=== PATIENT | male | born 1960 | race Caucasian/White ===

== ENCOUNTER 2016-10-30 18:51 | Emergency (ER) | payer OTHER ==
[~2016-10-30] VITALS: Ht 175.3 cm; Wt 99.8 kg
[~2016-10-30 18:51] MED LIST: ACHD5005 PO; AMLO10TA2 PO; AMLO2.5T PO; AMLO5TAB4 PO; ASP81TEC PO; ATR20T PO; ATRV10T PO; CEFU250T11 PO; CPR500T PO; DLT240CCR PO; HCT25T PO; HYDR-1231 PO; HYDR-3816 PO; HYDR118S10 PO; HYDR1TAB66 PO; HYDR1TAB8 OP; HYDR25CA92 PO; HYDR25TA4 PO; LEVO500T69 PO; LEVO750T6 PO; LOVA40TA2 PO; METF-478 PO; METF500T4 PO; METH4TAB PO; METO-274 PO; METO100T5 PO; MULT1CAP27 PO; NAPR-243 PO; OMG1KC PO; OXYC-12 PO; VITA200C18 PO
--- OUTSIDE RECORDS SUMMARY | 2016-10-30 18:57 | XMS REPORT | Continuity of Care Document ---
Author Author [facility] Organization [facility] Address Unknown Phone Unavailable Care Team Providers Care Service Director Name Role Phone TASNEEM TILLMAN MD PCP Insurance Providers Payer Name Policy Number Subscriber Name Relationship UMR [id number] Jael Magaña 18 Self / Same As Patient Advance Directives Directive Response Recorded Date/Time Advance Directives No 06/05/16 3:17pm Health Care Power of Cake Mixer No 06/05/16 3:17pm Organ Donor No 06/05/16 3:17pm Resuscitation Status Full Code 06/05/16 3:17pm Problems Active Problems Medical Problem Onset Date Status Fall on same level from slipping Unknown Acute Sprain and strain of foot Unknown Acute contusion of rib Unknown Acute Medications Current Home Medications Medication Dose Units Route Directions Days/Qty Instructions Start Date Aspirin 81 Mg 81 Mg Oral Daily 08/06/11 Hydrochlorothiazide 25 Mg 12.5 Mg Oral Daily 04/11/12 Naproxen 500 Mg 1 Each Oral Twice A Day as needed 06/20/12 Atorvastatin Calcium 20 Mg 1 Each Oral Daily 08/21/13 Amlodipine Besylate 5 Mg Unknown Dose Oral Daily 04/19/15 Metformin Hcl 500 Mg Unknown Dose Oral As Directed 04/19/15 Hydrocodone/Acetaminophen 1 Each 1 Each Oral Every 6 Hours for Pain 04/19/15 Past Home Medications Medication Directions Ordered Status Ciprofloxacin 500 Mg Tablet, 1 Tab Oral Twice A Day 04/29/10 Discontinued Hydrocodone Bitartrate/Ibuprofen 1 Each Tablet, 1 - 2 Each Ophthalmic Q 4 - 6 Hrs Prn 04/29/10 Discontinued Lovastatin (Mevacor) 40 Mg Tablet, 1 Each Oral Daily With Supper 08/06/11 Discontinued Metoprolol Succinate 100 Mg Tab.sr.24h, 100 Mg Oral Twice A Day 08/06/11 Discontinued Vitamin E 200 Unit Capsule, 200 Unit Oral Daily 08/06/11 Discontinued Fish Oil 1,000 Mg Cap, 1000 Mg Oral Daily 08/06/11 Discontinued Multivitamins 1 Each Capsule, 1 Tab Oral Daily 08/06/11 Discontinued Atorvastatin Calcium 10 Mg Tablet, 1 Each Oral Daily 08/06/11 Discontinued Hydrocodone Bit/Acetaminophen 1 Each Tablet, 5 - 500 Mg Oral As Needed Discontinued Atorvastatin Calcium 20 Mg Tablet, 20 Mg Oral Daily 04/12/12 Discontinued Acetaminophen/Hydrocodone Bitart 1 Each Tablet, 1 - 2 Tab Oral Every 4HRS as needed 04/12/12 Discontinued Levofloxacin 500 Mg Tab, 1 Each Oral Daily 04/14/12 Discontinued Cefuroxime Axetil (Ceftin) 250 Mg Tablet, 1 Each Oral Twice A Day 04/14/12 Discontinued Oxycodone Hcl/Acetaminophen 1 Each Tablet, 1 - 2 Each Oral Every 4HRS Discontinued Methylprednisolone 4 Mg/Dose-Pack Tab.ds.pk, 0 Oral As Directed 04/21/12 Discontinued Hydroxyzine Pamoate 25 Mg Capsule, 25 Mg Oral Every 4HRS as needed 04/21/12 Discontinued Diltiazem Hcl 240 Mg Cap.sr.24h, 1 Each Oral Daily 04/21/12 Discontinued Levofloxacin 750 Mg Tablet, 750 Mg Oral 04/21/12 Discontinued Ciprofloxacin 500 Mg Tablet, 1 Tab Oral Twice A Day 06/20/12 Discontinued Acetaminophen/Hydrocodone Bitart 1 Each Tablet, 1 - 2 Each Oral Every 6 Hours as needed 06/20/12 Discontinued Amlodipine Besylate (Norvasc 2.5 Mg) 2.5 Mg Tablet, 1 Each Oral Daily Discontinued Hydrocodone Bit/Acetaminophen 1 Tab Tablet, 1 Tab Oral Every 4HRS as needed for Pain 08/21/13 Discontinued Social History Social History Problem Response Recorded Date/Time Alcohol Use Denies Use 04/19/2015 1:11am Recreational Drug Use No 04/19/2015 1:11am Recent Foreign Travel No 06/05/2016 3:17pm Recent Infectious Disease Exposure No 06/05/2016 3:17pm Smoking Status Never a Smoker 06/05/2016 3:17pm Do you dip or chew tobacco? No 04/19/2015 1:11am Recent Hopitalizations No 06/05/2016 3:17pm Query Response Start Date Stop Date Smoking Status Never a Smoker Hospital Discharge Instructions No hospital discharge instructions. Plan of Care Discharge Date 06/05/16 4:04pm Prescriptions See Medication Section Functional Status No functional status results. Allergies, Adverse Reactions, Alerts No known allergies. Immunizations No immunization records. Vital Signs Acute Vital Signs Vital Response Date/Time Height (Feet) 5 feet 06/05/2016 3:17pm Height (Inches) 9.00 inches 06/05/2016 3:17pm Height (Calculated Centimeters) 175.383944 cm 06/05/2016 3:17pm Weight (Pounds) 215 pounds 06/05/2016 3:17pm Weight (Ounces) 0.0 oz 06/05/2016 3:17pm Weight (Calculated Grams) 56228.36 gm 06/05/2016 3:17pm Weight (Calculated Kilograms) 97.151399 kilograms 06/05/2016 3:17pm Calculated BMI 31.8 06/05/2016 3:17pm Results No known relevant diagnostic tests, laboratory data and/or discharge summary. Procedures No known history of procedures. Encounters Encounter Location Arrival/Admit Date Discharge/Depart Date Attending Provider Departed Clinic [facility] 06/05/16 5:59am 06/05/16 4: 04pm BEBA SEGURA MD
[2016-10-30] MEDS ORDERED: AMLO5TAB4 PO (19:58)
[2016-10-30] MEDS ORDERED: ATOR10TA PO (19:58)
[2016-10-30 20:24] LABS: BILIRUBIN,URINE NEGATIVE (NEGATIVE); KETONES,URINE NEGATIVE (NEGATIVE); LEUKOCYTE ESTERASE ,URINE NEGATIVE (NEGATIVE); NITRITE,URINE NEGATIVE (NEGATIVE); PH,URINE 6 (5-9); PROTEIN,URINE NEGATIVE (NEGATIVE); UROBILINOGEN,URINE NORMAL (NORMAL)
[2016-10-30 21:15] LABS: BASOPHILS % (AUTO) 0 % (0-10); EOSINOPHILS # (AUTO) 0.1 10^3/uL (0.0-0.3); EOSINOPHILS % (AUTO) 1 % (0-10); LYMPHOCYTES # (AUTO) 2.2 X 10^3 (1.0-4.0); LYMPHOCYTES % (AUTO) 31 % (12-44); MEAN CORPUSCULAR HEMOGLOBIN 31 PG (25-34); MEAN CORPUSCULAR HGB CONC 35 G/DL (32-36); MEAN CORPUSCULAR VOLUME 88 FL (80-99); MEAN PLATELET VOLUME 10.7 FL (7.4-10.4); MONOCYTES # (AUTO) 0.8 X 10^3 (0.0-1.0); MONOCYTES % (AUTO) 11 % (0-12); NEUTROPHILS % (AUTO) 57 % (42-75); PLATELET COUNT 205 10^3/uL (130-400); RED BLOOD COUNT 4.91 10^6/uL (4.35-5.85); RED CELL DISTRIBUTION WIDTH 14.4 % (10.0-14.5); WHITE BLOOD COUNT 7.1 10^3/uL (4.3-11.0)
[2016-10-30 21:24] LABS: PROTHROMBIN TIME PATIENT 12.9 SEC (12.2-14.7)
--- NOTE | 2016-10-30 21:25 | Diagnostic Imaging Report ---
INDICATION: Arrhythmia COMPARISONS: 08/21/2013 FINDINGS: Single view of the chest shows the cardiac contour to be normal. No consolidations are seen. There is no effusion or pneumothorax. Soft tissues and bony thorax are normal. IMPRESSION: No acute cardiopulmonary changes. Dictated by: Dictated on workstation # [id number]
[2016-10-30 21:33] LABS: ALANINE AMINOTRANSFERASE 36 U/L (0-55); ALBUMIN 4.1 G/DL (3.2-4.5); ANION GAP 14 MMOL/L (5-14); ASPARTATE AMINO TRANSFERASE 20 U/L (5-34); BILIRUBIN,TOTAL 0.5 MG/DL (0.1-1.0); BLOOD UREA NITROGEN 26 MG/DL (7-18); BUN/CREATININE RATIO 28; CALCIUM 9.3 MG/DL (8.5-10.1); CARBON DIOXIDE 20 MMOL/L (21-32); CHLORIDE 107 MMOL/L (98-107); CREATININE SERUM 0.94 MG/DL (0.60-1.30); GFR ESTIMATED > 60; GLUCOSE 100 MG/DL (70-105); MAGNESIUM 2.5 MG/DL (1.8-2.4); POTASSIUM 3.7 MMOL/L (3.6-5.0); SODIUM 141 MMOL/L (135-145); TOTAL PROTEIN 6.7 G/DL (6.4-8.2)
[2016-10-30 21:42] LABS: MYOGLOBIN SERUM 34.7 NG/ML (10.0-92.0)
--- NOTE | 2016-10-30 22:28 | ED General ---
General Chief Complaint: Back Problems Stated Complaint: BACK PAIN Nursing Triage Note: PT C/O LOW BACK PAIN WITH FREQUENT URINATION TODAY. Nursing Sepsis Screen: No Definite Risk Source of Information: Patient Exam Limitations: No Limitations History of Present Illness Time Seen by Provider: 20:00 Initial Comments This patient presents to emergency room with lower back pain primarily on the left above the SI joint rated as 5/10. He denies any injury or strenuous activity. He also reports urinary frequency and has hesitance. He denies any prior prostate problems. He has to wake 1-2 times in the night to urinate. He has a prior history of renal stones but this does not feel similar. He took ibuprofen 400 mg at home which did not help much. Irregular heart rhythm was noted incidentally on exam. Allergies and Home Medications Allergies Coded Allergies: No Known Drug Allergies (Unverified , 08/06/11) Home Medications Amlodipine Besylate 5 Mg Tablet 5 MG PO DAILY (Reported) Apixaban 5 Mg Tablet #30 5 MG PO BID Prescribed by: TITUS VILLAFANA on 10/30/162237 Aspirin 81 Mg Tabec 81 MG PO DAILY (Reported) Atorvastatin Calcium 10 Mg Tablet 10 MG PO DAILY (Reported) Cyclobenzaprine HCl 10 Mg Tablet #10 10 MG PO HS PRN PRN SPASMS Prescribed by: TITUS VILLAFANA on 10/30/162237 Hydrochlorothiazide 25 Mg Tablet 25 MG PO DAILY (Reported) Metformin HCl 500 Mg Tab.er.24 500 MG PO DAILY (Reported) Metoprolol Succinate 100 Mg Tab.er.24h 100 MG PO DAILY (Reported) Tramadol HCl 50 Mg Tablet #10 50 MG PO Q6H PRN PRN PAIN Prescribed by: TITUS VILLAFANA on 10/30/162237 Constitutional: no symptoms reported EENTM: no symptoms reported Respiratory: no symptoms reported Cardiovascular: see HPI Gastrointestinal: no symptoms reported Genitourinary: see HPI Musculoskeletal: see HPI Skin: no symptoms reported Psychiatric/Neurological: No Symptoms Reported Hematologic/Lymphatic: No Symptoms Reported Past Sqiisms-Uxhonf-Xnqety Hx Patient Social History Alcohol Use: Denies Use Recreational Drug Use: No Smoking Status: Never a Smoker Recent Foreign Travel: No Contact w/Someone Who Travel: No Recent Infectious Disease Expo: No Recent Hopitalizations: No Immunizations Up To Date Tetanus Booster (TDap): More than 5yrs Date of Pneumonia Vaccine: May 31, 2012 Date of Influenza Vaccine: Jun 03, 2016 Seasonal Allergies Seasonal Allergies: Yes Surgeries HX Surgeries: Yes Surgeries: Appendectomy Respiratory Hx Respiratory Disorders: No Respiratory Disorders: Sleep Apnea Cardiovascular Hx Cardiac Disorders: Yes Cardiac Disorders: High Cholesterol, Hypertension Neurological Hx Neurological Disorders: No Reproductive System Hx Reproductive Disorders: No Sexually Transmitted Disease: No HIV/AIDS: No Genitourinary Hx Genitourinary Disorders: Yes Genitourinary Disorders: Renal Failure Gastrointestinal Hx Gastrointestinal Disorders: Yes (hx of polyps) Gastrointestinal Disorders: Polyps Musculoskeletal Hx Musculoskeletal Disorders: No Endocrine Hx Endocrine Disorders: Yes ("PREDIABETIC") Endocrine Disorders: Diabetes, Non-Insulin dep HEENT HX ENT Disorders: No Hearing Impairment: Denies Cancer Hx Cancer: No Psychosocial Hx Psychiatric Problems: No Integumentary HX Skin/Integumentary Disorder: No Blood Transfusions Hx Blood Disorders: No Adverse Reaction to a Blood Tr: No Family Medical History Significant Family History: No Pertinent Family Hx, Heart Disease Physical Exam Vital Signs Vital Sign - Last 12Hours 10/30/16 10/30/16 19:54 22:54 Temp 97.0 Pulse 79 Resp 16 B/P 123/89 Pulse Ox 94 Capillary Refill : Less Than 3 Seconds General Appearance: No Apparent Distress WD/WN HEENT: PERRL/EOMI Normal ENT Inspection Pharynx Normal Neck: Normal Inspection Respiratory: Lungs Clear Normal Breath Sounds No Accessory Muscle Use No Respiratory Distress Cardiovascular: No Edema Irregularly Irregular Gastrointestinal: Normal Bowel Sounds Non Tender Soft Back: Normal Inspection Other (Tenderness over the left SI joint area) Extremity: Normal Inspection No Pedal Edema Neurologic/Psychiatric: Alert Oriented x3 No Motor/Sensory Deficits Normal 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 Norm as Tested Skin: Normal Color Warm/Dry Progress/Results/Core Measures Results/Orders Lab Results Laboratory Tests Test 10/30/16 19:50 10/30/16 21:00 Range/Units Urine Bacteria NONE /HPF Urine Bilirubin NEGATIVE NEGATIVE Urine Casts NONE /LPF Urine Clarity CLEAR Urine Color YELLOW Urine Crystals NONE /LPF Urine Culture Indicated NO Urine Glucose (UA) NEGATIVE NEGATIVE Urine Ketones NEGATIVE NEGATIVE Urine Leukocyte Esterase NEGATIVE NEGATIVE Urine Mucus NEGATIVE /LPF Urine Nitrite NEGATIVE NEGATIVE Urine Protein NEGATIVE NEGATIVE Urine RBC RARE /HPF Urine RBC (Auto) NEGATIVE NEGATIVE Urine Specific [place] 1.015 L 1.016-1.022 Urine Urobilinogen NORMAL NORMAL MG/DL Urine WBC NONE /HPF Urine pH 6 5-9 Activated Partial Thromboplast Time 28 24-35 SEC Alanine Aminotransferase (ALT/SGPT) 36 0-55 U/L Albumin 4.1 3.2-4.5 G/DL Alkaline Phosphatase 85 40-136 U/L Anion Gap 14 5-14 MMOL/L Aspartate Amino Transf (AST/SGOT) 20 5-34 U/L BUN/Creatinine Ratio 28 Basophils # (Auto) 0.0 0.0-0.1 10^3/uL Basophils (%) (Auto) 0 0-10 % Blood Urea Nitrogen 26 H 7-18 MG/DL Calcium Level 9.3 8.5-10.1 MG/DL Carbon Dioxide Level 20 L 21-32 MMOL/L Chloride Level 107 98-107 MMOL/L Creatinine 0.94 0.60-1.30 MG/DL Eosinophils # (Auto) 0.1 0.0-0.3 10^3/uL Eosinophils (%) (Auto) 1 0-10 % Estimat Glomerular Filtration Rate > 60 Glucose Level 100 70-105 MG/DL Hematocrit 43 40-54 % Hemoglobin 15.0 13.3-17.7 G/DL INR Comment 1.0 0.8-1.4 Lymphocytes # (Auto) 2.2 1.0-4.0 X 10^3 Lymphocytes (%) (Auto) 31 12-44 % Magnesium Level 2.5 H 1.8-2.4 MG/DL Mean Corpuscular Hemoglobin 31 25-34 PG Mean Corpuscular Hemoglobin Concent 35 32-36 G/DL Mean Corpuscular Volume 88 80-99 FL Mean Platelet Volume 10.7 H 7.4-10.4 FL Monocytes # (Auto) 0.8 0.0-1.0 X 10^3 Monocytes (%) (Auto) 11 0-12 % Myoglobin 34.7 10.0-92.0 NG/ML Neutrophils # (Auto) 4.0 1.8-7.8 X 10^3 Neutrophils (%) (Auto) 57 42-75 % Platelet Count 205 130-400 10^3/uL Potassium Level 3.7 3.6-5.0 MMOL/L Prothrombin Time 12.9 12.2-14.7 SEC Red Blood Count 4.91 4.35-5.85 10^6/uL Red Cell Distribution Width 14.4 10.0-14.5 % Sodium Level 141 135-145 MMOL/L TSH [place] Testing 2.09 0.35-4.94 UIU/ML Total Bilirubin 0.5 0.1-1.0 MG/DL Total Protein 6.7 6.4-8.2 G/DL Troponin I < 0.30 <0.30 NG/ML White Blood Count 7.1 4.3-11.0 10^3/uL My Orders Orders-TITUS BECKMAN MD Ua Culture If Indicated (10/30/16 20:06) Bladder Scan (10/30/16 20:18) Monitor-Rhythm Ecg Trace Only (10/30/16 20:50) Cbc With Automated Diff (10/30/16 20:53) Magnesium (10/30/16 20:53) Chest 1 View, Ap/Pa Only (10/30/16 20:53) Ekg Tracing (10/30/16 20:53) Cardiac Profile 1 (10/30/16 20:53) Comprehensive Metabolic Panel (10/30/16 20:53) Myoglobin Serum (10/30/16 20:53) Protime With Inr (10/30/16 20:53) Partial Thromboplastin Time (10/30/16 20:53) Saline Lock/Iv-Start (10/30/16 20:53) Thyroid Analyzer (10/30/16 20:53) Apixaban Tablet (Eliquis Tablet) (10/30/16 22:30) Cyclobenzaprine Tablet (Flexeril Tablet) (10/30/16 22:30) Medications Given in ED Current Medications Medications Dose Ordered Sig/Hussain Route Start Time Stop Time Status Last Admin Dose Admin Apixaban 5 mg ONCE ONCE PO 10/30/16 22:30 10/30/16 22:31 DC 10/30/16 22:47 5 MG Cyclobenzaprine HCl 10 mg ONCE ONCE PO 10/30/16 22:30 10/30/16 22:31 DC 10/30/16 22:47 10 MG Vital Signs/I&O Vital Sign - Last 12Hours 10/30/16 22:54 Pulse 75 Resp 16 Pulse Ox 94 Blood Pressure Mean: 100 Progress Note : Progress Note UA and bladder scan were normal. Patient incidentally was diagnosed with new onset atrial fibrillation. Case was reviewed with Dr. Gomez requested that he be started on Eliquis milligrams twice daily. The first dose was administered in the ER. See discharge instructions. ECG Initial ECG Impression Date: Oct 30, 2016 Initial ECG Impression Time: 21:05 Initial ECG Rate: 77 Initial ECG Rhythm: A Fib/Flutter Comment Atrial fibrillation with a rate of 77. No ST elevation or depression. Diagnostic Imaging Diagonstic Imaging: Xray Plain Films/CT/US/NM/MRI: chest Comments Chest x-ray viewed by me and report reviewed. See report below: NAME: JAEL GROSS [facility] REC#: [id number] PT STATUS: REG ER : 1960 PHYSICIAN: TITUS BECKMAN MD ADMIT DATE: 10/30/16/ER Signed Date of Exam: 10/30/16 CHEST 1 VIEW, AP/PA ONLY INDICATION: Arrhythmia COMPARISONS: 08/21/2013 FINDINGS: Single view of the chest shows the cardiac contour to be normal. No consolidations are seen. There is no effusion or pneumothorax. Soft tissues and bony thorax are normal. IMPRESSION: No acute cardiopulmonary changes. Dictated by: Dictated on workstation # [id number] Dict: 10/30/162119 Trans: 10/30/162133 [facility] [id number] Interpreted by: TESFAYE GASCA MD Electronically signed by:TESFAYE GASCA MD 10/30/162135 Departure Impression Impression: Primary Impression: New onset atrial fibrillation Additional Impression: Lower back pain Qualified Code: M54.5 - Low back pain Disposition: 01 HOME, SELF-CARE Condition: Stable Departure-Patient Inst. Decision time for Depature: 22:40 Referrals: ZENAIDA MELENDEZ DO (PCP/Family) Primary Care Physician Patient Instructions: Atrial Fibrillation, Low Back Pain (DC) Add. Discharge Instructions: Take your Eliquis twice daily as prescribed. Call Dr. Gomez's office tomorrow to schedule an appointment. He would like to see you in the office on Thursday. If you have trouble obtaining your medication, you may stop by his office tomorrow for samples. Return to the emergency room if you have any worsening symptoms, symptoms of stroke such as numbness, weakness, or difficulty with speech, or any unusual bleeding. For your lower back pain you may take Tylenol (acetaminophen) up to 1000 mg every 6 hours as needed. Add Ultram as prescribed for pain not controlled by Tylenol. Avoid NSAIDs such as ibuprofen or Aleve while taking Eliquis. Flexeril (cyclobenzaprine) can be used at nighttime to relax her muscles. All discharge instructions reviewed with patient and/or family. Voiced understanding. Scripts Tramadol HCl (Ultram)50 Mg [id number] Mg PO Q6H PRN PAIN #10 TAB Prov:TITUS BECKMAN MD 10/30/16 Cyclobenzaprine HCl 10 Mg [id number] Mg PO HS PRN SPASMS #10 TAB Prov:TITUS BECKMAN MD 10/30/16 Apixaban (Eliquis)5 Mg Tablet5 Mg PO BID #30 TAB Prov:TITUS BECKMAN MD 10/30/16 TITUS BECKMAN MD Oct 30, 2016 22:28
[2016-10-30] MEDS ORDERED: APIXABAN 5 MG (ELIQUIS) TABLET PO ONE (22:30)
[2016-10-30] MEDS ORDERED: CYCLOBENZAPRINE 10 MG (FLEXERIL) TAB PO ONE (22:30)
[2016-10-30] MEDS ORDERED: TRAM-42 PO (22:38)
[2016-10-30] MEDS ORDERED: CYCL10TA9 PO (22:38)
[2016-10-30] MEDS ORDERED: APIX5TAB PO (22:38)
[2016-10-30 22:54] VITALS: BP 135/100
== END 2016-10-30 22:54 | disposition home or self-care (01) ==
LOC: EDUNIT# 18:51 → ER 18:52
DX: M54.5 Low back pain (principal); I48.2 Chronic atrial fibrillation; I10 Essential (primary) hypertension; E11.9 Type 2 diabetes mellitus without complications; Z79.01 Long term (current) use of anticoagulants; Z79.899 Other long term (current) drug therapy; Z79.84 Long term (current) use of oral hypoglycemic drugs
CPT/HCPCS: 36415; 71010; 80053; 81000; 83735; 83874; 84443; 84484; 85025; 85610; 85730; 93005; 93041

== ENCOUNTER 2016-11-02 20:45 | Emergency (ER) | payer OTHER ==
[~2016-11-02] VITALS: Ht 175.3 cm; Wt 99.8 kg
[~2016-11-02 20:45] MED LIST changes: +APIX5TAB PO; +ATOR10TA PO; +CYCL10TA9 PO; +TRAM-42 PO
--- OUTSIDE RECORDS SUMMARY | 2016-11-02 20:52 | XMS REPORT | Continuity of Care Document ---
Author Author [facility] Organization [facility] Address Unknown Phone Unavailable Care Team Providers Care Tester Regulator Name Role Phone ZENAIDA MELENDEZ DO PCP Insurance Providers Payer Name Policy Number Subscriber Name Relationship [employer]MR [id number] Jael Magaña 18 Self / Same As Patient Advance Directives Directive Response Recorded Date/Time Advance Directives No 10/30/16 7:59pm Health Care Power of Leg Man No 10/30/16 7:59pm Organ Donor No 10/30/16 7:59pm Resuscitation Status Full Code 10/30/16 7:59pm Chief Complaint and Reason for Visit Chief Complaint Back Problems Reason for Visit Lower back pain New onset atrial fibrillation Problems Active Problems Medical Problem Onset Date Status Fall on same level from slipping Unknown Acute Lower back pain Unknown Acute New onset atrial fibrillation Unknown Acute Sprain and strain of foot Unknown Acute contusion of rib Unknown Acute Medications Current Home Medications Medication Dose Units Route Directions Days/Qty Instructions Start Date Aspirin 81 Mg 81 Mg Oral Daily 08/06/11 Hydrochlorothiazide 25 Mg 25 Mg Oral Daily 06/09/16 Metformin Hcl 500 Mg 500 Mg Oral Daily 06/09/16 Metoprolol Succinate 100 Mg 100 Mg Oral Daily 06/09/16 Amlodipine Besylate 5 Mg 5 Mg Oral Daily 10/30/16 Atorvastatin Calcium 10 Mg 10 Mg Oral Daily 10/30/16 Apixaban 5 Mg 5 Mg Oral Twice A Day 30 10/30/16 Cyclobenzaprine Hcl 10 Mg 10 Mg Oral Bedtime as needed for Spasms 10/30/16 Tramadol Hcl 50 Mg 50 Mg Oral Every 6 Hours as needed for Pain 10 10/17 Past Home Medications Medication Directions Ordered Status [...] - 500 Mg Oral As Needed Discontinued Hydrochlorothiazide 25 Mg Tab, 12.5 Mg Oral Daily 04/11/12 Discontinued Atorvastatin Calcium 20 Mg Tablet, 20 [...] Every 6 Hours as needed 06/20/12 Discontinued Naproxen 500 Mg Tablet, 1 Each Oral Twice A Day as needed 06/20/12 Discontinued Atorvastatin Calcium 20 Mg Tablet, 1 Each Oral Daily 08/21/13 Discontinued Amlodipine Besylate (Norvasc 2.5 Mg) 2.5 Mg Tablet, 1 Each Oral Daily Discontinued Hydrocodone Bit/Acetaminophen 1 Tab Tablet, 1 Tab Oral Every 4HRS as needed for Pain 08/21/13 Discontinued Amlodipine Besylate 5 Mg Tablet, Unknown Dose Oral Daily 04/19/15 Discontinued Metformin Hcl 500 Mg Tablet, Unknown Dose Oral As Directed 04/19/15 Discontinued Hydrocodone/Acetaminophen 1 Each Tablet, 1 Each Oral Every 6 Hours for Pain 04/19/15 Discontinued Amlodipine Besylate 10 Mg Tablet, 10 Mg Oral Daily 06/09/16 Discontinued Social History Social History Problem Response Recorded Date/Time Alcohol Use Denies Use 04/19/2015 1:11am Recreational Drug Use No 04/19/2015 1:11am Recent Foreign Travel No 10/30/2016 7:54pm Recent Infectious Disease Exposure No 10/30/2016 7:54pm Sexually Transmitted Disease No 10/30/2016 7:59pm HIV/AIDS No 10/30/2016 7:59pm Smoking Status Never a Smoker 10/30/2016 7:59pm Do you dip or chew tobacco? No 04/19/2015 1:11am Recent Hopitalizations No 10/30/2016 7:59pm Sexually Transmitted Disease No 10/30/2016 7:59pm Query Response Start Date Stop Date Smoking Status Never a Smoker Hospital Discharge Instructions No hospital discharge instructions. Plan of Care Discharge Date 10/30/16 10:54pm Disposition 01 HOME, SELF-CARE Condition at Discharge Stable Instructions/Education Provided Atrial Fibrillation Low Back Pain (DC) Prescriptions See Medication Section Referrals ZENAIDA MELENDEZ DO - Primary Care Physician Additional Instructions/Education Take your Eliquis twice daily as prescribed. Call Dr. Gomez's office tomorrow to schedule an appointment. He would like to see you in the office on Thursday. If you have trouble obtaining your medication, you may stop by his office tomorrow for samples. Return to the emergency room if you have any worsening symptoms, symptoms of stroke such as numbness, weakness, or difficulty with speech, or any unusual bleeding. For your lower back pain you may take Tylenol (acetaminophen) up to 1000 mg every 6 hours as needed. Add Ultram as prescribed for pain not controlled by Tylenol. Avoid NSAIDs such as ibuprofen or Aleve while taking Eliquis. Flexeril (cyclobenzaprine) can be used at nighttime to relax her muscles. All discharge instructions reviewed with patient and/or family. Voiced understanding. Functional Status No functional status results. Allergies, Adverse Reactions, Alerts No known allergies. Immunizations No immunization records. Vital Signs Acute Vital Signs Vital Response Date/Time Temperature (Fahrenheit) 97.0 degrees F (97.6 - 99.5) 10/30/2016 7:54pm Temperature (Calculated Celsius) 36.75311 degrees C (36.4 - 37.5) 10/30/2016 7:54pm Pulse Rate (adult) 75 bpm (60 - 90) 10/30/2016 10:54pm Respiratory Rate 16 bpm (12 - 24) 10/30/2016 10:54pm O2 Sat by Pulse Oximetry 94 % (88 - 100) 10/30/2016 10:54pm Blood Pressure 135/100 mm Hg 10/30/2016 10:54pm Blood Pressure Mean 100 mm Hg 10/30/2016 7:54pm Pain Numeric Pain Scale 4 10/30/2016 10:54pm Height (Feet) 5 feet 10/30/2016 7:54pm Height (Inches) 9 inches 10/30/2016 7:54pm Height (Calculated Centimeters) 175.310477 cm 10/30/2016 7:54pm Weight (Pounds) 220 pounds 10/30/2016 7:54pm Weight (Calculated Kilograms) 99.292515 kilograms 10/30/2016 7:54pm Capillary Refill Capillary Refill Less Than 3 Seconds 10/30/2016 7:54pm Height 5 ft 9 in Weight 220 lb Body Mass Index 32.5 kg/m^2 Results Laboratory Results Test Name Result Units Flags Reference Collection Date/Time Result Date/ Time Comments White Blood Count 7.1 10^3/uL 4.3-11.0 10/30/2016 9:00pm 10/30/2016 9: 16pm Red Blood Count 4.91 10^6/uL 4.35-5.85 10/30/2016 9:00pm 10/30/2016 9: 16pm Hemoglobin 15.0 G/DL 13.3-17.7 10/30/2016 9:00pm 10/30/2016 9:16pm Hematocrit 43 % 40-54 10/30/2016 9:00pm 10/30/2016 9:16pm Mean Corpuscular Volume 88 FL 80-99 10/30/2016 9:00pm 10/30/2016 9: 16pm Mean Corpuscular Hemoglobin 31 PG 25-34 10/30/2016 9:00pm 10/30/2016 9: 16pm Mean Corpuscular Hemoglobin Concent 35 G/DL 32-36 10/30/2016 9:00pm 10/2016 9:16pm Red Cell Distribution Width 14.4 % 10.0-14.5 10/30/2016 9:00pm 2016 9:16pm Platelet Count 205 10^3/uL 130-400 10/30/2016 9:00pm 10/30/2016 9:16pm Mean Platelet Volume 10.7 FL H 7.4-10.4 10/30/2016 9:00pm 10/30/2016 9: 16pm Neutrophils (%) (Auto) 57 % 42-75 10/30/2016 9:00pm 10/30/2016 9:16pm Lymphocytes (%) (Auto) 31 % 12-44 10/30/2016 9:00pm 10/30/2016 9:16pm Monocytes (%) (Auto) 11 % 0-12 10/30/2016 9:00pm 10/30/2016 9:16pm Eosinophils (%) (Auto) 1 % 0-10 10/30/2016 9:00pm 10/30/2016 9:16pm Basophils (%) (Auto) 0 % 0-10 10/30/2016 9:00pm 10/30/2016 9:16pm Neutrophils # (Auto) 4.0 X 10^3 1.8-7.8 10/30/2016 9:00pm 10/30/2016 9: 16pm Lymphocytes # (Auto) 2.2 X 10^3 1.0-4.0 10/30/2016 9:00pm 10/30/2016 9: 16pm Monocytes # (Auto) 0.8 X 10^3 0.0-1.0 10/30/2016 9:00pm 10/30/2016 9: 16pm Eosinophils # (Auto) 0.1 10^3/uL 0.0-0.3 10/30/2016 9:00pm 10/30/2016 9 :16pm Basophils # (Auto) 0.0 10^3/uL 0.0-0.1 10/30/2016 9:00pm 10/30/2016 9: 16pm Prothrombin Time 12.9 SEC 12.2-14.7 10/30/2016 9:00pm 10/30/2016 9: 25pm INR Comment 1.0 0.8-1.4 10/30/2016 9:00pm 10/30/2016 9:25pm INTERPRETIVE DATA SUGGESTED THERAPEUTIC RANGE FOR INR'S: VENOUS THROMBOSIS, PULMONARY EMBOLISM, OR PREVENTION OF SYSTEMIC EMBOLISM (EG. IN ATRIAL FIBRILLATION): 2.0 - 3.0 MECHANICAL PROSTHETIC HEART VALVES: 2.5 - 3.5* *NOTE: INR'S UP TO 4.5 MAY BE NECESSARY IN SELECTED GROUPS OF HIGH RISK PATIENTS. [employer] CONSENSUS CONFERENCE ON ANTITHROMBOTIC THERAPY (2000). Activated Partial Thromboplast Time 28 SEC 24-35 10/30/2016 9:00pm 10/2016 9:43pm Urine Color YELLOW 10/30/2016 7:50pm 10/30/2016 8:31pm Urine Clarity CLEAR 10/30/2016 7:50pm 10/30/2016 8:31pm Urine pH 6 5-9 10/30/2016 7:50pm 10/30/2016 8:31pm Urine Specific [place] 1.015 * 1.016-1.022 10/30/2016 7:50pm 2016 8:31pm Urine Protein NEGATIVE NEGATIVE 10/30/2016 7:50pm 10/30/2016 8:31pm Urine Glucose (UA) NEGATIVE NEGATIVE 10/30/2016 7:50pm 10/30/2016 8: 31pm Urine RBC (Auto) NEGATIVE NEGATIVE 10/30/2016 7:50pm 10/30/2016 8: 31pm Urine Ketones NEGATIVE NEGATIVE 10/30/2016 7:50pm 10/30/2016 8:31pm Urine Nitrite NEGATIVE NEGATIVE 10/30/2016 7:50pm 10/30/2016 8:31pm Urine Bilirubin NEGATIVE NEGATIVE 10/30/2016 7:50pm 10/30/2016 8: 31pm Urine Urobilinogen NORMAL MG/DL NORMAL 10/30/2016 7:50pm 10/30/2016 8: 31pm Urine Leukocyte Esterase NEGATIVE NEGATIVE 10/30/2016 7:50pm 2016 8:31pm Urine RBC RARE /HPF 10/30/2016 7:50pm 10/30/2016 8:31pm Urine WBC NONE /HPF 10/30/2016 7:50pm 10/30/2016 8:31pm Urine Bacteria NONE /HPF 10/30/2016 7:50pm 10/30/2016 8:31pm Urine Crystals NONE /LPF 10/30/2016 7:50pm 10/30/2016 8:31pm Urine Casts NONE /LPF 10/30/2016 7:50pm 10/30/2016 8:31pm Urine Mucus NEGATIVE /LPF 10/30/2016 7:50pm 10/30/2016 8:31pm Urine Culture Indicated NO 10/30/2016 7:50pm 10/30/2016 8:31pm Sodium Level 141 MMOL/L 135-145 10/30/2016 9:00pm 10/30/2016 9:38pm Potassium Level 3.7 MMOL/L 3.6-5.0 10/30/2016 9:00pm 10/30/2016 9:38pm Chloride Level 107 MMOL/L 98-107 10/30/2016 9:00pm 10/30/2016 9:38pm Carbon Dioxide Level 20 MMOL/L L 21-32 10/30/2016 9:00pm 10/30/2016 9: 38pm Anion Gap 14 MMOL/L 5-14 10/30/2016 9:00pm 10/30/2016 9:38pm Blood Urea Nitrogen 26 MG/DL H 7-18 10/30/2016 9:00pm 10/30/2016 9:38pm Creatinine 0.94 MG/DL 0.60-1.30 10/30/2016 9:00pm 10/30/2016 9:38pm BUN/Creatinine Ratio 28 10/30/2016 9:00pm 10/30/2016 9:38pm Estimat Glomerular Filtration Rate > 60 10/30/2016 9:00pm 2016 9:38pm GFR INTERPRETIVE DATA UNITS FOR ESTIMATED GFR (eGFR): mL/min/1.73 M2 REFERENCE RANGE FOR ESTIMATED GFR (eGFR) eGFR NORMAL eGFR >60 MODERATELY DECREASED eGFR 30-59 SEVERLY DECREASED eGFR 15-29 KIDNEY FAILURE <15 (OR DIALYSIS) Glucose Level 100 MG/DL 70-105 10/30/2016 9:00pm 10/30/2016 9:38pm Calcium Level 9.3 MG/DL 8.5-10.1 10/30/2016 9:00pm 10/30/2016 9:38pm Magnesium Level 2.5 MG/DL H 1.8-2.4 10/30/2016 9:00pm 10/30/2016 9:38pm Total Bilirubin 0.5 MG/DL 0.1-1.0 10/30/2016 9:00pm 10/30/2016 9:38pm Alkaline Phosphatase 85 U/L 40-136 10/30/2016 9:00pm 10/30/2016 9:38pm Aspartate Amino Transf (AST/SGOT) 20 U/L 5-34 10/30/2016 9:00pm 2016 9:38pm Alanine Aminotransferase (ALT/SGPT) 36 U/L 0-55 10/30/2016 9:00pm 10/30 9:38pm Troponin I < 0.30 NG/ML <0.30 10/30/2016 9:00pm 10/30/2016 9:42pm Myoglobin 34.7 NG/ML 10.0-92.0 10/30/2016 9:00pm 10/30/2016 9:42pm Total Protein 6.7 G/DL 6.4-8.2 10/30/2016 9:00pm 10/30/2016 9:38pm Albumin 4.1 G/DL 3.2-4.5 10/30/2016 9:00pm 10/30/2016 9:38pm TSH [place] Testing 2.09 UIU/ML 0.35-4.94 10/30/2016 9:00pm 10/30/2016 9:54pm Procedures Procedure Status Date Provider(s) Tracing only of electrocardiogram Active 10/30/16 TITUS BECKMAN MD Encounters Encounter Location Arrival/Admit Date Discharge/Depart Date Attending Provider Departed Emergency Room [facility] 10/30/16 6:52pm 10/30 10:54pm TITUS BECKMAN MD Recent Diagnosis
--- NOTE | 2016-11-02 22:08 | ED Back Pain ---
General Chief Complaint: Back Problems Stated Complaint: LOW BACK PAIN Nursing Triage Note: pt seen in ED on for same complaint, reports no relief of lower back pain even with use of Tramadol and Flexeril. Nursing Sepsis Screen: No Definite Risk Source of Information: Patient Exam Limitations: No Limitations History of Present Illness Time Seen by Provider: 22:17 Initial Comments 56-year-old male patient presents to the emergency department complaints of low back pain. Patient was seen in the emergency department on for similar complaints and was incidentally found to have atrial fibrillation. Patient states he is scheduled tomorrow with Dr. Gomez. Patient reports no improvement in low back pain with tramadol and Flexeril. Denies radiation down the legs. Does have pain into the SI region. Patient reports a history of back injury, but denies recent back injury. Patient reports he woke up with the back pain morning. Denies frequency, dysuria, hematuria, abdominal pain, shortness of air, chest pain, numbness, weakness, bowel incontinence, or bladder incontinence. Location: Lumbar Spine, Paraspinous Muscles Timing/Duration: 3-4 Days, Getting Worse Pain/Injury Location: Back Radiation: Other (SI joint bilaterally) Method of Injury: Unknown Modifying Factors: Improves With Immobilization, Worse With Movement, Worse With Pain Medication (no improvement with tramadol and Flexeril), Improves With Other (improved with standing) Associated Symptoms: muscle spasmsNo fever, No weakness, No numbness in legs/ feet, No tingling in legs/feet, No sensory/motor loss, lower back painNo loss of bladder control, No loss of bowel control Allergies and Home Medications Allergies Coded Allergies: No Known Drug Allergies (Unverified , 08/06/11) Home Medications Amlodipine Besylate 5 Mg Tablet 5 MG PO DAILY (Reported) Apixaban 5 Mg Tablet #30 5 MG PO BID Prescribed by: TITUS VILLAFANA on 10/30/162237 Aspirin 81 Mg Tabec 81 MG PO DAILY (Reported) Atorvastatin Calcium 10 Mg Tablet 10 MG PO DAILY (Reported) Cyclobenzaprine HCl 10 Mg Tablet #10 10 MG PO HS PRN PRN SPASMS Prescribed by: TITUS VILLAFANA on 10/30/162237 Hydrochlorothiazide 25 Mg Tablet 25 MG PO DAILY (Reported) Hydrocodone/Acetaminophen 1 Each Tablet #30 1 EACH PO Q4H PRN PRN PAIN Prescribed by: RAHUL SIEGEL on 11/02/162356 Metformin HCl 500 Mg Tab.er.24 500 MG PO DAILY (Reported) Metoprolol Succinate 100 Mg Tab.er.24h 100 MG PO DAILY (Reported) Orphenadrine Citrate 100 Mg Tablet.er #10 100 MG PO BID PRN PRN SPASMS Prescribed by: RAHUL SIEGEL on 11/02/162356 Prednisone 20 Mg Tab #8 40 MG PO DAILY Prescribed by: RAHUL SIEGEL on 11/02/162356 Tramadol HCl 50 Mg Tablet #10 50 MG PO Q6H PRN PRN PAIN Prescribed by: TITUS VILLAFANA on 10/30/162237 Constitutional: No chills, No dizziness, No fever, No malaise EENTM: no symptoms reported Respiratory: No cough, No short of breath Cardiovascular: No chest pain, No syncope Gastrointestinal: No abdominal pain, No constipation, No diarrhea, No hematemesis, No melena, No nausea, No vomiting Genitourinary: No decreased output, No dysuria, No frequency, No hematuria, No pain Musculoskeletal: see HPI back pain joint pain (SI joint bilaterally) muscle pain muscle stiffnessNo neck pain Skin: no symptoms reported Psychiatric/Neurological: Denies Numbness, Denies Paresthesia, Denies Tingling , Denies Weakness All Other Systems Reviewed Negative Unless Noted: Yes (Negative excepted noted.) Past Xalxgtp-Pyopwb-Lsksvn Hx Patient Social History Alcohol Use: Denies Use Recreational Drug Use: No Smoking Status: Never a Smoker 2nd Hand Smoke Exposure: No Recent Foreign Travel: No Contact w/Someone Who Travel: No Recent Infectious Disease Expo: No Recent Hopitalizations: No Immunizations Up To Date Tetanus Booster (TDap): More than 5yrs Date of Pneumonia Vaccine: May 31, 2012 Date of Influenza Vaccine: Jun 03, 2016 Seasonal Allergies Seasonal Allergies: Yes Surgeries HX Surgeries: Yes Surgeries: Appendectomy Respiratory Hx Respiratory Disorders: No Respiratory Disorders: Sleep Apnea Cardiovascular Hx Cardiac Disorders: Yes Cardiac Disorders: High Cholesterol, Hypertension Neurological Hx Neurological Disorders: No Reproductive System Hx Reproductive Disorders: No Sexually Transmitted Disease: No HIV/AIDS: No Genitourinary Hx Genitourinary Disorders: Yes Genitourinary Disorders: Renal Failure Gastrointestinal Hx Gastrointestinal Disorders: Yes (hx of polyps) Gastrointestinal Disorders: Polyps Musculoskeletal Hx Musculoskeletal Disorders: No Endocrine Hx Endocrine Disorders: Yes ("PREDIABETIC") Endocrine Disorders: Diabetes, Non-Insulin dep HEENT HX ENT Disorders: No Hearing Impairment: Denies Cancer Hx Cancer: No Psychosocial Hx Psychiatric Problems: No Integumentary HX Skin/Integumentary Disorder: No Blood Transfusions Hx Blood Disorders: No Adverse Reaction to a Blood Tr: No Reviewed Nursing Assessment Reviewed/Agree w Nursing PMH: Yes Family Medical History Significant Family History: No Pertinent Family Hx, Heart Disease Physical Exam Vital Signs Vital Sign - Last 12Hours 11/02/16 21:20 Temp 98.1 Pulse 81 Resp 18 B/P 138/96 Pulse Ox 96 O2 Delivery Room Air Capillary Refill : Less Than 3 Seconds General Appearance: No Apparent Distress WD/WN Cardiovascular: No Murmur Irregularly Irregular Respiratory: Lungs Clear Normal Breath Sounds No Respiratory Distress Gastrointestinal: Normal Bowel Sounds No Organomegaly No Pulsatile Mass Non Tender SoftNo Distended Back: Decreased Range of Motion Muscle Spasm (low back) Vertebral Tenderness ( lower lumbar spine and bilateral SI joints.) Extremity: Normal Capillary Refill Normal Inspection Normal Range of Motion Non Tender Neurologic/Psychiatric: Alert Oriented x3 No Motor/Sensory Deficits Normal Mood/Affect Skin: Normal Color Warm/Dry Progress/Results/Core Measures Results/Orders My Orders Orders-RAHUL SIEGEL Ct Lumbar Spine Wo (11/02/16 22:25) Morphine Injection (Morphine Injection (11/02/16 22:25) Orphenadrine Injection (Norflex Injectio (11/02/16 22:25) Prednisone Tablet (Deltasone Tablet) (11/02/16 22:30) Oxycodone/Apap 5/325mg Tablet (Percocet (11/02/16 23:30) Rx-Acetaminophen/Codeine (Rx-Tylenol #3) (11/03/16 00:15) Rx-Acetaminophen/Codeine (Rx-Tylenol #3) (11/03/16 00:00) Medications Given in ED Current Medications Medications Dose Ordered Sig/Hussain Route Start Time Stop Time Status Last Admin Dose Admin Prednisone 40 mg ONCE ONCE PO 11/02/16 22:30 11/02/16 22:31 DC 11/02/16 22:38 40 MG Vital Signs/I&O Vital Sign - Last 12Hours 11/02/16 11/03/16 21:20 00:12 Temp 98.1 Pulse 81 81 Resp 18 20 B/P 138/96 Pulse Ox 96 97 O2 Delivery Room Air Blood Pressure Mean: 110 Diagnostic Imaging Diagonstic Imaging: CT Plain Films/CT/US/NM/MRI: other (lumbar spine) Comments Multilevel degenerative changes of the lumbar spine. L2-L3 shows minimal retrolisthesis of L2 on L3 and posterior disc bulge causes mild canal narrowing. L3-L4 shows small posterior disc bulging and facet arthropathy that causes mild canal and foraminal narrowing. L4-L5 shows posterior disc bulge and facet arthropathy/ligament is hypertrophied causing moderate right foraminal narrowing, mild left foraminal narrowing, and mild canal narrowing. L5-S1 show severe disc space narrowing with vacuum disc phenomenon and mild endplate sclerosis. Posterior disc/osteophyte complex and facet arthropathy causing mild to moderate bilateral foraminal narrowing. Incidental mild atherosclerotic calcifications of the aorta noted. Reviewed: Other (statrad report reviewed by me. ) Departure Communication Progress Notes Diagnostic findings discussed with the patient. Patient did require Norflex, morphine, and Percocet in the emergency department with improvement in symptoms. Patient was given a take-home pack of Tylenol 3 to use until he could fill his prescriptions tomorrow morning at the pharmacy. Patient given prescriptions for Norflex, prednisone, and hydrocodone. Patient instructed to follow-up with the sports specialist of his choice for recheck, finalize radiology report, and possible need of MRI of the lumbar spine. Patient states he would like to follow-up with Dr. Trejo for further evaluation and management. Patient also instructed to follow-up with Dr. Gomez as previously scheduled tomorrow for recheck and discussion of the mild atherosclerotic calcifications of the aorta. All return precautions were discussed with the patient as described in the discharge instructions of this report. Patient voices understanding and agrees with the treatment plan. Patient case discussed with attending MD Seda; he agrees with the plan of care. Impression Impression: Primary Impression: Degenerative disc disease, lumbar Additional Impressions: Bulging lumbar disc Spinal stenosis, lumbar region Disposition: 01 HOME, SELF-CARE Condition: Improved Departure-Patient Inst. Decision time for Depature: 23:55 Referrals: ELVIRA SARMIENTO BRIAN J MD SULLIVAN, WILLIAM J DO (PCP/Family) Primary Care Physician Patient Instructions: Degenerative Disc Disease (DC), Low Back Pain (DC), Spinal Stenosis (DC) Add. Discharge Instructions: All discharge instructions reviewed with patient and/or family. Voiced understanding. Medications as instructed. Do not use tramadol with hydrocodone. Do not use Flexeril/cyclobenzaprine with Norflex. Heating pad or pack as needed for pain. No lifting, pushing, pulling, twisting, bending, or climbing 7-10 days. Follow-up with Dr. Melendez or Dr. Trejo for recheck, finalized lumbar spine CT report, and possible need for outpatient MRI of the back. Call for appointment time tomorrow morning. Return to the emergency department for worsened pain, numbness, weakness, bowel incontinence, bladder incontinence, erectile dysfunction, or any other concerns. 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 Copy Copies To 1: QUINTEN TREJO MD; MARIO GOMEZ MD; ZENAIDA MELENDEZ DO RAHUL SIEGEL Nov 02, 2016 22:08
[2016-11-02] MEDS ORDERED: morphine INJ 10 MG/ML 1ML (SYR OR VIAL) IM STA (22:25)
[2016-11-02] MEDS ORDERED: ORPHENADRINE 60 MG/2 ML (NORFLEX) AMP IM STA (22:25)
[2016-11-02] MEDS ORDERED: predniSONE 20 MG TAB PO ONE (22:30)
[2016-11-02] MEDS ORDERED: oxyCODONE/APAP 5/325MG (PERCOCET 5) TABLET PO STA (23:30)
[2016-11-02] MEDS ORDERED: ORPH100T PO (23:57)
[2016-11-02] MEDS ORDERED: HYDR-3820 PO (23:57)
[2016-11-02] MEDS ORDERED: PRD20T PO (23:57)
[2016-11-03] MEDS ORDERED: RX-ACETAMINOPHEN/CODEINE TAB PPK #4 ONE
[2016-11-03 00:12] VITALS: BP 130/70
[2016-11-03] MEDS ORDERED: RX-ACETAMINOPHEN/CODEINE TAB PPK #4 PO SCH (00:15)
--- NOTE | 2016-11-03 07:05 | Diagnostic Imaging Report ---
PROCEDURE: CT lumbar spine without contrast. TECHNIQUE: Multiple contiguous axial images were obtained through the lumbar spine without the use of intravenous contrast. Sagittal and coronal reformations were then performed. INDICATION: Back pain with no known discrete injury. FINDINGS: No endplate destruction or fracture deformity. There is minute retrolisthesis L1 on L2 and L2 on L3 grade 1 of 1 to 2 mm. No defect in the pedicle or pars. There is degenerative disc space narrowing, endplate sclerosis, osteophytes and facet arthrosis throughout the lumbar spine findings most advanced at the L5-S1 level. No paravertebral mass, hemorrhage, or fluid collection. Probable stone within the left renal lower pole calyx partly included in the [id number]-ty-smua with no visualized hydronephrosis. Mild canal and [id number] bi-foraminal stenosis at L4-L5 present. At L5-S1, there is mild canal and at least moderate severities of right greater than left foraminal stenoses. IMPRESSION: No fracture, bony destruction or acute spinal pathology. Spondylosis and facet arthrosis with chronic lower lumbar stenoses. Probable left renal calculus partly included [id number]. Slight grade 1 degenerative listhesis. Dictated by: Dictated on workstation # [id number]
== END 2016-11-03 00:10 | disposition home or self-care (01) ==
LOC: EDUNIT# 20:45 → ER 20:48
DX: M51.26 Other intervertebral disc displacement, lumbar region (principal); M47.816 Spondylosis without myelopathy or radiculopathy, lumbar region; M48.06 Spinal stenosis, lumbar region; I10 Essential (primary) hypertension; E11.9 Type 2 diabetes mellitus without complications; Z79.84 Long term (current) use of oral hypoglycemic drugs; Z79.899 Other long term (current) drug therapy; Z79.82 Long term (current) use of aspirin
CPT/HCPCS: 72131; 96372; 99283

== ENCOUNTER → 2016-11-04 | Outpatient (CLI) | payer OTHER ==
[~2016-11-04] VITALS: Ht 175.3 cm; Wt 103.4 kg
[~2016-11-04] MED LIST changes: +AMIO200T2 PO; +ATOR20TA66 PO; +CATHETER FLUSH 10 ML SYR IV PRN; +HYDR-3820 PO; +KRIL1CAP15 PO; +L.AC1CAP6 PO; +METO100T2 PO; +MULT1TAB69 PO; +OMEG-160 PO; +ORPH100T PO; +POTA99TA7 PO; +PRD20T PO; +REGADENOSON 0.4 MG/5 ML SYR (LEXISCAN) IV ONE; +TRAM50TA2 PO; +UBID200C16 PO
--- OUTSIDE RECORDS SUMMARY | 2016-11-04 06:46 | XMS REPORT | Continuity of Care Document ---
Author Author [facility] Organization [facility] Address Unknown Phone Unavailable Care Team Providers Care Admitting Representative Name Role Phone ZENAIDA MELENDEZ DO PCP Insurance Providers Payer Name Policy Number Subscriber Name Relationship UMR [id number] Jael Magaña 18 Self / Same As Patient Advance Directives Directive Response Recorded Date/Time Advance Directives No 10/30/16 7:59pm Health Care Power of Manager Retail Sales No 10/30/16 7:59pm Organ Donor No 10/30/16 [...] - 99.5) 10/30/2016 7:54pm Temperature (Calculated Celsius) 36.38168 degrees C (36.4 - 37.5) 10/30/2016 7:54pm [...] 9 inches 10/30/2016 7:54pm Height (Calculated Centimeters) 175.784681 cm 10/30/2016 7:54pm Weight (Pounds) 220 pounds 10/30/2016 7:54pm Weight (Calculated Kilograms) 99.688715 kilograms 10/30/2016 7:54pm Capillary Refill Capillary Refill [...] SELECTED GROUPS OF HIGH RISK PATIENTS. SIX[employer] [place] [employer] OF CHEST PH[employer]IANS CONSENSUS CONFERENCE ON ANTITHROMBOTIC THERAPY (2000). Activated Partial Thromboplast Time 28 SEC 24-35 10/30/2016 9:00pm 10/2016 9:43pm Urine Color YELLOW 10/30/2016 7:50pm 10/30/2016 8:31pm Urine Clarity CLEAR 10/30/2016 7:50pm 10/30/2016 8:31pm Urine pH 6 5-9 10/30/2016 7:50pm 10/30/2016 8:31pm Urine Specific [place] 1.015 * 1.016-1.022 10/30/2016 7:50pm 2016 8:31pm [...] G/DL 3.2-4.5 10/30/2016 9:00pm 10/30/2016 9:38pm TSH [place] Testing 2.09 UIU/ML 0.35-4.94 10/30/2016 9:00pm 10/30/2016 9:54pm Procedures Procedure Status Date Provider(s) Tracing only of electrocardiogram Active 10/30/16 TITUS BECKMAN MD Encounters Encounter Location Arrival/Admit Date Discharge/Depart Date Attending Provider Departed Emergency Room [facility] 10/30/16 6:52pm 10/30 10:54pm TITUS BECKMAN MD Recent Diagnosis
[2016-11-04 07:54] VITALS: BP 124/94
--- NOTE | 2016-11-05 07:55 | STRESS TEST ---
PROCEDURE PHYSICIAN: MARIO GOODE DATE OF PROCEDURE: 11/04/2016 LEXISCAN MYOVIEW STRESS TEST REPORT: REFERRING PHYSICIAN: Dr. Hughes BASELINE HEART RATE: 93 BASELINE BLOOD PRESSURE: 125/94 BASELINE EKG: Atrial fibrillation with controlled rate. IN SUMMARY: The patient was injected with 10.4 mCi of technetium 99 Myoview and the resting images were obtained. Then he received 0.4 mg of Lexiscan followed by 33 mCi of technetium 99 Myoview. Throughout the test, there were no EKG changes. The patient had mild shortness of breath. The resting and stress images were reviewed and compared in the short axis, horizontal long axis, and vertical long axis views. Review of the images showed reversible ischemia involving the whole anterior wall, anterolateral segment. SSS is 11, SDS 2, TID value 1.06. On the gated images, the left ventricle appeared to be normal size with normal contractility. Calculated ejection fraction 74%. Gated images are unreliable due to underlying atrial fibrillation. IN CONCLUSION: 1. The patient tolerated Lexiscan well. 2. Baseline atrial fibrillation persisted throughout test. 3. Mild ischemia involving the whole anterior wall and anterolateral wall. 4. Normal left ventricular size with normal contractility. Calculated ejection fraction 74%. Gated images are unreliable due to underlying atrial fibrillation. Job ID: [id number] Dictated Date: 11/04/2016 15:57:44 Dental Practice Manager Date: 11/05/2016 07:53:30 / marquise
== END ==
LOC: CARD 06:42
PROVIDERS: ATTEND Internal Medicine Cardiovascular Disease
DX: E78.5 Hyperlipidemia, unspecified (principal); I10 Essential (primary) hypertension; G47.33 Obstructive sleep apnea (adult) (pediatric); I48.0 Paroxysmal atrial fibrillation
CPT/HCPCS: 78452; 93017

== ENCOUNTER 2016-11-05 08:54 | Inpatient (IN) | payer OTHER ==
[~2016-11-05] VITALS: Ht 175.3 cm; Wt 101.7 kg
[2016-11-05] VITALS (7 sets, daily range): BP systolic 117–139; BP diastolic 91–102
[~2016-11-05 08:54] MED LIST changes: -AMIO200T2 PO; -ATOR20TA66 PO; -CATHETER FLUSH 10 ML SYR IV PRN; -KRIL1CAP15 PO; -L.AC1CAP6 PO; -METO100T2 PO; -MULT1TAB69 PO; -OMEG-160 PO; -POTA99TA7 PO; -REGADENOSON 0.4 MG/5 ML SYR (LEXISCAN) IV ONE; -TRAM50TA2 PO; -UBID200C16 PO
--- OUTSIDE RECORDS SUMMARY | 2016-11-05 08:57 | XMS REPORT | Continuity of Care Document ---
Author Author [facility] Organization [facility] Address Unknown Phone Unavailable Care Team Providers Care Senior Android Developer Name Role Phone ZENAIDA MELENDEZ DO PCP Insurance Providers Payer Name Policy Number Subscriber Name Relationship UMR [id number] Jael Magaña 18 Self / Same As Patient Advance Directives Directive Response Recorded Date/Time Advance Directives No 10/30/16 7:59pm Health Care Power of Microsoft Solutions Architect No 10/30/16 7:59pm Organ Donor No 10/30/16 [...] - 99.5) 10/30/2016 7:54pm Temperature (Calculated Celsius) 36.29334 degrees C (36.4 - 37.5) 10/30/2016 7:54pm [...] 9 inches 10/30/2016 7:54pm Height (Calculated Centimeters) 175.299054 cm 10/30/2016 7:54pm Weight (Pounds) 220 pounds 10/30/2016 7:54pm Weight (Calculated Kilograms) 99.788933 kilograms 10/30/2016 7:54pm Capillary Refill Capillary Refill [...] SELECTED GROUPS OF HIGH RISK PATIENTS. SIXTH [place] [employer] CHEST PH[employer]ICIANS CONSENSUS CONFERENCE ON ANTITHROMBOTIC THERAPY (2000). Activated Partial Thromboplast Time 28 SEC 24-35 10/30/2016 9:00pm 10/2016 9:43pm Urine Color YELLOW 10/30/2016 7:50pm 10/30/2016 8:31pm Urine Clarity CLEAR 10/30/2016 7:50pm 10/30/2016 8:31pm Urine pH 6 5-9 10/30/2016 7:50pm 10/30/2016 8:31pm Urine Specific [place] 1.015 * 1.016-1.022 10/30/2016 7:50pm 2016 8:31pm [...] G/DL 3.2-4.5 10/30/2016 9:00pm 10/30/2016 9:38pm TSH [place] Testing 2.09 UIU/ML 0.35-4.94 10/30/2016 9:00pm 10/30/2016 9:54pm Procedures Procedure Status Date Provider(s) Tracing only of electrocardiogram Active 10/30/16 TITUS BECKMAN MD Encounters Encounter Location Arrival/Admit Date Discharge/Depart Date Attending Provider Departed Emergency Room [facility] 10/30/16 6:52pm 10/30 10:54pm TITUS BECKMAN MD Recent Diagnosis
--- OUTSIDE RECORDS SUMMARY | 2016-11-05 08:58 | XMS REPORT | Continuity of Care Document ---
Author Author [facility] Organization [facility] Address Unknown Phone Unavailable Care Team Providers Care Banking And Finance Instructor Name Role Phone ZENAIDA MELENDEZ DO PCP Insurance Providers Payer Name Policy Number Subscriber Name Relationship UMR [id number] Jael Magaña 18 Self / Same As Patient Advance Directives Directive Response Recorded Date/Time Advance Directives No 10/30/16 7:59pm Health Care Power of Sausage Inspector No 10/30/16 7:59pm Organ Donor No 10/30/16 [...] - 99.5) 10/30/2016 7:54pm Temperature (Calculated Celsius) 36.35080 degrees C (36.4 - 37.5) 10/30/2016 7:54pm [...] 9 inches 10/30/2016 7:54pm Height (Calculated Centimeters) 175.721848 cm 10/30/2016 7:54pm Weight (Pounds) 220 pounds 10/30/2016 7:54pm Weight (Calculated Kilograms) 99.427696 kilograms 10/30/2016 7:54pm Capillary Refill Capillary Refill [...] SELECTED GROUPS OF HIGH RISK PATIENTS. SIXTH [place] [employer] CHEST PH[employer]ICIANS CONSENSUS CONFERENCE ON ANTITHROMBOTIC THERAPY (2000). Activated Partial Thromboplast Time 28 SEC 24-35 10/30/2016 9:00pm 10/2016 9:43pm Urine Color YELLOW 10/30/2016 7:50pm 10/30/2016 8:31pm Urine Clarity CLEAR 10/30/2016 7:50pm 10/30/2016 8:31pm Urine pH 6 5-9 10/30/2016 7:50pm 10/30/2016 8:31pm Urine Specific [place] 1.015 * 1.016-1.022 10/30/2016 7:50pm 2016 8:31pm [...] G/DL 3.2-4.5 10/30/2016 9:00pm 10/30/2016 9:38pm TSH [place] Testing 2.09 UIU/ML 0.35-4.94 10/30/2016 9:00pm 10/30/2016 9:54pm Procedures Procedure Status Date Provider(s) Tracing only of electrocardiogram Active 10/30/16 TITUS BECKMAN MD Encounters Encounter Location Arrival/Admit Date Discharge/Depart Date Attending Provider Departed Emergency Room [facility] 10/30/16 6:52pm 10/30 10:54pm TITUS BECKMAN MD Recent Diagnosis
[2016-11-05] MEDS ORDERED: NS IV 1000 ML 1,000 ML ONE (10:04)
[2016-11-05] MEDS ORDERED: LIDOCAINE 2% VISCOUS 15 ML UDC ONE (10:04)
[2016-11-05] MEDS ORDERED: LIDOCAINE 1% INJ 20 ML (XYLOCAINE) VIAL ONE ×2 (10:04→15:08)
[2016-11-05] MEDS ORDERED: HEParin (CATH LAB) 2,000 ML IV ONE (10:04)
[2016-11-05] MEDS ORDERED: NS IV 1000 ML 1,000 ML IV SCH (10:09)
[2016-11-05 10:28] LABS: MEAN PLATELET VOLUME 10.6 FL (7.4-10.4); RED BLOOD COUNT 5.21 10^6/uL (4.35-5.85); WHITE BLOOD COUNT 8.6 10^3/uL (4.3-11.0)
[2016-11-05 10:38] LABS: INR 1.1 (0.8-1.4); PROTHROMBIN TIME PATIENT 13.7 SEC (12.2-14.7)
--- NOTE | 2016-11-05 10:44 | Diagnostic Imaging Report ---
INDICATION: Coronary artery disease COMPARISON: 10/30/2016 FINDINGS: Heart size and configuration normal. There is no vascular congestion, edema, pneumonia, effusion or pneumothorax. IMPRESSION: No acute appearing abnormality. Dictated by: Dictated on workstation # [id number]
[2016-11-05 10:46] LABS: ALANINE AMINOTRANSFERASE 41 U/L (0-55); ALBUMIN 4.4 G/DL (3.2-4.5); ANION GAP 12 MMOL/L (5-14); ASPARTATE AMINO TRANSFERASE 21 U/L (5-34); BLOOD UREA NITROGEN 16 MG/DL (7-18); BUN/CREATININE RATIO 16; CALCIUM 9.2 MG/DL (8.5-10.1); CARBON DIOXIDE 24 MMOL/L (21-32); CHLORIDE 105 MMOL/L (98-107); CHOLESTEROL 163 MG/DL (< 200); CREATININE SERUM 1.03 MG/DL (0.60-1.30); DIRECT LDL 93 MG/DL (1-129); GFR ESTIMATED > 60; GLUCOSE 96 MG/DL (70-105); POTASSIUM 3.5 MMOL/L (3.6-5.0); SODIUM 141 MMOL/L (135-145); TOTAL PROTEIN 7.2 G/DL (6.4-8.2); TRIGLYCERIDES 200 MG/DL (<150); VLDL CHOLESTEROL 40 MG/DL (5-40)
[2016-11-05] MEDS ORDERED: OMEG-160 PO (11:02)
[2016-11-05] MEDS ORDERED: ATOR20TA66 PO (11:02)
[2016-11-05] MEDS ORDERED: L.AC1CAP6 PO (11:02)
[2016-11-05] MEDS ORDERED: POTA99TA7 PO (11:02)
[2016-11-05] MEDS ORDERED: METO100T2 PO (11:02)
[2016-11-05] MEDS ORDERED: HYDR-3820 PO (11:02)
[2016-11-05] MEDS ORDERED: MULT1TAB69 PO (11:02)
[2016-11-05] MEDS ORDERED: AMLO10TA2 PO (11:02)
[2016-11-05] MEDS ORDERED: APIX5TAB PO (11:02)
[2016-11-05] MEDS ORDERED: ORPH100T PO (11:02)
[2016-11-05] MEDS ORDERED: TRAM50TA2 PO (11:02)
[2016-11-05] MEDS ORDERED: KRIL1CAP15 PO (11:02)
[2016-11-05] MEDS ORDERED: CYCL10TA9 PO (11:02)
[2016-11-05] MEDS ORDERED: UBID200C16 PO (11:11)
--- NOTE | 2016-11-05 12:30 | Cardiac Procedure Note-CS/ASA ---
Pre-Procedure Note Pre-Op Procedure Note H&P Reviewed The H&P was reviewed, patient examined and no changes noted. Date H&P Reviewed: Nov 05, 2016 Time H&P Reviewed: 12:30 Conscious Sedation Pre-Proced Time Reviewed: 12:30 ASA Class: 3 Airway Mallampati Classification: ([place] appropriate class) I. II. III, IV Lungs Heart ASA score ASA 1: a normal healthy patient ASA 2: a patient with a mild systemic disease (mid diabetes, controlled hypertension, obesity x ASA 3: a patient with a severe systemic disease that limits activity (angina , COPD, prior Myocardial infarction) ASA 4: a patient with an incapacitating disease that is a constant threat to life (CHF, renal failure) ASA 5: a moribund patient not expected to survive 24 hrs. (ruptured aneurysm) ASA 6: a declared brain patient whose organs are being harvested. For emergent operations, add the letter E after the classification Grade 3 Sedation Plan: Analgesia, Amnesia, Plan communicated to team members, Discussed options with patient/fam, Discussed risks with patient/fam Note The patient is an appropriate candidate to undergo the planned procedure, sedation, and anesthesia. The patient immediately re-assessed prior to indication. MARIO GOODE MD Nov 05, 2016 12:30
[2016-11-05] MEDS ORDERED: fentaNYL INJECTION 100 MCG/2 ML AMP ONE (13:49)
[2016-11-05] MEDS ORDERED: MIDAZOLAM 5 MG/5 ML (VERSED) VIAL ONE (13:49)
[2016-11-05] MEDS ORDERED: HEParin 1000 UNIT/ML (10ML VIAL) FOR BOLUS ONE (13:49)
[2016-11-05] MEDS ORDERED: proPOfol 200 MG/20 ML (DIPRIVAN) VIAL IV ONE ×2 (13:49→14:43)
[2016-11-05] MEDS ORDERED: NITROGLYCERIN DRIP 25 MG/D5W 0 ML IV ONE (13:50)
[2016-11-05] MEDS ORDERED: VERAPAMIL 5 MG/2 ML (CALAN) VIAL IV ONE (13:50)
--- NOTE | 2016-11-05 14:53 | Progress Note-Standard ---
Standard Progress Note Progress Notes/Assess & Plan Progress/Assessment & Plan Anesthesia Note ([id number]) Called to cathode builder for MAC for JANEE/Cardioversion. Versed 2 mg IV and Propofol 120 mg IV in divided doses given for sedation for procedure. SpO2 remained 100% throughout procedure and +EtCO2 throughout. O2 via NC. VSS throughout. Pt tolerated the procedure well. Attempted cardioversion x 2 without return to sinus rhythm. Will attempt cardioversion again tomorrow per Dr Gomez. Will be available tomorrow and as needed. COMFORT CORDERO DO Nov 05, 2016 14:52
[2016-11-05] MEDS: NS IV 1000 ML 1,000 ML IV SCH ×2 (15:34→19:50)
[2016-11-05] MEDS ORDERED: AMIODARONE FOR BOLUS 300 MG in D5W 100 ML IVPB 100 ML IV ONE (15:45)
[2016-11-05] MEDS ORDERED: HYDROcodone/APAP 10 MG/325 MG (LORTAB) TAB PO PRN (15:45)
[2016-11-05] MEDS ORDERED: PATIENT MAY USE OWN MEDS, ALL PO SCH (15:45)
[2016-11-05] MEDS ORDERED: NON-FORMULARY MEDICATION 1 EA EA (Orphenadrine Citrate 100 MG) PO PRN (15:45)
[2016-11-05] MEDS ORDERED: CYCLOBENZAPRINE 10 MG (FLEXERIL) TAB PO PRN (15:45)
[2016-11-05] MEDS ORDERED: AMIODARONE 150 MG/3 ML (CORDARONE) AMP IV ONE (16:07)
[2016-11-05] MEDS ORDERED: D5W 100 ML IVPB 100 ML IV ONE (16:10)
[2016-11-05] MEDS ORDERED: NON-FORMULARY MEDICATION 1 EA EA (Potassium 99 MG) PO SCH (16:30)
[2016-11-05] MEDS: AMIODARONE IV SOLUTION 200 ML IV SCH ×2 (16:36→22:31)
[2016-11-05] MEDS: MULTIVIT W/MINERALS TAB (THERAGRAN M) PO SCH (18:10)
[2016-11-05] MEDS: LACTOBACILLUS Acidoph/Bulgar (LACTINEX/FLORANEX) TAB PO SCH (18:15)
[2016-11-05] MEDS: OMEGA 3 (FISH OIL) 1000 MG CAP PO SCH (18:15)
[2016-11-05] MEDS ORDERED: amLODIPine 10 MG (NORVASC) TAB PO SCH (21:00)
[2016-11-05] MEDS ORDERED: ATORVASTATIN 10 MG (LIPITOR) TABLET PO SCH (21:00)
[2016-11-05] MEDS: APIXABAN 5 MG (ELIQUIS) TABLET PO SCH (21:30)
[2016-11-06] VITALS (15 sets, daily range): BP systolic 108–143; BP diastolic 75–109
[2016-11-06 04:27] LABS: RED BLOOD COUNT 4.77 10^6/uL (4.35-5.85); RED CELL DISTRIBUTION WIDTH 13.8 % (10.0-14.5); WHITE BLOOD COUNT 7.1 10^3/uL (4.3-11.0)
[2016-11-06 04:48] LABS: ALANINE AMINOTRANSFERASE 30 U/L (0-55); ALBUMIN 3.7 G/DL (3.2-4.5); ANION GAP 11 MMOL/L (5-14); ASPARTATE AMINO TRANSFERASE 16 U/L (5-34); BILIRUBIN,TOTAL 0.7 MG/DL (0.1-1.0); BLOOD UREA NITROGEN 12 MG/DL (7-18); BUN/CREATININE RATIO 15; CALCIUM 8.3 MG/DL (8.5-10.1); CARBON DIOXIDE 20 MMOL/L (21-32); CHLORIDE 107 MMOL/L (98-107); CREATININE SERUM 0.81 MG/DL (0.60-1.30); GFR ESTIMATED > 60; GLUCOSE 98 MG/DL (70-105); POTASSIUM 3.3 MMOL/L (3.6-5.0); SODIUM 138 MMOL/L (135-145)
[2016-11-06 05:11] LABS: THYROID STIMULATING HORMONE 1.89 UIU/ML (0.35-4.94)
[2016-11-06] MEDS: POTASSIUM CL 10MEQ/50ML IVPB 50 ML IV SCH ×4 (05:23→08:24)
[2016-11-06] MEDS: NS IV 1000 ML 1,000 ML IV SCH (05:59)
[2016-11-06] MEDS ORDERED: MAGNESIUM 1 GM/100 ML IVPB 100 ML IV SCH (06:00)
[2016-11-06] MEDS ORDERED: KCL 20 MEQ TAB (K-DUR) PO SCH (06:00)
[2016-11-06] MEDS ORDERED: POTASSIUM CL 10MEQ/50ML IVPB 50 ML IV SCH (06:00)
--- NOTE | 2016-11-06 07:49 | TEE REPORT ---
DATE OF PROCEDURE: 11/05/2016 JANEE WITH ELECTRICAL CARDIOVERSION REPORT: REFERRING PHYSICIAN: Dr. Joe Hughes BRIEF HISTORY: Mr. Magaña is a 56-year-old gentleman diagnosed with atrial fibrillation. He had an abnormal stress test. He was scheduled for JANEE and electrical cardioversion. PROCEDURE NOTE: After explaining the procedure to the patient, all pros and cons were explained. All questions were answered. The patient signed a consent, then he was placed in the left lateral decubitus position. Oropharynx was anesthetized using Cetacaine spray. Conscious sedation achieved with the assistance of anesthesia. Omniplane probe was through the mouth to the esophagus then to the stomach, multiple views were obtained. At the end of the procedure, Omniplane probe was removed. No complication noted. FINDINGS: 1. The left ventricle is normal in size with normal contractility. Estimated ejection fraction 60%. 2. Left atrium is dilated. Left atrial appendage is prominent. No clot or thrombus were seen. Doppler across left atrial appendage showed acceptable velocity. 3. Right atrium and right ventricle are normal in size. 4. Intra-atrial septum was evaluated using both color Doppler flow and agitated saline as a contrast media. There was no shunt noted. 5. Mitral valve is normal in morphology with mild mitral regurgitation. No mitral valve prolapse or stenosis. 6. Aortic valve is trileaflet with normal opening and closing pattern. No significant aortic stenosis or regurgitation was seen. 7. Tricuspid valve is normal in morphology. 8. Pulmonic valve is normal in morphology. 9. A portion of the aortic root, ascending aorta, aortic arch and descending aorta were evaluated and appeared normal. IN CONCLUSION: 1. Dilated left atrium left atrial appendage with no clot or thrombus. 2. Normal left ventricular size and systolic function. Estimated ejection fraction 60%. 3. Mild mitral regurgitation. ELECTRICAL CARDIOVERSION: The patient was sedated with assistance of anesthesia, received 2 synchronized DC cardioversion biphasic 120 joules and 150 joules and it was unsuccessful. At that point I decided to load the patient with amiodarone and then consider another electrical cardioversion in the morning. IN CONCLUSION: Failed attempt with electrical cardioversion done twice to convert the patient to sinus rhythm. Job ID: [id number] Dictated Date: 11/05/2016 15:40:00 Retail Sales Merchandiser Development Date: 11/06/2016 07:42:27/marquise CAMERON
--- NOTE | 2016-11-06 07:52 | Cardiology Progress Note ---
Subjective Subjective/Events-last exam patient is laying down in bed, feeling well, still in atrial fibrillation, having some pain in his groin. Review of Systems General: No Chills, No Night Sweats, No Fatigue, No Malaise, No Appetite, No Other HEENT: No Head Aches, No Visual Changes, No Eye Pain, No Ear Pain, No Dysphasia , No Sinus Congestion, No Post Nasal Drip, No Sore Throat, No Other Pulmonary: No Dyspnea, No Cough, No Pleuritic Chest Pain, No Other Cardiovascular: No: Chest Pain, Edema, Lt Headedness, Orthopnea, Other, Palpitations, Paroxysmal Noc. Dyspnea Objective-Cardiology Exam Last Set of Vital Signs Vital Signs 11/06/16 06:00 Pulse 87 Resp 20 B/P 128/90 O2 Delivery Nasal Cannula O2 Flow Rate 2.00 Capillary Refill : Less Than 3 Seconds I&O Intake and Output 11/06/16 00:00 Intake Total 1270 ml Output Total 500 ml Balance 770 ml Intake Oral 320 ml IV Total 950 ml Output Urine Total 500 ml General: Alert, Oriented X3, Cooperative HEENT: Atraumatic, PERRLA Neck: Supple, No JVD, No Thyromegaly Lungs: Clear to Auscultation, Normal Air Movement Heart: Regular Rate, Normal S1, Normal S2, No Murmurs Abdomen: Normal Bowel Sounds, Soft, No Tenderness, No Hepatosplenomegaly, No Masses Extremities: No Clubbing, No Cyanosis, No Edema, Normal Pulses, No Tenderness/ Swelling Skin: No Rashes, No Breakdown, No Significant Lesion Neuro: Normal Gait, Normal Speech, Strength at 5/5 X4 Ext, Normal Tone, Sensation Intact Psych/Mental Status: Mental Status NL, Mood NL Results Lab Laboratory Tests 11/05/16 10:21 11/06/16 03:50 A/P-Cardiology Admission Diagnosis atrial fibrillation Coronary artery disease Hypertension Obesity Assessment/Plan atrial fibrillation, persistent, failed to cardioversion attempt last night, started him on amiodarone drip, planning to attempt cardioversion today. Coronary artery disease mild per cardiac catheterization nonobstructive disease Hypertension, controlled. BMI 33 MARIO GOODE MD Nov 06, 2016 07:52
--- NOTE | 2016-11-06 07:53 | Cardiac Procedure Note-CS/ASA ---
Pre-Procedure Note Pre-Op Procedure Note H&P Reviewed The H&P was reviewed, patient examined and no changes noted. Date H&P Reviewed: Nov 06, 2016 Time H&P Reviewed: 07:52 Conscious Sedation Pre-Proced Time Reviewed: 07:52 ASA Class: 3 Airway Mallampati Classification: ([place] appropriate class) I. II. III, IV Lungs Heart ASA score ASA 1: a normal healthy patient ASA 2: a patient with a mild systemic disease (mid diabetes, controlled hypertension, obesity x ASA 3: a patient with a severe systemic disease that limits activity (angina , COPD, prior Myocardial infarction) ASA 4: a patient with an incapacitating disease that is a constant threat to life (CHF, renal failure) ASA 5: a moribund patient not expected to survive 24 hrs. (ruptured aneurysm) ASA 6: a declared brain patient whose organs are being harvested. For emergent operations, add the letter E after the classification Grade 3 Sedation Plan: Analgesia, Amnesia, Plan communicated to team members, Discussed options with patient/fam, Discussed risks with patient/fam Note The patient is an appropriate candidate to undergo the planned procedure, sedation, and anesthesia. The patient immediately re-assessed prior to indication. MARIO GOODE MD Nov 06, 2016 07:53
[2016-11-06] MEDS ORDERED: ENOXAPARIN 100 MG/1 ML (LOVENOX) SYR SC NR (08:00)
[2016-11-06] MEDS: APIXABAN 5 MG (ELIQUIS) TABLET PO SCH (08:01)
[2016-11-06] MEDS: HYDROCHLOROTHIAZIDE 25 MG (HCTZ) TAB PO SCH ×2 (08:02→13:40)
[2016-11-06] MEDS: AMIODARONE IV SOLUTION 200 ML IV SCH (10:51)
[2016-11-06] MEDS ORDERED: MIDAZOLAM 2 MG/2 ML (VERSED) VIAL ONE (12:53)
--- NOTE | 2016-11-06 13:14 | Progress Note-Standard ---
Standard Progress Note Progress Notes/Assess & Plan Progress/Assessment & Plan Anesthesia Note ([id number]) Called to lab support technician for MAC for JANEE/Cardioversion. Versed 2 mg IV and Propofol 120 mg IV in divided doses given for sedation for procedure. SpO2 remained 100% throughout procedure and +EtCO2 throughout. O2 via NC. VSS throughout. Pt tolerated the procedure well. Attempted cardioversion x 2 without return to sinus rhythm. Will attempt cardioversion again tomorrow per Dr Gomez. Will be available tomorrow and as needed. Final Diagnosis Anesthesia Note ([id number]) Called to ICU for cardioversion in ICU 1. I assisted with sedation yesterday so patient is familiar to me. Versed 2 mg IV and Propofol 50 mg IV given. Pt unable to open eyes to commands, but remained spontaneously ventilating, with + EtCO2. VSS throughout. Return to SR on 2nd cardioversion attempt. Pt tolerated procedure well. COMFORT CORDERO DO Nov 06, 2016 13:14
[2016-11-06] MEDS ORDERED: AMIODARONE 200 MG (CORDARONE) TAB PO SCH (13:15)
[2016-11-06] MEDS ORDERED: AMIO200T2 PO ×2 (13:21→18:05)
--- NOTE | 2016-11-06 13:22 | Discharge Inst-Post CATH ---
Discharge Inst-CATH Post Cardiac Cath D/C Inst Follow Up/Plan Hold Metformin for [address] Gomez's office next weeks CARDIAC CATH DISCHARGE INSTRUCTIONS *Hold Metformin for 48 hours post heart cath. ACTIVITY * Go Home directly and rest. * Limit activity of the leg (or wrist if it was used) for 7 days including aerobics, swimming, jogging, bicycling, etc. * Restrict stair-climbing for 7 days if possible, if not, climb up with your non -cath leg, then bring together on the same step. * Avoid lifting, pushing, pulling or excessive movement of the affected extremity for 7 days. * Customary sexual activity may be resumed after 2 days-use caution not to use a position that strains or causes pain to the affected extremity. * No driving for 24 hours. * NO SMOKING. * Avoid straining for bowel movements for 7 days. * Gentle walking on level ground is allowed. * Returning to work will depend on the type of procedure and the results. Your doctor will discuss this with you. CALL YOUR DOCTOR FOR ANY OF THE FOLLOWING: *If bleeding from the puncture site occurs- Apply gentle pressure to site with clean cloth and call your doctor or EMS. * If a knot or lump forms under the skin, increases in size, or causes pain. * If bruising appears to be worsening or moving further down your leg instead of disappearing. * Temperature above 101 F. CARE OF YOUR GROIN INCISION; * Bruising or purple discoloration of the skin near the puncture site is common. * You may shower only, no bathtub bathing for 5 days. Be careful to avoid slipping as your leg may feel stiff. * If a closure device was used on your femoral artery, please see the attached guide regarding care of the device and your leg. * REMOVE the dressing from your groin the next day after your procedure in the shower. CARE OF YOUR WRIST INCISION; * Bruising or purple discoloration of the skin near the puncture site is common. * You may shower. * DO NOT submerge wrist. * Remove dressing in 24 hours. MARIO GOMEZ MD Nov 06, 2016 13:22
[2016-11-06] MEDS: MULTIVIT W/MINERALS TAB (THERAGRAN M) PO SCH (15:44)
[2016-11-06] MEDS: LACTOBACILLUS Acidoph/Bulgar (LACTINEX/FLORANEX) TAB PO SCH (15:44)
[2016-11-06] MEDS: OMEGA 3 (FISH OIL) 1000 MG CAP PO SCH (15:44)
--- NOTE | 2016-11-06 16:30 | Pulmonary Consultation ---
History of Present Illness History of Present Illness Date of Consultation 11/06/16 16:26 Date of Admission History of Present Illness [facility] consulted me secondary to suspect VELIA. PT just had cath and has hx of Afib. Allergies and Home Medications Allergies Coded Allergies: No Known Drug Allergies (Unverified , 08/06/11) Home Medications Amiodarone HCl 200 Mg Tablet, 200 MG PO BID, #60 Ref 2 Prescribed by: BETO WALKER on 11/06/16 1805 Amlodipine Besylate 10 Mg Tablet, 5 MG PO HS, (Reported) TAKES 1/2 OF A (10 MG) TABLET Apixaban 5 Mg Tablet, 5 MG PO BID, (Reported) Atorvastatin Calcium 20 Mg Tablet, 10 MG PO HS, (Reported) TAKES 1/2 OF A (20 MG) TABLET Cyclobenzaprine HCl 10 Mg Tablet, 10 MG PO HS PRN for MUSCLE SPASMS, (Reported) Hydrochlorothiazide 25 Mg Tablet, 25 MG PO DAILY, (Reported) Hydrocodone/Acetaminophen 1 Each Tablet, 1 TAB PO Q4H PRN for MODERATE PAIN, ( Reported) Krill/Bowlus-3/Dha/Epa/Lipids 1 Each Capsule, 300 MG PO DAILY@1630, (Reported) L.acidoph & Paracasei,B.lactis 1 Each Capsule, 1 CAP PO DAILY@1630, (Reported) Metoprolol Tartrate 100 Mg Tablet, 100 MG PO DAILY, (Reported) Multivitamin 1 Each Tablet, 1 TAB PO DAILY@1630, (Reported) Bowlus-3/Dha/Epa/Fish Oil 1 Each Capsule, 1,000 MG PO DAILY@1630, (Reported) Orphenadrine Citrate 100 Mg Tablet.er, 100 MG PO BID PRN for MUSCLE SPASMS, ( Reported) Potassium 99 Mg Tablet, 99 MG PO DAILY@1630, (Reported) Tramadol HCl 50 Mg Tablet, 50 MG PO Q6H PRN for MILD PAIN, (Reported) Ubidecarenone 200 Mg Capsule, 200 MG PO HS, (Reported) Past Bmjsyln-Ejdwtu-Aprvht Hx Patient Social History Smoking Status: Never a Smoker 2nd Hand Smoke Exposure: No Recent Foreign Travel: No Contact w/Someone Who Travel: No Recent Hopitalizations: No Immunizations Up To Date Tetanus Booster (TDap): More than 5yrs Date of Pneumonia Vaccine: May 31, 2012 Date of Influenza Vaccine: Jun 03, 2016 Seasonal Allergies Seasonal Allergies: Yes Surgeries HX Surgeries: Yes Surgeries: Appendectomy Respiratory Hx Respiratory Disorders: No Respiratory Disorders: Sleep Apnea Cardiovascular Hx Cardiac Disorders: Yes Cardiac Disorders: High Cholesterol, Hypertension Neurological Hx Neurological Disorders: No Reproductive System Hx Reproductive Disorders: No Sexually Transmitted Disease: No HIV/AIDS: No Genitourinary Hx Genitourinary Disorders: Yes Genitourinary Disorders: Renal Failure Gastrointestinal Hx Gastrointestinal Disorders: Yes (hx of polyps) Gastrointestinal Disorders: Polyps Musculoskeletal Hx Musculoskeletal Disorders: No Endocrine Hx Endocrine Disorders: Yes ("PREDIABETIC") Endocrine Disorders: Diabetes, Non-Insulin dep HEENT HX ENT Disorders: No Hearing Impairment: Denies Cancer Hx Cancer: No Psychosocial Hx Psychiatric Problems: No Integumentary HX Skin/Integumentary Disorder: No Blood Transfusions Hx Blood Disorders: No Adverse Reaction to a Blood Tr: No Family Medical History Significant Family History: No Pertinent Family Hx, Heart Disease Exam Exam Vital Signs Date Time Temp Pulse Resp B/P Pulse Ox O2 Delivery O2 Flow Rate FiO2 11/06/16 13:23 96 Nasal Cannula 2.00 11/06/16 13:03 96 11/06/16 12:44 96 11/06/16 09:00 80 14 133/75 Nasal Cannula 2.00 11/06/16 08:15 Room Air 11/06/16 08:00 98 17 118/98 Nasal Cannula 2.00 11/06/16 07:00 101 21 121/104 Nasal Cannula 2.00 11/06/16 07:00 100 11/06/16 06:00 87 20 128/90 Nasal Cannula 2.00 11/06/16 05:00 87 13 108/94 Nasal Cannula 2.00 11/06/16 04:00 97.2 Nasal Cannula 2.00 11/06/16 04:00 94 14 130/86 Nasal Cannula 2.00 11/06/16 04:00 Nasal Cannula 2.00 11/06/16 03:00 87 13 124/88 Nasal Cannula 2.00 11/06/16 02:00 87 21 126/94 Nasal Cannula 2.00 11/06/16 01:00 96 23 128/94 Nasal Cannula 2.00 11/06/16 01:00 90 11/06/16 00:00 90 19 124/97 Nasal Cannula 2.00 11/06/16 00:00 97.5 Nasal Cannula 2.00 11/06/16 00:00 Nasal Cannula 2.00 11/05/16 23:16 Room Air 11/05/16 23:00 89 21 123/95 Room Air 11/05/16 22:00 83 14 132/95 Room Air 11/05/16 21:00 139/93 Room Air 11/05/16 20:05 97.4 Room Air 11/05/16 20:00 86 117/102 94 Room Air 11/05/16 20:00 Room Air 11/05/16 19:00 87 11/05/16 19:00 88 14 118/91 95 Room Air 11/05/16 16:30 Room Air I & O 11/06/16 07:00 Intake Total 2480 ml Output Total 1400 ml Balance 1080 ml General Appearance: No Apparent Distress, WD/WN HEENT: PERRL/EOMI, TMs Normal Respiratory: Chest Non Tender, No Accessory Muscle Use, No Respiratory Distress Cardiovascular: Regular Rate, Rhythm Capillary Refill: Less Than 3 Seconds Gastrointestinal: normal bowel sounds, non tender Extremity: Normal Capillary Refill, Normal Inspection Neurologic/Psychiatric: Alert, Oriented x3 Skin: Normal Color, Warm/Dry Lymphatic: No Adenopathy Results Lab Laboratory Tests 11/05/16 10:21 11/06/16 03:50 Assessment/Plan Assessment/Plan atrial fibrillation, Coronary artery disease, Hypertension, Obesity, hx of VELIA CPAP is 10yrs old Will see pt tomorrow in office and schedule for out patient PSG in lab BMI 33 BERNA LYNNE DO Nov 06, 2016 16:30
--- NOTE | 2016-11-07 08:53 | PROCEDURE REPORT ---
PROCEDURE PHYSICIAN: MARIO GOODE ELECTRICAL CARDIOVERSION REPORT DATE OF PROCEDURE: 11/06/2016 BRIEF HISTORY: Mr. Magaña failed two attempts for cardioversion yesterday. He was started on amiodarone drip, kept n.p.o. and we decided to proceed with another attempt for cardioversion. PROCEDURE NOTE: After explaining the procedure to the patient and his , all pros and cons were explained. The patient was sedated with assistance of anesthesia. DC cardioversion was attempted with 150 joules synchronized which failed. I attempted with 200 joules and it was successful. The patient converted to sinus rhythm and maintained sinus rhythm. No complication noted. CONCLUSION: Successful electrical cardioversion with no complications. Job ID: [id number] Dictated Date: 11/06/2016 13:15:50 Moisture Conditioner Operator Date: 11/07/2016 08:49:26 / yared
--- NOTE | 2016-11-10 11:57 | CARDIAC CATHETERIZATION ---
PROCEDURE PHYSICIAN: MARIO GOODE DATE OF PROCEDURE: 11/05/2016 BRIEF HISTORY: Mr. Magaña is a 55-year-old gentleman with atrial fibrillation. He was scheduled for JANEE cardioversion. He had an abnormal stress test. Scheduled for left heart catheterization. PROCEDURE NOTE: After explaining the procedure to the patient, all pros and cons were explained. All questions were answered. The patient signed a consent, then he was placed on the cardiac catheterization laboratory. The right groin was prepped in a sterile fashion. Local anesthesia applied to right groin. 6-Yi sheath was placed in the right femoral artery. Combination of right and left Demi catheter were used to access the right and left coronary system. Multiple views were obtained. Pigtail catheter was advanced to the left ventricular cavity, pressure was measured. No left ventriculogram was done. At the end of the procedure, sheath was removed. No complication noted. FINDINGS: HEMODYNAMICS: LV pressure 120/9, end-diastolic pressure of 9, aortic pressure 121/89, mean of 102. No significant gradient across the aortic valve. ANATOMY: 1. LEFT MAIN CORONARY ARTERY: The left main coronary artery is bifurcating to left anterior descending artery and left circumflex artery with no obstructive disease. 2. LEFT ANTERIOR DESCENDING ARTERY: The left anterior descending artery has mild disease. Nonobstructive disease. 3. LEFT CIRCUMFLEX ARTERY: The left circumflex artery has mild disease. Nonobstructive disease. 4. RIGHT CORONARY ARTERY: The right coronary artery has mild disease. Nonobstructive disease. 5. LEFT VENTRICULAR: Normal left ventricular end-diastolic pressure. CONCLUSION: 1. Mild coronary artery disease. Nonobstructive disease. 2. Normal left ventricular end-diastolic pressure. DISCUSSION AND RECOMMENDATION: There is no contraindication for aggressive medical therapy or even ablation if needed for the atrial fibrillation. Job ID: [id number] Dictated Date: 11/10/2016 10:45:22 Doll Wig Maker Date: 11/10/2016 11:52:12 / esperanza CAMERON
--- NOTE | 2016-11-11 10:00 | Physician Query-Final Dx ---
TOMEKA MCGEE 11/11/16 1000: Final Diagnosis Give Final Diagnosis Please give Final Diagnosis MARIO GOODE MD 11/11/16 1557: Final Diagnosis Give Final Diagnosis paroxysmal atrial fibrillation Coronary artery disease Hypertension Hyperlipidemia TOMEKA MCGEE Nov 11, 2016 10:00 MARIO GOODE MD Nov 11, 2016 15:57
== END 2016-11-06 08:15 | disposition home or self-care (01) | DRG 287 ==
LOC: CATH 08:54 → ICU 15:50
PROVIDERS: ADMIT Internal Medicine Cardiovascular Disease; ATTEND Internal Medicine Cardiovascular Disease
PROC: 4A023N7 Measurement of Cardiac Sampling and Pressure, Left Heart, Percutaneous Approach (ICD-10-PCS; 2016-11-05)
PROC: B2111ZZ Fluoroscopy of Multiple Coronary Arteries using Low Osmolar Contrast (ICD-10-PCS; 2016-11-05)
PROC: 5A2204Z Restoration of Cardiac Rhythm, Single (ICD-10-PCS; principal; 2016-11-06)
DX: I48.0 Paroxysmal atrial fibrillation (principal); I48.1 Persistent atrial fibrillation; E78.5 Hyperlipidemia, unspecified; I10 Essential (primary) hypertension; G47.33 Obstructive sleep apnea (adult) (pediatric); E11.9 Type 2 diabetes mellitus without complications; Z79.84 Long term (current) use of oral hypoglycemic drugs; I25.10 Atherosclerotic heart disease of native coronary artery without angina pectoris; E66.9 Obesity, unspecified; Z68.33 Body mass index [BMI] 33.0-33.9, adult
CPT/HCPCS: 36415; 71010; 80053; 80061; 83735; 84443; 85027; 85610; 85730; 87081; 92960; 93005; 93458

== ENCOUNTER 2016-11-29 19:38 | Outpatient (CLI) | payer OTHER ==
[~2016-11-29 19:38] MED LIST changes: +AMIO200T2 PO; +ATOR20TA66 PO; +KRIL1CAP15 PO; +L.AC1CAP6 PO; +METO100T2 PO; +MULT1TAB69 PO; +OMEG-160 PO; +POTA99TA7 PO; +TRAM50TA2 PO; +UBID200C16 PO
== END 2016-11-30 05:25 | disposition home or self-care (01) ==
LOC: SLEEP 19:38
PROVIDERS: ATTEND Nurse Practitioner Family
DX: G47.50 Parasomnia, unspecified (principal); I48.0 Paroxysmal atrial fibrillation; G47.33 Obstructive sleep apnea (adult) (pediatric)
CPT/HCPCS: 95810

== ENCOUNTER → 2017-01-19 | Outpatient (CLI) | payer OTHER ==
[2017-01-19 09:50] LABS: MEAN PLATELET VOLUME 10.4 FL (7.4-10.4); RED BLOOD COUNT 4.99 10^6/uL (4.35-5.85); RED CELL DISTRIBUTION WIDTH 13.6 % (10.0-14.5); WHITE BLOOD COUNT 6.2 10^3/uL (4.3-11.0)
[2017-01-19 10:13] LABS: ANION GAP 10 MMOL/L (5-14); BLOOD UREA NITROGEN 16 MG/DL (7-18); BUN/CREATININE RATIO 17; CALCIUM 9.1 MG/DL (8.5-10.1); CARBON DIOXIDE 22 MMOL/L (21-32); CHLORIDE 107 MMOL/L (98-107); CREATININE SERUM 0.95 MG/DL (0.60-1.30); GFR ESTIMATED > 60; GLUCOSE 107 MG/DL (70-105); MAGNESIUM 2.2 MG/DL (1.8-2.4); POTASSIUM 3.7 MMOL/L (3.6-5.0); SODIUM 139 MMOL/L (135-145)
== END ==
LOC: LAB 09:18
PROVIDERS: ATTEND Internal Medicine Cardiovascular Disease
DX: I48.3 Typical atrial flutter (principal); I48.0 Paroxysmal atrial fibrillation
CPT/HCPCS: 36415; 80048; 83735; 85027

== ENCOUNTER → 2017-01-27 | Outpatient (CLI) | payer OTHER ==
--- NOTE | 2017-01-27 15:08 | Diagnostic Imaging Report ---
EXAMINATION: Left lower extremity duplex venous ultrasound. TECHNIQUE: DVT protocol. Multiple sonographic images with color Doppler and waveform interrogation were performed of the left lower extremity veins with compression and augmentation maneuvers. INDICATION: Left leg pain. FINDINGS: The left lower extremity veins from the groin to below the knee veins were examined with normal color-flow, compressibility and waveform demonstrated. The great saphenous vein is patent. IMPRESSION: No evidence of DVT in the left lower extremity. Dictated by: Dictated on workstation # [id number]
== END ==
LOC: RAD 14:13
PROVIDERS: ATTEND Physician Assistant
DX: M79.662 Pain in left lower leg (principal)

== ENCOUNTER → 2017-01-27 | Outpatient (CLI) | payer OTHER ==
[2017-01-27 11:25] LABS: ALANINE AMINOTRANSFERASE 44 U/L (0-55); ALBUMIN 4.4 G/DL (3.2-4.5); ANION GAP 12 MMOL/L (5-14); ASPARTATE AMINO TRANSFERASE 25 U/L (5-34); BILIRUBIN,TOTAL 0.5 MG/DL (0.1-1.0); BLOOD UREA NITROGEN 20 MG/DL (7-18); BUN/CREATININE RATIO 21; CALCIUM 9.7 MG/DL (8.5-10.1); CARBON DIOXIDE 22 MMOL/L (21-32); CHLORIDE 105 MMOL/L (98-107); CREATININE SERUM 0.96 MG/DL (0.60-1.30); GFR ESTIMATED > 60; GLUCOSE 116 MG/DL (70-105); MAGNESIUM 2.2 MG/DL (1.8-2.4); POTASSIUM 4.1 MMOL/L (3.6-5.0); SODIUM 139 MMOL/L (135-145); TOTAL PROTEIN 7.5 G/DL (6.4-8.2)
== END ==
LOC: LAB 10:48
PROVIDERS: ATTEND Physician Assistant
DX: I10 Essential (primary) hypertension (principal); R25.2 Cramp and spasm
CPT/HCPCS: 36415; 80053; 83735

== ENCOUNTER → 2017-01-30 | Outpatient (CLI) | payer OTHER ==
[2017-01-30 10:00] LABS: ANION GAP 10 MMOL/L (5-14); BLOOD UREA NITROGEN 18 MG/DL (7-18); BUN/CREATININE RATIO 19; CALCIUM 9.5 MG/DL (8.5-10.1); CARBON DIOXIDE 23 MMOL/L (21-32); CHLORIDE 107 MMOL/L (98-107); CREATININE SERUM 0.97 MG/DL (0.60-1.30); GFR ESTIMATED > 60; GLUCOSE 133 MG/DL (70-105); SODIUM 140 MMOL/L (135-145)
== END ==
LOC: LAB 09:15
PROVIDERS: ATTEND Internal Medicine Cardiovascular Disease
DX: I48.3 Typical atrial flutter (principal)
CPT/HCPCS: 36415; 80048

== ENCOUNTER 2018-01-11 07:31 | Emergency (ER) | payer OTHER ==
[~2018-01-11] VITALS: Ht 180.3 cm; Wt 113.4 kg
[~2018-01-11 07:31] MED LIST changes: +HYDR-34 PO; -HYDR-3816 PO; +KRIL1CAP12 PO; -KRIL1CAP15 PO; -METF500T4 PO; +METF500T5 PO; -METO-274 PO; +METO-395 PO; +METO100T12 PO; -METO100T2 PO
--- OUTSIDE RECORDS SUMMARY | 2018-01-11 07:35 | XMS REPORT | Continuity of Care Document ---
Author Author [employer] Organization [facility] Address Unknown Phone Unavailable Care Team Providers Care Terrazzo Helper Name Role Phone [employer] Unavailable Unavailable Problems Medications Allergies, Adverse Reactions, Alerts Immunizations Results Vital Signs Encounters Location Location Details Encounter Type Encounter Number Reason For Visit Attending Provider ADM Date DC Date Status Source OUTPATIENT [id number] RUTH ANN BUCKLEY 05/13/2017 Active [facility] OUTPATIENT [id number] ROBBIN ÁLVAREZ 07/31/2017 Active [facility] O Active [facility] Procedures Plan of Care Social History Assessment and Plan Family History Advance Directives Functional Status
--- OUTSIDE RECORDS SUMMARY | 2018-01-11 07:36 | XMS REPORT | Clinical Summary ---
Author Author [facility] Organization [facility] Address Unknown Phone Unavailable Care Team Providers Care Pet Care Attendant Name Role Phone Joe Hughes MD PCP Source Comments Some departments are not documenting in the electronic medical record. If you do not see the information that you expected, contact Release of Information in the Health Information Management department at [phone] for further assistance in locating additional records.[facility] Allergies No Known Allergies Current Medications Prescription Sig. Disp. Refills Start End Date Status Date apixaban (ELIQUIS) 5 mg Take 5 mg by mouth twice Active tablet daily. OXYGEN-AIR DELIVERY Use as directed. Active SYSTEMS (HORIZON NASAL CPAP SYSTEM MISC) Coenzyme Q10 200 mg cap Take by mouth daily. Active KRILL OIL PO Take by mouth. Active atorvastatin (LIPITOR) 20 Take 10 mg by mouth at Active mg tablet bedtime daily. vitamins, multiple tablet Take 1 Tab by mouth Active daily. B.ANI/L.ACI/L.STACIE/L.PLAN/ Take 1 Cap by mouth Active L.EMERALD (PROBIOTIC FORMULA daily. PO) hydroCHLOROthiazide Take 25 mg by mouth every Active (HYDRODIURIL) 25 mg morning. tablet metFORMIN (GLUCOPHAGE) Take 500 mg by mouth Active 500 mg tablet daily. allopurinol (ZYLOPRIM) Take 300 mg by mouth Active 300 mg tablet daily. Take with food. potassium chloride SR Take 1 tablet by mouth 30 tablet 11 05/20/20 Active (K-DUR) 20 mEq daily. Take with a meal 17 tabletIndications: and a full glass of Typical atrial flutter water. (HCC) metoprolol XL (TOPROL XL) TAKE ONE TABLET BY MOUTH 30 tablet 6 Active 50 mg extended release DAILY 17 tabletIndications: Typical atrial flutter (HCC) amLODIPine (NORVASC) 10 Take 10 mg by mouth Active mg tablet daily. ascorbic acid (VITAMIN C) Take 500 mg by mouth Active 500 mg tablet daily. flecainide (TAMBOCOR) 50 Take 1 tablet by mouth 180 tablet 2 11/17/19 Active mg tablet twice daily. 18 Active Problems Problem Noted Date Chronic anticoagulation 01/22/2017 Paroxysmal atrial fibrillation (HCC) 12/30/2016 Last Assessment & Plan: Patient has been in AF since ThursdayMay 03 in the setting of acute gout. He was increased on his Toprol from 50 mg to 100 mg daily for better rate control after he got an ECG in [place] at Dr. Gomez's office. He has remained in AF on increased Toprol. He is rate controlled. He denies missed doses of Eliquis since being in AF. He is to take 1 100 mg Flecainide when he gets home, take another 100 mg Flecainide 30 mins later, and another 50 mg tonight. He then will resume with taking Flecainide 50 mg bid tomorrow. He is to continue Toprol 100 mg daily however this may have to be decreased if he chemically converts, or his HR is too low. He is to get an ECG in [address] Gomez's office, and if he continues to be in AF we recommend cardioversion. He will not require a JANEE due to compliance on Eliquis. Atrial flutter ([facility]) 12/30/2016 Overview: 01/22/2017 - Atrial Flutter RFA, EPS VELIA on CPAP 12/30/2016 COPD (chronic obstructive pulmonary disease) ([facility]) 12/30/2016 Hypertension 12/30/2016 Overview: 11/04/16: Stress Test: LVEF 74%. Reportedly abnormal perfusion. 11/05/16: Cardiac Cath: Mild Non-Obstructive CAD. No areas of critical stenosis. Normal LVEDP L ast Assessment & Plan: Well controlled in the office today. Hyperlipidemia 12/30/2016 Encounters Date Type Specialty Care Team Description 11/16/2017 Refill Cardiology Veronica Blandon, kick press setter Refill from Last 3 Months Family History Medical History Relation Name Comments Stroke Brother Obesity Brother Heart Disease Father Kidney Stones Father Stroke Maternal Uncle Stroke Mother Heart Attack Paternal Grandfather Heart Disease Sister Heart Surgery Sister 2 bypass Relation Name Status Comments Brother (Age 62) Brother MVA (Age 51) Father prostate trouble/ smoker (Age 61) Maternal Grandfather old age (Age 80s) Maternal Grandmother old age (Age 80s) Maternal Uncle (Age 63) Mother (Age 81-82) Paternal Grandfather old age (Age 60s) Paternal Grandmother old age (Age 80s) Sister Alive Social History Tobacco Use Types Packs/Day Years Used Date Never Smoker Smokeless Tobacco: Never Used Alcohol Use Drinks/Week oz/Week Comments No Sex Assigned at Date Recorded Not on file Last Filed Vital Signs Vital Sign Reading Time Taken Blood Pressure 126/88 07/31/2017 10:29 AM BLOCKING MACHINE OPERATOR SECOND Pulse 58 07/31/2017 10:29 AM BLOCKING MACHINE OPERATOR SECOND Temperature 36.4 C (97.6 F) 01/23/2017 6:20 AM CDT Respiratory Rate - - Oxygen Saturation 95% 01/23/2017 10:00 AM CDT Inhaled Oxygen - - Concentration Weight 107.7 kg (237 lb 8 oz) 07/31/2017 10:29 AM BLOCKING MACHINE OPERATOR SECOND Height 175.3 cm (5' 9") 07/31/2017 10:29 AM BLOCKING MACHINE OPERATOR SECOND Body Mass Index 35.07 07/31/2017 10:29 AM BLOCKING MACHINE OPERATOR SECOND Plan of Treatment Health Maintenance Due Date Last Done Comments HEPATITIS C SCREENING 1960 PHYSICAL (COMPREHENSIVE) 1967 EXAM PERTUSSIS VACCINE 1971 HIV SCREENING 1975 TETANUS VACCINE 1977 COLORECTAL CANCER 2010 SCREENING INFLUENZA VACCINE 05/31/2018 Results Not on filefrom Last 3 Months
--- OUTSIDE RECORDS SUMMARY | 2018-01-11 07:36 | XMS REPORT | Encounter Summary ---
Author Author [facility] Organization [facility] Address Unknown Phone Unavailable Care Team Providers Care Locomotive Operator Helper Name Role Phone Joe Hughes MD PCP Reason for Visit * Reason Comments Medication Refill Encounter Details Date Type Department Care Team Description 11/16/2017 Refill [facility] Veronica Blandon, certified alcohol counselor Refill [id number] [place] [address] Social History Tobacco Use Types Packs/Day Years Used Date Never Smoker Smokeless Tobacco: Never Used Alcohol Use Drinks/Week oz/Week Comments No Sex Assigned at Date Recorded Not on file as of this encounter Plan of Treatment Not on fileas of this encounter Visit Diagnoses Not on filein this encounter
--- OUTSIDE RECORDS SUMMARY | 2018-01-11 07:38 | XMS REPORT | Continuity of Care Document ---
Demographics Preferred Language Unknown Marital Status Unknown Jewish Affiliation Unknown Race Unknown Ethnic Group Unknown Author Author [facility] Address Unknown Phone Unavailable Allergies Active Description Code Type Severity Reaction Onset Reported/Identified Relationship to Patient Clinical Status Yes No Known Drug Allergies [id number] Drug Allergy Unknown N/A 08/06/2011 Medications There is no data. Problems Date Dx Coded Attending Type Code Diagnosis Diagnosed By 04/14/2012 Ot 272.4 HYPERLIPIDEMIA NEC/NOS 04/14/2012 Ot 401.9 HYPERTENSION NOS 04/14/2012 Ot 486 PNEUMONIA, ORGANISM NOS 04/14/2012 Ot 790.5 ABN SERUM ENZY LEVEL NEC 04/14/2012 Ot 997.39 OTHER RESPIRATORY COMPLICATIONS 04/14/2012 Ot V45.89 POSTSURGICAL STATES NEC 04/21/2012 Ot 272.0 PURE HYPERCHOLESTEROLEM 04/21/2012 Ot 401.9 HYPERTENSION NOS 04/21/2012 Ot 486 PNEUMONIA, ORGANISM NOS 04/21/2012 Ot 511.9 PLEURAL EFFUSION NOS 04/21/2012 Ot 518.0 PULMONARY COLLAPSE 04/21/2012 Ot 564.00 UNSPEC CONSTIPATION 04/21/2012 Ot 708.0 ALLERGIC URTICARIA 04/21/2012 Ot 997.39 OTHER RESPIRATORY COMPLICATIONS 04/21/2012 Ot E942.6 ADV EFF ANTIHYPERTEN AGT 06/20/2012 Ot 592.1 CALCULUS OF URETER 06/20/2012 Ot 789.09 ABDOMINAL PAIN, OTHER SPECIFIED SITE 07/16/2012 V03.82 PPV23 ( PNEUMOVAX) DX 08/21/2013 RAHUL AQUINO Ot 922.1 CONTUSION OF CHEST WALL 08/21/2013 RAHUL AQUINO Ot 959.11 OTH INJURY OF CHEST WALL 08/21/2013 RAHUL AQUINO Ot E000.8 OTHER EXTERNAL CAUSE STATUS 08/21/2013 RAHUL AQUINO Ot E849.0 ACCIDENT IN HOME 08/21/2013 RAHUL AQUINO Ot E885.9 FALL FROM SLIPPING, TRIPPING, OR STUMBLI 04/19/2015 Ot 518.0 04/19/2015 Ot 487.1 04/19/2015 Ot 786.2 04/19/2015 Ot 486 04/19/2015 Ot 786.2 04/19/2015 Ot 573.8 04/19/2015 Ot 573.8 04/19/2015 Ot 794.8 04/19/2015 Ot 786.05 04/19/2015 Ot 786.50 04/19/2015 STONE COLLINS, MAXINE Norris Ot 790.4 04/19/2015 GUILLE COLLINS, ELIANA Nunez Ot 845.10 SPRAIN OF FOOT NOS 04/19/2015 GUILLE COLLINS, ELIANA Nunez Ot 959.7 LOWER LEG INJURY NOS 04/19/2015 ELIANA HAN MD Ot E000.8 OTHER EXTERNAL CAUSE STATUS 04/19/2015 GUILLE COLLINS, ELIANA Nunez Ot E849.0 ACCIDENT IN HOME 04/19/2015 ELIANA HAN MD Ot E888.9 FALL NOS 04/19/2015 Ot 518.0 04/19/2015 Ot 487.1 04/19/2015 Ot 786.2 04/19/2015 Ot 486 04/19/2015 Ot 786.2 04/19/2015 Ot 573.8 04/19/2015 Ot 573.8 04/19/2015 Ot 794.8 04/19/2015 Ot 786.05 04/19/2015 Ot 786.50 04/19/2015 STONE COLLINS, MAXINE Norris Ot 790.4 06/05/2016 COLTON COLLINS, BEBA Trammell Ot Z01.818 ENCOUNTER FOR OTHER PREPROCEDURAL EXAMIN 06/05/2016 COLTON COLLINS, BEBA Trammell Ot Z86.010 PERSONAL HISTORY OF COLONIC POLYPS 06/06/2016 COLTON COLLINS, BEBA Trammell Ot Z01.818 ENCOUNTER FOR OTHER PREPROCEDURAL EXAMIN 06/06/2016 COLTON COLLINS, BEBA Trammell Ot Z86.010 PERSONAL HISTORY OF COLONIC POLYPS 06/09/2016 Ot 518.0 PULMONARY COLLAPSE 06/09/2016 Ot 487.1 FLU W RESP MANIFEST NEC 06/09/2016 Ot 786.2 COUGH 06/09/2016 Ot 486 PNEUMONIA, ORGANISM NOS 06/09/2016 Ot 786.2 COUGH 06/09/2016 Ot 573.8 LIVER DISORDERS NEC 06/09/2016 Ot 573.8 LIVER DISORDERS NEC 06/09/2016 Ot 794.8 ABN LIVER FUNCTION STUDY 06/09/2016 Ot 786.05 SHORTNESS OF BREATH 06/09/2016 Ot 786.50 CHEST PAIN NOS 06/09/2016 STONE COLLINS, MAXINE P Ot 790.4 ELEV TRANSAMINASE/LDH 06/09/2016 COLTON COLLINS, BEBA Trammell Ot K57.90 DVRTCLOS OF INTEST, PART UNSP, W/O PERF 06/09/2016 COLTON COLLINS, BEBA Trammell Ot K62.1 RECTAL POLYP 06/09/2016 COLTON COLLINS, BEBA Trammell Ot Z12.11 ENCOUNTER FOR SCREENING FOR MALIGNANT NE 06/09/2016 COLTON COLLINS, BEBA Trammell Ot Z86.010 PERSONAL HISTORY OF COLONIC POLYPS 06/10/2016 COLTON COLLINS, BEBA Trammell Ot K57.90 DVRTCLOS OF INTEST, PART UNSP, W/O PERF 06/10/2016 COLTON COLLINS, BEBA Trammell Ot K62.1 RECTAL POLYP 06/10/2016 COLTON COLLINS, BEBA Trammell Ot Z86.010 PERSONAL HISTORY OF COLONIC POLYPS 06/17/2016 COLTON COLLINS, BEBA Trammell Ot K57.90 DVRTCLOS OF INTEST, PART UNSP, W/O PERF 06/17/2016 COLTON COLLINS, BEBA Trammell Ot K62.1 RECTAL POLYP 06/17/2016 COLTON COLLINS, BEBA Trammell Ot Z86.010 PERSONAL HISTORY OF COLONIC POLYPS 07/15/2016 COLTON COLLINS, BEBA Trammell Ot K57.90 DVRTCLOS OF INTEST, PART UNSP, W/O PERF 07/15/2016 COLTON COLLINS, BEBA Trammell Ot K62.1 RECTAL POLYP 07/15/2016 COLTON COLLINS, BEBA Trammell Ot Z12.11 ENCOUNTER FOR SCREENING FOR MALIGNANT NE 07/15/2016 COLTON COLLINS, BEBA Trammell Ot Z86.010 PERSONAL HISTORY OF COLONIC POLYPS 10/21/2016 Ot 518.0 PULMONARY COLLAPSE 10/21/2016 Ot 487.1 FLU W RESP MANIFEST NEC 10/21/2016 Ot 786.2 COUGH 10/21/2016 Ot 486 PNEUMONIA, ORGANISM NOS 10/21/2016 Ot 786.2 COUGH 10/21/2016 Ot 573.8 LIVER DISORDERS NEC 10/21/2016 Ot 573.8 LIVER DISORDERS NEC 10/21/2016 Ot 794.8 ABN LIVER FUNCTION STUDY 10/21/2016 Ot 786.05 SHORTNESS OF BREATH 10/21/2016 Ot 786.50 CHEST PAIN NOS 10/21/2016 STONE COLLINS, MAXINE P Ot 790.4 ELEV TRANSAMINASE/LDH 10/30/2016 TITSU BECKMAN MD Ot E11.9 TYPE 2 DIABETES MELLITUS WITHOUT COMPLIC 10/30/2016 TITUS BECKMAN MD Ot I10 ESSENTIAL (PRIMARY) HYPERTENSION 10/30/2016 TITUS BECKMAN MD Ot I48.2 CHRONIC ATRIAL FIBRILLATION 10/30/2016 TITUS BECKMAN MD Ot M54.5 LOW BACK PAIN 10/30/2016 TITUS BECKMAN MD Ot Z79.01 ALUM OPERATOR (CURRENT) USE OF ANTICOAGULANT 10/30/2016 TITUS BECKMAN MD Ot Z79.84 GROUP HOME (CURRENT) USE OF ORAL HYPOGLYC 10/30/2016 TITUS BECKMAN MD Ot Z79.899 OTHER ALUM OPERATOR (CURRENT) DRUG THERAPY 11/03/2016 RAHUL AQUINO Ot E11.9 TYPE 2 DIABETES MELLITUS WITHOUT COMPLIC 11/03/2016 RAHUL AQUINO Ot I10 ESSENTIAL (PRIMARY) HYPERTENSION 11/03/2016 RAHUL AQUINO Ot M47.816 SPONDYLOSIS W/O MYELOPATHY OR RADICULOPA 11/03/2016 RAHUL AQUINO Ot M48.06 SPINAL STENOSIS, LUMBAR REGION 11/03/2016 RAHUL AQUINO Ot M51.26 OTHER INTERVERTEBRAL DISC DISPLACEMENT, 11/03/2016 RAHUL AQUINO Ot M54.5 LOW BACK PAIN 11/03/2016 RAHUL AQUINO Ot Z79.82 ALUM OPERATOR (CURRENT) USE OF ASPIRIN 11/03/2016 RAHUL AQUINO Ot Z79.84 GROUP HOME (CURRENT) USE OF ORAL HYPOGLYC 11/03/2016 RAHUL AQUINO Ot Z79.899 OTHER GROUP HOME (CURRENT) DRUG THERAPY 11/05/2016 TITUS BECKMAN MD Ot E11.9 TYPE 2 DIABETES MELLITUS WITHOUT COMPLIC 11/05/2016 TITUS BECKMAN MD Ot I10 ESSENTIAL (PRIMARY) HYPERTENSION 11/05/2016 TITUS BECKMAN MD Ot I48.2 CHRONIC ATRIAL FIBRILLATION 11/05/2016 TITUS BECKMAN MD Ot M54.5 LOW BACK PAIN 11/05/2016 TITUS BECKMAN MD Ot Z79.01 GROUP HOME (CURRENT) USE OF ANTICOAGULANT 11/05/2016 TITUS BECKMAN MD Ot Z79.84 ALUM OPERATOR (CURRENT) USE OF ORAL HYPOGLYC 11/05/2016 TITUS BECKMAN MD Ot Z79.899 OTHER GROUP HOME (CURRENT) DRUG THERAPY 11/05/2016 MARIO GOODE MD Ot E78.5 HYPERLIPIDEMIA, UNSPECIFIED 11/05/2016 MARIO GOODE MD Ot G47.33 OBSTRUCTIVE SLEEP APNEA (ADULT) (PEDIATR 11/05/2016 MARIO GOODE MD Ot I10 ESSENTIAL (PRIMARY) HYPERTENSION 11/05/2016 MARIO GOODE MD Ot I48.0 PAROXYSMAL ATRIAL FIBRILLATION 11/06/2016 MARIO GOODE MD Ot E11.9 TYPE 2 DIABETES MELLITUS WITHOUT COMPLIC 11/06/2016 MARIO GOODE MD Ot E66.9 OBESITY, UNSPECIFIED 11/06/2016 MARIO GOODE MD Ot E78.5 HYPERLIPIDEMIA, UNSPECIFIED 11/06/2016 MARIO GOODE MD Ot G47.33 OBSTRUCTIVE SLEEP APNEA (ADULT) (PEDIATR 11/06/2016 MARIO GOODE MD Ot I10 ESSENTIAL (PRIMARY) HYPERTENSION 11/06/2016 MARIO GOODE MD Ot I25.10 ATHSCL HEART DISEASE OF [place] CORONARY 11/06/2016 MARIO GOODE MD Ot I48.0 PAROXYSMAL ATRIAL FIBRILLATION 11/06/2016 MARIO GOOED MD Ot I48.1 PERSISTENT ATRIAL FIBRILLATION 11/06/2016 MARIO GOODE MD Ot Z68.33 BODY MASS INDEX (BMI) 33.0-33.9, ADULT 11/06/2016 MARIO GOODE MD Ot Z79.84 ALUM OPERATOR (CURRENT) USE OF ORAL HYPOGLYC 11/08/2016 RAHUL AQUINO Ot E11.9 TYPE 2 DIABETES MELLITUS WITHOUT COMPLIC 11/08/2016 RAHUL AQUINO Ot I10 ESSENTIAL (PRIMARY) HYPERTENSION 11/08/2016 RAHUL AQUINO Ot M47.816 SPONDYLOSIS W/O MYELOPATHY OR RADICULOPA 11/08/2016 RAHUL AQUINO Ot M48.06 SPINAL STENOSIS, LUMBAR REGION 11/08/2016 RAHUL AQUINO Ot M51.26 OTHER INTERVERTEBRAL DISC DISPLACEMENT, 11/08/2016 RAHUL AQUINO Ot M54.5 LOW BACK PAIN 11/08/2016 RAHUL AQUINO Ot Z79.82 ALUM OPERATOR (CURRENT) USE OF ASPIRIN 11/08/2016 RAHUL AQUINO Ot Z79.84 ALUM OPERATOR (CURRENT) USE OF ORAL HYPOGLYC 11/08/2016 RAHUL AQUINO Ot Z79.899 OTHER ALUM OPERATOR (CURRENT) DRUG THERAPY 11/26/2016 MARIO GOODE MD Ot E78.5 HYPERLIPIDEMIA, UNSPECIFIED 11/26/2016 MARIO GOODE MD Ot G47.33 OBSTRUCTIVE SLEEP APNEA (ADULT) (PEDIATR 11/26/2016 MARIO GOODE MD Ot I10 ESSENTIAL (PRIMARY) HYPERTENSION 11/26/2016 MARIO GOODE MD Ot I48.0 PAROXYSMAL ATRIAL FIBRILLATION 11/30/2016 CHICHI ROMERO FINISHING FRAME RUNNER Ot G47.33 OBSTRUCTIVE SLEEP APNEA (ADULT) (PEDIATR 11/30/2016 CHICHI ROMERO E FINISHING FRAME RUNNER Ot G47.50 PARASOMNIA, UNSPECIFIED 11/30/2016 CHICHI ROMERO FINISHING FRAME RUNNER Ot I48.0 PAROXYSMAL ATRIAL FIBRILLATION 12/01/2016 CHICHI ROMERO FINISHING FRAME RUNNER Ot G47.33 OBSTRUCTIVE SLEEP APNEA (ADULT) (PEDIATR 12/01/2016 CHICHI ROMERO FINISHING FRAME RUNNER Ot G47.50 PARASOMNIA, UNSPECIFIED 12/01/2016 CHICHI ROMERO FINISHING FRAME RUNNER Ot I48.0 PAROXYSMAL ATRIAL FIBRILLATION 01/28/2017 WANDY QUINTANILLA Ot I10 ESSENTIAL (PRIMARY) HYPERTENSION 01/28/2017 WANDY QUINTANILLA Ot R25.2 CRAMP AND SPASM 02/02/2017 WANDY QUINTANILLA Ot M79.662 PAIN IN LEFT LOWER LEG 02/11/2017 ROBBIN ÁLVAREZ MD Ot I48.0 PAROXYSMAL ATRIAL FIBRILLATION 02/11/2017 ROBBIN ÁLVAREZ MD Ot I48.3 TYPICAL ATRIAL FLUTTER 02/17/2017 WANDY QUINTANILLA Ot I10 ESSENTIAL (PRIMARY) HYPERTENSION 02/17/2017 WANDY QUINTANILLA Ot R25.2 CRAMP AND SPASM 02/17/2017 WANDY QUINTANILLA Ot M79.662 PAIN IN LEFT LOWER LEG 02/24/2017 ROBBIN ÁLVAREZ MD, Ot I48.3 TYPICAL ATRIAL FLUTTER 05/01/2017 TITUS BECKMAN MD Ot E11.9 TYPE 2 DIABETES MELLITUS WITHOUT COMPLIC 05/01/2017 TITUS BECKMAN MD Ot I10 ESSENTIAL (PRIMARY) HYPERTENSION 05/01/2017 TITUS BECKMAN MD Ot I48.2 CHRONIC ATRIAL FIBRILLATION 05/01/2017 TITUS BECKMAN MD, Ot M54.5 LOW BACK PAIN 05/01/2017 TITUS BECKMAN MD, Ot Z79.01 ALUM OPERATOR (CURRENT) USE OF ANTICOAGULANT 05/01/2017 TITUS BECKMAN MD Ot Z79.84 GROUP HOME (CURRENT) USE OF ORAL HYPOGLYC 05/01/2017 TITUS BECKMAN MD, Ot Z79.899 OTHER ALUM OPERATOR (CURRENT) DRUG THERAPY 12/11/2017 Ot 486 PNEUMONIA, ORGANISM NOS 12/11/2017 Ot 786.2 COUGH 12/11/2017 Ot 573.8 LIVER DISORDERS NEC 12/11/2017 Ot 573.8 LIVER DISORDERS NEC 12/11/2017 Ot 794.8 ABN LIVER FUNCTION STUDY 12/11/2017 Ot 786.05 SHORTNESS OF BREATH 12/11/2017 Ot 786.50 CHEST PAIN NOS 12/11/2017 STONE COLLINS, MAXINE Norris Ot 790.4 ELEV TRANSAMINASE/LDH 12/11/2017 MARIO GOODE MD Ot E78.5 HYPERLIPIDEMIA, UNSPECIFIED 12/11/2017 MARIO GOODE MD Ot G47.33 OBSTRUCTIVE SLEEP APNEA (ADULT) (PEDIATR 12/11/2017 MARIO GOODE MD Ot I10 ESSENTIAL (PRIMARY) HYPERTENSION 12/11/2017 MARIO GOODE MD Ot I48.0 PAROXYSMAL ATRIAL FIBRILLATION 12/11/2017 ROBBIN ÁLVAREZ MD Ot I48.0 PAROXYSMAL ATRIAL FIBRILLATION 12/11/2017 ROBBIN ÁLVAREZ MD Ot I48.3 TYPICAL ATRIAL FLUTTER 12/11/2017 WANDY QUINTANILLA Ot I10 ESSENTIAL (PRIMARY) HYPERTENSION 12/11/2017 WANDY QUINTANILLA Ot R25.2 CRAMP AND SPASM 12/11/2017 WANDY QUINTANILLA Ot M79.662 PAIN IN LEFT LOWER LEG 12/11/2017 ROBBIN ÁLVAREZ MD Ot I48.3 TYPICAL ATRIAL FLUTTER 12/18/2017 Ot 486 PNEUMONIA, ORGANISM NOS 12/18/2017 Ot 786.2 COUGH 12/18/2017 Ot 573.8 LIVER DISORDERS NEC 12/18/2017 Ot 573.8 LIVER DISORDERS NEC 12/18/2017 Ot 794.8 ABN LIVER FUNCTION STUDY 12/18/2017 Ot 786.05 SHORTNESS OF BREATH 12/18/2017 Ot 786.50 CHEST PAIN NOS 12/18/2017 MAXINE RITTER MD Ot 790.4 ELEV TRANSAMINASE/LDH 12/18/2017 RUPA COLLINS, MARIO Lazcano Ot E78.5 HYPERLIPIDEMIA, UNSPECIFIED 12/18/2017 MARIO GOODE MD Ot G47.33 OBSTRUCTIVE SLEEP APNEA (ADULT) (PEDIATR 12/18/2017 RUPA COLLINS, MARIO Lazcano Ot I10 ESSENTIAL (PRIMARY) HYPERTENSION 12/18/2017 MARIO GOODE MD Ot I48.0 PAROXYSMAL ATRIAL FIBRILLATION 12/18/2017 ROBBIN ÁLVAREZ MD Ot I48.0 PAROXYSMAL ATRIAL FIBRILLATION 12/18/2017 ROBBIN ÁLVAREZ MD Ot I48.3 TYPICAL ATRIAL FLUTTER 12/18/2017 WANDY QUINTANILLA Ot I10 ESSENTIAL (PRIMARY) HYPERTENSION 12/18/2017 WANDY QUINTANILLA Ot R25.2 CRAMP AND SPASM 12/18/2017 WANDY QUINTANILLA Ot M79.662 PAIN IN LEFT LOWER LEG 12/18/2017 ROBBIN ÁLVAREZ MD Ot I48.3 TYPICAL ATRIAL FLUTTER 12/25/2017 Ot 573.8 LIVER DISORDERS NEC 12/25/2017 Ot 573.8 LIVER DISORDERS NEC 12/25/2017 Ot 794.8 ABN LIVER FUNCTION STUDY 12/25/2017 Ot 786.05 SHORTNESS OF BREATH 12/25/2017 Ot 786.50 CHEST PAIN NOS 12/25/2017 MAXINE RITTER MD Ot 790.4 ELEV TRANSAMINASE/LDH 12/25/2017 MARIO GOODE MD Ot E78.5 HYPERLIPIDEMIA, UNSPECIFIED 12/25/2017 MARIO GOODE MD Ot G47.33 OBSTRUCTIVE SLEEP APNEA (ADULT) (PEDIATR 12/25/2017 MARIO GOODE MD Ot I10 ESSENTIAL (PRIMARY) HYPERTENSION 12/25/2017 MARIO GOODE MD Ot I48.0 PAROXYSMAL ATRIAL FIBRILLATION 12/25/2017 ROBBIN ÁLVAREZ MD, Ot I48.0 PAROXYSMAL ATRIAL FIBRILLATION 12/25/2017 ROBBIN ÁLVAREZ MD Ot I48.3 TYPICAL ATRIAL FLUTTER 12/25/2017 WANDY QUINTANILLA Ot I10 ESSENTIAL (PRIMARY) HYPERTENSION 12/25/2017 WANDY QUINTANILLA Ot R25.2 CRAMP AND SPASM 12/25/2017 WANDY QUINTANILLA Ot M79.662 PAIN IN LEFT LOWER LEG 12/25/2017 ROBBIN ÁLVAREZ MD Ot I48.3 TYPICAL ATRIAL FLUTTER 12/25/2017 WANDY QUINTANILLA Ot E78.5 HYPERLIPIDEMIA, UNSPECIFIED 12/25/2017 WANDY QUINTANILLA Ot I10 ESSENTIAL (PRIMARY) HYPERTENSION 12/25/2017 WANDY QUINTANILLA Ot I34.0 NONRHEUMATIC MITRAL (VALVE) INSUFFICIENC 12/25/2017 WANDY QUINTANILLA Ot I48.0 PAROXYSMAL ATRIAL FIBRILLATION 12/25/2017 WANDY QUINTANILLA Ot R00.2 PALPITATIONS Procedures Code Description Performed By Performed On 34.91 THORACENTESIS 04/16/2012 [id number] MEASURE OF CARDIAC SAMPL PRESSURE, L H 11/05/2016 [id number] FLUOROSCOPY OF MULT COR ART USING L OSM 11/05/2016 [id number] GNOSTICISM OF CARDIAC RHYTHM, SINGLE 11/06/2016 Results Test Result Range Complete urinalysis with reflex to culture - 10/30/16 19:50 Urine color determination YELLOW NRG Urine clarity determination CLEAR NRG Urine pH measurement by test strip 6 5-9 Specific gravity of urine by test strip 1.015 1.016- 1.022 Urine protein assay by test strip, semi-quantitative NEGATIVE NEGATIVE Urine glucose detection by automated test strip NEGATIVE NEGATIVE Erythrocytes detection in urine sediment by light microscopy NEGATIVE NEGATIVE Urine ketones detection by automated test strip NEGATIVE NEGATIVE Urine nitrite detection by test strip NEGATIVE NEGATIVE Urine total bilirubin detection by test strip NEGATIVE NEGATIVE Urine urobilinogen measurement by automated test strip (mass/volume) NORMAL NORMAL Urine leukocyte esterase detection by dipstick NEGATIVE NEGATIVE Automated urine sediment erythrocyte count by microscopy (number/high power field) RARE NRG Automated urine sediment leukocyte count by microscopy (number/high power field ) NONE NRG Bacteria detection in urine sediment by light microscopy NONE NRG Crystals detection in urine sediment by light microscopy NONE NRG Casts detection in urine sediment by light microscopy NONE NRG Mucus detection in urine sediment by light microscopy NEGATIVE NRG Complete urinalysis with reflex to culture NO NRG Complete blood count (CBC) with automated white blood cell (WBC) differential - 10/30/16 21:00 Blood leukocytes automated count (number/volume) 7.1 10*3/uL 4.3-11.0 Blood erythrocytes automated count (number/volume) 4.91 10*6/uL 4.35-5.85 Venous blood hemoglobin measurement (mass/volume) 15.0 g/dL 13.3-17.7 Blood hematocrit (volume fraction) 43 % 40-54 Automated erythrocyte mean corpuscular volume 88 [foz_us] 80-99 Automated erythrocyte mean corpuscular hemoglobin (mass per erythrocyte) 31 pg 25-34 Automated erythrocyte mean corpuscular hemoglobin concentration measurement ( mass/volume) 35 g/dL 32-36 Automated erythrocyte distribution width ratio 14.4 % 10.0-14.5 Automated blood platelet count (count/volume) 205 10*3/uL 130-400 Automated blood platelet mean volume measurement 10.7 [foz_us] 7.4-10.4 Automated blood neutrophils/100 leukocytes 57 % 42-75 Automated blood lymphocytes/100 leukocytes 31 % 12-44 Blood monocytes/100 leukocytes 11 % 0-12 Automated blood eosinophils/100 leukocytes 1 % 0-10 Automated blood basophils/100 leukocytes 0 % 0-10 Blood neutrophils automated count (number/volume) 4.0 10*3 1.8-7.8 Blood lymphocytes automated count (number/volume) 2.2 10*3 1.0-4.0 Blood monocytes automated count (number/volume) 0.8 10*3 0.0-1.0 Automated eosinophil count 0.1 10*3/uL 0.0-0.3 Automated blood basophil count (count/volume) 0.0 10*3/uL 0.0-0.1 PT panel in platelet poor plasma by coagulation assay - 10/30/16 21:00 Prothrombin time (PT) in platelet poor plasma by coagulation assay 12.9 s 12.2-14.7 INR in platelet poor plasma or blood by coagulation assay 1.0 0.8-1.4 Comprehensive metabolic panel - 10/30/16 21:00 Serum or plasma sodium measurement (moles/volume) 141 mmol/L 135-145 Serum or plasma potassium measurement (moles/volume) 3.7 mmol/L 3.6-5.0 Serum or plasma chloride measurement (moles/volume) 107 mmol/L 98-107 Carbon dioxide 20 mmol/L 21-32 Serum or plasma anion gap determination (moles/volume) 14 mmol/L 5-14 Serum or plasma urea nitrogen measurement (mass/volume) 26 mg/dL 7-18 Serum or plasma creatinine measurement (mass/volume) 0.94 mg/dL 0.60-1.30 Serum or plasma urea nitrogen/creatinine mass ratio 28 NRG Serum or plasma creatinine measurement with calculation of estimated glomerular filtration rate > NRG Serum or plasma glucose measurement (mass/volume) 100 mg/dL 70-105 Serum or plasma calcium measurement (mass/volume) 9.3 mg/dL 8.5-10.1 Serum or plasma total bilirubin measurement (mass/volume) 0.5 mg/dL 0.1-1.0 Serum or plasma alkaline phosphatase measurement (enzymatic activity/volume) 85 U/L 40-136 Serum or plasma aspartate aminotransferase measurement (enzymatic activity/ volume) 20 U/L 5-34 Serum or plasma alanine aminotransferase measurement (enzymatic activity/volume ) 36 U/L 0-55 Serum or plasma protein measurement (mass/volume) 6.7 g/dL 6.4-8.2 Serum or plasma albumin measurement (mass/volume) 4.1 g/dL 3.2-4.5 Magnesium - 10/30/16 21:00 Magnesium 2.5 mg/dL 1.8-2.4 Serum or plasma troponin i.cardiac measurement (mass/volume) - 10/30/16 21:00 Serum or plasma troponin i.cardiac measurement (mass/volume) < ng/ mL <0.30 Myoglobin, serum - 10/30/16 21:00 Myoglobin, serum 34.7 ng/mL 10.0-92.0 Activated partial thromboplastin time (aPTT) in platelet poor plasma bycoagulation assay - 10/30/16 21:00 Activated partial thromboplastin time (aPTT) in platelet poor plasma bycoagulation assay 28 s 24-35 Serum or plasma thyrotropin measurement by detection limit <=0.05 miu/l (units/ volume) - 10/30/16 21:00 Serum or plasma thyrotropin measurement by detection limit <=0.05 miu/l (units/ volume) 2.09 u[iU]/mL 0.35-4.94 Automated blood complete blood count (hemogram) panel - 11/05/16 10:21 Blood leukocytes automated count (number/volume) 8.6 10*3/uL 4.3-11.0 Blood erythrocytes automated count (number/volume) 5.21 10*6/uL 4.35-5.85 Venous blood hemoglobin measurement (mass/volume) 15.8 g/dL 13.3-17.7 Blood hematocrit (volume fraction) 46 % 40-54 Automated erythrocyte mean corpuscular volume 87 [foz_us] 80-99 Automated erythrocyte mean corpuscular hemoglobin (mass per erythrocyte) 30 pg 25-34 Automated erythrocyte mean corpuscular hemoglobin concentration measurement ( mass/volume) 35 g/dL 32-36 Automated erythrocyte distribution width ratio 14.0 % 10.0-14.5 Automated blood platelet count (count/volume) 223 10*3/uL 130-400 Automated blood platelet mean volume measurement 10.6 [foz_us] 7.4-10.4 PT panel in platelet poor plasma by coagulation assay - 11/05/16 10:21 Prothrombin time (PT) in platelet poor plasma by coagulation assay 13.7 s 12.2-14.7 INR in platelet poor plasma or blood by coagulation assay 1.1 0.8-1.4 Activated partial thromboplastin time (aPTT) in platelet poor plasma bycoagulation assay - 11/05/16 10:21 Activated partial thromboplastin time (aPTT) in platelet poor plasma bycoagulation assay 32 s 24-35 Comprehensive metabolic panel - 11/05/16 10:21 Serum or plasma sodium measurement (moles/volume) 141 mmol/L 135-145 Serum or plasma potassium measurement (moles/volume) 3.5 mmol/L 3.6-5.0 Serum or plasma chloride measurement (moles/volume) 105 mmol/L 98-107 Carbon dioxide 24 mmol/L 21-32 Serum or plasma anion gap determination (moles/volume) 12 mmol/L 5-14 Serum or plasma urea nitrogen measurement (mass/volume) 16 mg/dL 7-18 Serum or plasma creatinine measurement (mass/volume) 1.03 mg/dL 0.60-1.30 Serum or plasma urea nitrogen/creatinine mass ratio 16 NRG Serum or plasma creatinine measurement with calculation of estimated glomerular filtration rate > NRG Serum or plasma glucose measurement (mass/volume) 96 mg/dL 70-105 Serum or plasma calcium measurement (mass/volume) 9.2 mg/dL 8.5-10.1 Serum or plasma total bilirubin measurement (mass/volume) 1.0 mg/dL 0.1-1.0 Serum or plasma alkaline phosphatase measurement (enzymatic activity/volume) 97 U/L 40-136 Serum or plasma aspartate aminotransferase measurement (enzymatic activity/ volume) 21 U/L 5-34 Serum or plasma alanine aminotransferase measurement (enzymatic activity/volume ) 41 U/L 0-55 Serum or plasma protein measurement (mass/volume) 7.2 g/dL 6.4-8.2 Serum or plasma albumin measurement (mass/volume) 4.4 g/dL 3.2-4.5 Lipid 1996 panel - 11/05/16 10:21 Serum or plasma triglyceride measurement (mass/volume) 200 mg/dL <150 Serum or plasma cholesterol measurement (mass/volume) 163 mg/dL < 200 Serum or plasma cholesterol in HDL measurement (mass/volume) 39 mg/ dL 40-60 Cholesterol in LDL [mass/volume] in serum or plasma by direct assay 93 mg/dL 1-129 Serum or plasma cholesterol in VLDL measurement (mass/volume) 40 mg/ dL 5-40 Methicillin resistant Staphylococcus aureus (MRSA) screening culture - 10:21 Methicillin resistant Staphylococcus aureus (MRSA) screening culture NEG NRG Automated blood complete blood count (hemogram) panel - 11/06/16 03:50 Blood leukocytes automated count (number/volume) 7.1 10*3/uL 4.3-11.0 Blood erythrocytes automated count (number/volume) 4.77 10*6/uL 4.35-5.85 Venous blood hemoglobin measurement (mass/volume) 14.5 g/dL 13.3-17.7 Blood hematocrit (volume fraction) 42 % 40-54 Automated erythrocyte mean corpuscular volume 87 [foz_us] 80-99 Automated erythrocyte mean corpuscular hemoglobin (mass per erythrocyte) 30 pg 25-34 Automated erythrocyte mean corpuscular hemoglobin concentration measurement ( mass/volume) 35 g/dL 32-36 Automated erythrocyte distribution width ratio 13.8 % 10.0-14.5 Automated blood platelet count (count/volume) 168 10*3/uL 130-400 Automated blood platelet mean volume measurement 11.0 [foz_us] 7.4-10.4 Comprehensive metabolic panel - 11/06/16 03:50 Serum or plasma sodium measurement (moles/volume) 138 mmol/L 135-145 Serum or plasma potassium measurement (moles/volume) 3.3 mmol/L 3.6-5.0 Serum or plasma chloride measurement (moles/volume) 107 mmol/L 98-107 Carbon dioxide 20 mmol/L 21-32 Serum or plasma anion gap determination (moles/volume) 11 mmol/L 5-14 Serum or plasma urea nitrogen measurement (mass/volume) 12 mg/dL 7-18 Serum or plasma creatinine measurement (mass/volume) 0.81 mg/dL 0.60-1.30 Serum or plasma urea nitrogen/creatinine mass ratio 15 NRG Serum or plasma creatinine measurement with calculation of estimated glomerular filtration rate > NRG Serum or plasma glucose measurement (mass/volume) 98 mg/dL 70-105 Serum or plasma calcium measurement (mass/volume) 8.3 mg/dL 8.5-10.1 Serum or plasma total bilirubin measurement (mass/volume) 0.7 mg/dL 0.1-1.0 Serum or plasma alkaline phosphatase measurement (enzymatic activity/volume) 87 U/L 40-136 Serum or plasma aspartate aminotransferase measurement (enzymatic activity/ volume) 16 U/L 5-34 Serum or plasma alanine aminotransferase measurement (enzymatic activity/volume ) 30 U/L 0-55 Serum or plasma protein measurement (mass/volume) 6.0 g/dL 6.4-8.2 Serum or plasma albumin measurement (mass/volume) 3.7 g/dL 3.2-4.5 THYROID STIMULATING HORMONE - 11/06/16 03:50 THYROID STIMULATING HORMONE 1.89 u[iU]/mL 0.35-4.94 Magnesium - 11/06/16 03:50 Magnesium 1.9 mg/dL 1.8-2.4 Automated blood complete blood count (hemogram) panel - 01/19/17 09:47 Blood leukocytes automated count (number/volume) 6.2 10*3/uL 4.3-11.0 Blood erythrocytes automated count (number/volume) 4.99 10*6/uL 4.35-5.85 Venous blood hemoglobin measurement (mass/volume) 14.8 g/dL 13.3-17.7 Blood hematocrit (volume fraction) 44 % 40-54 Automated erythrocyte mean corpuscular volume 89 [foz_us] 80-99 Automated erythrocyte mean corpuscular hemoglobin (mass per erythrocyte) 30 pg 25-34 Automated erythrocyte mean corpuscular hemoglobin concentration measurement ( mass/volume) 33 g/dL 32-36 Automated erythrocyte distribution width ratio 13.6 % 10.0-14.5 Automated blood platelet count (count/volume) 218 10*3/uL 130-400 Automated blood platelet mean volume measurement 10.4 [foz_us] 7.4-10.4 Whole blood basic metabolic panel - 01/19/17 09:47 Serum or plasma sodium measurement (moles/volume) 139 mmol/L 135-145 Serum or plasma potassium measurement (moles/volume) 3.7 mmol/L 3.6-5.0 Serum or plasma chloride measurement (moles/volume) 107 mmol/L 98-107 Carbon dioxide 22 mmol/L 21-32 Serum or plasma anion gap determination (moles/volume) 10 mmol/L 5-14 Serum or plasma urea nitrogen measurement (mass/volume) 16 mg/dL 7-18 Serum or plasma creatinine measurement (mass/volume) 0.95 mg/dL 0.60-1.30 Serum or plasma urea nitrogen/creatinine mass ratio 17 NRG Serum or plasma creatinine measurement with calculation of estimated glomerular filtration rate > NRG Serum or plasma glucose measurement (mass/volume) 107 mg/dL 70-105 Serum or plasma calcium measurement (mass/volume) 9.1 mg/dL 8.5-10.1 Magnesium - 01/19/17 09:47 Magnesium 2.2 mg/dL 1.8-2.4 Whole blood basic metabolic panel - 01/30/17 09:31 Serum or plasma sodium measurement (moles/volume) 140 mmol/L 135-145 Serum or plasma potassium measurement (moles/volume) 4.0 mmol/L 3.6-5.0 Serum or plasma chloride measurement (moles/volume) 107 mmol/L 98-107 Carbon dioxide 23 mmol/L 21-32 Serum or plasma anion gap determination (moles/volume) 10 mmol/L 5-14 Serum or plasma urea nitrogen measurement (mass/volume) 18 mg/dL 7-18 Serum or plasma creatinine measurement (mass/volume) 0.97 mg/dL 0.60-1.30 Serum or plasma urea nitrogen/creatinine mass ratio 19 NRG Serum or plasma creatinine measurement with calculation of estimated glomerular filtration rate > NRG Serum or plasma glucose measurement (mass/volume) 133 mg/dL 70-105 Serum or plasma calcium measurement (mass/volume) 9.5 mg/dL 8.5-10.1 Encounters ACCT No. Visit Date/Time Discharge Status Pt. Type Provider Facility Loc./Unit Complaint [id number] 07/16/2012 11:49:00 07/16/2012 23:59:59 CLS Outpatient [id number] 12/21/2017 08:29:00 12/21/2017 23:59:59 CLS Outpatient WANDY QUINTANILLA [facility] CARD E78.2 HYPERLIPIDEMIA [id number] 01/30/2017 09:15:00 01/30/2017 23:59:59 CLS Outpatient ROBBIN ÁLVAREZ MD [facility] LAB I48.3 [id number] 01/27/2017 14:13:00 01/27/2017 23:59:59 CLS Outpatient WANDY QUINTANILLA [facility] RAD ACUTE LEG PAIN M79.662 [id number] 01/27/2017 10:48:00 01/27/2017 23:59:59 CLS Outpatient WANDY QUINTANILLA [facility] LAB LEG CRAMPS [id number] 01/19/2017 09:18:00 01/19/2017 23:59:59 CLS Outpatient ROBBIN ÁLVAREZ MD [facility] LAB TYPICAL ATRIAL FLUTTER I48.3,I48.0 [id number] 11/29/2016 19:38:00 11/30/2016 05:25:00 DIS Outpatient HEATHER CHICHI Valentin BISHOP [facility] SLEEP G47.50 [id number] 11/05/2016 15:50:00 11/06/2016 08:15:00 DIS Inpatient MARIO GOODE MD [facility] ICU AFIB [id number] 11/04/2016 06:42:00 11/04/2016 23:59:59 CLS Outpatient MARIO GOODE MD [facility] CARD HLP,HTN,VELIA [id number] 11/02/2016 20:48:00 11/03/2016 00:10:00 DIS Emergency RAHUL AQUINO [facility] ER LOW BACK PAIN [id number] 10/30/2016 18:52:00 10/30/2016 22:54:00 DIS Emergency TITUS BECKMAN MD [facility] ER BACK PAIN [id number] 06/09/2016 06:50:00 06/09/2016 10:30:00 DIS Outpatient BEBA SEGURA MD [facility] SDC HISTORY OF POLYPS [id number] 06/05/2016 05:59:00 06/05/2016 16:04:00 DIS Outpatient BEBA SEGURA MD [facility] PREOP HISTORY OF POLYPS [id number] 04/19/2015 00:43:00 04/19/2015 01:41:00 DIS Emergency ELIANA HAN MD [facility] ER FALL-RT FOOT PAIN [id number] 08/21/2013 18:34:00 08/21/2013 22:11:00 DIS Emergency RAHUL AQUINO [facility] ER FALL,LEFT SIDE PAIN [id number] 01/11/2013 10:54:00 01/11/2013 23:59:59 CLS Outpatient MAXINE RITTER MD [facility] LAB ELEVATED LIVER ENSYEMES [id number] 04/19/2015 00:42:00 Document Registration [id number] 12/20/2012 11:14:00 Document Registration [id number] 07/30/2012 10:52:00 Document Registration [id number] 07/16/2012 09:38:00 Document Registration [id number] 07/02/2012 07:11:00 Document Registration [id number] 06/20/2012 08:13:00 Document Registration [id number] 05/28/2012 08:08:00 Document Registration [id number] 04/28/2012 08:27:00 Document Registration [id number] 04/16/2012 10:31:00 Document Registration [id number] 04/11/2012 22:53:00 Document Registration [id number] 08/07/2017 16:20:00 08/07/2017 23:59:59 [facility]
[2018-01-11] MEDS ORDERED: NS IV 1000 ML 1,000 ML IV SCH (07:48)
[2018-01-11 07:59] LABS: BASOPHILS % (AUTO) 0 % (0-10); EOSINOPHILS # (AUTO) 0.1 10^3/uL (0.0-0.3); EOSINOPHILS % (AUTO) 2 % (0-10); HEMATOCRIT 43 % (40-54); HEMOGLOBIN 14.6 G/DL (13.3-17.7); LYMPHOCYTES # (AUTO) 1.8 X 10^3 (1.0-4.0); LYMPHOCYTES % (AUTO) 25 % (12-44); MEAN CORPUSCULAR HEMOGLOBIN 30 PG (25-34); MEAN CORPUSCULAR HGB CONC 34 G/DL (32-36); MEAN CORPUSCULAR VOLUME 88 FL (80-99); MEAN PLATELET VOLUME 10.1 FL (7.4-10.4); MONOCYTES # (AUTO) 0.7 X 10^3 (0.0-1.0); MONOCYTES % (AUTO) 10 % (0-12); NEUTROPHILS # (AUTO) 4.5 X 10^3 (1.8-7.8); NEUTROPHILS % (AUTO) 63 % (42-75); PLATELET COUNT 241 10^3/uL (130-400); RED BLOOD COUNT 4.82 10^6/uL (4.35-5.85); RED CELL DISTRIBUTION WIDTH 14.9 % (10.0-14.5); WHITE BLOOD COUNT 7.1 10^3/uL (4.3-11.0)
[2018-01-11] MEDS ORDERED: ONDANSETRON 4 MG/2 ML (SDV) Z0FRAN IVP ONE (08:00)
[2018-01-11] MEDS ORDERED: fentaNYL INJECTION 100 MCG/2 ML AMP IVP ONE (08:00)
[2018-01-11 08:20] LABS: ALANINE AMINOTRANSFERASE 54 U/L (0-55); ALBUMIN 4.6 GM/DL (3.2-4.5); ALKALINE PHOSPHATASE 96 U/L (40-136); BILIRUBIN,TOTAL 0.6 MG/DL (0.1-1.0); BUN/CREATININE RATIO 20; CALCIUM 9.7 MG/DL (8.5-10.1); CARBON DIOXIDE 21 MMOL/L (21-32); CHLORIDE 108 MMOL/L (98-107); CREATININE SERUM 1.08 MG/DL (0.60-1.30); GFR ESTIMATED > 60; GLUCOSE 148 MG/DL (70-105); POTASSIUM 3.7 MMOL/L (3.6-5.0); SODIUM 140 MMOL/L (135-145); TOTAL PROTEIN 7.5 GM/DL (6.4-8.2)
[2018-01-11] MEDS ORDERED: HYDROmorphone 1 MG/ML (DILAUDID) 1 ML SYRINGE IV ONE (08:30)
--- NOTE | 2018-01-11 08:32 | ED GU-Male ---
General Chief Complaint: Abdominal/GI Problems Stated Complaint: ABD PAIN Nursing Triage Note: c/o low abd pain with N/V. Reports mild radiation to back. Onet 0600. Source: patient Exam Limitations: no limitations History of Present Illness Date Seen by Provider: January 11, 2018 Time Seen by Provider: 07:40 Initial Comments Patient presents to the ER by private conveyance with a chief complaint that this morning about 6:00 he woke up with some pain in his groin and suprapubic region may be on the left side. He's had a history of kidney stones. He is having difficulty urinating. He had some nausea with a little bit of vomiting but no blood in it. He's had some loose stools last couple days but no diarrhea or constipation. He says his pain is reminiscent of kidney stone. He is having significant amount pain but no fevers. He has not taken anything for pain yet. Allergies and Home Medications Allergies Coded Allergies: No Known Drug Allergies (Unverified , 08/06/11) Home Medications Amiodarone HCl 200 Mg Tablet, 200 MG PO BID Prescribed by: BETO WALKER on 11/06/16 1805 Amlodipine Besylate 10 Mg Tablet, 5 MG PO HS, (Reported) TAKES 1/2 OF A (10 MG) TABLET Apixaban 5 Mg Tablet, 5 MG PO BID, (Reported) Atorvastatin Calcium 20 Mg Tablet, 10 MG PO HS, (Reported) TAKES 1/2 OF A (20 MG) TABLET Cyclobenzaprine HCl 10 Mg Tablet, 10 MG PO HS PRN for MUSCLE SPASMS, (Reported) Hydrochlorothiazide 25 Mg Tablet, 25 MG PO DAILY, (Reported) Hydrocodone/Acetaminophen 1 Each Tablet, 1 TAB PO Q4H PRN for MODERATE PAIN, ( Reported) Krill/[place]-3/Dha/Epa/Lipids 1 Each Capsule, 300 MG PO DAILY@1630, (Reported) L.acidoph & Paracasei,B.lactis 1 Each Capsule, 1 CAP PO DAILY@1630, (Reported) Metoprolol Tartrate 100 Mg Tablet, 100 MG PO DAILY, (Reported) Multivitamin 1 Each Tablet, 1 TAB PO DAILY@1630, (Reported) [place]-3/Dha/Epa/Fish Oil 1 Each Capsule, 1,000 MG PO DAILY@1630, (Reported) Orphenadrine Citrate 100 Mg Tablet.er, 100 MG PO BID PRN for MUSCLE SPASMS, ( Reported) Potassium 99 Mg Tablet, 99 MG PO DAILY@1630, (Reported) Tramadol HCl 50 Mg Tablet, 50 MG PO Q6H PRN for MILD PAIN, (Reported) Ubidecarenone 200 Mg Capsule, 200 MG PO HS, (Reported) Patient Home Medication List Home Medication List Reviewed: Yes Review of Systems Constitutional: No chills, No diaphoresis EENTM: No ear discharge, No ear pain Respiratory: No cough, No short of breath Cardiovascular: No chest pain, No palpitations Gastrointestinal: abdominal pain; No constipation, No diarrhea; nausea, vomiting Genitourinary: burning, dysuria Musculoskeletal: No back pain, No joint pain Past Sfigumi-Kkgtaz-Ebdmmu Hx Patient Social History Alcohol Use: Denies Use Recreational Drug Use: No 2nd Hand Smoke Exposure: No Recent Foreign Travel: No Contact w/Someone Who Travel: No Recent Infectious Disease Expo: No Recent Hopitalizations: No Immunizations Up To Date Tetanus Booster (TDap): More than 5yrs Date of Pneumonia Vaccine: May 31, 2012 Date of Influenza Vaccine: Jun 03, 2016 Seasonal Allergies Seasonal Allergies: Yes Past Medical History Surgeries: Yes (LAP APPY) Appendectomy Respiratory: No Sleep Apnea Currently Using CPAP: No Currently Using BIPAP: No Cardiac: Yes High Cholesterol, Hypertension Neurological: No Reproductive Disorders: No Sexually Transmitted Disease: No HIV/AIDS: No Renal Failure Gastrointestinal: Yes (hx of polyps) Polyps Musculoskeletal: No Endocrine: Yes ("PREDIABETIC") Diabetes, Non-Insulin dep Hearing Impairment: Denies Cancer: No Psychosocial: No Integumentary: No Blood Disorders: No Adverse Reaction/Blood Tranf: No Family Medical History No Pertinent Family Hx, Heart Disease Physical Exam Vital Signs Vital Signs - First Documented 01/11/18 07:35 Temp 98.1 Pulse 86 Resp 20 B/P (MAP) 137/82 (100) Pulse Ox 98 O2 Delivery Room Air Capillary Refill : Less Than 3 Seconds General Appearance: WD/WN, no apparent distress HEENT: PERRL/EOMI, pharynx normal Cardiovascular: normal peripheral pulses, regular rate, rhythm Respiratory: no respiratory distress, no accessory muscle use Gastrointestinal: normal bowel sounds, tenderness (suprapubic and left groin) Back: normal inspection, CVA tenderness (L) (to percussion) Neurologic/Psychiatric: alert, oriented x 3 Progress/Results/Core Measures Suspected Sepsis Recent Fever Within 48 Hours: No Infection Criteria Present: None New/Unexplained Altered Menta: No Sepsis Screen: No Definite Risk SIRS Temperature:98.3 Pulse: 86 Respiratory Rate: 20 Laboratory Tests 01/11/18 07:45: White Blood Count 7.1 Blood Pressure 137 /82 Mean: 100 Laboratory Tests 01/11/18 07:45: Creatinine 1.08, Platelet Count 241, Total Bilirubin 0.6 Results/Orders Lab Results Laboratory Tests Test 01/11/18 07:45 01/11/18 08:25 Range/Units White Blood Count 7.1 4.3-11.0 10^3/uL Red Blood Count 4.82 4.35-5.85 10^6/uL Hemoglobin 14.6 13.3-17.7 G/DL Hematocrit 43 40-54 % Mean Corpuscular Volume 88 80-99 FL Mean Corpuscular Hemoglobin 30 25-34 PG Mean Corpuscular Hemoglobin Concent 34 32-36 G/DL Red Cell Distribution Width 14.9 H 10.0-14.5 % Platelet Count 241 130-400 10^3/uL Mean Platelet Volume 10.1 7.4-10.4 FL Neutrophils (%) (Auto) 63 42-75 % Lymphocytes (%) (Auto) 25 12-44 % Monocytes (%) (Auto) 10 0-12 % Eosinophils (%) (Auto) 2 0-10 % Basophils (%) (Auto) 0 0-10 % Neutrophils # (Auto) 4.5 1.8-7.8 X 10^3 Lymphocytes # (Auto) 1.8 1.0-4.0 X 10^3 Monocytes # (Auto) 0.7 0.0-1.0 X 10^3 Eosinophils # (Auto) 0.1 0.0-0.3 10^3/uL Basophils # (Auto) 0.0 0.0-0.1 10^3/uL Sodium Level 140 135-145 MMOL/L Potassium Level 3.7 3.6-5.0 MMOL/L Chloride Level 108 H 98-107 MMOL/L Carbon Dioxide Level 21 21-32 MMOL/L Anion Gap 11 5-14 MMOL/L Blood Urea Nitrogen 22 H 7-18 MG/DL Creatinine 1.08 0.60-1.30 MG/DL Estimat Glomerular Filtration Rate > 60 BUN/Creatinine Ratio 20 Glucose Level 148 H 70-105 MG/DL Calcium Level 9.7 8.5-10.1 MG/DL Total Bilirubin 0.6 0.1-1.0 MG/DL Aspartate Amino Transf (AST/SGOT) 29 5-34 U/L Alanine Aminotransferase (ALT/SGPT) 54 0-55 U/L Alkaline Phosphatase 96 40-136 U/L Total Protein 7.5 6.4-8.2 GM/DL Albumin 4.6 H 3.2-4.5 GM/DL Urine Color YELLOW Urine Clarity CLEAR Urine pH 6 5-9 Urine Specific [place] 1.020 1.016-1.022 Urine Protein NEGATIVE NEGATIVE Urine Glucose (UA) NEGATIVE NEGATIVE Urine Ketones NEGATIVE NEGATIVE Urine Nitrite NEGATIVE NEGATIVE Urine Bilirubin NEGATIVE NEGATIVE Urine Urobilinogen NORMAL NORMAL MG/DL Urine Leukocyte Esterase NEGATIVE NEGATIVE Urine RBC (Auto) 4+ H NEGATIVE Urine RBC 10-25 H /HPF Urine WBC NONE /HPF Urine Squamous Epithelial Cells RARE /HPF Urine Crystals NONE /LPF Urine Bacteria NEGATIVE /HPF Urine Casts NONE /LPF Urine Mucus SMALL H /LPF Urine Culture Indicated NO My Orders Orders - BRADEN RICHMOND Saline Lock/Iv-Start (01/11/18 07:48) Cbc With Automated Diff (01/11/18 07:48) Comprehensive Metabolic Panel (01/11/18 07:48) Ua Culture If Indicated (01/11/18 07:48) Saline Lock/Iv-Start (01/11/18 07:48) Ns Iv 1000 Ml (Sodium Chloride 0.9%) (01/11/18 07:48) Ondansetron Injection (Zofran Injectio (01/11/18 08:00) Fentanyl Injection (Sublimaze Injection (01/11/18 08:00) Hydromorphone Injection (Dilaudid Inje (01/11/18 08:30) Kidney Stone (01/11/18 08:25) Medications Given in ED Current Medications Medications Dose Ordered Sig/Hussain Route Start Time Stop Time Status Last Admin Dose Admin Fentanyl Citrate 50 mcg ONCE ONCE IVP 01/11/18 08:00 01/11/18 08:01 DC 01/11/18 08:02 50 MCG Ondansetron HCl 4 mg ONCE ONCE IVP 01/11/18 08:00 01/11/18 08:01 DC 01/11/18 08:01 4 MG Vital Signs/I&O 01/11/18 01/11/18 07:35 08:02 Temp 98.1 98.3 Pulse 86 Resp 20 B/P (MAP) 137/82 (100) Pulse Ox 98 O2 Delivery Room Air Capillary Refill : Less Than 3 Seconds Blood Pressure Mean: 100 Progress Note : Time: 08:32 Progress Note Patient passed a small stone in his urinalysis so we are sending for stone study. His symptoms are abating. His urinalysis doesn't demonstrate an infection and he continues to feel better then we will allow him to go home with some return precautions, pain medicines and antibiotics if appropriate. Departure Impression Primary Impression: Kidney stone Disposition: 01 HOME, SELF-CARE Condition: Improved Departure-Patient Inst. Decision time for Depature: 09:00 Referrals: ZENAIDA MELENDEZ DO (PCP/Family) Primary Care Physician ANNAMARIA BAEZA MD Patient Instructions: Kidney Stones (DC) Add. Discharge Instructions: Consider calling in establishing an appointment with Dr. Baeza, urology to discuss what could be done for your recurrent kidney stones. If you're having any pain you can use 800 mg ibuprofen every 8 hours or one of the hydrocodone every 6 hours as needed. Drink lots of fluids. If you developed fevers nausea vomiting or other symptoms please return to care. All discharge instructions reviewed with patient and/or family. Voiced understanding. Scripts Hydrocodone Bit/Acetaminophen (Hydrocodone/Acetaminophen 5/325mg Tablet) 1 Tab Tab 1 EACH PO Q6H PRN for BREAKTHROUGH PAIN, #12 TAB 0 Refills Prov: BRADEN RICHMOND 01/11/18 Work/School Note: Work Release Form Date Seen in the Emergency Department: January 11, 2018 Return to Work: January 12, 2018 Restrictions: No Restrictions BRADEN RICHMOND January 11, 2018 08:32
[2018-01-11 08:39] LABS: BILIRUBIN,URINE NEGATIVE (NEGATIVE); CLARITY,URINE CLEAR; COLOR,URINE YELLOW; GLUCOSE, URINE (UA) NEGATIVE (NEGATIVE); KETONES,URINE NEGATIVE (NEGATIVE); LEUKOCYTE ESTERASE ,URINE NEGATIVE (NEGATIVE); NITRITE,URINE NEGATIVE (NEGATIVE); PH,URINE 6 (5-9); PROTEIN,URINE NEGATIVE (NEGATIVE); UROBILINOGEN,URINE NORMAL (NORMAL)
[2018-01-11 08:54] LABS: BACTERIA,URINE NEGATIVE /HPF; SQUAMOUS EPITHELIAL CELL,UR RARE /HPF
[2018-01-11] MEDS ORDERED: ACHD5005 PO (09:03)
[2018-01-11 09:33] VITALS: BP 128/80
== END 2018-01-11 09:33 | disposition other institution (70) ==
LOC: EDUNIT# 07:31 → ER 07:32
DX: N20.0 Calculus of kidney (principal); G47.30 Sleep apnea, unspecified; E78.00 Pure hypercholesterolemia, unspecified; I10 Essential (primary) hypertension; E11.9 Type 2 diabetes mellitus without complications; Z86.010 Personal history of colon polyps; Z87.442 Personal history of urinary calculi; Z79.01 Long term (current) use of anticoagulants; Z90.49 Acquired absence of other specified parts of digestive tract
CPT/HCPCS: 36415; 80053; 81000; 85025; 88300; 96361; 96374; 96375

== ENCOUNTER 2018-09-23 13:59 | Emergency (ER) | payer OTHER | END 2018-09-23 16:09 | disposition home or self-care (01) | LOC: ER 13:59 ==

== ENCOUNTER 2018-11-03 06:15 | Emergency (ER) | payer OTHER ==
[~2018-11-03] VITALS: Ht 175.3 cm; Wt 108.9 kg
[~2018-11-03 06:15] MED LIST changes: -CEPH500T PO; -TAMS0.4C2 PO
--- OUTSIDE RECORDS SUMMARY | 2018-11-03 06:21 | XMS REPORT | Clinical Summary ---
Author Author [facility] Organization [facility] Address Unknown Phone Unavailable Care Team Providers Care Chief Business Officer Name Role Phone Joe Hughes MD PCP Source Comments Some departments are not documenting in the electronic medical record. If you do not see the information that you expected, contact Release of Information in the Health Information Management department at [phone] for further assistance in locating additional records.[facility] Allergies No Known Allergies Medications End Date Status Medication Sig Dispensed Refills Start Date Active apixaban (ELIQUIS) 5 mg Take 5 mg by 0 tablet mouth twice daily. Active OXYGEN-AIR DELIVERY Use as 0 SYSTEMS (HORIZON NASAL directed. CPAP SYSTEM MISC) Active Coenzyme Q10 200 mg cap Take by 0 mouth daily. Active vitamins, multiple tablet Take 1 Tab by 0 mouth daily. Active B.ANI/L.ACI/L.STACIE/L.PLAN/ Take 1 Cap by 0 L.EMERALD (PROBIOTIC FORMULA mouth daily. PO) Active hydroCHLOROthiazide Take 25 mg by 0 (HYDRODIURIL) 25 mg mouth every tablet morning. Active metFORMIN (GLUCOPHAGE) Take 500 mg 0 500 mg tablet by mouth daily. Active allopurinol (ZYLOPRIM) Take 300 mg 0 300 mg tablet by mouth daily. Take with food. Active amLODIPine (NORVASC) 10 Take 10 mg by 0 mg tablet mouth daily. Active ascorbic acid (VITAMIN C) Take 500 mg 0 500 mg tablet by mouth daily. Active atorvastatin (LIPITOR) 10 Take 10 mg by 0 mg tablet mouth daily. Active fish oil- omega 3-DHA/EPA Take 1 0 300/1,000 mg capsule capsule by mouth daily. Active metoprolol XL (TOPROL XL) TAKE ONE 30 tablet 50 mg extended release TABLET BY 8 tabletIndications: MOUTH DAILY Typical atrial flutter (HCC) Active potassium chloride SR TAKE ONE 30 tablet 10 (K-DUR) 20 mEq TABLET BY 8 tabletIndications: MOUTH DAILY . Typical atrial flutter TAKE WITH A (HCC) MEAL AND A FULL GLASS OF WATER Active flecainide (TAMBOCOR) 50 TAKE ONE 60 tablet 11 mg tablet TABLET BY 9 MOUTH TWICE A DAY Active Problems Problem Noted Date Chronic anticoagulation 01/22/2017 Paroxysmal atrial fibrillation 12/30/2016 Last Assessment & Plan: Patient has been in AF since ThursdayMay 03 in the setting of acute gout. He was increased on his Toprol from 50 mg to 100 mg daily for better rate control after he got an ECG in [place] at Dr. Gomez's office. He has remained [...] due to compliance on Eliquis. Atrial flutter 12/30/2016 Overview: 01/22/2017 - Atrial Flutter RFA, EPS VELIA on CPAP 12/30/2016 COPD (chronic obstructive pulmonary disease) 12/30/2016 Hypertension 12/30/2016 Overview: 11/04/16: Stress Test: LVEF 74%. Reportedly abnormal perfusion. 11/05/16: Cardiac Cath: Mild Non-Obstructive CAD. No areas of critical stenosis. Normal LVEDP L ast Assessment & Plan: Well controlled in the office today. Hyperlipidemia 12/30/2016 Encounters Care Team Description Date Type Specialty Kolton Payne MD Medication Refill 09/02/2018 Refill Cardiology from Last 3 Months Family History Medical [...] age (Age 80s) Sister Alive Social History Date Tobacco Use Types Packs/Day Years Used Never Smoker Smokeless Tobacco: Never Used Alcohol Use Drinks/Week oz/Week Comments No Sex Assigned at Date Recorded Not on file Industry Job Start Date Occupation Not on file Not on file Not on file Travel End Travel History Travel Start No recent travel history available. Last Filed Vital Signs Time Taken Vital Sign Reading 02/12/2018 10:42 AM CDT Blood Pressure 116/82 02/12/2018 10:42 AM CDT Pulse 59 01/23/2017 6:20 AM CDT Temperature 36.4 C (97.6 F) - Respiratory Rate - 01/23/2017 10:00 AM CDT Oxygen Saturation 95% - Inhaled Oxygen - Concentration 02/12/2018 10:42 AM CDT Weight 107.2 kg (236 lb 4.8 oz) 02/12/2018 10:42 AM CDT Height 175.3 cm (5' 9") 02/12/2018 10:42 AM CDT Body Mass Index 34.9 Plan of Treatment Health Maintenance Due Date Last Done Comments HEPATITIS C SCREENING 1960 PHYSICAL (COMPREHENSIVE) 1967 EXAM HIV SCREENING 1975 DTAP/TDAP VACCINES (1 - 1978 Tdap) COLORECTAL CANCER 2010 SCREENING SHINGLES RECOMBINANT 2010 VACCINE (1 of 2) INFLUENZA VACCINE 03/31/2019 Results Not on filefrom Last 3 Months Insurance Payer Benefit Subscriber ID Type Phone Address Plan / Group [facility] [employer] PPO xxxxxxxx Indemnity Advance Directives Patient has advance care planning documents, and code status on file. For more information, please contact: [facility] [address] [place] [address] Date Inactivated Comments Code Status Date Activated 01/23/2017 1:25 PM Full Code 01/22/2017 6:07 PM Provider has discussed Code Status No, more discussion w/Patient or Family? needed
--- OUTSIDE RECORDS SUMMARY | 2018-11-03 06:21 | XMS REPORT | Encounter Summary ---
Author Author [facility] Organization [facility] Address Unknown Phone Unavailable Care Team Providers Care Floriculture Teacher Name Role Phone Joe Hughes MD PCP Reason for Visit * Reason Comments Medication Refill Encounter Details Care Team Description Date Type Department Kolton Payne MD [address] [place], [place] [id number] [place] [address] [phone] Medication Refill 09/02/2018 Refill Cardiovascular Medicine [facility] [place] [address] 300 [id number] [place] [address] Social History Date Tobacco Use Types Packs/Day Years Used Never Smoker Smokeless Tobacco: Never Used Alcohol Use Drinks/Week oz/Week Comments No Sex Assigned at Date Recorded Not on file Industry Job Start Date Occupation Not on file Not on file Not on file Travel End Travel History Travel Start No recent travel history available. as of this encounter Plan of Treatment Not on fileas of this encounter Visit Diagnoses Not on filein this encounter
--- OUTSIDE RECORDS SUMMARY | 2018-11-03 06:24 | XMS REPORT | Continuity of Care Document ---
Demographics Preferred Language Unknown Marital Status Unknown Sikhism Affiliation Unknown Race Unknown Ethnic Group Unknown Author Author [facility] Address Unknown Phone Unavailable Allergies Active Description Code Type Severity Reaction Onset Reported/Identified Relationship to Patient Clinical Status Yes No Known Drug Allergies [id number] Drug Allergy Unknown N/A 08/06/2011 Medications There [...] Ot 786.05 04/19/2015 Ot 786.50 04/19/2015 STONE CLOLINS, MAXINE Norris Ot 790.4 06/05/2016 COLTON COLLINS, [...] MAXINE P Ot 790.4 ELEV TRANSAMINASE/LDH 10/30/2016 TITUS BECKMAN MD Ot E11.9 TYPE 2 DIABETES MELLITUS WITHOUT COMPLIC 10/30/2016 TITUS BECKMAN MD Ot I10 ESSENTIAL (PRIMARY) HYPERTENSION 10/30/2016 TITUS BECKMAN MD Ot I48.2 CHRONIC ATRIAL FIBRILLATION 10/30/2016 TITUS BECKMAN MD Ot M54.5 LOW BACK PAIN 10/30/2016 TITUS BECKMAN MD Ot Z79.01 FIELD NATURALIST (CURRENT) USE OF ANTICOAGULANT 10/30/2016 TITUS BECKMAN MD Ot Z79.84 [facility] (CURRENT) USE OF ORAL HYPOGLYC 10/30/2016 TITUS BECKMAN MD Ot Z79.899 OTHER FIELD NATURALIST (CURRENT) DRUG THERAPY 11/03/2016 RAHUL AQUINO Ot E11.9 TYPE 2 DIABETES MELLITUS WITHOUT COMPLIC 11/03/2016 RAHUL AQUINO Ot I10 ESSENTIAL (PRIMARY) HYPERTENSION 11/03/2016 RAHUL AQUINO Ot M47.816 SPONDYLOSIS W/O MYELOPATHY OR RADICULOPA 11/03/2016 RAHUL AQUINO Ot M48.06 SPINAL STENOSIS, LUMBAR REGION 11/03/2016 RAHUL AQUINO Ot M51.26 OTHER INTERVERTEBRAL DISC DISPLACEMENT, 11/03/2016 RAHUL AQUINO Ot M54.5 LOW BACK PAIN 11/03/2016 RAHUL AQUINO Ot Z79.82 FIELD NATURALIST (CURRENT) USE OF ASPIRIN 11/03/2016 RAHUL AQUINO Ot Z79.84 [facility] (CURRENT) USE OF ORAL HYPOGLYC 11/03/2016 RAHUL AQUINO Ot Z79.899 OTHER [facility] (CURRENT) DRUG THERAPY 11/05/2016 TITUS BECKMAN MD Ot E11.9 TYPE 2 DIABETES MELLITUS WITHOUT COMPLIC 11/05/2016 TITUS BECKMAN MD Ot I10 ESSENTIAL (PRIMARY) HYPERTENSION 11/05/2016 TITUS BECKMAN MD Ot I48.2 CHRONIC ATRIAL FIBRILLATION 11/05/2016 TITUS BECKMAN MD Ot M54.5 LOW BACK PAIN 11/05/2016 TITUS BECKMAN MD Ot Z79.01 [facility] (CURRENT) USE OF ANTICOAGULANT 11/05/2016 TITUS BECKMAN MD Ot Z79.84 FIELD NATURALIST (CURRENT) USE OF ORAL HYPOGLYC 11/05/2016 TITUS BECKMAN MD Ot Z79.899 OTHER [facility] (CURRENT) DRUG THERAPY 11/05/2016 MARIO GOODE MD [...] MD Ot I25.10 ATHSCL HEART DISEASE OF [place] CORONARY 11/06/2016 MARIO GOODE MD Ot I48.0 PAROXYSMAL ATRIAL FIBRILLATION 11/06/2016 MARIO GOODE MD Ot I48.1 PERSISTENT ATRIAL FIBRILLATION 11/06/2016 MARIO GOODE MD Ot Z68.33 BODY MASS INDEX (BMI) 33.0-33.9, ADULT 11/06/2016 MARIO GOODE MD Ot Z79.84 FIELD NATURALIST (CURRENT) USE OF ORAL HYPOGLYC 11/08/2016 RAHUL [...] BACK PAIN 11/08/2016 RAHUL AQUINO Ot Z79.82 FIELD NATURALIST (CURRENT) USE OF ASPIRIN 11/08/2016 RAHUL AQUINO Ot Z79.84 FIELD NATURALIST (CURRENT) USE OF ORAL HYPOGLYC 11/08/2016 RAHUL AQUINO Ot Z79.899 OTHER FIELD NATURALIST (CURRENT) DRUG THERAPY 11/26/2016 MARIO GOODE MD Ot E78.5 HYPERLIPIDEMIA, UNSPECIFIED 11/26/2016 MARIO GOODE MD Ot G47.33 OBSTRUCTIVE SLEEP APNEA (ADULT) (PEDIATR 11/26/2016 MARIO GOODE MD Ot I10 ESSENTIAL (PRIMARY) HYPERTENSION 11/26/2016 MARIO GOODE MD Ot I48.0 PAROXYSMAL ATRIAL FIBRILLATION 11/30/2016 CHICHI ROMERO CRUISE COORDINATOR Ot G47.33 OBSTRUCTIVE SLEEP APNEA (ADULT) (PEDIATR 11/30/2016 CHICHI ROMERO E CRUISE COORDINATOR Ot G47.50 PARASOMNIA, UNSPECIFIED 11/30/2016 CHICHI ROMERO CRUISE COORDINATOR Ot I48.0 PAROXYSMAL ATRIAL FIBRILLATION 12/01/2016 CHICHI ROMERO CRUISE COORDINATOR Ot G47.33 OBSTRUCTIVE SLEEP APNEA (ADULT) (PEDIATR 12/01/2016 CHICHI ROMERO CRUISE COORDINATOR Ot G47.50 PARASOMNIA, UNSPECIFIED 12/01/2016 CHICHI ROMERO CRUISE COORDINATOR Ot I48.0 PAROXYSMAL ATRIAL FIBRILLATION 01/28/2017 WANDY [...] PAIN 05/01/2017 TITUS BECKMAN MD, Ot Z79.01 FIELD NATURALIST (CURRENT) USE OF ANTICOAGULANT 05/01/2017 TITUS BECKMAN MD Ot Z79.84 [facility] (CURRENT) USE OF ORAL HYPOGLYC 05/01/2017 TITUS BECKMAN MD, Ot Z79.899 OTHER FIELD NATURALIST (CURRENT) DRUG THERAPY 12/11/2017 Ot 486 PNEUMONIA, [...] ATRIAL FIBRILLATION 12/25/2017 ROBBIN ÁLVAREZ MD Ot I48.0 PAROXYSMAL ATRIAL FIBRILLATION 12/25/2017 [...] FIBRILLATION 12/25/2017 WANDY QUINTANILLA Ot R00.2 PALPITATIONS 01/11/2018 BRADEN RICHMOND MD Ot E11.9 TYPE 2 DIABETES MELLITUS WITHOUT COMPLIC 01/11/2018 YI COLLINS, BRADEN Lazcano Ot E78.00 PURE HYPERCHOLESTEROLEMIA, UNSPECIFIED 01/11/2018 BRADEN RICHMOND MD Ot G47.30 SLEEP APNEA, UNSPECIFIED 01/11/2018 BRADEN RICHMOND MD Ot I10 ESSENTIAL (PRIMARY) HYPERTENSION 01/11/2018 BRADEN RICHMOND MD Ot N20.0 CALCULUS OF KIDNEY 01/11/2018 BRADEN RICHMOND MD Ot R10.32 LEFT LOWER QUADRANT PAIN 01/11/2018 BRADEN RICHMOND MD Ot Z79.01 FIELD NATURALIST (CURRENT) USE OF ANTICOAGULANT 01/11/2018 BRADEN RICHMOND MD Ot Z86.010 PERSONAL HISTORY OF COLONIC POLYPS 01/11/2018 BRADEN RICHMOND MD Ot Z87.442 PERSONAL HISTORY OF URINARY CALCULI 01/11/2018 BRADEN RICHMOND MD Ot Z90.49 ACQUIRED ABSENCE OF OTHER SPECIFIED PART 01/12/2018 WANDY QUINTANILLA Ot E78.5 HYPERLIPIDEMIA, UNSPECIFIED 01/12/2018 WANDY QUINTANILLA Ot I10 ESSENTIAL (PRIMARY) HYPERTENSION 01/12/2018 WANDY QUINTANILLA Ot I34.0 NONRHEUMATIC MITRAL (VALVE) INSUFFICIENC 01/12/2018 WANDY QUINTANILLA Ot I48.0 PAROXYSMAL ATRIAL FIBRILLATION 01/12/2018 WANDY QUINTANILLA Ot R00.2 PALPITATIONS 01/13/2018 BRADEN RICHMOND MD Ot E11.9 TYPE 2 DIABETES MELLITUS WITHOUT COMPLIC 01/13/2018 BRADEN RICHMOND MD Ot E78.00 PURE HYPERCHOLESTEROLEMIA, UNSPECIFIED 01/13/2018 BRADEN RICHMOND MD Ot G47.30 SLEEP APNEA, UNSPECIFIED 01/13/2018 BRADEN RICHMOND MD Ot I10 ESSENTIAL (PRIMARY) HYPERTENSION 01/13/2018 BRADEN RICHMOND MD Ot N20.0 CALCULUS OF KIDNEY 01/13/2018 BRADEN RICHMOND MD Ot R10.32 LEFT LOWER QUADRANT PAIN 01/13/2018 BRADEN RICHMOND MD Ot Z79.01 FIELD NATURALIST (CURRENT) USE OF ANTICOAGULANT 01/13/2018 BRADEN RICHMOND MD Ot Z86.010 PERSONAL HISTORY OF COLONIC POLYPS 01/13/2018 BRADEN RICHMOND MD Ot Z87.442 PERSONAL HISTORY OF URINARY CALCULI 01/13/2018 BRADEN RICHMOND MD Ot Z90.49 ACQUIRED ABSENCE OF OTHER SPECIFIED PART 02/26/2018 WANDY QUINTANILLA Ot E78.5 HYPERLIPIDEMIA, UNSPECIFIED 02/26/2018 WANDY QUINTANILLA Ot I10 ESSENTIAL (PRIMARY) HYPERTENSION 02/26/2018 WANDY QUINTANILLA Ot I34.0 NONRHEUMATIC MITRAL (VALVE) INSUFFICIENC 02/26/2018 WANDY QUINTANILLA Ot I48.0 PAROXYSMAL ATRIAL FIBRILLATION 02/26/2018 ERIN TIAGO, WANDY Blair Ot R00.2 PALPITATIONS 02/26/2018 ERIN TIAGOWANDY Ot E78.5 HYPERLIPIDEMIA, UNSPECIFIED 02/26/2018 ERIN TIAGO, WANDY Blair Ot I10 ESSENTIAL (PRIMARY) HYPERTENSION 02/26/2018 ERIN TIAGOWANDY Ot I34.0 NONRHEUMATIC MITRAL (VALVE) INSUFFICIENC 02/26/2018 ERIN TIAGO, WANDY Blair Ot I48.0 PAROXYSMAL ATRIAL FIBRILLATION 02/26/2018 ERIN TIAGO, WANDY Blair Ot R00.2 PALPITATIONS 09/23/2018 HEIDY SCANLON APRN Ot E11.9 TYPE 2 DIABETES MELLITUS WITHOUT COMPLIC 09/23/2018 HEIDY SCANLON APRN Ot E78.00 PURE HYPERCHOLESTEROLEMIA, UNSPECIFIED 09/23/2018 HEIDY SCANLON APRN Ot G47.30 SLEEP APNEA, UNSPECIFIED 09/23/2018 HEIDY SCANLON APRN Ot I10 ESSENTIAL (PRIMARY) HYPERTENSION 09/23/2018 HEIDY SCANLON APRN Ot N20.2 CALCULUS OF KIDNEY WITH CALCULUS OF URET 09/23/2018 HEIDY SCANLON APRN Ot R10.30 LOWER ABDOMINAL PAIN, UNSPECIFIED 09/23/2018 HEIDY SCANLON APRN Ot Z79.01 FIELD NATURALIST (CURRENT) USE OF ANTICOAGULANT 09/23/2018 HEIDY SCANLON APRN Ot Z86.010 PERSONAL HISTORY OF COLONIC POLYPS 09/23/2018 HEIDY SCANLON APRN Ot Z90.49 ACQUIRED ABSENCE OF OTHER SPECIFIED PART 09/23/2018 HEIDY SCANLON APRN Ot Z98.84 BARIATRIC SURGERY STATUS 09/27/2018 HEIDY SCANLON APRN Ot E11.9 TYPE 2 DIABETES MELLITUS WITHOUT COMPLIC 09/27/2018 HEIDY SCANLON APRN Ot E78.00 PURE HYPERCHOLESTEROLEMIA, UNSPECIFIED 09/27/2018 HEIDY SCANLON APRN Ot G47.30 SLEEP APNEA, UNSPECIFIED 09/27/2018 HEIDY SCANLON APRN Ot I10 ESSENTIAL (PRIMARY) HYPERTENSION 09/27/2018 HEIDY SCANLON APRN Ot N20.2 CALCULUS OF KIDNEY WITH CALCULUS OF URET 09/27/2018 HEIDY SCANLON APRN Ot R10.30 LOWER ABDOMINAL PAIN, UNSPECIFIED 09/27/2018 HEIDY SCANLON APRN Ot Z79.01 FIELD NATURALIST (CURRENT) USE OF ANTICOAGULANT 09/27/2018 HEIDY SCANLON APRN Ot Z86.010 PERSONAL HISTORY OF COLONIC POLYPS 09/27/2018 HEIDY SCANLON APRN Ot Z90.49 ACQUIRED ABSENCE OF OTHER SPECIFIED PART 09/27/2018 HEIDY SCANLON APRN Ot Z98.84 BARIATRIC SURGERY STATUS 09/29/2018 HEIDY SCANLON APRN Ot E11.9 TYPE 2 DIABETES MELLITUS WITHOUT COMPLIC 09/29/2018 HEIDY SCANLON APRN Ot E78.00 PURE HYPERCHOLESTEROLEMIA, UNSPECIFIED 09/29/2018 HEIDY SCANLON APRN Ot G47.30 SLEEP APNEA, UNSPECIFIED 09/29/2018 HEIDY SCANLON APRN Ot I10 ESSENTIAL (PRIMARY) HYPERTENSION 09/29/2018 HEIDY SCANLON APRN Ot N20.2 CALCULUS OF KIDNEY WITH CALCULUS OF URET 09/29/2018 HEIDY SCANLON APRN Ot R10.30 LOWER ABDOMINAL PAIN, UNSPECIFIED 09/29/2018 HEIDY SCANLON APRN Ot Z79.01 FIELD NATURALIST (CURRENT) USE OF ANTICOAGULANT 09/29/2018 HEIDY SCANLON APRN Ot Z86.010 PERSONAL HISTORY OF COLONIC POLYPS 09/29/2018 HEIDY SCANLON APRN Ot Z90.49 ACQUIRED ABSENCE OF OTHER SPECIFIED PART 09/29/2018 HEIDY SCANLON APRN Ot Z98.84 BARIATRIC SURGERY STATUS Procedures Code Description Performed By Performed On 34.91 THORACENTESIS 04/16/2012 [id number] MEASURE OF CARDIAC SAMPL PRESSURE, L H 11/05/2016 [id number] FLUOROSCOPY OF MULT COR ART USING L OSM 11/05/2016 [id number] DENOMINATIONAL OF CARDIAC RHYTHM, SINGLE 11/06/2016 Results Test [...] 1.8-2.4 Whole blood basic metabolic panel - 06/02/17 09:31 Serum or plasma sodium measurement (moles/volume) [...] plasma calcium measurement (mass/volume) 9.5 mg/dL 8.5-10.1 Complete blood count (CBC) with automated white blood cell (WBC) differential - 01/11/18 07:45 Blood leukocytes automated count (number/volume) 7.1 10*3/uL 4.3-11.0 Blood erythrocytes automated count (number/volume) 4.82 10*6/uL 4.35-5.85 Venous blood hemoglobin measurement (mass/volume) 14.6 g/dL 13.3-17.7 Blood hematocrit (volume fraction) 43 % 40-54 Automated erythrocyte mean corpuscular volume 88 [foz_us] 80-99 Automated erythrocyte mean corpuscular hemoglobin (mass per erythrocyte) 30 pg 25-34 Automated erythrocyte mean corpuscular hemoglobin concentration measurement ( mass/volume) 34 g/dL 32-36 Automated erythrocyte distribution width ratio 14.9 % 10.0-14.5 Automated blood platelet count (count/volume) 241 10*3/uL 130-400 Automated blood platelet mean volume measurement 10.1 [foz_us] 7.4-10.4 Automated blood neutrophils/100 leukocytes 63 % 42-75 Automated blood lymphocytes/100 leukocytes 25 % 12-44 Blood monocytes/100 leukocytes 10 % 0-12 Automated blood eosinophils/100 leukocytes 2 % 0-10 Automated blood basophils/100 leukocytes 0 % 0-10 Blood neutrophils automated count (number/volume) 4.5 10*3 1.8-7.8 Blood lymphocytes automated count (number/volume) 1.8 10*3 1.0-4.0 Blood monocytes automated count (number/volume) 0.7 10*3 0.0-1.0 Automated eosinophil count 0.1 10*3/uL 0.0-0.3 Automated blood basophil count (count/volume) 0.0 10*3/uL 0.0-0.1 Comprehensive metabolic panel - 01/11/18 07:45 Serum or plasma sodium measurement (moles/volume) 140 mmol/L 135-145 Serum or plasma potassium measurement (moles/volume) 3.7 mmol/L 3.6-5.0 Serum or plasma chloride measurement (moles/volume) 108 mmol/L 98-107 Carbon dioxide 21 mmol/L 21-32 Serum or plasma anion gap determination (moles/volume) 11 mmol/L 5-14 Serum or plasma urea nitrogen measurement (mass/volume) 22 mg/dL 7-18 Serum or plasma creatinine measurement (mass/volume) 1.08 mg/dL 0.60-1.30 Serum or plasma urea nitrogen/creatinine mass ratio 20 NRG Serum or plasma creatinine measurement with calculation of estimated glomerular filtration rate > NRG Serum or plasma glucose measurement (mass/volume) 148 mg/dL 70-105 Serum or plasma calcium measurement (mass/volume) 9.7 mg/dL 8.5-10.1 Serum or plasma total bilirubin measurement (mass/volume) 0.6 mg/dL 0.1-1.0 Serum or plasma alkaline phosphatase measurement (enzymatic activity/volume) 96 U/L 40-136 Serum or plasma aspartate aminotransferase measurement (enzymatic activity/ volume) 29 U/L 5-34 Serum or plasma alanine aminotransferase measurement (enzymatic activity/volume ) 54 U/L 0-55 Serum or plasma protein measurement (mass/volume) 7.5 g/dL 6.4-8.2 Serum or plasma albumin measurement (mass/volume) 4.6 g/dL 3.2-4.5 Complete urinalysis with reflex to culture - 01/11/18 08:25 Urine color determination YELLOW NRG Urine clarity determination CLEAR NRG Urine pH measurement by test strip 6 5-9 Specific gravity of urine by test strip 1.020 1.016- 1.022 Urine protein assay by test strip, semi-quantitative NEGATIVE NEGATIVE Urine glucose detection by automated test strip NEGATIVE NEGATIVE Erythrocytes detection in urine sediment by light microscopy 4+ NEGATIVE Urine ketones detection by automated test strip NEGATIVE NEGATIVE Urine nitrite detection by test strip NEGATIVE NEGATIVE Urine total bilirubin detection by test strip NEGATIVE NEGATIVE Urine urobilinogen measurement by automated test strip (mass/volume) NORMAL NORMAL Urine leukocyte esterase detection by dipstick NEGATIVE NEGATIVE Automated urine sediment erythrocyte count by microscopy (number/high power field) [HPF] NRG Automated urine sediment leukocyte count by microscopy (number/high power field ) NONE NRG Bacteria detection in urine sediment by light microscopy NEGATIVE NRG Squamous epithelial cells detection in urine sediment by light microscopy RARE NRG Crystals detection in urine sediment by light microscopy NONE NRG Casts detection in urine sediment by light microscopy NONE NRG Mucus detection in urine sediment by light microscopy SMALL NRG Complete urinalysis with reflex to culture NO NRG Measurement of weight of kidney stone - 01/11/18 08:25 Measurement of weight of kidney stone 12 % NRG Kidney stone composition determination See Note NRG Count of number of calculi 1 NRG Size of stone 1 to 4 NRG Complete blood count (CBC) with automated white blood cell (WBC) differential - 09/23/18 14:10 Blood leukocytes automated count (number/volume) 6.9 10*3/uL 4.3-11.0 Blood erythrocytes automated count (number/volume) 4.83 10*6/uL 4.35-5.85 Venous blood hemoglobin measurement (mass/volume) 14.8 g/dL 13.3-17.7 Blood hematocrit (volume fraction) 44 % 40-54 Automated erythrocyte mean corpuscular volume 90 [foz_us] 80-99 Automated erythrocyte mean corpuscular hemoglobin (mass per erythrocyte) 31 pg 25-34 Automated erythrocyte mean corpuscular hemoglobin concentration measurement ( mass/volume) 34 g/dL 32-36 Automated erythrocyte distribution width ratio 14.9 % 10.0-14.5 Automated blood platelet count (count/volume) 240 10*3/uL 130-400 Automated blood platelet mean volume measurement 9.7 [foz_us] 7.4-10.4 Automated blood neutrophils/100 leukocytes 59 % 42-75 Automated blood lymphocytes/100 leukocytes 26 % 12-44 Blood monocytes/100 leukocytes 13 % 0-12 Automated blood eosinophils/100 leukocytes 2 % 0-10 Automated blood basophils/100 leukocytes 1 % 0-10 Blood neutrophils automated count (number/volume) 4.0 10*3 1.8-7.8 Blood lymphocytes automated count (number/volume) 1.8 10*3 1.0-4.0 Blood monocytes automated count (number/volume) 0.9 10*3 0.0-1.0 Automated eosinophil count 0.1 10*3/uL 0.0-0.3 Automated blood basophil count (count/volume) 0.0 10*3/uL 0.0-0.1 Comprehensive metabolic panel - 09/23/18 14:10 Serum or plasma sodium measurement (moles/volume) 142 mmol/L 135-145 Serum or plasma potassium measurement (moles/volume) 3.7 mmol/L 3.6-5.0 Serum or plasma chloride measurement (moles/volume) 106 mmol/L 98-107 Carbon dioxide 26 mmol/L 21-32 Serum or plasma anion gap determination (moles/volume) 10 mmol/L 5-14 Serum or plasma urea nitrogen measurement (mass/volume) 22 mg/dL 7-18 Serum or plasma creatinine measurement (mass/volume) 1.16 mg/dL 0.60-1.30 Serum or plasma urea nitrogen/creatinine mass ratio 19 NRG Serum or plasma creatinine measurement with calculation of estimated glomerular filtration rate > NRG Serum or plasma glucose measurement (mass/volume) 115 mg/dL 70-105 Serum or plasma calcium measurement (mass/volume) 9.6 mg/dL 8.5-10.1 Serum or plasma total bilirubin measurement (mass/volume) 0.5 mg/dL 0.1-1.0 Serum or plasma alkaline phosphatase measurement (enzymatic activity/volume) 97 U/L 40-136 Serum or plasma aspartate aminotransferase measurement (enzymatic activity/ volume) 27 U/L 5-34 Serum or plasma alanine aminotransferase measurement (enzymatic activity/volume ) 58 U/L 0-55 Serum or plasma protein measurement (mass/volume) 7.6 g/dL 6.4-8.2 Serum or plasma albumin measurement (mass/volume) 4.6 g/dL 3.2-4.5 Complete urinalysis with reflex to culture - 09/23/18 15:05 Urine color determination YELLOW NRG Urine clarity determination CLEAR NRG Urine pH measurement by test strip 5 5-9 Specific gravity of urine by test strip 1.025 1.016- 1.022 Urine protein assay by test strip, semi-quantitative NEGATIVE NEGATIVE Urine glucose detection by automated test strip NEGATIVE NEGATIVE Erythrocytes detection in urine sediment by light microscopy 5+ NEGATIVE Urine ketones detection by automated test strip NEGATIVE NEGATIVE Urine nitrite detection by test strip NEGATIVE NEGATIVE Urine total bilirubin detection by test strip NEGATIVE NEGATIVE Urine urobilinogen measurement by automated test strip (mass/volume) NORMAL NORMAL Urine leukocyte esterase detection by dipstick NEGATIVE NEGATIVE Automated urine sediment erythrocyte count by microscopy (number/high power field) [HPF] NRG Automated urine sediment leukocyte count by microscopy (number/high power field ) RARE NRG Bacteria detection in urine sediment by light microscopy NONE NRG Squamous epithelial cells detection in urine sediment by light microscopy 0-2 NRG Crystals detection in urine sediment by light microscopy NONE NRG Casts detection in urine sediment by light microscopy NONE NRG Mucus detection in urine sediment by light microscopy NEGATIVE NRG Complete urinalysis with reflex to culture NO NRG Encounters ACCT No. Visit Date/Time Discharge Status Pt. Type Provider Facility Loc./Unit Complaint [id number] 07/16/2012 11:49:00 07/16/2012 23:59:59 CLS Outpatient [id number] 09/23/2018 13:59:00 09/23/2018 16:09:00 DIS Emergency HEIDY SCANLON APRN [facility] ER ABD PAIN;N/V [id number] 01/11/2018 07:32:00 01/11/2018 09:33:00 DIS Emergency BRADEN RICHMOND MD [facility] ER ABD PAIN [id number] 12/21/2017 08:29:00 12/21/2017 23:59:59 CLS Outpatient WANDY QUINTANILLA [facility] CARD E78.2 HYPERLIPIDEMIA [id number] 01/30/2017 09:15:00 01/30/2017 23:59:59 CLS Outpatient HENRI COLLINS, ROBBIN Norris [facility] LAB I48.3 [id number] 01/27/2017 14:13:00 01/27/2017 23:59:59 CLS Outpatient WANDY QUINTANILLA [facility] RAD ACUTE LEG PAIN M79.662 [id number] 01/27/2017 10:48:00 01/27/2017 23:59:59 CLS Outpatient WANDY QUINTANILLA [facility] LAB LEG CRAMPS [id number] 01/19/2017 09:18:00 01/19/2017 23:59:59 CLS Outpatient ROBBIN ÁLVAREZ MD [facility] LAB TYPICAL ATRIAL FLUTTER I48.3,I48.0 [id number] 11/29/2016 19:38:00 11/30/2016 05:25:00 DIS Outpatient CHICHI ROMERO APRN [facility] SLEEP G47.50 [id number] 11/05/2016 15:50:00 11/06/2016 08:15:00 DIS Inpatient MARIO GOODE MD [facility] ICU AFIB [id number] 11/04/2016 06:42:00 11/04/2016 23:59:59 CLS Outpatient MARIO GOODE MD [facility] CARD HLP,HTN,VELIA [id number] 11/02/2016 20:48:00 11/03/2016 00:10:00 DIS Emergency RAHUL AQUINO [facility] ER LOW BACK PAIN [id number] 10/30/2016 18:52:00 10/30/2016 22:54:00 DIS Emergency TITUS BECKMAN MD [facility] ER BACK PAIN [id number] 06/09/2016 06:50:00 06/09/2016 10:30:00 DIS Outpatient BEBA SEGURA MD [facility] SDC HISTORY OF POLYPS [id number] 06/05/2016 05:59:00 06/05/2016 16:04:00 DIS Outpatient BEBA SEGURA MD [facility] PREOP HISTORY OF POLYPS [id number] 04/19/2015 00:43:00 04/19/2015 01:41:00 DIS Emergency ELIANA HAN MD [facility] ER FALL-RT FOOT PAIN [id number] 08/21/2013 18:34:00 08/21/2013 22:11:00 DIS Emergency RAHUL AQUINO [facility] ER FALL,LEFT SIDE PAIN [id number] 01/11/2013 10:54:00 01/11/2013 23:59:59 CLS Outpatient MAXINE RITTER MD [facility] LAB ELEVATED LIVER ENSYEMES [id number] 11/03/2018 06:16:00 ACT Emergency ALONZO ANAYA JACQUELINE Blair [facility] ER POSS KIDNEY STONE [id number] 04/19/2015 00:42:00 Document Registration [id number] 12/20/2012 11:14:00 Document Registration [id number] 07/30/2012 10:52:00 Document Registration [id number] 07/16/2012 09:38:00 Document Registration [id number] 07/02/2012 07:11:00 Document Registration [id number] 06/20/2012 08:13:00 Document Registration [id number] 05/28/2012 08:08:00 Document Registration [id number] 04/28/2012 08:27:00 Document Registration [id number] 04/16/2012 10:31:00 Document Registration [id number] 04/11/2012 22:53:00 Document Registration [id number] 08/07/2017 16:20:00 08/07/2017 23:59:59 [facility]
[2018-11-03] MEDS ORDERED: NS IV 1000 ML 1,000 ML IV ONE (06:28)
[2018-11-03] MEDS ORDERED: KETOROLAC 30 MG/ML VIAL IVP STA (06:53)
[2018-11-03] MEDS ORDERED: fentaNYL INJECTION 100 MCG/2 ML AMP IVP STA (06:53)
[2018-11-03] MEDS ORDERED: ONDANSETRON 4 MG/2 ML (SDV) Z0FRAN IVP ONE (07:00)
--- NOTE | 2018-11-03 07:10 | ED GU-Male ---
General Chief Complaint: Abdominal/GI Problems Stated Complaint: POSS KIDNEY STONE Nursing Triage Note: bilateral lower abdominal pain, n/v/d. possible renal stone. Source: patient Exam Limitations: no limitations History of Present Illness Date Seen by Provider: Nov 03, 2018 Time Seen by Provider: 06:45 Initial Comments Here with report of lower abdominal pain that started about an hour ago. States it feels like his kidney stones. He's had multiple episodes of this but they have all passed on their own without intervention. Last kidney stone was in August of this year. He did have CT scan at that time which showed multiple small stones still in the kidneys bilaterally. Has had some nausea and vomiting with the pain as well as diarrhea. All of this is associated with the onset of the pain. Timing/Duration: this morning, getting worse Severity/Quality: moderate, severe, aching Location: suprapubic Radiation: right flank, left flank Activities at Onset: none Prior Genitourinary Problems: similar symptoms Modifying Factors: Improves With Other (unable to get comfortable in any position) Associated Symptoms: abdominal pain; No dysuria; nausea/vomiting; No urinary frequency Allergies and Home Medications Allergies Coded Allergies: No Known Drug Allergies (Unverified , 08/06/11) Home Medications Amiodarone HCl 200 Mg Tablet, 200 MG PO BID Prescribed by: BETO WALKER on 11/06/16 1805 Amlodipine Besylate 10 Mg Tablet, 5 MG PO HS, (Reported) TAKES 1/2 OF A (10 MG) TABLET Apixaban 5 Mg Tablet, 5 MG PO BID, (Reported) Atorvastatin Calcium 20 Mg Tablet, 10 MG PO HS, (Reported) TAKES 1/2 OF A (20 MG) TABLET Cefuroxime Axetil 250 Mg Tablet, 250 MG PO BID Prescribed by: HEIDY SCANLON on 09/23/18 1436 Cyclobenzaprine HCl 10 Mg Tablet, 10 MG PO HS PRN for MUSCLE SPASMS, (Reported) Hydrochlorothiazide 25 Mg Tablet, 25 MG PO DAILY, (Reported) Hydrocodone Bit/Acetaminophen 1 Tab Tab, 1 EACH PO Q6H PRN for BREAKTHROUGH PAIN Prescribed by: BRADEN RICHMOND on 01/11/18 0903 Krill/[place]-3/Dha/Epa/Lipids 1 Each Capsule, 300 MG PO DAILY@1630, (Reported) L.acidoph & Paracasei,B.lactis 1 Each Capsule, 1 CAP PO DAILY@1630, (Reported) Metoprolol Tartrate 100 Mg Tablet, 100 MG PO DAILY, (Reported) Multivitamin 1 Each Tablet, 1 TAB PO DAILY@1630, (Reported) [place]-3/Dha/Epa/Fish Oil 1 Each Capsule, 1,000 MG PO DAILY@1630, (Reported) Orphenadrine Citrate 100 Mg Tablet.er, 100 MG PO BID PRN for MUSCLE SPASMS, ( Reported) Potassium 99 Mg Tablet, 99 MG PO DAILY@1630, (Reported) Tamsulosin HCl 0.4 Mg Cap, 0.4 MG PO DAILY Prescribed by: HEIDY SCANLON on 09/23/18 1436 Tramadol HCl 50 Mg Tablet, 50 MG PO Q6H PRN for MILD PAIN, (Reported) Ubidecarenone 200 Mg Capsule, 200 MG PO HS, (Reported) Patient Home Medication List Home Medication List Reviewed: Yes Review of Systems Review of Systems Constitutional: see HPI; No chills, No fever Respiratory: no symptoms reported Cardiovascular: no symptoms reported Gastrointestinal: abdominal pain, diarrhea, nausea, vomiting Genitourinary: denies discharge; flank pain; denies hematuria; pain Musculoskeletal: No back pain, No muscle pain Skin: no symptoms reported Psychiatric/Neurological: No Symptoms Reported All Other Systemes Reviewed Negative Unless Noted: Yes Past Danuhdv-Hrhtfh-Njccwd Hx Past Med/Social Hx: Reviewed Nursing Past Med/Soc Hx Patient Social History Alcohol Use: Denies Use Recreational Drug Use: No Smoking Status: Never a Smoker 2nd Hand Smoke Exposure: No Recent Foreign Travel: No Contact w/Someone Who Travel: No Recent Infectious Disease Expo: No Recent Hopitalizations: No Immunizations Up To Date Tetanus Booster (TDap): More than 5yrs Date of Pneumonia Vaccine: May 31, 2012 Date of Influenza Vaccine: Jun 03, 2016 Seasonal Allergies Seasonal Allergies: Yes Past Medical History Surgeries: Yes (cardiac ablation) Appendectomy, Cardiac Respiratory: No Sleep Apnea Currently Using CPAP: No Currently Using BIPAP: No Cardiac: Yes Atrial Fibrillation, High Cholesterol, Hypertension Neurological: No Reproductive Disorders: No Sexually Transmitted Disease: No HIV/AIDS: No Genitourinary: Yes Renal Failure Gastrointestinal: Yes (hx of polyps) Gastroesophageal Reflux, Polyps Musculoskeletal: No Endocrine: Yes Diabetes, Non-Insulin dep HEENT: No Hearing Impairment: Denies Cancer: No Psychosocial: No Integumentary: No Blood Disorders: No Adverse Reaction/Blood Tranf: No Family Medical History Reviewed Nursing Family Hx No Pertinent Family Hx, Heart Disease Physical Exam Vital Signs Vital Signs - First Documented 11/03/18 06:42 Temp 97.6 Pulse 78 Resp 18 B/P (MAP) 137/87 (104) Pulse Ox 100 O2 Delivery Room Air Capillary Refill : Less Than 3 Seconds Height, Weight, BMI Height: 5'9.00" Weight: 240lbs. 0oz. [id number]; 32.5 BMI Method:Stated General Appearance: WD/WN, moderate distress, other (difficulty with sitting still due to pain and unable to find position of comfort) HEENT: PERRL/EOMI, pharynx normal Neck: full range of motion, supple Cardiovascular: regular rate, rhythm, no murmur Respiratory: lungs clear, normal breath sounds Gastrointestinal: soft, tenderness (suprapubic region) Back: normal inspection, no CVA tenderness, no vertebral tenderness Extremities: non-tender, normal inspection Neurologic/Psychiatric: alert, oriented x 3 Skin: normal color, warm/dry Progress/Results/Core Measures Suspected Sepsis Recent Fever Within 48 Hours: No Infection Criteria Present: None New/Unexplained Altered Menta: No Sepsis Screen: No Definite Risk SIRS Temperature:97.6 Pulse: 78 Respiratory Rate: 18 Laboratory Tests 11/03/18 07:00: White Blood Count 6.4 Blood Pressure 137 /87 Mean: 104 Laboratory Tests 11/03/18 07:00: Creatinine 1.04, Platelet Count 215, Total Bilirubin 0.6 Results/Orders Lab Results Laboratory Tests Test 11/03/18 07:00 Range/Units White Blood Count 6.4 4.3-11.0 10^3/uL Red Blood Count 4.87 4.35-5.85 10^6/uL Hemoglobin 14.7 13.3-17.7 G/DL Hematocrit 44 40-54 % Mean Corpuscular Volume 90 80-99 FL Mean Corpuscular Hemoglobin 30 25-34 PG Mean Corpuscular Hemoglobin Concent 34 32-36 G/DL Red Cell Distribution Width 14.9 H 10.0-14.5 % Platelet Count 215 130-400 10^3/uL Mean Platelet Volume 10.3 7.4-10.4 FL Neutrophils (%) (Auto) 71 42-75 % Lymphocytes (%) (Auto) 18 12-44 % Monocytes (%) (Auto) 10 0-12 % Eosinophils (%) (Auto) 1 0-10 % Basophils (%) (Auto) 0 0-10 % Neutrophils # (Auto) 4.6 1.8-7.8 X 10^3 Lymphocytes # (Auto) 1.1 1.0-4.0 X 10^3 Monocytes # (Auto) 0.6 0.0-1.0 X 10^3 Eosinophils # (Auto) 0.1 0.0-0.3 10^3/uL Basophils # (Auto) 0.0 0.0-0.1 10^3/uL Urine Color YELLOW Urine Clarity CLEAR Urine pH 6 5-9 Urine Specific Raymond 1.020 1.016-1.022 Urine Protein NEGATIVE NEGATIVE Urine Glucose (UA) NEGATIVE NEGATIVE Urine Ketones NEGATIVE NEGATIVE Urine Nitrite NEGATIVE NEGATIVE Urine Bilirubin NEGATIVE NEGATIVE Urine Urobilinogen NORMAL NORMAL MG/DL Urine Leukocyte Esterase NEGATIVE NEGATIVE Urine RBC (Auto) 4+ H NEGATIVE Urine RBC 25-50 H /HPF Urine WBC RARE /HPF Urine Squamous Epithelial Cells RARE /HPF Urine Crystals NONE /LPF Urine Bacteria NEGATIVE /HPF Urine Casts NONE /LPF Urine Mucus SMALL H /LPF Urine Culture Indicated NO Sodium Level 139 135-145 MMOL/L Potassium Level 4.2 3.6-5.0 MMOL/L Chloride Level 106 98-107 MMOL/L Carbon Dioxide Level 24 21-32 MMOL/L Anion Gap 9 5-14 MMOL/L Blood Urea Nitrogen 17 7-18 MG/DL Creatinine 1.04 0.60-1.30 MG/DL Estimat Glomerular Filtration Rate > 60 BUN/Creatinine Ratio 16 Glucose Level 117 H 70-105 MG/DL Calcium Level 10.0 8.5-10.1 MG/DL Corrected Calcium 8.5-10.1 MG/DL Total Bilirubin 0.6 0.1-1.0 MG/DL Aspartate Amino Transf (AST/SGOT) 41 H 5-34 U/L Alanine Aminotransferase (ALT/SGPT) 72 H 0-55 U/L Alkaline Phosphatase 94 40-136 U/L Total Protein 7.3 6.4-8.2 GM/DL Albumin 4.6 H 3.2-4.5 GM/DL My Orders Orders - ELIANA HAN MD Cbc With Automated Diff (11/03/18 06:28) Comprehensive Metabolic Panel (11/03/18 06:28) Ua Culture If Indicated (11/03/18 06:28) Saline Lock/Iv-Start (11/03/18 06:28) Ns Iv 1000 Ml (Sodium Chloride 0.9%) (11/03/18 06:28) Fentanyl Injection (Sublimaze Injection (11/03/18 06:53) Ketorolac Injection (Toradol Injection) (11/03/18 06:53) Ondansetron Injection (Zofran Injectio (11/03/18 07:00) Medications Given in ED Current Medications Medications Dose Ordered Sig/Hussain Route Start Time Stop Time Status Last Admin Dose Admin Ondansetron HCl 4 mg ONCE ONCE IVP 11/03/18 07:00 11/03/18 07:01 DC 11/03/18 07:12 4 MG Sodium Chloride 1,000 ml @ 0 mls/hr Q0M ONCE IV 11/03/18 06:28 11/03/18 06:33 DC 11/03/18 07:16 1,000 MLS/HR Vital Signs/I&O 11/03/18 06:42 Temp 97.6 Pulse 78 Resp 18 B/P (MAP) 137/87 (104) Pulse Ox 100 O2 Delivery Room Air Capillary Refill : Less Than 3 Seconds Blood Pressure Mean: 104 Progress Note : Progress Note Seen and evaluated. Patient has history of kidney stones and known stones from CT scan on September 23. He usually passes these without difficulty. We will get labs and UA as well as establish IV and give normal saline 1 L bolus. Fentanyl 75 g IV and Toradol 30 mg IV ordered. Zofran 4 mg IV for nausea and vomiting. If we can get pain controlled and he is doing better than we will hold on radiological evaluation as patient has known history and usually does well on his own. Monitor patient. 0820: Patient is overall doing much better. He does have history of stones and he is comfortable trying this at home and seeing if it passes. If it doesn't pass of the pain gets much worse he'll come back and then we will reevaluate for radiological evaluation. He will also set up appointment with Dr. Baeza. Discharged home with return precautions. Patient and family verbalize understanding instructions and agreement with plan. Departure Impression Primary Impression: Kidney stones Disposition: HOME, SELF-CARE Condition: Improved Departure-Patient Inst. Decision time for Depature: 08:24 Referrals: ZENAIDA MELENDEZ DO (PCP/Family) Primary Care Physician ANNAMARIA BAEZA MD Patient Instructions: Kidney Stones (DC) Add. Discharge Instructions: All discharge instructions reviewed with patient and/or family. Voiced understanding. Take medications as directed. Follow-up with your Dr. in a few days for recheck. Return for worse pain, fever, vomiting, weakness, breathing problems, unable to urinate, markedly increasing pain, blood in her urine or other concerns as needed. You may take Tylenol/acetaminophen 1000 mg every 8 hours as needed for pain. Do not take this with the prescribed pain medicine as they both have acetaminophen in them. You should follow-up with Dr. Baeza. Call his office for appointment. Scripts Tamsulosin HCl (Tamsulosin HCl) 0.4 Mg Cap.er.24h 0.4 MG PO DAILY for Renal Colic-Stone Passage, #14 CAP Daily until stone passage Prov: ELIANA HAN MD 11/03/18 Hydrocodone Bit/Acetaminophen (Hydrocodone/Acetaminophen 5/325mg Tablet) 1 Tab Tab 1 EACH PO Q4-6HR PRN for PAIN-MODERATE MDD 10, #12 TAB Prov: ELIANA HAN MD 11/03/18 Cephalexin (Cephalexin) 500 Mg Tablet 500 MG PO BID, #14 TAB 0 Refills Prov: ELINAA HAN MD 11/03/18 Copy Copies To 1: ANNAMARIA BAEZA MD, TIMOTHY D MD Nov 03, 2018 07:10
[2018-11-03 07:11] LABS: BILIRUBIN,URINE NEGATIVE (NEGATIVE); CLARITY,URINE CLEAR; COLOR,URINE YELLOW; GLUCOSE, URINE (UA) NEGATIVE (NEGATIVE); KETONES,URINE NEGATIVE (NEGATIVE); LEUKOCYTE ESTERASE ,URINE NEGATIVE (NEGATIVE); NITRITE,URINE NEGATIVE (NEGATIVE); PH,URINE 6 (5-9); PROTEIN,URINE NEGATIVE (NEGATIVE); UROBILINOGEN,URINE NORMAL (NORMAL)
[2018-11-03 07:13] LABS: BASOPHILS % (AUTO) 0 % (0-10); EOSINOPHILS # (AUTO) 0.1 10^3/uL (0.0-0.3); EOSINOPHILS % (AUTO) 1 % (0-10); HEMATOCRIT 44 % (40-54); HEMOGLOBIN 14.7 G/DL (13.3-17.7); LYMPHOCYTES # (AUTO) 1.1 X 10^3 (1.0-4.0); LYMPHOCYTES % (AUTO) 18 % (12-44); MEAN CORPUSCULAR HEMOGLOBIN 30 PG (25-34); MEAN CORPUSCULAR HGB CONC 34 G/DL (32-36); MEAN CORPUSCULAR VOLUME 90 FL (80-99); MEAN PLATELET VOLUME 10.3 FL (7.4-10.4); MONOCYTES # (AUTO) 0.6 X 10^3 (0.0-1.0); MONOCYTES % (AUTO) 10 % (0-12); NEUTROPHILS # (AUTO) 4.6 X 10^3 (1.8-7.8); NEUTROPHILS % (AUTO) 71 % (42-75); PLATELET COUNT 215 10^3/uL (130-400); RED CELL DISTRIBUTION WIDTH 14.9 % (10.0-14.5); WHITE BLOOD COUNT 6.4 10^3/uL (4.3-11.0)
[2018-11-03 07:18] LABS: BACTERIA,URINE NEGATIVE /HPF; RBC,URINE 25-50 /HPF; SQUAMOUS EPITHELIAL CELL,UR RARE /HPF; WBC,URINE RARE /HPF
[2018-11-03 07:36] LABS: ALANINE AMINOTRANSFERASE 72 U/L (0-55); ALBUMIN 4.6 GM/DL (3.2-4.5); ALKALINE PHOSPHATASE 94 U/L (40-136); BILIRUBIN,TOTAL 0.6 MG/DL (0.1-1.0); BUN/CREATININE RATIO 16; CARBON DIOXIDE 24 MMOL/L (21-32); CHLORIDE 106 MMOL/L (98-107); CREATININE SERUM 1.04 MG/DL (0.60-1.30); GFR ESTIMATED > 60; GLUCOSE 117 MG/DL (70-105); POTASSIUM 4.2 MMOL/L (3.6-5.0); SODIUM 139 MMOL/L (135-145); TOTAL PROTEIN 7.3 GM/DL (6.4-8.2)
[2018-11-03] MEDS ORDERED: TAMS0.4C2 PO (08:27)
[2018-11-03] MEDS ORDERED: ACHD5005 PO (08:27)
[2018-11-03] MEDS ORDERED: CEPH500T PO (08:27)
[2018-11-03 08:48] VITALS: BP 117/74
== END 2018-11-03 08:47 | disposition home or self-care (01) ==
LOC: EDUNIT# 06:15 → ER 06:16
DX: N20.0 Calculus of kidney (principal); G47.30 Sleep apnea, unspecified; I48.91 Unspecified atrial fibrillation; E78.00 Pure hypercholesterolemia, unspecified; I10 Essential (primary) hypertension; K21.9 Gastro-esophageal reflux disease without esophagitis; E11.9 Type 2 diabetes mellitus without complications; Z86.010 Personal history of colon polyps; Z87.442 Personal history of urinary calculi; Z79.01 Long term (current) use of anticoagulants; Z90.49 Acquired absence of other specified parts of digestive tract; Z98.890 Other specified postprocedural states
CPT/HCPCS: 36415; 80053; 81000; 85025

== ENCOUNTER → 2018-11-03 | Outpatient (CLI) | payer OTHER ==
[~2018-11-03] MED LIST changes: -AMIO200T2 PO; +AMIO200T4 PO; -AMLO10TA2 PO; +AMLO10TA7 PO; +CEFU250T80 PO; +CEPH500T PO; +HYDR-4226 PO; +METF-397 PO; -METF500T5 PO; +TAMS0.4C2 PO; +TAMS0.4C98 PO
--- NOTE | 2018-11-03 12:29 | Diagnostic Imaging Report ---
INDICATION: Bilateral kidney stones. COMPARISON: 09/23/2018 and 04/29/2010. FINDINGS: Two supine radiographic views of the abdomen were obtained. Bilateral nephrolithiasis is again identified. Left-sided pelvic venous phleboliths are also noted. No unexpected extraosseous calcifications or radiopaque foreign bodies are seen. Small bowel loops are nondistended. There is no large collection of free intraperitoneal air. Bony structures show no gross acute abnormalities. IMPRESSION: 1. Redemonstration of bilateral nephrolithiasis. 2. Nonobstructive small bowel gas pattern. Dictated by: Dictated on workstation # [id number]
== END ==
LOC: RAD 10:28
PROVIDERS: ATTEND Urology
DX: N20.2 Calculus of kidney with calculus of ureter (principal)
CPT/HCPCS: 74018

== ENCOUNTER → 2018-11-05 | Outpatient (CLI) | payer OTHER ==
[~2018-11-05] MED LIST changes: +CEPH500T PO; +TAMS0.4C2 PO
--- NOTE | 2018-11-05 13:52 | Diagnostic Imaging Report ---
PROCEDURE: CT abdomen and pelvis without contrast. TECHNIQUE: Multiple contiguous axial images were obtained through the abdomen and pelvis without the use of intravenous contrast. INDICATION: History of kidney stones. Correlation is made with prior CT from 09/23/2018. Lung bases demonstrates some linear regions of scarring or subsegmental atelectasis in the right middle lobe and bilateral lower lobes and lingula. Coronary artery calcification are noted. The liver is heterogeneous and demonstrates regions of low density consistent with hepatic steatosis with areas of focal sparing. No discrete liver mass is detected. The gallbladder is unremarkable. No biliary duct dilatation is seen. Pancreas and spleen are unremarkable. No adrenal mass is detected. Numerous bilateral nonobstructing renal calculi are noted. The largest is in left upper pole approximately 6 mm in size. No ureteral calculi or hydronephrosis is identified. Aorta is nonaneurysmal. Small and large bowel loops are normal in caliber. No ascites. Bladder is decompressed. The prostate gland is unremarkable. Bony structures are nonacute. IMPRESSION: 1. Hepatic steatosis with geographic sparing. 2. Nonobstructing bilateral nephrolithiasis. No definite ureteral calculi or evidence of hydronephrosis is detected. Dictated by: Dictated on workstation # [id number]
== END ==
LOC: RAD 11:43
PROVIDERS: ATTEND Urology
DX: N20.0 Calculus of kidney (principal); K76.0 Fatty (change of) liver, not elsewhere classified
CPT/HCPCS: 74176

== ENCOUNTER → 2018-11-14 | Outpatient (CLI) | payer OTHER | LOC: LAB 09:00 | PROVIDERS: ATTEND Urology | DX: N20.9 Urinary calculus, unspecified (principal) | CPT/HCPCS: 82140; 82340; 82507; 82570; 83735; 83945; 83986; 84105; 84133; 84300; 84392; 84560 ==

== ENCOUNTER 2019-01-26 03:34 | Emergency (ER) | payer OTHER ==
[~2019-01-26] VITALS: Ht 175.3 cm; Wt 108.9 kg
[2019-01-26] MEDS ORDERED: NS IV 1000 ML 1,000 ML IV ONE (03:44)
[2019-01-26] MEDS ORDERED: fentaNYL INJECTION 100 MCG/2 ML AMP IVP ONE ×2 (03:45→04:30)
[2019-01-26] MEDS ORDERED: ONDANSETRON 4 MG/2 ML (SDV) Z0FRAN IVP ONE (03:45)
[2019-01-26 03:46] LABS: BILIRUBIN,URINE NEGATIVE (NEGATIVE); CLARITY,URINE CLEAR; COLOR,URINE YELLOW; GLUCOSE, URINE (UA) NEGATIVE (NEGATIVE); KETONES,URINE NEGATIVE (NEGATIVE); LEUKOCYTE ESTERASE ,URINE NEGATIVE (NEGATIVE); NITRITE,URINE NEGATIVE (NEGATIVE); PH,URINE 5 (5-9); PROTEIN,URINE 1+ (NEGATIVE); UROBILINOGEN,URINE NORMAL (NORMAL)
[2019-01-26 03:51] LABS: BASOPHILS % (AUTO) 0 % (0-10); EOSINOPHILS # (AUTO) 0.2 10^3/uL (0.0-0.3); EOSINOPHILS % (AUTO) 2 % (0-10); HEMATOCRIT 45 % (40-54); HEMOGLOBIN 15.4 G/DL (13.3-17.7); LYMPHOCYTES # (AUTO) 2.2 X 10^3 (1.0-4.0); LYMPHOCYTES % (AUTO) 29 % (12-44); MEAN CORPUSCULAR HEMOGLOBIN 30 PG (25-34); MEAN CORPUSCULAR HGB CONC 35 G/DL (32-36); MEAN CORPUSCULAR VOLUME 88 FL (80-99); MEAN PLATELET VOLUME 10.1 FL (7.4-10.4); MONOCYTES # (AUTO) 0.9 X 10^3 (0.0-1.0); MONOCYTES % (AUTO) 11 % (0-12); NEUTROPHILS # (AUTO) 4.6 X 10^3 (1.8-7.8); NEUTROPHILS % (AUTO) 58 % (42-75); PLATELET COUNT 263 10^3/uL (130-400); RED CELL DISTRIBUTION WIDTH 14.5 % (10.0-14.5); WHITE BLOOD COUNT 7.9 10^3/uL (4.3-11.0)
[2019-01-26 03:59] LABS: RBC,URINE 25-50 /HPF
[2019-01-26 04:00] LABS: BACTERIA,URINE FEW /HPF; SQUAMOUS EPITHELIAL CELL,UR RARE /HPF
[2019-01-26 04:13] LABS: ALANINE AMINOTRANSFERASE 50 U/L (0-55); ALBUMIN 4.6 GM/DL (3.2-4.5); ALKALINE PHOSPHATASE 100 U/L (40-136); BILIRUBIN,TOTAL 0.7 MG/DL (0.1-1.0); BUN/CREATININE RATIO 19; CALCIUM 9.9 MG/DL (8.5-10.1); CARBON DIOXIDE 22 MMOL/L (21-32); CHLORIDE 108 MMOL/L (98-107); CREATININE SERUM 1.08 MG/DL (0.60-1.30); GFR ESTIMATED > 60; GLUCOSE 116 MG/DL (70-105); POTASSIUM 3.8 MMOL/L (3.6-5.0); SODIUM 142 MMOL/L (135-145); TOTAL PROTEIN 7.5 GM/DL (6.4-8.2)
--- NOTE | 2019-01-26 04:25 | NUR ---
PT TO CT, PT UNABLE TO LIE ON EXAM TABLE TO COMPLETE CT D/T INCREASED PAIN AND NAUSEA, PHYSICIAN NOTIFIED AND PAIN/NAUSEA MEDICATION ADMINISTERED PER ORDER
[2019-01-26] MEDS ORDERED: PROMETHAZINE INJ 25 MG/ML (PHENERGAN) AMP IVP ONE (04:30)
--- NOTE | 2019-01-26 04:35 | NUR ---
PT PLACED ON 1 L O2 NC PER PHYSICIAN REQUEST, PT HAVING EPISODES OF DESATS AT 88% AFTER PAIN ADMINISTRATION, PT O2 SAT INCREASED TO 94%
--- NOTE | 2019-01-26 04:45 | NUR ---
PT RESTING QUIETLY WITH EYES CLOSED, PT EASY TO AROUSE, PT SHOWS NO S/S OF DISTRESS, VS ASSESSED AND STABLE, WILL CONTINUE TO MONITOR
--- NOTE | 2019-01-26 04:46 | ED Abdominal Pain ---
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 He has history of renal stones and states this pain feels very similar. He has associated vomiting. No constipation, diarrhea, fever, or urinary changes. He is anticoagulated on Eliquis due to history of A. fib. Allergies and Home Medications Allergies Coded Allergies: No Known Drug Allergies (Unverified , 01/26/19) Home Medications Amiodarone HCl 200 Mg Tablet, 200 MG PO BID Prescribed by: BETO WALKER on 11/06/16 1805 Amlodipine Besylate 10 Mg Tablet, 5 MG PO HS, (Reported) TAKES 1/2 OF A (10 MG) TABLET Apixaban 5 Mg Tablet, 5 MG PO BID, (Reported) Atorvastatin Calcium 20 Mg Tablet, 10 MG PO HS, (Reported) TAKES 1/2 OF A (20 MG) TABLET Cefuroxime Axetil 250 Mg Tablet, 250 MG PO BID Prescribed by: HEIYD SCANLON on 09/23/18 1436 Cephalexin 500 Mg Tablet, 500 MG PO BID Prescribed by: ELIANA HAN on 11/03/18 0827 Cyclobenzaprine HCl 10 Mg Tablet, 10 MG PO HS PRN for MUSCLE SPASMS, (Reported) Hydrochlorothiazide 25 Mg Tablet, 25 MG PO DAILY, (Reported) Hydrocodone Bit/Acetaminophen 1 Tab Tab, 1 EACH PO Q6H PRN for BREAKTHROUGH PAIN Prescribed by: BRADEN RICHMOND on 01/11/18 0903 Hydrocodone Bit/Acetaminophen 1 Tab Tab, 1 EACH PO Q4-6HR PRN for PAIN-MODERATE Prescribed by: ELIANA HAN on 11/03/18 0827 Hydrocodone Bit/Acetaminophen 1 Tab Tab, 1 EACH PO Q4-6HR PRN for PAIN-MODERATE Prescribed by: TITUS VILLAFANA on 01/26/19 0546 Krill/[place]-3/Dha/Epa/Lipids 1 Each Capsule, 300 MG PO DAILY@1630, (Reported) L.acidoph & Paracasei,B.lactis 1 Each Capsule, 1 CAP PO DAILY@1630, (Reported) Metoprolol Tartrate 100 Mg Tablet, 100 MG PO DAILY, (Reported) Multivitamin 1 Each Tablet, 1 TAB PO DAILY@1630, (Reported) [place]-3/Dha/Epa/Fish Oil 1 Each Capsule, 1,000 MG PO DAILY@1630, (Reported) Ondansetron 4 Mg Tab.rapdis, 4 MG SL Q4H PRN for NAUSEA/VOMITING Prescribed by: TITUS VILLAFANA on 01/26/19 0546 Orphenadrine Citrate 100 Mg Tablet.er, 100 MG PO BID PRN for MUSCLE SPASMS, (Reported) Potassium 99 Mg Tablet, 99 MG PO DAILY@1630, (Reported) Tamsulosin HCl 0.4 Mg Cap, 0.4 MG PO DAILY Prescribed by: HEIDY SCANLON on 09/23/18 1436 Tamsulosin HCl 0.4 Mg Cap.er.24h, 0.4 MG PO DAILY Daily until stone passage Prescribed by: ELIANA HAN on 11/03/18 0827 Tramadol HCl 50 Mg Tablet, 50 MG PO Q6H PRN for MILD PAIN, (Reported) Ubidecarenone 200 Mg Capsule, 200 MG PO HS, (Reported) Patient Home Medication List Home Medication List Reviewed: Yes Review of Systems Review of Systems Constitutional: no symptoms reported EENTM: No Symptoms Reported Respiratory: No Symptoms Reported Cardiovascular: No Symptoms Reported Gastrointestinal: No Symptoms Reported Genitourinary: No Symptoms Reported Musculoskeletal: no symptoms reported Skin: no symptoms reported Psychiatric/Neurological: No Symptoms Reported Endocrine: No Symptoms Reported Past Ybznqtr-Aodrka-Yceqyt Hx Past Med/Social Hx: Reviewed and Corrections made Patient Social History Alcohol Use: Denies Use Recreational Drug Use: No 2nd Hand Smoke Exposure: No Recent Foreign Travel: No Contact w/Someone Who Travel: No Recent Infectious Disease Expo: No Recent Hopitalizations: No Immunizations Up To Date Tetanus Booster (TDap): More than 5yrs Date of Pneumonia Vaccine: May 31, 2012 Date of Influenza Vaccine: Jun 03, 2016 Seasonal Allergies Seasonal Allergies: Yes Past Medical History Surgeries: Yes (cardiac ablation) Appendectomy, Cardiac Respiratory: Yes Sleep Apnea Currently Using CPAP: No Currently Using BIPAP: No Cardiac: Yes Atrial Fibrillation, High Cholesterol, Hypertension Neurological: No Reproductive Disorders: No Sexually Transmitted Disease: No HIV/AIDS: No Genitourinary: Yes Renal Failure Gastrointestinal: Yes (hx of polyps) Gastroesophageal Reflux, Polyps Musculoskeletal: No Endocrine: Yes Diabetes, Non-Insulin dep HEENT: No Hearing Impairment: Denies Cancer: No Psychosocial: No Integumentary: No Blood Disorders: No Adverse Reaction/Blood Tranf: No Family Medical History Reviewed Nursing Family Hx No Pertinent Family Hx, Heart Disease Physical Exam Vital Signs Vital Signs - First Documented 01/26/19 01/26/19 03:45 05:54 Temp 97.1 Pulse 85 Resp 18 B/P (MAP) 133/93 (106) Pulse Ox 92 O2 Delivery Room Air Capillary Refill : Less Than 3 Seconds Height/Weight/BMI Height: 5'9.00" Weight: 240lbs. 0oz. 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 officer II-XII nml as tested, no motor/sensory deficits, alert, normal mood/affect, oriented x 3 Skin: normal color, warm/dry Progress/Results/Core Measures Results/Orders Lab Results Laboratory Tests Test 01/26/19 03:38 01/26/19 03:43 Range/Units Urine Color YELLOW Urine Clarity CLEAR Urine pH 5 5-9 Urine Specific Dennis 1.025 H 1.016-1.022 Urine Protein 1+ H NEGATIVE Urine Glucose (UA) NEGATIVE NEGATIVE Urine Ketones NEGATIVE NEGATIVE Urine Nitrite NEGATIVE NEGATIVE Urine Bilirubin NEGATIVE NEGATIVE Urine Urobilinogen NORMAL NORMAL MG/DL Urine Leukocyte Esterase NEGATIVE NEGATIVE Urine RBC (Auto) 5+ H NEGATIVE Urine RBC 25-50 H /HPF Urine WBC NONE /HPF Urine Squamous Epithelial Cells RARE /HPF Urine Crystals NONE /LPF Urine Bacteria FEW H /HPF Urine Casts NONE /LPF Urine Mucus SMALL H /LPF Urine Culture Indicated NO White Blood Count 7.9 4.3-11.0 10^3/uL Red Blood Count 5.08 4.35-5.85 10^6/uL Hemoglobin 15.4 13.3-17.7 G/DL Hematocrit 45 40-54 % Mean Corpuscular Volume 88 80-99 FL Mean Corpuscular Hemoglobin 30 25-34 PG Mean Corpuscular Hemoglobin Concent 35 32-36 G/DL Red Cell Distribution Width 14.5 10.0-14.5 % Platelet Count 263 130-400 10^3/uL Mean Platelet Volume 10.1 7.4-10.4 FL Neutrophils (%) (Auto) 58 42-75 % Lymphocytes (%) (Auto) 29 12-44 % Monocytes (%) (Auto) 11 0-12 % Eosinophils (%) (Auto) 2 0-10 % Basophils (%) (Auto) 0 0-10 % Neutrophils # (Auto) 4.6 1.8-7.8 X 10^3 Lymphocytes # (Auto) 2.2 1.0-4.0 X 10^3 Monocytes # (Auto) 0.9 0.0-1.0 X 10^3 Eosinophils # (Auto) 0.2 0.0-0.3 10^3/uL Basophils # (Auto) 0.0 0.0-0.1 10^3/uL Sodium Level 142 135-145 MMOL/L Potassium Level 3.8 3.6-5.0 MMOL/L Chloride Level 108 H 98-107 MMOL/L Carbon Dioxide Level 22 21-32 MMOL/L Anion Gap 12 5-14 MMOL/L Blood Urea Nitrogen 20 H 7-18 MG/DL Creatinine 1.08 0.60-1.30 MG/DL Estimat Glomerular Filtration Rate > 60 BUN/Creatinine Ratio 19 Glucose Level 116 H 70-105 MG/DL Calcium Level 9.9 8.5-10.1 MG/DL Corrected Calcium 8.5-10.1 MG/DL Total Bilirubin 0.7 0.1-1.0 MG/DL Aspartate Amino Transf (AST/SGOT) 22 5-34 U/L Alanine Aminotransferase (ALT/SGPT) 50 0-55 U/L Alkaline Phosphatase 100 40-136 U/L Total Protein 7.5 6.4-8.2 GM/DL Albumin 4.6 H 3.2-4.5 GM/DL My Orders Lam - TITUS BECKMAN MD Ua Culture If Indicated (01/26/19 03:37) Cbc With Automated Diff (01/26/19 03:44) Comprehensive Metabolic Panel (01/26/19 03:44) Ed Iv/Invasive Line Start (01/26/19 03:44) Ns Iv 1000 Ml (Sodium Chloride 0.9%) (01/26/19 03:44) Fentanyl Injection (Sublimaze Injection (01/26/19 03:45) Ondansetron Injection (Zofran Injectio (01/26/19 03:45) Ct Abd/Pelvis Wo(Kidney Stone) (01/26/19 04:04) Fentanyl Injection (Sublimaze Injection (01/26/19 04:30) Promethazine Injection (Phenergan Injec (01/26/19 04:30) Medications Given in ED Current Medications Medications Dose Ordered Sig/Hussain Route Start Time Stop Time Status Last Admin Dose Admin Fentanyl Citrate 50 mcg ONCE ONCE IVP 01/26/19 03:45 01/26/19 03:48 DC 01/26/19 03:51 50 MCG Fentanyl Citrate 50 mcg ONCE ONCE IVP 01/26/19 04:30 01/26/19 04:31 DC 01/26/19 04:26 50 MCG Ondansetron HCl 8 mg ONCE ONCE IVP 01/26/19 03:45 01/26/19 03:48 DC 01/26/19 03:51 8 MG Promethazine HCl 12.5 mg ONCE ONCE IVP 01/26/19 04:30 01/26/19 04:31 DC 01/26/19 04:26 12.5 MG Sodium Chloride 1,000 ml @ 0 mls/hr Q0M ONCE IV 01/26/19 03:44 01/26/19 03:48 DC 01/26/19 03:52 1,000 MLS/HR Vital Signs/I&O 01/26/19 01/26/19 03:45 05:54 Temp 97.1 97.8 Pulse 85 77 Resp 18 16 B/P (MAP) 133/93 (106) 133/93 (106) Pulse Ox 92 O2 Delivery Room Air Blood Pressure Mean: 106 Progress Progress Note #1: Time: 04:45 Progress Note Patient was seen and examined. Labs reviewed. Hematuria noted. Patient offered CT scan for kidney stone search. He elected to proceed with CT scan after discussion of risks and benefits. Patient has been treated with 2 doses of fentanyl. He was also treated with Zofran but had rebound nausea. Phenergan was also administered. A liter of IV fluids was also infused. CT scan is pending at this time. Progress Note #2: Progress Note CT revealed a stone in the bladder. It appears that the ureteral stone has passed. Patient did require some oxygen support after being given fentanyl and Phenergan. He will use his CPAP when he returns home. Diagnostic Imaging Diagonstic Imaging: Xray Plain Films/CT/US/NM/MRI: abdomen, pelvis Comments CT abdomen and pelvis viewed by me. Stat rad report reviewed. There is a calcified stone in the dependent portion of the bladder, likely representing a recently passed stone. Departure Impression Primary Impression: Bladder stone Additional Impressions: Nephrolithiasis Nausea and vomiting Qualified Codes: R11.2 - Nausea with vomiting, unspecified Disposition: 01 HOME, SELF-CARE Condition: Improved Departure-Patient Inst. Decision time for Depature: 05:43 Referrals: ZENAIDA MELENDEZ DO (PCP/Family) Primary Care Physician Patient Instructions: Kidney Stone Diet, Kidney Stones in Adults Add. Discharge Instructions: Drink plenty of clear liquids. Use your medications as prescribed. Contact Dr. Baeza for follow-up. When you return home, use your CPAP while you sleep. Return to care if you have worsening symptoms. All discharge instructions reviewed with patient and/or family. Voiced understanding. Scripts Ondansetron (Ondansetron Odt) 4 Mg Tab.rapdis 4 MG SL Q4H PRN for NAUSEA/VOMITING, #10 TAB Prov: TITUS BECKMAN MD 01/26/19 Hydrocodone Bit/Acetaminophen (Hydrocodone/Acetaminophen 5/325mg Tablet) 1 Tab Tab 1 EACH PO Q4-6HR PRN for PAIN-MODERATE MDD 10, #10 TAB Prov: TITUS BECKMAN MD 01/26/19 Work/School Note: Work Release Form Date Seen in the Emergency Department: January 26, 2019 Return to Work: January 27, 2019 Restrictions: No Restrictions Copy Copies To 1: ANNAMARIA BAEZA MD, JOSHUA T MD January 26, 2019 04:46
--- NOTE | 2019-01-26 05:20 | NUR ---
CT COMPLETED PER ORDER, PT BACK TO ED BED, PT ON RA, O2 SAT MAINTAINING AT 92%, PT DENIES ANY NEEDS OR C/O AT THIS TIME, WILL CONTINUE OT MONITOR
--- NOTE | 2019-01-26 05:32 | NUR ---
ROUNDED ON PT, PT STATES HIS PAIN IS "MUCH BETTER" AND IS NOW AT A 1/10, PT STATES HE IS JUST DROWSY NOW, WILL CONTINUE TO MONITOR
[2019-01-26] MEDS ORDERED: ONDA4TAB11 SL (05:46)
[2019-01-26] MEDS ORDERED: ACHD5005 PO (05:46)
[2019-01-26 05:54] VITALS: BP 133/93
--- NOTE | 2019-01-26 06:20 | Diagnostic Imaging Report ---
PROCEDURE: CT urinary tract, rule out kidney stone. TECHNIQUE: Multiple contiguous axial images were obtained through the abdomen and pelvis without the use of intravenous contrast. Auto Exposure Controls were utilized during the CT exam to meet ALARA standards for radiation dose reduction. INDICATION: Low back pain. History of appendectomy and kidney stones. Comparison with 11/05/2018. FINDINGS: There is mild atelectasis noted in the lung bases. There is hepatic steatosis. The gallbladder and bile ducts are normal. Pancreas and spleen are normal. Adrenal glands are normal. There are bilateral nonobstructing calculi within the kidneys largest measuring approximately 7 mm on the left. There is a 3 mm calculus in the bladder. Stomach and small bowel are not distended. The colon shows normal stool and gas pattern. No free air or free fluid. No bony abnormalities. IMPRESSION: 1. Hepatic steatosis. 2. Nonobstructive bilateral nephrolithiasis. 3. There is noted a 3 mm stone in the bladder. Dictated by: Dictated on workstation # [id number]
== END 2019-01-26 05:57 | disposition home or self-care (01) ==
LOC: EDUNIT# 03:34 → ER 03:37
DX: N21.0 Calculus in bladder (principal); N20.0 Calculus of kidney; G47.30 Sleep apnea, unspecified; E78.00 Pure hypercholesterolemia, unspecified; I10 Essential (primary) hypertension; K21.9 Gastro-esophageal reflux disease without esophagitis; E11.9 Type 2 diabetes mellitus without complications; I48.91 Unspecified atrial fibrillation; Z82.49 Family history of ischemic heart disease and other diseases of the circulatory system; Z79.01 Long term (current) use of anticoagulants; Z90.49 Acquired absence of other specified parts of digestive tract; Z86.010 Personal history of colon polyps; Z98.890 Other specified postprocedural states
CPT/HCPCS: 36415; 74176; 80053; 81000; 85025; 96374; 96375; 96376

== ENCOUNTER → 2019-02-16 | Day surgery (SDC) | payer OTHER ==
[~2019-02-16] VITALS: Ht 175.3 cm; Wt 108.4 kg
[~2019-02-16] MED LIST changes: +CATHETER FLUSH 10 ML SYR IV PRN; +LIDOCAINE 1% INJ 20 ML 20 ML VIAL ONE; +ONDA4TAB11 SL
--- NOTE | 2019-02-16 12:23 | Implantation of Loop Monitor ---
Implant of Loop Monitior IMPLANTATION OF LOOP MONITOR REPORT DATE OF PROCEDURE: 02/16/19 PREOP DIAGNOSIS: paroxysmal atrial fibrillation POSTOP DIAGNOSIS: paroxysmal atrial fibrillation PROCEDURE DETAILS: The patient is a 58 male with history of paroxysmal atrial fibrillation requiring long-term surveillance. Therefore implantable loop recorder was discussed and agreed with the patient. Informed consent was taken. All risks and complications were discussed at length. The patient was draped and prepped in the usual sterile fashion. Local anesthesia was lidocaine, which was given in the substernal area close to the 4th intercostal space. Loop monitor [employer] was serial number [id number] was implanted according to the protocol. Steri- Strips were placed at the end of the procedure. There were no complications and the patient tolerated the procedure well. The device was interrogated with a voltage of. ANESTHESIA: Local anesthesia with lidocaine. COMPLICATIONS: None CONTRAST/FLUOROSCOPY: None CONCLUSION: 1. Successful implantation of loop recorder with no complication FINAL DIAGNOSIS: paroxysmal atrial fibrillation Palpitation Hypertension MARIO GOODE MD Feb 16, 2019 12:23
[2019-02-16 13:19] VITALS: BP 126/73
[2019-02-16 13:34] VITALS: BP 164/105
--- NOTE | 2019-02-16 15:37 | STRESS TEST ---
DATE OF SERVICE: 02/16/2019 EXERCISE MYOVIEW STRESS TEST REPORT REFERRING PHYSICIAN: Dr. Hughes Baseline heart rate is 60. Baseline blood pressure 126/73. Baseline EKG sinus rhythm with no ischemic changes. In summary, the patient was injected with 10.92 mCi of technetium-99 Myoview and the resting images were obtained. Then, the patient started exercising with a baseline heart rate, blood pressure and EKG mentioned above. He was able to exercise for 10 minutes and 30 seconds on standard Serge protocol. With peak exercise level, EKG was showing nondiagnostic changes. Blood pressure was 164/105. The patient was injected with 32.4 mCi of technetium-99 Myoview. Throughout the test, there were no significant ischemic changes or arrhythmia. The resting and stress images were reviewed and compared in the short axis, horizontal long axis, and vertical long axis views. Review of the images showed diaphragmatic attenuation with good radiotracer uptake, no significant ischemia or infarction. SSS is 2, SDS 1, TID value 0.91. On the gated images, the left ventricle appeared to be normal size with normal contractility. Calculated ejection fraction 73%. CONCLUSION: 1. Good exercise tolerance, a total of 10 minutes 30 seconds on standard Serge protocol, total of 11.8 METS achieving 87% of maximum expected heart rate. 2. Hypertensive response to exercise, returned to baseline during recovery. With peak blood pressure 118/87. 3. Minimal nondiagnostic EKG changes with exercise returned to baseline during recovery. 4. Diaphragmatic attenuation with no ischemia or infarction on SPECT images. 5. Normal left ventricular size with normal contractility. Calculated ejection fraction 73%. Job ID: [id number] DocumentID: [id number] Dictated Date: 02/16/2019 15:25:05 Tax Accounting Manager Date: 02/16/2019 15:37:18 Dictated By: MARIO GOODE MD
== END | disposition home or self-care (01) ==
LOC: CATH 07:44
PROVIDERS: ATTEND Internal Medicine Cardiovascular Disease
DX: I48.0 Paroxysmal atrial fibrillation (principal); R00.2 Palpitations; I10 Essential (primary) hypertension; R07.9 Chest pain, unspecified; E11.9 Type 2 diabetes mellitus without complications; E78.5 Hyperlipidemia, unspecified; J44.9 Chronic obstructive pulmonary disease, unspecified; R06.02 Shortness of breath; G47.33 Obstructive sleep apnea (adult) (pediatric); G47.50 Parasomnia, unspecified; I65.23 Occlusion and stenosis of bilateral carotid arteries; Z79.899 Other long term (current) drug therapy; Z79.84 Long term (current) use of oral hypoglycemic drugs
CPT/HCPCS: 33285; 78452; 93017

== ENCOUNTER 2020-10-23 18:16 | Emergency (ER) | payer OTHER ==
[~2020-10-23] VITALS: Ht 172.7 cm; Wt 108.9 kg
[~2020-10-23 18:16] MED LIST changes: +ACHYD1T PO; -AMIO200T4 PO; +AMIO200T6 PO; +AMLO-251 PO; -AMLO10TA7 PO; -CATHETER FLUSH 10 ML SYR IV PRN; -HYDR-3820 PO; -LIDOCAINE 1% INJ 20 ML 20 ML VIAL ONE; -METO-395 PO; +MTP100TCR PO; +MULT-567 PO; -MULT1TAB69 PO; -TAMS0.4C98 PO; +TMSL.4C PO; -TRAM50TA2 PO; +TRM50T PO
[2020-10-23 18:53] LABS: BILIRUBIN,URINE NEGATIVE (NEGATIVE); CLARITY,URINE CLEAR; COLOR,URINE YELLOW; GLUCOSE, URINE (UA) NEGATIVE (NEGATIVE); KETONES,URINE NEGATIVE (NEGATIVE); LEUKOCYTE ESTERASE ,URINE NEGATIVE (NEGATIVE); NITRITE,URINE NEGATIVE (NEGATIVE); PH,URINE 6.5 (5-9); PROTEIN,URINE TRACE (NEGATIVE)
[2020-10-23 19:00] VITALS: BP 134/92
[2020-10-23 19:00] LABS: BACTERIA,URINE NEGATIVE /HPF; RBC,URINE 50-100 /HPF; WBC,URINE 25-50 /HPF
--- NOTE | 2020-10-23 19:17 | ED GU-Male ---
General Chief Complaint: - Urinary Stated Complaint: BLOOD IN URINE Source: patient Exam Limitations: no limitations History of Present Illness Date Seen by Provider: Oct 23, 2020 Time Seen by Provider: 18:22 Initial Comments This is a well-appearing 60-year-old male presents to the ER via POV with complaints of blood in his urine that started 1 hour prior to arrival. States that he does currently take Eliquis and is concerned this might be the cause, however he does have a history of renal stones. At this time he denies any flank or abdominal pain, no difficulty urinating, no fevers, chills, cough, shortness of breath, nausea, vomiting, diarrhea, or abdominal pain. Allergies and Home Medications Allergies Coded Allergies: No Known Drug Allergies (Unverified , 01/26/19) Home Medications Amiodarone HCl 200 Mg Tablet, 200 MG PO BID Prescribed by: BETO WALKER on 11/06/16 1805 Amlodipine Besylate 10 Mg Tablet, 5 MG PO HS, (Reported) TAKES 1/2 OF A (10 MG) TABLET Apixaban 5 Mg Tablet, 5 MG PO BID, (Reported) Atorvastatin Calcium 20 Mg Tablet, 10 MG PO HS, (Reported) TAKES 1/2 OF A (20 MG) TABLET Cefuroxime Axetil 250 Mg Tablet, 250 MG PO BID Prescribed by: HEIDY SCANLON on 09/23/18 1436 Cephalexin 500 Mg Tablet, 500 MG PO BID Prescribed by: ELIANA HAN on 11/03/18 0827 Cyclobenzaprine HCl 10 Mg Tablet, 10 MG PO HS PRN for MUSCLE SPASMS, (Reported) Hydrochlorothiazide 25 Mg Tablet, 25 MG PO DAILY, (Reported) Hydrocodone Bit/Acetaminophen 1 Tab Tab, 1 EACH PO Q6H PRN for BREAKTHROUGH PAIN Prescribed by: BRADEN RICHMOND on 01/11/18 0903 Hydrocodone Bit/Acetaminophen 1 Tab Tab, 1 EACH PO Q4-6HR PRN for PAIN-MODERATE Prescribed by: ELIANA HAN on 11/03/18 0827 Hydrocodone Bit/Acetaminophen 1 Tab Tab, 1 EACH PO Q4-6HR PRN for PAIN-MODERATE Prescribed by: TITUS VILLAFANA on 01/26/19 0546 Hydrocodone/Acetaminophen 1 Each Tablet, 1 TAB PO Q4H PRN for PAIN-MODERATE (5- 7) Prescribed by: JJ SIERRA on 10/23/202027 Krill/[place]-3/Dha/Epa/Lipids 1 Each Capsule, 300 MG PO DAILY@1630, (Reported) L.acidoph & Paracasei,B.lactis 1 Each Capsule, 1 CAP PO DAILY@1630, (Reported) Metoprolol Tartrate 100 Mg Tablet, 100 MG PO DAILY, (Reported) Multivitamin 1 Each Tablet, 1 TAB PO DAILY@1630, (Reported) Nitrofurantoin Monohyd/M-Cryst 100 Mg Capsule, 1 TAB PO BID Prescribed by: JJ SIERRA on 10/23/202023 [place]-3/Dha/Epa/Fish Oil 1 Each Capsule, 1,000 MG PO DAILY@1630, (Reported) Ondansetron 4 Mg Tab.rapdis, 4 MG SL Q4H PRN for NAUSEA/VOMITING Prescribed by: TTIUS VILLAFANA on 01/26/19 0546 Orphenadrine Citrate 100 Mg Tablet.er, 100 MG PO BID PRN for MUSCLE SPASMS, (Reported) Potassium 99 Mg Tablet, 99 MG PO DAILY@1630, (Reported) Tamsulosin HCl 0.4 Mg Cap, 0.4 MG PO DAILY Prescribed by: HEIDY SCANLON on 09/23/18 1436 Tamsulosin HCl 0.4 Mg Cap.er.24h, 0.4 MG PO DAILY Daily until stone passage Prescribed by: ELIANA HAN on 11/03/18 0827 Tramadol HCl 50 Mg Tablet, 50 MG PO Q6H PRN for MILD PAIN, (Reported) Ubidecarenone 200 Mg Capsule, 200 MG PO HS, (Reported) Patient Home Medication List Home Medication List Reviewed: Yes Review of Systems Review of Systems Constitutional: no symptoms reported EENTM: no symptoms reported Respiratory: no symptoms reported Cardiovascular: no symptoms reported Gastrointestinal: no symptoms reported Genitourinary: see HPI Musculoskeletal: no symptoms reported Skin: no symptoms reported Psychiatric/Neurological: No Symptoms Reported Endocrine: No Symptoms Reported Hematologic/Lymphatic: No Symptoms Reported Past Uqnlbom-Svqbnv-Xneoiu Hx Patient Social History 2nd Hand Smoke Exposure: No Recent Hopitalizations: No Immunizations Up To Date Tetanus Booster (TDap): More than 5yrs Date of Pneumonia Vaccine: May 31, 2012 Date of Influenza Vaccine: Jun 03, 2016 Seasonal Allergies Seasonal Allergies: Yes Past Medical History Surgeries: Yes (cardiac ablation) Appendectomy, Cardiac Respiratory: Yes Sleep Apnea Currently Using CPAP: No Currently Using BIPAP: No Cardiac: Yes Atrial Fibrillation, High Cholesterol, Hypertension Neurological: No Reproductive Disorders: No Sexually Transmitted Disease: No HIV/AIDS: No Genitourinary: Yes Renal Failure Gastrointestinal: Yes (hx of polyps) Gastroesophageal Reflux, Polyps Musculoskeletal: No Endocrine: Yes Diabetes, Non-Insulin dep HEENT: No Hearing Impairment: Denies Cancer: No Psychosocial: No Integumentary: No Blood Disorders: No Adverse Reaction/Blood Tranf: No Family Medical History No Pertinent Family Hx, Heart Disease Physical Exam Vital Signs Vital Signs - First Documented 10/23/20 19:00 Temp 36.4 Pulse 67 Resp 18 B/P (MAP) 134/92 (106) Pulse Ox 96 O2 Delivery Room Air Capillary Refill : Height, Weight, BMI Height: 5'9.00" Weight: 239lbs. 0.0oz. [id number]; 35.3 BMI Method:Stated General Appearance: WD/WN, no apparent distress HEENT: PERRL/EOMI, normal ENT inspection Neck: full range of motion, normal inspection Cardiovascular: regular rate, rhythm, no murmur Respiratory: lungs clear, normal breath sounds, no accessory muscle use Gastrointestinal: normal bowel sounds, non tender, soft Back: normal inspection, no CVA tenderness Extremities: normal range of motion, non-tender, normal inspection Neurologic/Psychiatric: no motor/sensory deficits, alert, normal mood/affect, oriented x 3 Skin: normal color, warm/dry Progress/Results/Core Measures Suspected Sepsis SIRS Temperature: Pulse: Respiratory Rate: Laboratory Tests 10/23/20 19:19: White Blood Count 7.4 Blood Pressure / Mean: Laboratory Tests 10/23/20 19:19: Creatinine 1.04, Platelet Count 260, Total Bilirubin 0.6 Results/Orders Lab Results Laboratory Tests Test 10/23/20 18:43 10/23/20 19:19 Range/Units Urine Color YELLOW Urine Clarity CLEAR Urine pH 6.5 5-9 Urine Specific [place] 1.010 L 1.016-1.022 Urine Protein TRACE H NEGATIVE Urine Glucose (UA) NEGATIVE NEGATIVE Urine Ketones NEGATIVE NEGATIVE Urine Nitrite NEGATIVE NEGATIVE Urine Bilirubin NEGATIVE NEGATIVE Urine Urobilinogen 0.2 < = 1.0 MG/DL Urine Leukocyte Esterase NEGATIVE NEGATIVE Urine RBC (Auto) 3+ H NEGATIVE Urine RBC 50-100 H /HPF Urine WBC 25-50 H /HPF Urine Squamous Epithelial Cells NONE /HPF Urine Crystals NONE /LPF Urine Bacteria NEGATIVE /HPF Urine Casts NONE /LPF Urine Mucus NEGATIVE /LPF Urine Culture Indicated NO White Blood Count 7.4 4.3-11.0 10^3/uL Red Blood Count 5.07 4.30-5.52 10^6/uL Hemoglobin 15.6 13.3-17.7 g/dL Hematocrit 46 40-54 % Mean Corpuscular Volume 92 80-99 fL Mean Corpuscular Hemoglobin 31 25-34 pg Mean Corpuscular Hemoglobin Concent 34 32-36 g/dL Red Cell Distribution Width 13.9 10.0-14.5 % Platelet Count 260 130-400 10^3/uL Mean Platelet Volume 11.0 9.0-12.2 fL Immature Granulocyte % (Auto) 0 % Neutrophils (%) (Auto) 58 42-75 % Lymphocytes (%) (Auto) 30 12-44 % Monocytes (%) (Auto) 8 0-12 % Eosinophils (%) (Auto) 3 0-10 % Basophils (%) (Auto) 1 0-10 % Neutrophils # (Auto) 4.3 1.8-7.8 10^3/uL Lymphocytes # (Auto) 2.2 1.0-4.0 10^3/uL Monocytes # (Auto) 0.6 0.0-1.0 10^3/uL Eosinophils # (Auto) 0.2 0.0-0.3 10^3/uL Basophils # (Auto) 0.1 0.0-0.1 10^3/uL Immature Granulocyte # (Auto) 0.0 0.0-0.1 10^3/uL Sodium Level 138 135-145 MMOL/L Potassium Level 4.0 3.6-5.0 MMOL/L Chloride Level 101 98-107 MMOL/L Carbon Dioxide Level 25 21-32 MMOL/L Anion Gap 12 5-14 MMOL/L Blood Urea Nitrogen 16 7-18 MG/DL Creatinine 1.04 0.60-1.30 MG/DL Estimat Glomerular Filtration Rate > 60 BUN/Creatinine Ratio 15 Glucose Level 98 70-105 MG/DL Calcium Level 9.3 8.5-10.1 MG/DL Corrected Calcium 8.5-10.1 MG/DL Total Bilirubin 0.6 0.1-1.0 MG/DL Aspartate Amino Transf (AST/SGOT) 32 5-34 U/L Alanine Aminotransferase (ALT/SGPT) 63 H 0-55 U/L Alkaline Phosphatase 110 40-136 U/L Total Protein 8.0 6.4-8.2 GM/DL Albumin 4.6 H 3.2-4.5 GM/DL My Orders Orders - JJ SIERRA APRN Ua Culture If Indicated (10/23/20 18:22) Ct Abd/Pelvis Wo(Kidney Stone) (10/23/20 19:10) Abdomen/Kub 1view (10/23/20 19:10) Ed Iv/Invasive Line Start (10/23/20 19:10) Ceftriaxone For Iv Use (Rocephin For I (10/23/20 20:30) Fentanyl Injection (Sublimaze Injection (10/23/20 20:30) Cbc With Automated Diff (10/23/20 20:53) Comprehensive Metabolic Panel (10/23/20 20:53) Medications Given in ED Vital Signs/I&O 10/23/20 19:00 Temp 36.4 Pulse 67 Resp 18 B/P (MAP) 134/92 (106) Pulse Ox 96 O2 Delivery Room Air Capillary Refill : Progress Note : Progress Note Patient examined and in no acute distress. UA obtained and sent to lab. Discussed case with patient and because of his history of kidney stones would like to initiate kidney stone work-up, he is agreeable with this. Kidney stone work-up initiated. Labs reviewed noted to have 3+ RBCs and 20-[address] and KUB pending. Orders placed for Rocephin 1gm IV and Fentanyl as he began having flank pain in ED. CT shows 4mm left UPJ stone. Case discussed with Dr. Baeza with urology, recommended giving patient strainer and urinal along with pain medication to pass stone at home, and to have him call his office for follow-up appointment. Reviewed discharge plan with patient and he is agreeable to plan at this time. All questions and concerns addressed prior to discharge. Diagnostic Imaging Diagonstic Imaging: Xray Plain Films/CT/US/NM/MRI: abdomen Comments NAME: JAEL GROSS [facility] REC#: [id number] PT STATUS: REG ER : 1960 PHYSICIAN: JJ SIERRA STACK SUPERVISOR ADMIT DATE: 10/23/20/ER Draft Date of Exam:10/23/20 ABDOMEN/KUB 1VIEW INDICATION: Hematuria, kidney stones. COMPARISON: 11/03/2018 FINDINGS: Single view of the abdomen demonstrates calcification overlying both kidneys. Phleboliths are seen in the pelvis. The bowel gas pattern is unremarkable. IMPRESSION: Probable bilateral nephrolithiasis. Dictated on workstation # [id number] Dict: 10/23/201941 Trans: 10/23/201950 [facility] [id number] Interpreted by: CATIE HERNÁNDEZ Electronically signed by: Reviewed: Reviewed by Me Diagonstic Imaging: CT Plain Films/CT/US/NM/MRI: abdomen, pelvis Comments NAME: JAEL GROSS REC#: [id number] PT STATUS: REG ER : 1960 PHYSICIAN: JJ SIERRA STACK SUPERVISOR ADMIT DATE: 10/23/20/ER Draft Date of Exam:10/23/20 CT ABD/PELVIS WO(KIDNEY STONE) PROCEDURE: CT urinary tract, rule out kidney stone. TECHNIQUE: Multiple contiguous axial images were obtained through the abdomen and pelvis without the use of intravenous contrast. Auto Exposure Controls were utilized during the CT exam to meet ALARA standards for radiation dose reduction. INDICATION: Flank pain, kidney stones. COMPARISON: 01/26/2019 FINDINGS: There is trace left-sided hydronephrosis secondary to an obstructive 4 mm stone in the left UPJ. Additional nonobstructing stones are seen bilaterally. There is minimal atelectasis in the right base. There is fatty infiltration throughout the liver. The gallbladder, spleen, pancreas, adrenal glands, vascular structures and bowel are unremarkable. Phleboliths are seen in the pelvis. There is some slight prostate enlargement. The urinary bladder is grossly unremarkable. Osseous structures are age-appropriate IMPRESSION: 1. Obstructive 4 mm left UPJ stone with resultant trace left-sided hydronephrosis. Dictated on workstation # [id number] Dict: 10/23/201942 Trans: 10/23/201953 [facility] [id number] Interpreted by: CATIE HERNÁNDEZ Electronically signed by: Reviewed: Reviewed by Me Departure Communication (Admissions) Time/Spoke to Consulting Phy: 20:[address] Baeza at this time. Impression Primary Impression: Kidney stone on left side Disposition: HOME, SELF-CARE Condition: Improved Departure-Patient Inst. Decision time for Depature: 20:18 Referrals: ZENAIDA MELENDEZ DO (PCP/Family) Primary Care Physician Patient Instructions: Urinary Tract Infection, Adult (DC), Kidney Stones (DC), Flank Pain (DC) Add. Discharge Instructions: Plan: 1. Discharge home. Drink plenty of fluids to help stone pass. 2. Use strainer and hat to monitor for passing of stone. 3. Call Dr. Baeza office for follow up this week. 4. Take antibiotics as directed and complete full course. 5. Return to ER for any new or concerning symptoms. All discharge instructions reviewed with patient and/or family. Voiced understanding. Scripts Hydrocodone/Acetaminophen (Hydrocodone-Acetamin 5-325 mg) 1 Each Tablet 1 TAB PO Q4H PRN for PAIN-MODERATE (5-7), #20 TAB 0 Refills Prov: JJ SIERRA STACK SUPERVISOR 10/23/20 Nitrofurantoin Monohyd/M-Cryst (Macrobid 100 mg Capsule) 100 Mg Capsule 1 TAB PO BID for 7 Days, #14 CAP 0 Refills Prov: JJ SIERRA APRN 10/23/20 Copy Copies To 1: ANNAMARIA BAEZA MD, STORMY D APRN Oct 23, 2020 19:17
--- NOTE | 2020-10-23 19:53 | Diagnostic Imaging Report ---
INDICATION: Hematuria, kidney stones. COMPARISON: 11/03/2018 FINDINGS: Single view of the abdomen demonstrates calcification overlying both kidneys. Phleboliths are seen in the pelvis. The bowel gas pattern is unremarkable. IMPRESSION: Probable bilateral nephrolithiasis. Dictated by: Dictated on workstation # [id number]
--- NOTE | 2020-10-23 19:55 | Diagnostic Imaging Report ---
PROCEDURE: CT urinary tract, rule out kidney stone. TECHNIQUE: Multiple contiguous axial images were obtained through the abdomen and pelvis without the use of intravenous contrast. Auto Exposure Controls were utilized during the CT exam to meet ALARA standards for radiation dose reduction. INDICATION: Flank pain, kidney stones. COMPARISON: 01/26/2019 FINDINGS: There is trace left-sided hydronephrosis secondary to an obstructive 4 mm stone in the left UPJ. Additional nonobstructing stones are seen bilaterally. There is minimal atelectasis in the right base. There is fatty infiltration throughout the liver. The gallbladder, spleen, pancreas, adrenal glands, vascular structures and bowel are unremarkable. Phleboliths are seen in the pelvis. There is some slight prostate enlargement. The urinary bladder is grossly unremarkable. Osseous structures are age-appropriate IMPRESSION: 1. Obstructive 4 mm left UPJ stone with resultant trace left-sided hydronephrosis. Dictated by: Dictated on workstation # [id number]
[2020-10-23] MEDS ORDERED: NITR-65 PO (20:24)
[2020-10-23] MEDS ORDERED: ACHD5005 PO (20:28)
[2020-10-23] MEDS ORDERED: fentaNYL INJECTION 100 MCG/2 ML AMP IVP ONE (20:30)
[2020-10-23] MEDS ORDERED: cefTRIAXone FOR IV USE 1,000 MG in WATER (STERILE) FOR INJECTION 10 ML IV ONE (20:30)
[2020-10-23 20:59] LABS: BASOPHILS # (AUTO) 0.1 10^3/uL (0.0-0.1); BASOPHILS % (AUTO) 1 % (0-10); EOSINOPHILS # (AUTO) 0.2 10^3/uL (0.0-0.3); EOSINOPHILS % (AUTO) 3 % (0-10); HEMATOCRIT 46 % (40-54); HEMOGLOBIN 15.6 g/dL (13.3-17.7); LYMPHOCYTES # (AUTO) 2.2 10^3/uL (1.0-4.0); LYMPHOCYTES % (AUTO) 30 % (12-44); MEAN CORPUSCULAR HEMOGLOBIN 31 pg (25-34); MEAN CORPUSCULAR HGB CONC 34 g/dL (32-36); MEAN CORPUSCULAR VOLUME 92 fL (80-99); MONOCYTES # (AUTO) 0.6 10^3/uL (0.0-1.0); MONOCYTES % (AUTO) 8 % (0-12); NEUTROPHILS # (AUTO) 4.3 10^3/uL (1.8-7.8); NEUTROPHILS % (AUTO) 58 % (42-75); PLATELET COUNT 260 10^3/uL (130-400); WHITE BLOOD COUNT 7.4 10^3/uL (4.3-11.0)
[2020-10-23 21:03] LABS: ALBUMIN 4.6 GM/DL (3.2-4.5); CHLORIDE 101 MMOL/L (98-107); SODIUM 138 MMOL/L (135-145)
[2020-10-23 21:04] LABS: CALCIUM 9.3 MG/DL (8.5-10.1)
[2020-10-23 21:06] LABS: GLUCOSE 98 MG/DL (70-105)
[2020-10-23 21:07] LABS: BILIRUBIN,TOTAL 0.6 MG/DL (0.1-1.0); CARBON DIOXIDE 25 MMOL/L (21-32)
[2020-10-23 21:09] LABS: ALKALINE PHOSPHATASE 110 U/L (40-136); CREATININE SERUM 1.04 MG/DL (0.60-1.30); GFR ESTIMATED > 60
[2020-10-23 21:10] LABS: BUN/CREATININE RATIO 15
[2020-10-23 21:12] LABS: ALANINE AMINOTRANSFERASE 63 U/L (0-55)
== END 2020-10-23 20:40 | disposition home or self-care (01) ==
LOC: EDUNIT# 18:16 → ER 18:18
DX: N13.2 Hydronephrosis with renal and ureteral calculous obstruction (principal); I48.91 Unspecified atrial fibrillation; I10 Essential (primary) hypertension; E78.00 Pure hypercholesterolemia, unspecified; Z82.49 Family history of ischemic heart disease and other diseases of the circulatory system; Z79.01 Long term (current) use of anticoagulants
CPT/HCPCS: 36415; 74018; 74176; 80053; 81000; 85025

== ENCOUNTER → 2020-11-28 | Outpatient (CLI) | payer OTHER ==
[~2020-11-28] MED LIST changes: +NITR-65 PO
--- NOTE | 2020-11-28 15:25 | Diagnostic Imaging Report ---
INDICATION: Abdominal pain. History of renal calculi. COMPARISON: 10/23/2020 FINDINGS: 2 frontal radiographic views of the abdomen and pelvis were obtained. There has been interval clearing of left-sided calculus projecting lateral to the L2 vertebral body on previous exam. Bilateral renal calculi are again identified. Left-sided pelvic phleboliths are also noted. No other unexpected extraosseous callus conditions or radiopaque foreign bodies are seen. Small bowel loops are nondistended. There is no large collection of free intraperitoneal air. Osseous structures show no acute abnormalities. IMPRESSION: 1. Interval clearing of left-sided ureteral calculus. 2. Redemonstration of bilateral nephrolithiasis. 3. Nonobstructive small bowel gas pattern. Dictated by: Dictated on workstation # [id number]
== END ==
LOC: RAD 14:17
PROVIDERS: ATTEND Internal Medicine
DX: N20.2 Calculus of kidney with calculus of ureter (principal); R14.0 Abdominal distension (gaseous)
CPT/HCPCS: 74018

== ENCOUNTER 2021-04-21 03:09 | Emergency (ER) | payer OTHER ==
[~2021-04-21] VITALS: Ht 175.3 cm; Wt 108.9 kg
[2021-04-21] MEDS ORDERED: KETOROLAC 30 MG/ML VIAL IVP STA (03:32)
[2021-04-21 03:42] LABS: BASOPHILS % (AUTO) 1 % (0-10); EOSINOPHILS # (AUTO) 0.2 10^3/uL (0.0-0.3); EOSINOPHILS % (AUTO) 2 % (0-10); HEMATOCRIT 46 % (40-54); HEMOGLOBIN 15.4 g/dL (13.3-17.7); LYMPHOCYTES # (AUTO) 2.2 10^3/uL (1.0-4.0); LYMPHOCYTES % (AUTO) 34 % (12-44); MEAN CORPUSCULAR HEMOGLOBIN 31 pg (25-34); MEAN CORPUSCULAR HGB CONC 34 g/dL (32-36); MEAN CORPUSCULAR VOLUME 91 fL (80-99); MEAN PLATELET VOLUME 9.9 fL (9.0-12.2); MONOCYTES # (AUTO) 0.6 10^3/uL (0.0-1.0); MONOCYTES % (AUTO) 9 % (0-12); NEUTROPHILS # (AUTO) 3.6 10^3/uL (1.8-7.8); NEUTROPHILS % (AUTO) 54 % (42-75); PLATELET COUNT 216 10^3/uL (130-400); WHITE BLOOD COUNT 6.6 10^3/uL (4.3-11.0)
[2021-04-21] MEDS ORDERED: LACTATED RINGERS 1,000 ML IV ONE (03:45)
[2021-04-21] MEDS ORDERED: ONDANSETRON 4 MG/2 ML (SDV) Z0FRAN IVP ONE (03:45)
[2021-04-21 03:46] LABS: BILIRUBIN,URINE NEGATIVE (NEGATIVE); CLARITY,URINE CLEAR; COLOR,URINE YELLOW; GLUCOSE, URINE (UA) NEGATIVE (NEGATIVE); KETONES,URINE NEGATIVE (NEGATIVE); LEUKOCYTE ESTERASE ,URINE NEGATIVE (NEGATIVE); NITRITE,URINE NEGATIVE (NEGATIVE); PROTEIN,URINE NEGATIVE (NEGATIVE)
[2021-04-21 03:50] LABS: ALBUMIN 4.3 GM/DL (3.2-4.5)
[2021-04-21 03:51] LABS: POTASSIUM 3.9 MMOL/L (3.6-5.0)
[2021-04-21 03:52] LABS: CALCIUM 9.7 MG/DL (8.5-10.1)
[2021-04-21 03:53] LABS: TOTAL PROTEIN 7.4 GM/DL (6.4-8.2)
[2021-04-21 03:55] LABS: BILIRUBIN,TOTAL 0.4 MG/DL (0.1-1.0)
[2021-04-21 03:57] LABS: CREATININE SERUM 1.09 MG/DL (0.60-1.30)
[2021-04-21 03:57] LABS: BACTERIA,URINE NEGATIVE /HPF; RBC,URINE 25-50 /HPF
[2021-04-21 03:58] LABS: SQUAMOUS EPITHELIAL CELL,UR 0-2 /HPF
[2021-04-21] MEDS ORDERED: TAMSULOSIN 0.4 MG (FLOMAX) CAP PO SCH (04:30)
[2021-04-21] MEDS ORDERED: RX-ONDANSETRON 4 MG ODT (ZOFRAN) PPK #4 PO STA (04:30)
[2021-04-21] MEDS ORDERED: KETO10TA PO (04:42)
[2021-04-21] MEDS ORDERED: HYDR-34 PO (04:42)
[2021-04-21] MEDS ORDERED: CIPR500T5 PO (04:42)
[2021-04-21] MEDS ORDERED: TMSL.4C PO (04:42)
[2021-04-21] MEDS ORDERED: ONDA8TAB13 PO (04:42)
--- NOTE | 2021-04-21 04:43 | ED GU-Male ---
General Chief Complaint: Abdominal/GI Problems Stated Complaint: POSS KIDNEY STONES / LOWER ABD PAIN / BLOOD IN URI Nursing Triage Note: PT AMBULATES TO ROOM #8 W/CC MEIDAL LOWER ABD DISCOMFORT, DYSURIA, HEMATURIA, AND NAUSEA. PT REPORTS SX BEGAN ON 04/20/21. PT REPORTS HX KIDNEY STONES. PT RESTLESS. Source: patient History of Present Illness Date Seen by Provider: Apr 21, 2021 Time Seen by Provider: 03:28 Initial Comments PT ARRIVES VIA POV FROM HOME C/O SUPRAPUBIC PAIN SINCE YESTERDAY STATES HE HAS HAD BLOOD IN HIS URINE SINCE YESTERDAY, AND SLIGHT PAIN ON URINATION + NAUSEA, AND DRY HEAVES NO DIARRHEA NO FEVER NO BACK/FLANK PAIN TOOK 2 TYLENOL YESTERDAY, OTHERWISE HAS NOT TAKEN ANYTHING ELSE FOR PAIN PT HAS HISTORY OF KIDNEY STONES AND THIS FEELS THE SAME. PT IS ON ELIQUIS FOR ATRIAL FIBRILLATION ALSO WANTS A COVID TEST "SINCE HE IS HERE" STATES "I'VE BEEN A LITTLE BIT MORE STUFFY THAN NORMAL" PT HAS HAD BOTH COVID-19 VACCINES PCP: DR. MELENDEZ UROLOGIST: DR. BAEZA Allergies and Home Medications Allergies Coded Allergies: No Known Drug Allergies (Unverified , 01/26/19) Home Medications Amiodarone HCl 200 Mg Tablet, 200 MG PO BID Prescribed by: BETO WALKER on 11/06/16 1805 Amlodipine Besylate 10 Mg Tablet, 5 MG PO HS, (Reported) TAKES 1/2 OF A (10 MG) TABLET Apixaban 5 Mg Tablet, 5 MG PO BID, (Reported) Atorvastatin Calcium 20 Mg Tablet, 10 MG PO HS, (Reported) TAKES 1/2 OF A (20 MG) TABLET Cefuroxime Axetil 250 Mg Tablet, 250 MG PO BID Prescribed by: HEIDY SCANLON on 09/23/18 1436 Cephalexin 500 Mg Tablet, 500 MG PO BID Prescribed by: ELIANA HAN on 11/03/18 0827 Ciprofloxacin HCl 500 Mg Tablet, 500 MG PO BID Prescribed by: JACQUELINE ROSADO on 04/21/21 0442 Cyclobenzaprine HCl 10 Mg Tablet, 10 MG PO HS PRN for MUSCLE SPASMS, (Reported) Hydrochlorothiazide 25 Mg Tablet, 25 MG PO DAILY, (Reported) Hydrocodone Bit/Acetaminophen 1 Tab Tab, 1 EACH PO Q6H PRN for BREAKTHROUGH PAIN Prescribed by: BRADEN RICHMOND on 01/11/18 0903 Hydrocodone Bit/Acetaminophen 1 Tab Tab, 1 EACH PO Q4-6HR PRN for PAIN-MODERATE Prescribed by: ELIANA HAN on 11/03/18 0827 Hydrocodone Bit/Acetaminophen 1 Tab Tab, 1 EACH PO Q4-6HR PRN for PAIN-MODERATE Prescribed by: TITUS VILLAFANA on 01/26/19 0546 Hydrocodone Bit/Acetaminophen 1 Ea Tablet, 1 EA PO Q4-6 PRN for PAIN Prescribed by: JACQUELINE ROSADO on 04/21/21441 Hydrocodone/Acetaminophen 1 Each Tablet, 1 TAB PO Q4H PRN for PAIN-MODERATE (5- 7) Prescribed by: JJ SIERRA on 10/23/202027 Ketorolac Tromethamine 10 Mg Tablet, 10 MG PO Q6H Prescribed by: JACQUELINE ROSADO on 04/21/21441 Krill/Pinon-3/Dha/Epa/Lipids 1 Each Capsule, 300 MG PO DAILY@1630, (Reported) L.acidoph & Paracasei,B.lactis 1 Each Capsule, 1 CAP PO DAILY@1630, (Reported) Metoprolol Tartrate 100 Mg Tablet, 100 MG PO DAILY, (Reported) Multivitamin 1 Each Tablet, 1 TAB PO DAILY@1630, (Reported) Nitrofurantoin Monohyd/M-Cryst 100 Mg Capsule, 1 TAB PO BID Prescribed by: JJ SIERRA on 10/23/202023 Pinon-3/Dha/Epa/Fish Oil 1 Each Capsule, 1,000 MG PO DAILY@1630, (Reported) Ondansetron 4 Mg Tab.rapdis, 4 MG SL Q4H PRN for NAUSEA/VOMITING Prescribed by: TITUS VILLAFANA on 01/26/19 0546 Ondansetron 8 Mg Tab.rapdis, 8 MG PO Q6H Prescribed by: JACQUELINE ROSADO on 04/21/21441 Orphenadrine Citrate 100 Mg Tablet.er, 100 MG PO BID PRN for MUSCLE SPASMS, (Reported) Potassium 99 Mg Tablet, 99 MG PO DAILY@1630, (Reported) Tamsulosin HCl 0.4 Mg Cap, 0.4 MG PO DAILY Prescribed by: HEIDY SCANLON on 09/23/18 1436 Tamsulosin HCl 0.4 Mg Cap.er.24h, 0.4 MG PO DAILY Daily until stone passage Prescribed by: ELIANA HAN on 11/03/18 0827 Tamsulosin HCl 0.4 Mg Cap, 0.4 MG PO DAILY Prescribed by: JACQUELINE ROSADO on 04/21/21 0442 Tramadol HCl 50 Mg Tablet, 50 MG PO Q6H PRN for MILD PAIN, (Reported) Ubidecarenone 200 Mg Capsule, 200 MG PO HS, (Reported) Patient Home Medication List Home Medication List Reviewed: Yes Review of Systems Review of Systems Constitutional: no symptoms reported Respiratory: no symptoms reported Cardiovascular: no symptoms reported Gastrointestinal: see HPI, abdominal pain, nausea Genitourinary: see HPI, burning, dysuria, frequency; denies flank pain; hematuria Musculoskeletal: No back pain Skin: no symptoms reported Psychiatric/Neurological: No Symptoms Reported Endocrine: No Symptoms Reported Hematologic/Lymphatic: No Symptoms Reported Past Jyfwbwd-Mweceh-Ceaujk Hx Patient Social History Tobacco Use?: No Substance use?: No Alcohol Use?: No Pt feels they are or have been: No Immunizations Up To Date Tetanus Booster (TDap): More than 5yrs First/Initial COVID19 Vaccinat: OCTOBER 2020 Second COVID19 Vaccination Matt: OCTOBER 2020 COVID19 Vaccine Patient Biller: SURI Seasonal Allergies Seasonal Allergies: Yes Past Medical History Surgery/Hospitalization HX: LOOP RECORDER 01/2019 CARDIAC ABLATION FOR ATRIAL FIBRILLATION APPENDECTOMY COLONOSCOPY/POLYPECTOMY 05/[address] SEGURA Surgeries: Yes (cardiac ablation) Appendectomy, Cardiac Respiratory: Yes Sleep Apnea Currently Using CPAP: No Currently Using BIPAP: No Cardiac: Yes (S/P ABLATION) Atrial Fibrillation, High Cholesterol, Hypertension Neurological: No Reproductive Disorders: No Sexually Transmitted Disease: No HIV/AIDS: No Genitourinary: Yes Kidney Stones, Renal Failure Gastrointestinal: Yes (hx of polyps) Gastroesophageal Reflux, Polyps Musculoskeletal: No Endocrine: Yes (OBESITY) Diabetes, Non-Insulin dep HEENT: No Hearing Impairment: Denies Cancer: No Psychosocial: No Integumentary: No Blood Disorders: No Adverse Reaction/Blood Tranf: No Family Medical History No Pertinent Family Hx, Heart Disease Physical Exam Vital Signs Vital Signs - First Documented 04/21/21 03:26 Temp 36.1 Pulse 77 Resp 18 B/P (MAP) 179/106 (130) Pulse Ox 96 O2 Delivery Room Air Capillary Refill : Less Than 3 Seconds Height, Weight, BMI Height: 5'9.00" Weight: 239lbs. 0.0oz. 108.408924pw; 35.00 BMI Method:Stated General Appearance: WD/WN, obese, other (MOANING, RESTLESS, NOT WANTING TO LAY DOWN. ) Cardiovascular: regular rate, rhythm Respiratory: normal breath sounds Gastrointestinal: soft, tenderness (SUPRAPUBIC ) Back: no CVA tenderness, no vertebral tenderness Extremities: normal inspection Neurologic/Psychiatric: neon molder II-XII nml as tested, no motor/sensory deficits, alert, oriented x 3 Skin: normal color, warm/dry Progress/Results/Core Measures Suspected Sepsis SIRS Temperature: Pulse: 77 Respiratory Rate: 18 Laboratory Tests 04/21/21 03:30: White Blood Count 6.6 Blood Pressure 179 /106 Mean: 130 Laboratory Tests 04/21/21 03:30: Creatinine 1.09, Platelet Count 216, Total Bilirubin 0.4 Results/Orders Lab Results Laboratory Tests Test 04/21/21 03:13 04/21/21 03:30 04/21/21 03:35 Range/Units Urine Color YELLOW Urine Clarity CLEAR Urine pH 6.0 5-9 Urine Specific [place] 1.025 H 1.016-1.022 Urine Protein NEGATIVE NEGATIVE Urine Glucose (UA) NEGATIVE NEGATIVE Urine Ketones NEGATIVE NEGATIVE Urine Nitrite NEGATIVE NEGATIVE Urine Bilirubin NEGATIVE NEGATIVE Urine Urobilinogen 0.2 < = 1.0 MG/DL Urine Leukocyte Esterase NEGATIVE NEGATIVE Urine RBC (Auto) 3+ H NEGATIVE Urine RBC 25-50 H /HPF Urine WBC NONE /HPF Urine Squamous Epithelial Cells 0-2 /HPF Urine Crystals NONE /LPF Urine Bacteria NEGATIVE /HPF Urine Casts NONE /LPF Urine Mucus NEGATIVE /LPF Urine Culture Indicated NO White Blood Count 6.6 4.3-11.0 10^3/uL Red Blood Count 5.02 4.30-5.52 10^6/uL Hemoglobin 15.4 13.3-17.7 g/dL Hematocrit 46 40-54 % Mean Corpuscular Volume 91 80-99 fL Mean Corpuscular Hemoglobin 31 25-34 pg Mean Corpuscular Hemoglobin Concent 34 32-36 g/dL Red Cell Distribution Width 14.1 10.0-14.5 % Platelet Count 216 130-400 10^3/uL Mean Platelet Volume 9.9 9.0-12.2 fL Immature Granulocyte % (Auto) 0 % Neutrophils (%) (Auto) 54 42-75 % Lymphocytes (%) (Auto) 34 12-44 % Monocytes (%) (Auto) 9 0-12 % Eosinophils (%) (Auto) 2 0-10 % Basophils (%) (Auto) 1 0-10 % Neutrophils # (Auto) 3.6 1.8-7.8 10^3/uL Lymphocytes # (Auto) 2.2 1.0-4.0 10^3/uL Monocytes # (Auto) 0.6 0.0-1.0 10^3/uL Eosinophils # (Auto) 0.2 0.0-0.3 10^3/uL Basophils # (Auto) 0.0 0.0-0.1 10^3/uL Immature Granulocyte # (Auto) 0.0 0.0-0.1 10^3/uL Sodium Level 140 135-145 MMOL/L Potassium Level 3.9 3.6-5.0 MMOL/L Chloride Level 106 98-107 MMOL/L Carbon Dioxide Level 24 21-32 MMOL/L Anion Gap 10 5-14 MMOL/L Blood Urea Nitrogen 17 7-18 MG/DL Creatinine 1.09 0.60-1.30 MG/DL Estimat Glomerular Filtration Rate 69 BUN/Creatinine Ratio 16 Glucose Level 116 H 70-105 MG/DL Calcium Level 9.7 8.5-10.1 MG/DL Corrected Calcium 9.5 8.5-10.1 MG/DL Total Bilirubin 0.4 0.1-1.0 MG/DL Aspartate Amino Transf (AST/SGOT) 24 5-34 U/L Alanine Aminotransferase (ALT/SGPT) 62 H 0-55 U/L Alkaline Phosphatase 103 40-136 U/L Total Protein 7.4 6.4-8.2 GM/DL Albumin 4.3 3.2-4.5 GM/DL SARS-CoV-2 RNA (RT-PCR) Not Detected Not Detecte My Orders Orders - JACQUELINE ROSADO DO Ed Iv/Invasive Line Start (04/21/21 03:32) Cbc With Automated Diff (04/21/21 03:32) Comprehensive Metabolic Panel (04/21/21 03:32) Ua Culture If Indicated (04/21/21 03:32) Ondansetron Injection (Zofran Injectio (04/21/21 03:45) Ed Iv/Invasive Line Start (04/21/21 03:32) Lactated Ringers (Lr 1000 Ml Iv Solution (04/21/21 03:45) Ketorolac Injection (Toradol Injection) (04/21/21 03:32) Ct Abd/Pelvis Wo(Kidney Stone) (04/21/21 03:32) Acute Abd Series (04/21/21 03:32) Covid 19 Inhouse Test (04/21/21 03:42) Tamsulosin Capsule (Flomax Capsule) (04/21/21 04:30) Rx-Hydrocodone/Apap 5-325 Mg (Rx-Vicodin (04/21/21 04:30) Rx-Ondansetron Po (Rx-Zofran Po) (04/21/21 04:30) Medications Given in ED Current Medications Medications Dose Ordered Sig/Hussain Route Start Time Stop Time Status Last Admin Dose Admin Acetaminophen/ Hydrocodone Bitart 1 ea Q4H PRN PO 04/21/21 04:30 04/21/21 06:20 DC 04/21/21 05:08 1 EA Lactated Ringer's 1,000 ml @ 0 mls/hr Q0M ONCE IV 04/21/21 03:45 04/21/21 03:46 DC 04/21/21 03:45 0 MLS/HR Ondansetron HCl 8 mg ONCE ONCE IVP 04/21/21 03:45 04/21/21 03:46 DC 04/21/21 03:45 8 MG Vital Signs/I&O 04/21/21 04/21/21 03:26 06:15 Temp 36.1 36.5 Pulse 77 69 Resp 18 18 B/P (MAP) 179/106 (130) 135/96 (130) Pulse Ox 96 97 O2 Delivery Room Air Room Air Capillary Refill : Less Than 3 Seconds Blood Pressure Mean: 130 Progress Note : Progress Note GIVEN IV FLUIDS, ZOFRAN AND TORADOL WITH COMPLETE RELIEF OF SYMPTOMS MARKED DELAY IN OBTAINING CT REPORT 0530--CALLED [employer] ANALYST, NO REPORT AT THIS TIME 0600--CALLED [employer] ANALYST, WILL CHECK ON STATUS OF CT READ Diagnostic Imaging Comments KUB--CALCIFICATIONS IN LEFT PELVIS, PENDING RADIOLOGIST REVIEW CT ABDOMEN/PELVIS--PER STAT RAD VIA FAX AT 0611 6 X 4 MM LEFT DISTAL URETERAL STONE RESULTING IN MODERATE LEFT HYDROURETERONEPHROSIS, AT LEAST 2 NON-OBSTRUCTING INTRARENAL STONES IN EACH KIDNEY. Reviewed: Reviewed by Me Departure Impression Primary Impression: Calculus of distal left ureter Disposition: HOME, SELF-CARE Condition: Improved Departure-Patient Inst. Referrals: ZENAIDA MELENDEZ DO (PCP/Family) Primary Care Physician ANNAMARIA BAEZA MD Patient Instructions: Kidney Stones (DC), How to Strain Your Urine Add. Discharge Instructions: STRAIN ALL URINE, RETURN ANY STONES TO DR. BAEZA'S OFFICE LOTS OF CLEAR LIQUIDS FOLLOW UP WITH DR. BAEZA ON THURSDAY FOR FURTHER CARE, RETURN TO ER IF WORSE All discharge instructions reviewed with patient and/or family. Voiced understanding. Scripts Hydrocodone Bit/Acetaminophen (HYDROcodone/APAP 7.5/325 TAB) 1 Ea Tablet 1 EA PO Q4-6 PRN for PAIN, #20 TAB Prov: JACQUELINE ROSADO DO 04/21/21 Ketorolac Tromethamine (Ketorolac Tromethamine) 10 Mg Tablet 10 MG PO Q6H for Pain, #15 TAB Prov: JACQUELINE ROSADO DO 04/21/21 Ondansetron (Ondansetron Odt) 8 Mg Tab.rapdis 8 MG PO Q6H, #10 TAB Prov: JACQUELINE ROSADO DO 04/21/21 Tamsulosin HCl (Flomax) 0.4 Mg Cap 0.4 MG PO DAILY, #10 CAP Prov: JACQUELINE ROSADO DO 04/21/21 Ciprofloxacin HCl (Ciprofloxacin HCl) 500 Mg Tablet 500 MG PO BID, #14 TAB Prov: JACQUELINE ROSADO DO 04/21/21 JACQUELINE ROSADO DO Apr 21, 2021 04:42
[2021-04-21 06:15] VITALS: BP 135/96
--- NOTE | 2021-04-21 06:25 | Diagnostic Imaging Report ---
EXAM: ACUTE ABD SERIES INDICATION: Abdominal pain. COMPARISON: CT abdomen and pelvis without contrast 04/21/2021. FINDINGS: Nonspecific bowel gas pattern. Calcification in the region of the distal left ureter measuring up to 0.6 cm consistent with a renal stone. Implantable loop recorder. Low lung volumes. Normal heart size and central pulmonary vascularity. No pleural effusion or pneumothorax. IMPRESSION: 1. A 0.6 cm density in the region of the distal left ureter corresponding to the renal stone seen on the comparison exam. 2. No acute cardiopulmonary findings. Dictated by: Dictated on workstation # [id number]
--- NOTE | 2021-04-21 07:01 | Diagnostic Imaging Report ---
PROCEDURE: CT urinary tract, rule out kidney stone. TECHNIQUE: Multiple contiguous axial images were obtained through the abdomen and pelvis without the use of intravenous contrast. Auto Exposure Controls were utilized during the CT exam to meet ALARA standards for radiation dose reduction. INDICATION: Abdominal pain and history of kidney stones The previous CT abdomen/pelvis exam of 10/23/2020 noted a 4 mm obstructive calculus at the ureteropelvic junction on the left. There are also nonobstructive calculi within both kidneys. On this exam there is now a similar sized, roughly 5 mm calculus in the distalmost portion of the left ureter. Whether this calculus and the calculus seen on the prior study are one and the same is not certain. There does seem to be greater distention of the left ureter and left renal pelvis than noted on the prior exam. The nonobstructive calculi involving the kidneys seen previously are again evident and no different. There is no sign of obstruction of the right collecting system. The urinary bladder is grossly unremarkable. As on the prior exam the appendix appears to be surgically absent. There is no acute abnormality of the abdomen or pelvis noted otherwise. The lung bases remain generally clear. The bone windows are unremarkable for a fracture or for destructive lesion. IMPRESSION: 1. There is now partial obstruction of the left collecting system due to a roughly 5 mm calculus at the uterovesical junction. Whether this calculus and the obstructive calculus seen in the prior study are one and the same is not certain. 2. There is no acute abnormality of the abdomen and pelvis noted otherwise. 3. I agree with the [facility] interpretation of this exam. Dictated by: Dictated on workstation # [id number]
== END 2021-04-21 06:15 | disposition home or self-care (01) ==
LOC: EDUNIT# 03:09 → ER 03:11
DX: N13.2 Hydronephrosis with renal and ureteral calculous obstruction (principal); G47.30 Sleep apnea, unspecified; I10 Essential (primary) hypertension; E66.9 Obesity, unspecified; E78.00 Pure hypercholesterolemia, unspecified; I48.91 Unspecified atrial fibrillation; E11.9 Type 2 diabetes mellitus without complications; Z20.822 Contact with and (suspected) exposure to COVID-19; Z68.35 Body mass index [BMI] 35.0-35.9, adult; Z79.01 Long term (current) use of anticoagulants; Z79.899 Other long term (current) drug therapy
CPT/HCPCS: 36415; 74022; 74176; 80053; 81000; 85025; 87636

== ENCOUNTER 2021-04-25 11:48 | Emergency (ER) | payer OTHER ==
[~2021-04-25] VITALS: Ht 175.2 cm; Wt 109.0 kg
[~2021-04-25 11:48] MED LIST changes: +CIPR500T5 PO; +KETO10TA PO; +ONDA8TAB13 PO
[2021-04-25 12:45] LABS: BILIRUBIN,URINE NEGATIVE (NEGATIVE); CLARITY,URINE CLEAR; COLOR,URINE YELLOW; GLUCOSE, URINE (UA) NEGATIVE (NEGATIVE); KETONES,URINE NEGATIVE (NEGATIVE); LEUKOCYTE ESTERASE ,URINE NEGATIVE (NEGATIVE); NITRITE,URINE NEGATIVE (NEGATIVE); PROTEIN,URINE NEGATIVE (NEGATIVE)
[2021-04-25] MEDS ORDERED: LACTATED RINGERS 1,000 ML IV ONE (12:45)
[2021-04-25] MEDS ORDERED: ONDANSETRON 4 MG/2 ML (SDV) Z0FRAN IVP ONE (12:45)
[2021-04-25 12:49] LABS: BASOPHILS % (AUTO) 1 % (0-10); EOSINOPHILS # (AUTO) 0.2 10^3/uL (0.0-0.3); EOSINOPHILS % (AUTO) 2 % (0-10); HEMATOCRIT 42 % (40-54); HEMOGLOBIN 14.1 g/dL (13.3-17.7); LYMPHOCYTES # (AUTO) 1.1 10^3/uL (1.0-4.0); LYMPHOCYTES % (AUTO) 17 % (12-44); MEAN CORPUSCULAR HEMOGLOBIN 31 pg (25-34); MEAN CORPUSCULAR HGB CONC 34 g/dL (32-36); MEAN CORPUSCULAR VOLUME 92 fL (80-99); MEAN PLATELET VOLUME 10.4 fL (9.0-12.2); MONOCYTES # (AUTO) 0.4 10^3/uL (0.0-1.0); MONOCYTES % (AUTO) 6 % (0-12); NEUTROPHILS # (AUTO) 4.8 10^3/uL (1.8-7.8); NEUTROPHILS % (AUTO) 74 % (42-75); PLATELET COUNT 214 10^3/uL (130-400); WHITE BLOOD COUNT 6.5 10^3/uL (4.3-11.0)
[2021-04-25 12:52] LABS: POTASSIUM 3.9 MMOL/L (3.6-5.0)
[2021-04-25 12:53] LABS: CALCIUM 9.5 MG/DL (8.5-10.1)
[2021-04-25 12:57] LABS: CREATININE SERUM 1.5 MG/DL (0.60-1.30)
[2021-04-25 12:58] LABS: BACTERIA,URINE NEGATIVE /HPF; RBC,URINE 25-50 /HPF; SQUAMOUS EPITHELIAL CELL,UR 0-2 /HPF; WBC,URINE 0-2 /HPF
--- NOTE | 2021-04-25 13:09 | Diagnostic Imaging Report ---
Indication: Distal left ureteral calculus, follow-up. TIME OF EXAM: 12:58 PM Correlation is made with prior study 04/21/2021. Calcific densities overlie both renal shadows consistent with renal calculi. The distal left ureteric calculus does show slightly more distal and medial migration. It is likely located at or near the UVJ. Large calcifications lateral to this most likely represent phleboliths. The bowel gas pattern is unremarkable. IMPRESSION: There has been slight more distal migration of the 6 mm distal left ureteric calculus when compared with exam 4 days earlier. Dictated by: Dictated on workstation # [id number]
--- NOTE | 2021-04-25 13:37 | ED GU-Female ---
General Chief Complaint: - Urinary Stated Complaint: BACK PAIN, ABD PAIN Nursing Triage Note: Pt ambulatory to ED. Pt reports being seen in ED on Thursday for kidney stone. Pt reports thinking that stone has passed because pt felt better. Pt began having back and abdominal pain this morning with nausea and vomiting. Pt reports pain is now in groin area. Allergies and Home Medications Allergies Coded Allergies: No Known Drug Allergies (Unverified , 01/26/19) Home Medications Amiodarone HCl 200 Mg Tablet, 200 MG PO BID Prescribed by: BETO WALKER on 11/06/16 1805 Amlodipine Besylate 10 Mg Tablet, 5 MG PO HS, (Reported) TAKES 1/2 OF A (10 MG) TABLET Apixaban 5 Mg Tablet, 5 MG PO BID, (Reported) Atorvastatin Calcium 20 Mg Tablet, 10 MG PO HS, (Reported) TAKES 1/2 OF A (20 MG) TABLET Cefuroxime Axetil 250 Mg Tablet, 250 MG PO BID Prescribed by: HEIDY SCANLON on 09/23/18 1436 Cephalexin 500 Mg Tablet, 500 MG PO BID Prescribed by: ELIANA HAN on 11/03/18 0827 Ciprofloxacin HCl 500 Mg Tablet, 500 MG PO BID Prescribed by: JACQUELINE ROSADO on 04/21/21 044 Cyclobenzaprine HCl 10 Mg Tablet, 10 MG PO HS PRN for MUSCLE SPASMS, (Reported) Hydrochlorothiazide 25 Mg Tablet, 25 MG PO DAILY, (Reported) Hydrocodone Bit/Acetaminophen 1 Tab Tab, 1 EACH PO Q6H PRN for BREAKTHROUGH PAIN Prescribed by: BRADEN RICHMOND on 01/11/18 0903 Hydrocodone Bit/Acetaminophen 1 Tab Tab, 1 EACH PO Q4-6HR PRN for PAIN-MODERATE Prescribed by: ELIANA HAN on 11/03/18 0827 Hydrocodone Bit/Acetaminophen 1 Tab Tab, 1 EACH PO Q4-6HR PRN for PAIN-MODERATE Prescribed by: TITUS VILLAFANA on 01/26/19 0546 Hydrocodone Bit/Acetaminophen 1 Ea Tablet, 1 EA PO Q4-6 PRN for PAIN Prescribed by: JACQUELINE ROSADO on 04/21/21 0442 Hydrocodone/Acetaminophen 1 Each Tablet, 1 TAB PO Q4H PRN for PAIN-MODERATE (5- 7) Prescribed by: JJ SIERRA on 10/23/202027 Ketorolac Tromethamine 10 Mg Tablet, 10 MG PO Q6H Prescribed by: JACQUELINE ROSADO on 04/21/21 044 Krill/Vicco-3/Dha/Epa/Lipids 1 Each Capsule, 300 MG PO DAILY@1630, (Reported) L.acidoph & Paracasei,B.lactis 1 Each Capsule, 1 CAP PO DAILY@1630, (Reported) Metoprolol Tartrate 100 Mg Tablet, 100 MG PO DAILY, (Reported) Multivitamin 1 Each Tablet, 1 TAB PO DAILY@1630, (Reported) Nitrofurantoin Monohyd/M-Cryst 100 Mg Capsule, 1 TAB PO BID Prescribed by: JJ SIERRA on 10/23/202023 Vicco-3/Dha/Epa/Fish Oil 1 Each Capsule, 1,000 MG PO DAILY@1630, (Reported) Ondansetron 4 Mg Tab.rapdis, 4 MG SL Q4H PRN for NAUSEA/VOMITING Prescribed by: TITUS VILLAFANA on 01/26/19 0546 Ondansetron 8 Mg Tab.rapdis, 8 MG PO Q6H Prescribed by: JACQUELINE ROSADO on 04/21/21441 Orphenadrine Citrate 100 Mg Tablet.er, 100 MG PO BID PRN for MUSCLE SPASMS, (Reported) Potassium 99 Mg Tablet, 99 MG PO DAILY@1630, (Reported) Tamsulosin HCl 0.4 Mg Cap, 0.4 MG PO DAILY Prescribed by: HEIDY SCANLON on 09/23/18 1436 Tamsulosin HCl 0.4 Mg Cap.er.24h, 0.4 MG PO DAILY Daily until stone passage Prescribed by: ELIANA HAN on 11/03/18 0827 Tamsulosin HCl 0.4 Mg Cap, 0.4 MG PO DAILY Prescribed by: JACQUELINE ROSADO on 04/21/21441 Tramadol HCl 50 Mg Tablet, 50 MG PO Q6H PRN for MILD PAIN, (Reported) Ubidecarenone 200 Mg Capsule, 200 MG PO HS, (Reported) Past Rnuczgl-Avkqrx-Hwmpcv Hx Patient Social History Tobacco Use?: No Substance use?: No Alcohol Use?: No Pt feels they are or have been: No Immunizations Up To Date Tetanus Booster (TDap): More than 5yrs First/Initial COVID19 Vaccinat: 03/21 Second COVID19 Vaccination Matt: 11/18 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 SEGURA Surgeries: Yes (cardiac ablation) Appendectomy, Cardiac Respiratory: Yes Sleep Apnea Currently Using CPAP: No Currently Using BIPAP: No Cardiac: Yes (S/P ABLATION) Atrial Fibrillation, High Cholesterol, Hypertension Neurological: No Reproductive Disorders: No Sexually Transmitted Disease: No HIV/AIDS: No Genitourinary: Yes Kidney Stones, Renal Failure Gastrointestinal: Yes (hx of polyps) Gastroesophageal Reflux, Polyps Musculoskeletal: No Endocrine: Yes (OBESITY) Diabetes, Non-Insulin dep HEENT: No Hearing Impairment: Denies Cancer: No Psychosocial: No Integumentary: No Blood Disorders: No Adverse Reaction/Blood Tranf: No Family Medical History No Pertinent Family Hx, Heart Disease Physical Exam Vital Signs Vital Signs - First Documented 04/25/21 12:15 Temp 36.3 Pulse 71 Resp 15 B/P (MAP) 131/82 (98) Pulse Ox 96 O2 Delivery Room Air Capillary Refill : Less Than 3 Seconds Height, Weight, BMI Height: 5'9.00" Weight: 239lbs. 0.0oz. 108.857924yn; 35.00 BMI Method:Stated Progress/Results/Core Measures Suspected Sepsis SIRS Temperature: Pulse: 71 Respiratory Rate: 15 Laboratory Tests 04/25/21 12:20: White Blood Count 6.5 Blood Pressure 131 /82 Mean: 98 Laboratory Tests 04/25/21 12:20: Creatinine 1.50H, Platelet Count 214 Results/Orders Lab Results Laboratory Tests Test 04/25/21 12:16 04/25/21 12:20 Range/Units Urine Color YELLOW Urine Clarity CLEAR Urine pH 6.0 5-9 Urine Specific [place] 1.025 H 1.016-1.022 Urine Protein NEGATIVE NEGATIVE Urine Glucose (UA) NEGATIVE NEGATIVE Urine Ketones NEGATIVE NEGATIVE Urine Nitrite NEGATIVE NEGATIVE Urine Bilirubin NEGATIVE NEGATIVE Urine Urobilinogen 0.2 < = 1.0 MG/DL Urine Leukocyte Esterase NEGATIVE NEGATIVE Urine RBC (Auto) 3+ H NEGATIVE Urine RBC 25-50 H /HPF Urine WBC 0-2 /HPF Urine Squamous Epithelial Cells 0-2 /HPF Urine Crystals NONE /LPF Urine Bacteria NEGATIVE /HPF Urine Casts NONE /LPF Urine Mucus NEGATIVE /LPF Urine Culture Indicated NO White Blood Count 6.5 4.3-11.0 10^3/uL Red Blood Count 4.59 4.30-5.52 10^6/uL Hemoglobin 14.1 13.3-17.7 g/dL Hematocrit 42 40-54 % Mean Corpuscular Volume 92 80-99 fL Mean Corpuscular Hemoglobin 31 25-34 pg Mean Corpuscular Hemoglobin Concent 34 32-36 g/dL Red Cell Distribution Width 13.9 10.0-14.5 % Platelet Count 214 130-400 10^3/uL Mean Platelet Volume 10.4 9.0-12.2 fL Immature Granulocyte % (Auto) 0 % Neutrophils (%) (Auto) 74 42-75 % Lymphocytes (%) (Auto) 17 12-44 % Monocytes (%) (Auto) 6 0-12 % Eosinophils (%) (Auto) 2 0-10 % Basophils (%) (Auto) 1 0-10 % Neutrophils # (Auto) 4.8 1.8-7.8 10^3/uL Lymphocytes # (Auto) 1.1 1.0-4.0 10^3/uL Monocytes # (Auto) 0.4 0.0-1.0 10^3/uL Eosinophils # (Auto) 0.2 0.0-0.3 10^3/uL Basophils # (Auto) 0.0 0.0-0.1 10^3/uL Immature Granulocyte # (Auto) 0.0 0.0-0.1 10^3/uL Sodium Level 137 135-145 MMOL/L Potassium Level 3.9 3.6-5.0 MMOL/L Chloride Level 103 98-107 MMOL/L Carbon Dioxide Level 24 21-32 MMOL/L Anion Gap 10 5-14 MMOL/L Blood Urea Nitrogen 23 H 7-18 MG/DL Creatinine 1.50 H 0.60-1.30 MG/DL Estimat Glomerular Filtration Rate 48 BUN/Creatinine Ratio 15 Glucose Level 144 H 70-105 MG/DL Calcium Level 9.5 8.5-10.1 MG/DL My Orders Orders - TITUS BECKMAN MD Ua Culture If Indicated (04/25/21 12:30) Abdomen/Kub 1[place] (04/25/21 12:39) Ondansetron Injection (Zofran Injectio (04/25/21 12:45) Basic Metabolic Panel (04/25/21 12:40) Cbc With Automated Diff (04/25/21 12:40) Ed Iv/Invasive Line Start (04/25/21 12:40) Lactated Ringers (Lr 1000 Ml Iv Solution (04/25/21 12:45) Vital Signs/I&O 04/25/21 12:15 Temp 36.3 Pulse 71 Resp 15 B/P (MAP) 131/82 (98) Pulse Ox 96 O2 Delivery Room Air Capillary Refill : Less Than 3 Seconds Blood Pressure Mean: 98 Departure Impression Primary Impression: Left ureteral stone Additional Impressions: Left lower quadrant pain Nausea Disposition: 01 HOME, SELF-CARE Condition: Improved Departure-Patient Inst. Decision time for Depature: 13:36 Referrals: ZENAIDA MELENDEZ DO (PCP/Family) Primary Care Physician Patient Instructions: Kidney Stones (DC) Add. Discharge Instructions: Use your previously prescribed medications as directed. Increase your water intake to help promote kidney function and flush out the stone. Call Dr. Baeza as soon as possible to arrange follow-up. Call with questions or concerns. Return to the ER if you have worsening symptoms. All discharge instructions reviewed with patient and/or family. Voiced understanding. Copy Copies To 1: ANNAMARIA BAEZA MD, JOSHUA T MD Apr 25, 2021 13:37
[2021-04-25 14:44] VITALS: BP 153/94
[2021-04-26] MEDS ORDERED: METO50TA7 PO (11:26)
[2021-04-26] MEDS ORDERED: ALLO300T2 PO (11:26)
[2021-04-26] MEDS ORDERED: FLEC150T15 PO (11:26)
[2021-04-26] MEDS ORDERED: AMLO-250 PO (11:26)
[2021-04-26] MEDS ORDERED: POTA-51 PO (11:26)
[2021-04-26] MEDS ORDERED: METF-397 PO (11:26)
[2021-04-26] MEDS ORDERED: ATOR40TA70 PO (11:26)
== END 2021-04-25 14:51 | disposition home or self-care (01) ==
LOC: EDUNIT# 11:48 → ER 11:49
DX: N20.1 Calculus of ureter (principal); G47.30 Sleep apnea, unspecified; I10 Essential (primary) hypertension; E66.9 Obesity, unspecified; E78.00 Pure hypercholesterolemia, unspecified; I48.91 Unspecified atrial fibrillation; E11.9 Type 2 diabetes mellitus without complications; Z68.35 Body mass index [BMI] 35.0-35.9, adult; Z79.01 Long term (current) use of anticoagulants; Z79.899 Other long term (current) drug therapy
CPT/HCPCS: 36415; 74018; 80048; 81000; 85025

== ENCOUNTER 2021-04-26 06:33 | Outpatient (CLI) | payer OTHER ==
[~2021-04-26] VITALS: Ht 175.3 cm; Wt 109.1 kg
[2021-04-26] MEDS ORDERED: AMLO-250 PO (11:26)
[2021-04-26] MEDS ORDERED: ATOR40TA70 PO (11:26)
[2021-04-26] MEDS ORDERED: METF-397 PO (11:26)
[2021-04-26] MEDS ORDERED: ALLO300T2 PO (11:26)
[2021-04-26] MEDS ORDERED: METO50TA7 PO (11:26)
[2021-04-26] MEDS ORDERED: FLEC150T15 PO (11:26)
[2021-04-26] MEDS ORDERED: POTA-51 PO (11:26)
== END 2021-04-26 11:38 ==
LOC: PREOP 06:33
PROVIDERS: ATTEND Urology
DX: Z01.818 Encounter for other preprocedural examination (principal)

== ENCOUNTER 2021-04-29 06:29 | Day surgery (SDC) | payer OTHER ==
[2021-04-29] VITALS (10 sets, daily range): BP systolic 121–144; BP diastolic 74–94
[~2021-04-29] VITALS: Ht 175 cm; Wt 109.1 kg
[~2021-04-29 06:29] MED LIST changes: +ALLO300T2 PO; +AMLO-250 PO; +ATOR40TA70 PO; +FLEC150T15 PO; +METO50TA7 PO; +POTA-51 PO
[2021-04-29] MEDS ORDERED: LACTATED RINGERS 1,000 ML IV PRN (06:45)
[2021-04-29] MEDS ORDERED: cefTRIAXone 1,000 MG in WATER (STERILE) FOR INJECTION 10 ML IV ONE (06:45)
--- NOTE | 2021-04-29 07:08 | Diagnostic Imaging Report ---
INDICATION: Urinary tract calculus Similar to the previous study, there are punctate calcifications projecting over the mid portion of the right kidney and lower portion of left kidney. Calcifications in the left hemipelvis likely represent distal ureteric stone as well as adjacent phleboliths and have not appreciably changed. Surgical findings are seen in the ascending colon. IMPRESSION: Bilateral nephrolithiasis and unchanged presumed distal left ureteric stone. Dictated by: Dictated on workstation # [id number]
[2021-04-29] MEDS ORDERED: fentaNYL INJ 100 MCG/2 ML AMP ONE (07:54)
[2021-04-29] MEDS ORDERED: LIDOCAINE PF 2% 5 ML (XYLOCAINE) VIAL ONE (07:54)
[2021-04-29] MEDS ORDERED: MIDAZOLAM 2 MG/2 ML (VERSED) VIAL ONE (07:54)
[2021-04-29] MEDS ORDERED: ONDANSETRON 4 MG/2 ML (SDV) Z0FRAN ONE ×2 (07:54→08:22)
[2021-04-29] MEDS ORDERED: proPOfol 200 MG/20 ML (DIPRIVAN) VIAL IV ONE (07:54)
--- NOTE | 2021-04-29 07:54 | Progress Note-Pre Operative ---
Pre-Operative Progress Note H&P Reviewed The H&P was reviewed, patient examined and no changes noted. Date Seen by Provider: Apr 29, 2021 Time Seen by Provider: 07:54 Date H&P Reviewed: Apr 29, 2021 Time H&P Reviewed: 07:54 Pre-Operative Diagnosis: LT DISTAL URETERAL STONE ANNAMARIA BAEZA MD Apr 29, 2021 07:54
--- NOTE | 2021-04-29 07:55 | Progress Note-Post Operative ---
Post-Operative Progess Note Surgeon (s)/Electrical And Instrumentation Mechanic (s) Surgeon ANNAMARIA BAEZA MD Electrical And Instrumentation Mechanic: NONE Pre-Operative Diagnosis LT DISTAL URETERAL STONE Post-Operative Diagnosis SAME Procedure & Operative Findings Date of Procedure 04/29/21 Procedure Performed/Findings CYSTOSCOPY, LT URETERAL STONE MANIPULATION, ATTEMPTED LT URETEROSCOPY AND LT STENT PLACEMENT Anesthesia Type GENERAL Estimated Blood Loss Estimated blood loss (mL): NONE Specimens/Packing Specimens Removed NONE Packing: NONE ANNAMARIA BAEZA MD Apr 29, 2021 07:55
[2021-04-29] MEDS ORDERED: KETOROLAC 30 MG/ML VIAL ONE (08:22)
[2021-04-29] MEDS ORDERED: SEVOFLURANE (ULTANE) 15 ML INHAL SOLN ONE (08:24)
--- NOTE | 2021-04-29 08:40 | Discharge Inst-Urology ---
Discharge Inst-Urology Reconcile Patient Problems Problems Reviewed?: Yes Final Diagnosis LT DISTAL URETERAL STONE Patient Instructions/Follow Up Plan/Assessment/Instructions Please make appointment to been seen in office Monday 05/07, KUB prior to it. KUB on way home Tomorrow, if no bleeding, may resume Eliquis, hold again on Saturday 05/05 Increase oral fluids for 48 hours and then as needed. Diet and Activity as tolerated. If questions or concerns contact your physician Or seek help at emergency department. ANNAMARIA BAEZA MD Apr 29, 2021 08:40
[2021-04-29] MEDS ORDERED: NITR-65 PO (09:00)
[2021-04-29] MEDS ORDERED: KETO10TA PO (09:00)
[2021-04-29] MEDS ORDERED: TMSL.4C PO (09:00)
--- NOTE | 2021-04-29 11:09 | Diagnostic Imaging Report ---
INDICATION: Ureteral stent placement. TIME OF EXAM: 10:52 AM. COMPARISON: Correlation is made with the prior radiograph from earlier this same day. FINDINGS: A left-sided double-J nephroureteral stent has been placed. There appear to be calculi along the distal portion of the left stent. There are calcifications overlying both renal shadows, consistent with intrarenal calculi. The bowel gas pattern is unremarkable. IMPRESSION: Left-sided double-J nephroureteral stent placement. Dictated by: Dictated on workstation # [id number]
--- NOTE | 2021-04-29 17:34 | OPERATIVE REPORT ---
DATE OF SERVICE: 04/29/2021 PREOPERATIVE DIAGNOSIS: Left distal ureteral stone. POSTOPERATIVE DIAGNOSIS: Left distal ureteral stone. OPERATION PERFORMED: Cystoscopy, left distal ureteral stone manipulation, attempted ureteroscopy and insertion of left ureteral stent. SURGEON: Lj Baeza MD. ANESTHESIA: General. COMPLICATIONS: None. DESCRIPTION OF PROCEDURE: Under satisfactory general anesthesia, the patient in lithotomy position, genitalia were prepped and draped in the usual sterile fashion. Cystoscope was introduced under vision. The anterior urethra was normal. The prostate was nonobstructing. The bladder neck was open. The bladder revealed mild trabeculations and the only abnormality was the inflammatory changes and swelling and edema of the left ureteral orifice, intramural portion and surrounding area. Using the foroblique lens, I was able to pass a 6-[place]izen [place] ureteral catheter dislodged the stone, I was not able to completely dilate the orifice intramural portion to accommodate a 6.9-[place] semi-rigid ureteroscope. I removed the cystoscope, attempted to pass this ureteroscope under vision, but discontinued further attempt, so not to cause any harm. I removed the ureteroscope, reinserted the cystoscope, passed a 6-[place] 26 cm double-J stent all the way up to the left renal pelvis guided fluoroscopically. The guidewire was removed and the stent was seen draining nicely proximally fluoroscopically and distally endoscopically. The bladder was evacuated and the cystoscope was removed. The patient tolerated the procedure and anesthesia well and was sent to recovery room in stable condition. PLAN: We will bring him back next week when the ESWL machine is here, let the edema and swelling cool down. We will first taken to the cystoscopy room, remove the stent and then attempt to pass a ureteroscope depending on where the stone is. If the stone has moved proximally then we will proceed with ESWL. If distally, we will attempt to do the procedure ureteroscopically. If unable to do so, then we will do an ESWL. The plan was fully explained to the and to the patient in the recovery room hoping he will remember. We will see him back next Thursday and explained to him the procedure. He may resume his Eliquis tomorrow, but hold it again on Thursday for the procedure. This was fully explained to his . Job ID: [id number] DocumentID: [id number] Dictated Date: 04/29/2021 08:43:12 Regional Vice President Surgical Sales Date: 04/29/2021 17:33:34 Dictated By: LJ BAEZA MD
--- NOTE | 2021-04-30 07:36 | Anesthesia-General Post-Op ---
General Patient Condition Mental Status/LOC: Same as Preop Cardiovascular: Satisfactory Nausea/Vomiting: Absent Respiratory: Satisfactory Pain: Controlled Complications: Absent Post Op Complications Complications None Follow Up Care/Instructions Patient Instructions None needed. Anesthesia/Patient Condition Patient Condition Patient is doing well, no complaints, stable vital signs, no apparent adverse anesthesia problems. No complications reported per nursing. WANDY MCKEON CRNA Apr 30, 2021 07:36
== END 2021-04-29 10:50 | disposition home or self-care (01) ==
LOC: SDC 06:29
PROVIDERS: ATTEND Urology
DX: N20.2 Calculus of kidney with calculus of ureter (principal); G47.33 Obstructive sleep apnea (adult) (pediatric); I10 Essential (primary) hypertension; I48.91 Unspecified atrial fibrillation; E66.01 Morbid (severe) obesity due to excess calories; E11.9 Type 2 diabetes mellitus without complications; N40.0 Benign prostatic hyperplasia without lower urinary tract symptoms; M10.9 Gout, unspecified; Z79.899 Other long term (current) drug therapy; Z79.84 Long term (current) use of oral hypoglycemic drugs; Z68.35 Body mass index [BMI] 35.0-35.9, adult
CPT/HCPCS: 52330; 52332; 74018; 76000; 82947; 87081; C2625

== ENCOUNTER 2021-05-01 05:37 | Outpatient (CLI) | payer OTHER | END 2021-05-07 16:14 | LOC: PREOP 05:37 | PROVIDERS: ATTEND Urology | DX: Z01.818 Encounter for other preprocedural examination (principal) ==

== ENCOUNTER → 2021-05-07 | Outpatient (CLI) | payer OTHER ==
--- NOTE | 2021-05-07 15:36 | Diagnostic Imaging Report ---
INDICATION: Left ureteral stones, left ureteral stent placement. COMPARISON: 04/29/2021 TECHNIQUE: Single radiograph of the abdomen dated 05/07/2021 FINDINGS: Left-sided ureteral stent is again identified. Overall positioning of the stent appears unchanged from the prior examination. 7 mm calcification abutting the distal left ureteral stent is again identified, appearing similar to the prior exam. Additional calcification adjacent to the left ureteral stent on the prior exam is no longer visualized. Punctate calcification overlying the inferior pole of the left renal shadow is again identified and stable. No additional calcifications overlying the central aspect of the right kidney are again identified and stable. Phleboliths within the left lower pelvis are again seen. Chain suture overlying the right abdomen. No dilated loops of bowel. No differential air-fluid levels. No new suspicious calcifications overlying the renal shadows or the expected course of the ureters. No acute osseous abnormality. IMPRESSION: Left ureteral stent remains in place. One of the calcifications overlying the distal left ureter on the prior exam is no longer visualized, felt to relate to interval passage of a ureterolith. However, a residual 7 mm calcification along the course of the distal left ureteral stent remains concerning for a persistent ureterolith. Bilateral renal calculi. Dictated by: Dictated on workstation # [id number]
== END ==
LOC: RAD 11:51
PROVIDERS: ATTEND Urology
DX: N28.89 Other specified disorders of kidney and ureter (principal); N20.1 Calculus of ureter; Z96.0 Presence of urogenital implants
CPT/HCPCS: 74018

== ENCOUNTER 2021-05-16 05:37 | Outpatient (CLI) | payer OTHER ==
[~2021-05-16] VITALS: Ht 175 cm; Wt 109.1 kg
[2021-05-16] MEDS ORDERED: UBID10CA5 PO (10:08)
[2021-05-16] MEDS ORDERED: OMEG1000 PO (10:09)
[2021-05-16] MEDS ORDERED: MULT-1136 PO (10:09)
[2021-05-16] MEDS ORDERED: MAGN100T5 PO (10:09)
== END 2021-05-16 10:20 | disposition home or self-care (01) ==
LOC: PREOP 05:37
PROVIDERS: ATTEND Urology
DX: Z01.818 Encounter for other preprocedural examination (principal)

== ENCOUNTER 2021-05-21 05:59 | Day surgery (SDC) | payer OTHER ==
[2021-05-21] VITALS (9 sets, daily range): BP systolic 108–131; BP diastolic 56–88
[~2021-05-21] VITALS: Ht 175 cm; Wt 109.1 kg
[~2021-05-21 05:59] MED LIST changes: +MAGN100T5 PO; +MULT-1136 PO; +OMEG1000 PO; +UBID10CA5 PO
[2021-05-21] MEDS ORDERED: cefTRIAXone 1,000 MG in WATER (STERILE) FOR INJECTION 10 ML IV ONE (06:15)
[2021-05-21] MEDS ORDERED: LACTATED RINGERS 1,000 ML IV PRN (06:15)
--- NOTE | 2021-05-21 07:05 | Progress Note-Pre Operative ---
Pre-Operative Progress Note H&P Reviewed The H&P was reviewed, patient examined and no changes noted. Date Seen by Provider: May 21, 2021 Time Seen by Provider: 07:05 Date H&P Reviewed: May 21, 2021 Time H&P Reviewed: 07:05 Pre-Operative Diagnosis: LT DISTAL URETERAL STONE ANNAMARIA BAEZA MD May 21, 2021 07:05
--- NOTE | 2021-05-21 07:05 | Diagnostic Imaging Report ---
REASON FOR EXAM: ESWL COMPARISON: 05/07/2021. TECHNIQUE: frontal supine view of the abdomen FINDINGS: Stable configuration of a left ureteral stent. Focal calcification is seen along the course of the left ureter measuring 0.6 cm. This may have progressed slightly along the course of the left ureter since the prior exam. Phleboliths are noted in the pelvis. IMPRESSION: Stable configuration of the left ureteral stent with slight progression of the calculus within the distal left ureter. Dictated by: Dictated on workstation # [id number]
--- NOTE | 2021-05-21 07:32 | Progress Note-Post Operative ---
Post-Operative Progess Note Surgeon (s)/Ship Painter Helper (s) Surgeon ANNAMARIA BAEZA MD Ship Painter Helper: NONE Pre-Operative Diagnosis LT DISTAL URETERAL STONE Post-Operative Diagnosis SAME Procedure & Operative Findings Date of Procedure 05/21/21 Procedure Performed/Findings LT ESWL Anesthesia Type GENERAL Estimated Blood Loss Estimated blood loss (mL): NONE Specimens/Packing Specimens Removed NONE Packing: NONE ANNAMARIA BAEZA MD May 21, 2021 07:32
--- NOTE | 2021-05-21 07:34 | Discharge Inst-Urology ---
Discharge Inst-Urology Reconcile Patient Problems Problems Reviewed?: Yes Final Diagnosis LT DISTAL URETERAL STONE Patient Instructions/Follow Up Plan/Assessment/Instructions Please make appointment to been seen in office in one week. KUB prior to it KUB on way home Post ESWL instructions Increase oral fluids for 48 hours and then as needed. Diet and Activity as tolerated. If questions or concerns contact your physician Or seek help at emergency department. ANNAMARIA BAEZA MD May 21, 2021 07:34
[2021-05-21] MEDS ORDERED: proPOfol 200 MG/20 ML (DIPRIVAN) VIAL IV ONE (09:06)
[2021-05-21] MEDS ORDERED: MIDAZOLAM 2 MG/2 ML (VERSED) VIAL ONE (09:06)
[2021-05-21] MEDS ORDERED: ONDANSETRON 4 MG/2 ML (SDV) Z0FRAN ONE (09:06)
[2021-05-21] MEDS ORDERED: LIDOCAINE PF 2% 5 ML (XYLOCAINE) VIAL ONE (09:06)
[2021-05-21] MEDS ORDERED: cefTRIAXone 1,000 MG VIAL ONE (09:09)
[2021-05-21] MEDS ORDERED: WATER (STERILE) FOR INJECTION 10 ML ONE (09:09)
[2021-05-21] MEDS ORDERED: FUROSEMIDE 40 MG/4 ML INJ (LASIX) ONE (09:58)
[2021-05-21] MEDS ORDERED: KETOROLAC 30 MG/ML VIAL ONE (09:58)
[2021-05-21] MEDS ORDERED: SEVOFLURANE (ULTANE) 15 ML INHAL SOLN ONE (10:00)
[2021-05-21] MEDS ORDERED: ONDANSETRON 4 MG/2 ML (SDV) Z0FRAN IVP PRN (10:15)
[2021-05-21] MEDS ORDERED: MEPERIDINE (DEMEROL) INJ 50 MG/ML IVP ONE (10:15)
[2021-05-21] MEDS ORDERED: morphine INJ 10 MG/ML 1ML (SYR OR VIAL) IVP ONE (10:15)
[2021-05-21] MEDS ORDERED: TMSL.4C PO (11:01)
[2021-05-21] MEDS ORDERED: NITR-65 PO (11:01)
[2021-05-21] MEDS ORDERED: KETO10TA PO (11:01)
--- NOTE | 2021-05-21 11:04 | Anesthesia-General Post-Op ---
General Patient Condition Mental Status/LOC: Same as Preop Cardiovascular: Satisfactory Nausea/Vomiting: Absent Respiratory: Satisfactory Pain: Controlled Complications: Absent Post Op Complications Complications None Follow Up Care/Instructions Patient Instructions None needed. Anesthesia/Patient Condition Patient Condition Patient is doing well, no complaints, stable vital signs, no apparent adverse anesthesia problems. No complications reported per nursing. ESTEPHANIA PONCE CRNA May 21, 2021 11:04
--- NOTE | 2021-05-21 12:06 | Diagnostic Imaging Report ---
INDICATION: Status post lithotripsy. COMPARISON: Earlier same day at 6:33 a.m. FINDINGS: Stable position of the left nephroureteral stent. The previously noted stone along the distal aspect of the stent within the pelvis is no longer visualized. Stable 4 mm stone in the right kidney. Phleboliths in the pelvis are stable. Nonobstructive bowel gas pattern. IMPRESSION: Resolution of stone along the distal left nephroureteral stent. Dictated by: Dictated on workstation # [id number]
--- NOTE | 2021-05-21 14:28 | OPERATIVE REPORT ---
DATE OF SERVICE: 05/21/2021 PREOPERATIVE DIAGNOSIS: Left distal ureteral stone. POSTOPERATIVE DIAGNOSIS: Left distal ureteral stone. OPERATION PERFORMED: Left ESWL. SURGEON: Lj Baeza MD. ANESTHESIA: General. COMPLICATIONS: None. DESCRIPTION OF PROCEDURE: Under satisfactory general anesthesia, the patient in supine position on the ESWL table, the left distal ureteral stone was localized. Shocks were delivered at kV of 6 gradually increasing it to 11. Total of 3500 shocks fragmented the stone well. The patient received 40 mg of Lasix and 30 mg of Toradol IV at the end of the procedure. He tolerated the procedure and anesthesia well and was sent to recovery room in a stable condition. Job ID: [id number] DocumentID: [id number] Dictated Date: 05/21/2021 09:53:56 Chemical Process Analyst Date: 05/21/2021 14:27:43 Dictated By: LJ BAEZA MD
== END 2021-05-21 11:45 | disposition home or self-care (01) ==
LOC: SDC 05:59
PROVIDERS: ATTEND Urology
DX: N20.1 Calculus of ureter (principal); I10 Essential (primary) hypertension; I48.91 Unspecified atrial fibrillation; N40.0 Benign prostatic hyperplasia without lower urinary tract symptoms; M10.9 Gout, unspecified; R73.03 Prediabetes; E78.5 Hyperlipidemia, unspecified; G47.33 Obstructive sleep apnea (adult) (pediatric); E66.9 Obesity, unspecified; Z68.35 Body mass index [BMI] 35.0-35.9, adult; Z99.89 Dependence on other enabling machines and devices; Z79.899 Other long term (current) drug therapy; Z79.01 Long term (current) use of anticoagulants; Z11.2 Encounter for screening for other bacterial diseases
CPT/HCPCS: 74018; 87081

== ENCOUNTER → 2021-05-28 | Outpatient (CLI) | payer OTHER ==
[~2021-05-28] MED LIST changes: -FLEC150T15 PO; +FLEC150T2 PO
--- NOTE | 2021-05-28 12:57 | Diagnostic Imaging Report ---
INDICATION: Status post ESWL. Follow-up. COMPARISON: 05/21/2021 FINDINGS: 2 supine radiograph views of the abdomen were obtained. Left-sided double-J ureteral stent is again identified. Patency of the stent cannot be assessed, but the stent appears to be in appropriate position. Left-sided pelvic phleboliths are noted. Extraosseous calcifications are also again identified projecting over the superior pole of the right kidney and inferior pole of the left kidney consistent with nephrolithiasis. No unexpected radiopaque foreign bodies are identified. Small bowel loops are nondistended. There is no large collection of free intraperitoneal air. Osseous structures show no acute abnormalities. IMPRESSION: 1. Redemonstration indwelling left-sided double-J ureteral stent. 2. Bilateral nephrolithiasis. Dictated by: Dictated on workstation # [id number]
== END ==
LOC: RAD 12:35
PROVIDERS: ATTEND Urology
DX: N20.2 Calculus of kidney with calculus of ureter (principal); Z96.0 Presence of urogenital implants
CPT/HCPCS: 74018

== ENCOUNTER 2021-06-10 06:47 | Outpatient (CLI) | payer OTHER ==
[~2021-06-10] VITALS: Ht 175 cm; Wt 109.1 kg
== END 2021-06-10 12:38 | disposition home or self-care (01) ==
LOC: PREOP 06:47
PROVIDERS: ATTEND Urology
DX: Z01.818 Encounter for other preprocedural examination (principal)

== ENCOUNTER 2021-06-11 06:32 | Day surgery (SDC) | payer OTHER ==
[2021-06-11] VITALS (11 sets, daily range): BP systolic 80–129; BP diastolic 52–87
[~2021-06-11] VITALS: Ht 175 cm; Wt 109.1 kg
[2021-06-11] MEDS ORDERED: proPOfol 200 MG/20 ML (DIPRIVAN) VIAL IV ONE ×2 (06:58→07:15)
[2021-06-11] MEDS ORDERED: LIDOCAINE PF 2% 5 ML (XYLOCAINE) VIAL ONE ×2 (06:58→07:15)
[2021-06-11] MEDS ORDERED: fentaNYL INJ 100 MCG/2 ML AMP ONE ×2 (06:58→07:15)
[2021-06-11] MEDS ORDERED: ceFAZolin INJECTION 1,000 MG in WATER (STERILE) FOR INJECTION 10 ML IV ONE (07:00)
[2021-06-11] MEDS ORDERED: LACTATED RINGERS 1,000 ML IV PRN (07:00)
[2021-06-11] MEDS ORDERED: MIDAZOLAM 2 MG/2 ML (VERSED) VIAL ONE (07:15)
[2021-06-11] MEDS ORDERED: ONDANSETRON 4 MG/2 ML (SDV) Z0FRAN ONE (07:15)
[2021-06-11] MEDS ORDERED: SEVOFLURANE (ULTANE) 15 ML INHAL SOLN ONE (07:15)
--- NOTE | 2021-06-11 07:26 | Progress Note-Pre Operative ---
Pre-Operative Progress Note H&P Reviewed The H&P was reviewed, patient examined and no changes noted. Date Seen by Provider: Jun 11, 2021 Time Seen by Provider: 07:25 Date H&P Reviewed: Jun 11, 2021 Time H&P Reviewed: 07:25 Pre-Operative Diagnosis: LT URETERAL STONE ANNAMARIA BAEZA MD Jun 11, 2021 07:26
--- NOTE | 2021-06-11 07:48 | Progress Note-Post Operative ---
Post-Operative Progess Note Surgeon (s)/Welfare Interviewer (s) Surgeon ANNAMARIA BAEZA MD Welfare Interviewer: NONE Pre-Operative Diagnosis LT URETERAL STONE Post-Operative Diagnosis SAME Procedure & Operative Findings Date of Procedure 06/11/21 Procedure Performed/Findings CYSTO AND REMOVAL OF STENT Anesthesia Type GENERAL Estimated Blood Loss Estimated blood loss (mL): NONE Specimens/Packing Specimens Removed NONE TO PATH Packing: NONE ANNAMARIA BAEZA MD Jun 11, 2021 07:48
--- NOTE | 2021-06-11 07:50 | Discharge Inst-Urology ---
Discharge Inst-Urology Reconcile Patient Problems Problems Reviewed?: Yes Final Diagnosis LT URETERAL STONE POST STENT Patient Instructions/Follow Up Plan/Assessment/Instructions Please make appointment to been seen in office in 4 weeks. OTC Azo bladder PRN Increase oral fluids for 48 hours and then as needed. Diet and Activity as tolerated. If questions or concerns contact your physician Or seek help at emergency department. ANNAMARIA BAEZA MD Jun 11, 2021 07:50
[2021-06-11] MEDS ORDERED: PHENYLEPHRINE 100 MCG/ML 10 ML (ANESTHESIA) SYR ONE (07:55)
[2021-06-11] MEDS ORDERED: GLYCOPYRROLATE 0.2 MG/ML (ROBINUL) 2 ML VIAL ONE (08:00)
[2021-06-11] MEDS ORDERED: ONDANSETRON 4 MG/2 ML (SDV) Z0FRAN IVP PRN (08:30)
--- NOTE | 2021-06-11 08:36 | Anesthesia-General Post-Op ---
General Patient Condition Mental Status/LOC: Same as Preop Cardiovascular: Satisfactory Nausea/Vomiting: Absent Respiratory: Satisfactory Pain: Controlled Complications: Absent Post Op Complications Complications None Follow Up Care/Instructions Patient Instructions None needed. Anesthesia/Patient Condition Patient Condition Patient is doing well, no complaints, stable vital signs, no apparent adverse anesthesia problems. No complications reported per nursing. [place] [facility] [place]: Yes SUKI AMBROSIO CRNA Jun 11, 2021 08:36
--- NOTE | 2021-06-11 13:43 | OPERATIVE REPORT ---
DATE OF SERVICE: 06/11/2021 PREOPERATIVE DIAGNOSIS: Left distal ureteral stone post stent and ESWL. POSTOPERATIVE DIAGNOSIS: Left distal ureteral stone post stent and wall. OPERATION PERFORMED: Cystoscopy with removal of stent. SURGEON: Lj Baeza MD. ANESTHESIA: General. COMPLICATIONS: None. DESCRIPTION OF PROCEDURE: Under satisfactory general anesthesia, the patient in lithotomy position, the genitalia were prepped and draped in the usual sterile fashion. Cystoscope was introduced under vision. The anterior urethra was normal. The prostate lobes were not enlarged; however, there was a median bar high riding. I entered the bladder, visualized the left ureteral stent distal end, grasped it with the grasping forceps and removed it completely. The patient tolerated the procedure and anesthesia well and was sent to the recovery room in a stable condition. Job ID: [id number] DocumentID: [id number] Dictated Date: 06/11/2021 08:08:36 Medical Office Clerk Date: 06/11/2021 13:43:06 Dictated By: LJ BAEZA MD
== END 2021-06-11 10:25 | disposition home or self-care (01) ==
LOC: SDC 06:32
PROVIDERS: ATTEND Urology
DX: Z46.6 Encounter for fitting and adjustment of urinary device (principal); N20.1 Calculus of ureter; I10 Essential (primary) hypertension; I48.91 Unspecified atrial fibrillation; G47.33 Obstructive sleep apnea (adult) (pediatric); K21.9 Gastro-esophageal reflux disease without esophagitis; E11.9 Type 2 diabetes mellitus without complications; E66.9 Obesity, unspecified; Z68.36 Body mass index [BMI] 36.0-36.9, adult; Z79.899 Other long term (current) drug therapy; Z79.01 Long term (current) use of anticoagulants; Z79.84 Long term (current) use of oral hypoglycemic drugs; Z98.890 Other specified postprocedural states
CPT/HCPCS: 87081

== ENCOUNTER → 2021-06-19 | Outpatient (CLI) | payer OTHER ==
[~2021-06-19] VITALS: Ht 175 cm; Wt 111.0 kg
[~2021-06-19] MED LIST changes: +CATHETER FLUSH 10 ML SYR IV PRN; +REGADENOSON 0.4 MG/5 ML SYR (LEXISCAN) IV ONE
[2021-06-19 12:59] VITALS: BP 143/94
--- NOTE | 2021-06-19 15:28 | Cardiology Stress Test Report ---
Stress Test Report Date of Procedure/Referring: Date of Procedure: Jun 19, 2021 PCP Mario Gomez MD Admitting Physician Joe Hughes DO Indications: HTN Baseline Heart Rate: 67 Baseline Blood Pressure: Blood Pressure Systolic: 143 Blood Pressure Diastolic: 94 Baseline Vitals Vital Signs Date Time Temp Pulse Resp B/P (MAP) Pulse Ox O2 Delivery O2 Flow Rate FiO2 06/19/21 12:59 67 143/94 (110) 99 Baseline EKG: Baseline EKG: NSR Summary After explaining the procedure to the patient, he signed a consent and then brought to the stress nuclear laboratory. Patient received 0.4 mg Lexiscan for stress test, ECG, heart rate and blood pressure were monitored continuously. Resting and stress dose of radio tracer were injected, imaging was acquired and reviewed in short axis, horizontal long axis and vertical long axis views. TID: 1.09 SSS: 10 SDS: 4 EF: 66 1. Patient tolerated test well. 2. Reversible ischemia involving the mid to apical anterior wall, anterolateral wall and inferolateral wall 3. Normal left ventricular size, EF 66% MARIO GOMEZ MD Jun 19, 2021 15:28
== END ==
LOC: CARD 10:00
PROVIDERS: ATTEND Internal Medicine Cardiovascular Disease
DX: I11.9 Hypertensive heart disease without heart failure (principal); I25.10 Atherosclerotic heart disease of native coronary artery without angina pectoris
CPT/HCPCS: 78452; 93017; 93306; A9502

== ENCOUNTER 2021-07-10 06:47 | Day surgery (SDC) | payer OTHER ==
[~2021-07-10] VITALS: Ht 175 cm; Wt 114.0 kg
[~2021-07-10 06:47] MED LIST changes: -ACET325T38 PO; +AMIO200T6 PO; -AMIO200T65 PO; -ASPI-1238 PO; -CLOP75TA69 PO; -CYCL10TA25 PO; +CYCL10TA9 PO; -FEXO-46 PO; -LACT1CAP62 PO; -MAGN500C15 PO; -PANT40SU PO; -UBID30CA13 PO
[2021-07-10] MEDS ORDERED: HEParin (CATH LAB) 2,000 ML IV ONE (06:57)
[2021-07-10] MEDS ORDERED: LIDOCAINE 1% INJ 20 ML 20 ML VIAL ONE (06:57)
[2021-07-10] MEDS ORDERED: NS IV 1000 ML 1,000 ML ONE (06:57)
[2021-07-10] MEDS ORDERED: NS IV 1000 ML 1,000 ML IV SCH ×2 (07:00→10:30)
[2021-07-10 07:09] VITALS: BP 136/86
[2021-07-10 07:16] LABS: HEMATOCRIT 45 % (40-54); HEMOGLOBIN 15.5 g/dL (13.3-17.7); MEAN CORPUSCULAR HEMOGLOBIN 31 pg (25-34); MEAN CORPUSCULAR HGB CONC 34 g/dL (32-36); MEAN CORPUSCULAR VOLUME 91 fL (80-99); MEAN PLATELET VOLUME 9.8 fL (9.0-12.2); PLATELET COUNT 224 10^3/uL (130-400); WHITE BLOOD COUNT 6.5 10^3/uL (4.3-11.0)
[2021-07-10 07:18] LABS: BILIRUBIN,URINE NEGATIVE (NEGATIVE); CLARITY,URINE CLEAR; COLOR,URINE YELLOW; GLUCOSE, URINE (UA) NEGATIVE (NEGATIVE); KETONES,URINE NEGATIVE (NEGATIVE); LEUKOCYTE ESTERASE ,URINE NEGATIVE (NEGATIVE); NITRITE,URINE NEGATIVE (NEGATIVE); PROTEIN,URINE NEGATIVE (NEGATIVE)
--- NOTE | 2021-07-10 07:31 | Diagnostic Imaging Report ---
Indication: Chest pain and coronary artery disease COMPARISON: 11/05/2016 FINDINGS: Heart size and pulmonary vascularity are within normal limits, and the lungs are clear, bilaterally. Left chest wall loop recorder is noted. IMPRESSION: Unremarkable chest. Dictated by: Dictated on workstation # [id number]
[2021-07-10 07:35] LABS: PROTHROMBIN TIME PATIENT 13.6 SEC (12.2-14.7)
[2021-07-10 07:38] LABS: ALBUMIN 4.4 GM/DL (3.2-4.5); BILIRUBIN,TOTAL 0.7 MG/DL (0.1-1.0); CALCIUM 9.6 MG/DL (8.5-10.1); CREATININE SERUM 0.98 MG/DL (0.60-1.30); POTASSIUM 4.2 MMOL/L (3.6-5.0); TOTAL PROTEIN 7.7 GM/DL (6.4-8.2)
[2021-07-10 07:52] LABS: BACTERIA,URINE NEGATIVE /HPF
[2021-07-10] MEDS ORDERED: LACT1CAP62 PO (08:08)
[2021-07-10] MEDS ORDERED: APIX5TAB PO (08:08)
[2021-07-10] MEDS ORDERED: UBID30CA13 PO (08:08)
[2021-07-10] MEDS ORDERED: ACET325T38 PO (08:08)
[2021-07-10] MEDS ORDERED: OMG1KC PO (08:08)
[2021-07-10] MEDS ORDERED: MAGN500C15 PO (08:08)
[2021-07-10] MEDS ORDERED: FEXO-46 PO (08:08)
[2021-07-10] MEDS ORDERED: HEParin 1000 UNIT/ML (10ML VIAL) FOR BOLUS ONE (09:31)
[2021-07-10] MEDS ORDERED: MIDAZOLAM 5 MG/5 ML (VERSED) VIAL ONE (09:31)
[2021-07-10] MEDS ORDERED: NITRO DRIP 25000 MCG/D5W 250 ML IV ONE (09:31)
[2021-07-10] MEDS ORDERED: fentaNYL INJ 100 MCG/2 ML AMP ONE (09:31)
[2021-07-10] MEDS ORDERED: VERAPAMIL 5 MG/2 ML (CALAN) VIAL IV ONE (09:31)
[2021-07-10] MEDS ORDERED: CLOPIDOGREL 300 MG (PLAVIX) TABLET PO ONE (10:18)
[2021-07-10] MEDS ORDERED: ASPIRIN 325 MG (5 GR) TABLET ONE (10:18)
--- NOTE | 2021-07-10 10:29 | Conscious Sedation/ASA ---
Conscious Sedation Pre-Proced Time 09:00 ASA Score 3 For ASA 3 and 4: Consider anesthesia and medical clearance. Also, for patients with a history of failed moderate sedation consider anesthesia. Airway Lungs Heart ASA score ASA 1: a normal healthy patient ASA 2: a patient with a mild systemic disease (mid diabetes, controlled hypertension, obesity x ASA 3: a patient with a severe systemic disease that limits activity (angina, COPD, prior Myocardial infarction) ASA 4: a patient with an incapacitating disease that is a constant threat to life (CHF, renal failure) ASA 5: a moribund patient not expected to survive 24 hrs. (ruptured aneurysm) ASA 6: a declared brain- patient whose organs are being harvested. For emergent operations, add the letter E after the classification Mallampati Classification Grade 3 Sedation Plan Analgesia, Amnesia, Plan communicated to team members, Discussed options with patient/fam, Discussed risks with patient/fam The patient is an appropriate candidate to undergo the planned procedure, sedation, and anesthesia. The patient immediately re-assessed prior to indication. MARIO GOODE MD Jul 10, 2021 10:29
[2021-07-10] MEDS ORDERED: ASPI-1238 PO (10:31)
[2021-07-10] MEDS ORDERED: METF-397 PO (10:31)
[2021-07-10] MEDS ORDERED: CLOP75TA69 PO (10:31)
[2021-07-10] MEDS ORDERED: PANT40SU PO (10:31)
--- NOTE | 2021-07-10 10:32 | Discharge Inst-Post CATH ---
Discharge Inst-CATH/EP Problems Reviewed?: Yes Post Cardiac Cath/EP D/C Inst Follow Up/Plan Hold Metformin for [address] Gomez's office in 2 to 4 weeks <b>CARDIAC CATH/EP PROCEDURE DISCHARGE INSTRUCTIONS</b> ACTIVITY * Go Home directly and rest. * Limit activity of the leg (or wrist if it was used) for 7 days including aerobics, swimming, jogging, bicycling, etc. * Restrict stair-climbing for 7 days if possible, if not, climb up with your non-cath leg, then bring together on the same step. * Avoid lifting, pushing, pulling or excessive movement of the affected extremity for 7 days. * Customary sexual activity may be resumed after 2 days-use caution not to use a position that strains or causes pain to the affected extremity. * No driving for 24 hours. * NO SMOKING. * Avoid straining for bowel movements for 7 days. * Gentle walking on level ground is allowed. * Returning to work will depend on the type of procedure and the results. Your doctor will discuss this with you. CALL YOUR DOCTOR FOR ANY OF THE FOLLOWING: *If bleeding from the puncture site occurs- Apply gentle pressure to site with clean cloth and call your doctor or EMS. * If a knot or lump forms under the skin, increases in size, or causes pain. * If bruising appears to be worsening or moving further down your leg instead of disappearing. * Temperature above 101 F. CARE OF YOUR GROIN INCISION; * Bruising or purple discoloration of the skin near the puncture site is common. * You may shower only, no bathtub bathing for 5 days. Be careful to avoid slipping as your leg may feel stiff. * If a closure device was used on your femoral artery, please see the attached guide regarding care of the device and your leg. * Leave dressing on FOR 24 hours. CARE OF YOUR WRIST INCISION; * Bruising or purple discoloration of the skin near the puncture site is common. * You may shower. * DO NOT submerge wrist. * Leave dressing on FOR 24 hours. MARIO GOMEZ MD Jul 10, 2021 10:32
--- NOTE | 2021-07-10 10:40 | Cardiac Cath Report ---
Cardiac Cath Report Physician (s)/Dough Mixer (s) Physician MARIO GOODE MD Pre-Procedure Diagnosis Pre-Procedure Diagnosis: Coronary artery disease Post-Procedure Note Procedure Start Date: Jul 10, 2021 Name of Procedure: Left heart catheterization Primary stenting to the LAD Findings/Procedure Note PROCEDURE NOTE: 61-year-old gentleman with history of hypertension, hyperlipidemia, paroxysmal atrial fibrillation, diabetes mellitus, had an abnormal stress test with anterior wall ischemia, scheduled for cardiac catheterization possible PTCA. After explaining the procedure to the patient, all pros and cons were explained, all questions were answered. The patient signed the consent and then he was placed on the cardiac catheterization laboratory. Groin was prepped SL fashion local anesthesia was used. Sheath placed in the right radial artery, Ross catheter was advanced to the left ventricular cavity, pressure was measured, pullback LV to aorta was done, engaged the right and left coronary system and angiogram was done. Patient was noted to have severe stenosis in the LAD heavily calcified proximal and mid LAD with moderate disease diffusely. Received a total of 6000 units of heparin, EBU guide was used and BMW wire was advanced and parked in the distal LAD, primary stenting to the mid LAD using drug-eluting stent Skypoint 3 x 18 mm expanded to 3.13 mm with excellent result, the proximal and distal area of the stent is still calcified with moderate disea se nonobstructive disease. At the end of the procedure the sheath was removed. Vascular band deployed FINDINGS: Hemodynamics LV 109/10, end-diastolic pressure of 10 Aorta 108/71 mean of 88 ANATOMY: Left Main is free of obstructive disease Left Anterior Descending is heavily calcified artery involving the proximal and midportion, moderate disease diffusely there is 1 spot in the midportion has severe stenosis successful primary stenting using celina 3 x 18 mm expanded to 3.13 mm with good results, mild to moderate disease in the proximal and mid portion of the LAD Left Circumflex has mild disease nonobstructive disease Right Coronary Artery is dominant artery with 40 to 50% stenosis in the mid right coronary artery CONCLUSION: 1. Heavily calcified proximal and mid LAD with moderate stenosis diffusely, 1 area of severe stenosis in the midportion successful primary stenting using skypoint 3 x 18 mm expanded to 3.13 mm. Still have mild to moderate disease in the proximal and midportion around the stent nonobstructive disease. 2. Mild to moderate disease in the mid right coronary artery with 40 to 50% stenosis otherwise nonobstructive disease 3. Normal left ventricular end-diastolic pressure DISCUSSION AND RECOMMENDATION: Patient was started on aspirin and Plavix in addition to Eliquis Planning to stop aspirin after 6 to 8 weeks Started on Protonix Educated on diet and monitor lipids closely Hold Metformin for 48 hours Anesthesia Type: Conscious Sedation Estimated blood loss (mL): 25 ml Contrast Amount: 89 ml Total Radiation Dose: 1174 mGy Post-Procedure Diagnosis Post-operative diagnosis: Chest pain Coronary artery disease Hypertension Hyperlipidemia MARIO GOODE MD Jul 10, 2021 10:40
[2021-07-10 12:02] VITALS: BP 152/89
[2021-07-10 16:00] VITALS: BP 123/102
== END 2021-07-10 16:13 | disposition home or self-care (01) ==
LOC: CATH 06:47 → CSD 10:53 → CATH 16:13
PROVIDERS: ATTEND Internal Medicine Cardiovascular Disease
DX: I25.10 Atherosclerotic heart disease of native coronary artery without angina pectoris (principal); I10 Essential (primary) hypertension; I48.0 Paroxysmal atrial fibrillation; E11.9 Type 2 diabetes mellitus without complications; E78.2 Mixed hyperlipidemia; E66.9 Obesity, unspecified; J44.9 Chronic obstructive pulmonary disease, unspecified; G47.33 Obstructive sleep apnea (adult) (pediatric); Z79.01 Long term (current) use of anticoagulants; Z79.899 Other long term (current) drug therapy; Z79.84 Long term (current) use of oral hypoglycemic drugs; Z99.89 Dependence on other enabling machines and devices; Z11.2 Encounter for screening for other bacterial diseases; Z68.37 Body mass index [BMI] 37.0-37.9, adult
CPT/HCPCS: 36415; 71045; 80053; 80061; 81000; 85027; 85610; 85730; 87081; 93005; 93458

== ENCOUNTER → 2021-07-10 | Outpatient (CLI) | payer OTHER ==
[~2021-07-10] MED LIST changes: +ACET325T38 PO; -AMIO200T6 PO; +AMIO200T65 PO; +ASPI-1238 PO; -CATHETER FLUSH 10 ML SYR IV PRN; +CLOP75TA69 PO; +CYCL10TA25 PO; -CYCL10TA9 PO; +FEXO-46 PO; +LACT1CAP62 PO; +MAGN500C15 PO; +PANT40SU PO; -REGADENOSON 0.4 MG/5 ML SYR (LEXISCAN) IV ONE; +UBID30CA13 PO
== END ==
LOC: CARD 06:40
PROVIDERS: ATTEND Internal Medicine Cardiovascular Disease
DX: Z53.9 Procedure and treatment not carried out, unspecified reason (principal)

== ENCOUNTER 2022-02-04 07:32 | Observation (INO) | payer OTHER ==
[~2022-02-04] VITALS: Ht 175.3 cm; Wt 112.0 kg
[~2022-02-04 07:32] MED LIST changes: +ACET325T38 PO; -AMIO200T6 PO; +AMIO200T65 PO; +ASPI-1238 PO; +CLOP75TA69 PO; +CYCL10TA25 PO; -CYCL10TA9 PO; +LACT1CAP62 PO; +MAGN500C15 PO; +NF-ALLE180 PO; +PANT40SU PO; +UBID30CA13 PO
[2022-02-04] MEDS ORDERED: PHARMACY TO DOSE IV ONE (08:00)
--- NOTE | 2022-02-04 08:33 | Cardiology History & Physical ---
HPI-Cardiology Cardiology Consultation Date of Consultation 02/04/22 Date of Admission Time Seen by Provider: 08:30 Indication: Atrial fibrillation HPI 61-year-old gentleman with coronary artery disease, chest pain, paroxysmal atrial fibrillation, failed attempted treatment with Multaq. Patient is still having recurrent episodes of atrial flutter and atrial fibrillation. He was admitted for loading with sotalol. Denies any chest pain, no shortness of breath. No palpitation. No syncope. PMH-Cardiology Immunizations Up To Date Tetanus Booster (DTap): More than 5yrs Date of Pneumonia Vaccine: May 16, 2020 Date of Influenza Vaccine: May 31, 2020 Seasonal Allergies Seasonal Allergies: Yes Surgeries Yes (cardiac ablation, several for kidney stones) Appendectomy Respiratory Yes Cardiovascular Yes (S/P ABLATION) Atrial Fibrillation Neurological No Reproductive System Hx Reproductive Disorders: No Sexually Transmitted Disease: No HIV/AIDS: No Genitourinary Yes Kidney Stones Gastrointestinal Yes Gastroesophageal Reflux, Polyps Musculoskeletal No Endocrine Yes (PRE DIABETIC) Diabetes, Non-Insulin dep HEENT No Loss of Vision: Denies Hearing Impairment: Denies Cancer No Psychosocial No Integumentary No Blood Transfusions No Adverse Rxn to Transfusion: No Social History Patient Social History Marrital Status: Employed/Student: employed Dip or chew tobacco?: No Have you traveled recently?: No Family Hx Significant Family History: No Pertinent Family Hx, Heart Disease Other Noncontributory to his current condition ROS-Cardiology Review of Systems General: No Chills, No Night Sweats, No Fatigue, No Malaise, No Appetite HEENT: No Head Aches, No Visual Changes, No Eye Pain, No Ear Pain, No Dysphasia, No Sinus Congestion, No Post Nasal Drip, No Sore Throat Pulmonary: No Dyspnea, No Cough, No Pleuritic Chest Pain Cardiovascular: No: Chest Pain, Palpitations, Orthopnea, Paroxysmal Noc. Dyspnea, Edema, Lt Headedness Gastrointestinal: No: Nausea, Vomiting, Abdominal Pain, Diarrhea, Constipation, Melena, Hematochezia Genitourinary: No Dysuria, No Frequency, No Incontinence, No Hematuria, No Retention Musculoskeletal: No: neck pain, shoulder pain, arm pain, back pain, hand pain, leg pain, foot pain Neurological: No: Weakness, Numbness, Incoordination, Change in speech, Confusion, Seizures Home Medications & Allergies Allergies: Coded Allergies: No Known Drug Allergies (Unverified , 04/26/21) Home Medication List Reviewed: Yes Exam-Cardiology Vital Signs Vital Signs Date Time Temp Pulse Resp B/P (MAP) Pulse Ox O2 Delivery O2 Flow Rate FiO2 02/04/22 08:00 77 18 135/97 95 Room Air Exam General Appearance: Alert, Oriented X3, Cooperative, No Acute Distress HEENT: Atraumatic, PERRLA Respiratory: Clear to Auscultation, Normal Air Movement Cardiovascular: Normal S1, Normal S2, No Murmurs, Other (Atrial fibrillation) Abdominal: Normal Bowel Sounds, Soft, No Tenderness, No Hepatosplenomegaly, No Masses Extremities: No Clubbing, No Cyanosis, No Edema, Normal Pulses, No Tenderness/Swelling Skin: No Rashes, No Breakdown, No Significant Lesion Neuro: Normal Gait, Normal Speech, Strength at 5/5 X4 Ext, Normal Tone, Sensation Intact Psych/Mental Status: Mental Status NL, Mood NL Results Labs Labs Laboratory Tests 02/04/22 08:10: A/P-Cardiology Admission Diagnosis Paroxysmal atrial fibrillation Coronary artery disease Hypertension Hyperlipidemia Admission Status: Observation Assessment/Plan Paroxysmal atrial fibrillation, had cardioversion done in October 2016. History of atrial fibrillation/atrial flutter ablation done in December 2016. Loop monitor implanted showing multiple episode of paroxysmal atrial fibrillation and flutter Failed amiodarone treatment frequent episodes of atrial fibrillation, changed to Multaq without success. He is admitted for loading with sotalol, he was seen and followed by Dr. Payne I am planning to do electrical cardioversion if he did not convert with sotalol. He did not miss or skip any doses of his Eliquis. Coronary artery disease, Cardiac catheterization done in January 2017 showing nonobstructive disease. Had a normal stress test on 06/27/2021, cardiac catheterization done on 07/10/2021 showing heavily calcified proximal and mid LAD with moderate stenosis diffusely, only 1 area of severe stenosis in the midportion with successful primary stenting using celina point stent 3 x 18 expanded to 3.13 mm with mild to moderate disease at the proximal and midportion around the stent nonobstructive disease. Mild to moderate disease at the mid right coronary artery with 40 to 50% stenosis otherwise nonobstructive disease with normal left ventricular end- diastolic pressure. Patient is maintained on Plavix and Eliquis. Chest pain, nonspecific etiology. Reporting improvement. Continue to monitor 2D echocardiogram done on June 27, 2021 showing normal LV size, EF 65 to 70%, left atrium 4.7 cm, PA 30 to 35 mmHg. [id number] score is 2, yearly risk of stroke without oral anticoagulation is 2.2 percent. Patient is maintained on Eliquis 5 mg twice daily and tolerating it well Hypertension, controlled, continue to monitor blood pressure/heart rate. Hyperlipidemia, maintained on Lipitor, lipid profile done on 07/12/2021 showing. He was seen and followed cholesterol 155, triglyceride 132, HDL 41, LDL 87. Continue to monitor Diabetes mellitus, followed and managed by primary care physician COPD/obstructive sleep apnea, maintained on CPAP Carotid bruit, nonobstructive disease per carotid duplex done October 2021. MARIO GOODE MD Feb 04, 2022 08:33
[2022-02-04 08:38] LABS: CALCIUM 9.3 MG/DL (8.5-10.1); CREATININE SERUM 1.08 MG/DL (0.60-1.30); POTASSIUM 3.8 MMOL/L (3.6-5.0)
[2022-02-04] MEDS ORDERED: amLODIPine 5 MG (NORVASC) TAB PO SCH ×2 (09:00→21:00)
[2022-02-04] MEDS ORDERED: PANTOPRAZOLE 40 MG (PROTONIX) TAB PO SCH (09:00)
[2022-02-04] MEDS ORDERED: APIXABAN 5 MG (ELIQUIS) TABLET PO SCH (09:00)
[2022-02-04] MEDS ORDERED: CLOPIDOGREL 75 MG (PLAVIX) TABLET PO SCH (09:00)
[2022-02-04] MEDS ORDERED: SOTALOL IV ONE (09:30)
[2022-02-04] MEDS ORDERED: NS IV ONE (09:30)
[2022-02-04] MEDS ORDERED: PATIENT MAY USE OWN MEDS, ALL MC SCH (09:45)
[2022-02-04] MEDS ORDERED: SOTALOL 80 MG (BETAPACE) TAB PO ONE ×2 (11:00→15:00)
--- NOTE | 2022-02-04 12:19 | Tele-ICU Progress Note ---
Progress Note Video assessment done , Hemodynamically stable Available charting reviewed NO TELE-ICU CONSULT REQUESTED CONTINUE TO MONITOR PER USUAL TELE-ICU PROTOCOL No need for Tele-ICU interventions Plans as delineated by bedside physicians / consultants Focused Exam Height, Weight, BMI Height: 5'9.00" Weight: 239lbs. 0.0oz. [id number]; 36.44 BMI Method:Stated JUSTICE GUZMAN MD Feb 04, 2022 12:19
[2022-02-04] MEDS ORDERED: CLOP75TA69 PO (12:51)
[2022-02-04] MEDS ORDERED: MAGN400T39 PO (12:51)
[2022-02-04] MEDS ORDERED: UBID200C16 PO (12:51)
[2022-02-04] MEDS ORDERED: METF-397 PO (12:51)
[2022-02-04] MEDS ORDERED: PANT40TA52 PO (12:51)
[2022-02-04] MEDS: APIXABAN 5 MG (ELIQUIS) TABLET PO SCH (20:57)
[2022-02-05] MEDS ORDERED: SOTALOL 80 MG (BETAPACE) TAB PO SCH (03:00)
[2022-02-05] MEDS ORDERED: PANTOPRAZOLE 40 MG (PROTONIX) TAB PO SCH ×2 (05:00→09:00)
[2022-02-05 05:51] LABS: BASOPHILS % (AUTO) 1 % (0-10); EOSINOPHILS # (AUTO) 0.1 10^3/uL (0.0-0.3); EOSINOPHILS % (AUTO) 1 % (0-10); HEMATOCRIT 45 % (40-54); HEMOGLOBIN 15.4 g/dL (13.3-17.7); LYMPHOCYTES # (AUTO) 1.7 10^3/uL (1.0-4.0); LYMPHOCYTES % (AUTO) 27 % (12-44); MEAN CORPUSCULAR HEMOGLOBIN 31 pg (25-34); MEAN CORPUSCULAR HGB CONC 34 g/dL (32-36); MEAN CORPUSCULAR VOLUME 91 fL (80-99); MONOCYTES # (AUTO) 0.5 10^3/uL (0.0-1.0); MONOCYTES % (AUTO) 7 % (0-12); NEUTROPHILS % (AUTO) 64 % (42-75); PLATELET COUNT 186 10^3/uL (130-400); WHITE BLOOD COUNT 6.3 10^3/uL (4.3-11.0)
[2022-02-05 06:00] LABS: POTASSIUM 3.7 MMOL/L (3.6-5.0)
[2022-02-05 06:02] LABS: TOTAL PROTEIN 6.7 GM/DL (6.4-8.2)
[2022-02-05 06:04] LABS: BILIRUBIN,TOTAL 0.9 MG/DL (0.1-1.0)
[2022-02-05 06:06] LABS: CREATININE SERUM 0.94 MG/DL (0.60-1.30)
[2022-02-05 06:08] LABS: MAGNESIUM 2.1 MG/DL (1.6-2.4)
[2022-02-05] MEDS ORDERED: KCL 20 MEQ TAB (K-DUR) PO SCH (07:00)
[2022-02-05] MEDS ORDERED: proPOfol 200 MG/20 ML (DIPRIVAN) VIAL IV ONE (08:28)
[2022-02-05] MEDS ORDERED: NS IV 500 ML 500 ML ONE (08:29)
--- NOTE | 2022-02-05 08:46 | Anesthesia-General Post-Op ---
MAC Patient Condition Mental Status/LOC: Same as Preop Cardiovascular: Satisfactory Nausea/Vomiting: Absent Respiratory: Satisfactory Pain: Controlled Complications: Absent Post Op Complications Complications None Follow Up Care/Instructions Patient Instructions None needed. Anesthesiology Discharge Order Discharge Order Patient is doing well, no complaints, stable vital signs, no apparent adverse anesthesia problems. No complications reported per nursing. SUKI AMBROSIO CRNA Feb 05, 2022 08:46
--- NOTE | 2022-02-05 08:46 | Cardioversion ---
Cardioversion PROCEDURE PHYSICIAN: Mario Gomez DATE OF PROCEDURE: 02/05/22 DIRECT EXTERNAL ELECTRICAL CARDIOVERSION: Indications: Atrial Fibrillation Preoperative diagnoses: Atrial Fibrillation Postoperative diagnosis: Sinus rhythm, Successful Electrical Cardioversion History: 61 years old gentleman with paroxysmal atrial fibrillation/flutter, had ablation in the past. Was admitted for loading with IV sotalol. Heart rate is better controlled, still in atrial fibrillation. Patient did not miss or skip any of his doses of anticoagulation. I scheduled him for elective cardioversion. Anesthesia: By Anesthesia services Complications: None Specimen: None Contrast: 0 Flouroscopy: none Procedure Details: The patient was brought the lab rn after informed consent was taken, all the risks and complications were explained including the risk of stroke. Electrical cardioversion was carried out with anesthesia support with propofol. 200 joules of synchronized shock was delivered through external patches which promptly restored sinus rhythm. The patient tolerated the procedure well. Conclusions: Successful electrical cardioversion in terminating atrial fibrillation Final Diagnosis: Paroxysmal atrial fibrillation Paroxysmal atrial flutter Palpitation Hypertension MARIO GOMEZ MD Feb 05, 2022 08:46
[2022-02-05] MEDS ORDERED: CLOPIDOGREL 75 MG (PLAVIX) TABLET PO SCH ×2 (09:00→17:00)
[2022-02-05] MEDS ORDERED: STL80T PO (09:33)
--- NOTE | 2022-02-05 09:33 | Discharge Inst-Post CATH ---
Discharge Inst-CATH/EP Problems Reviewed?: Yes Post Cardiac Cath/EP D/C Inst Follow Up/Plan Appointment with Dr. Gomez's office in 1 to 2 weeks <b>CARDIAC CATH/EP PROCEDURE DISCHARGE INSTRUCTIONS</b> ACTIVITY * Go Home directly and rest. * Limit activity of the leg (or wrist if it was used) for 7 days including aer obics, swimming, jogging, bicycling, etc. * Restrict stair-climbing for 7 days if possible, if not, climb up with your non-cath leg, then bring together on the same step. * Avoid lifting, pushing, pulling or excessive movement of the affected extremi ty for 7 days. * Customary sexual activity may be resumed after 2 days-use caution not to use a position that strains or causes pain to the affected extremity. * No driving for 24 hours. * NO SMOKING. * Avoid straining for bowel movements for 7 days. * Gentle walking on level ground is allowed. * Returning to work will depend on the type of procedure and the results. Your doctor will discuss this with you. CALL YOUR DOCTOR FOR ANY OF THE FOLLOWING: *If bleeding from the puncture site occurs- Apply gentle pressure to site with clean cloth and call your doctor or EMS. * If a knot or lump forms under the skin, increases in size, or causes pain. * If bruising appears to be worsening or moving further down your leg instead of disappearing. * Temperature above 101 F. CARE OF YOUR GROIN INCISION; * Bruising or purple discoloration of the skin near the puncture site is common. * You may shower only, no bathtub bathing for 5 days. Be careful to avoid slipping as your leg may feel stiff. * If a closure device was used on your femoral artery, please see the attached guide regarding care of the device and your leg. * Leave dressing on FOR 24 hours. CARE OF YOUR WRIST INCISION; * Bruising or purple discoloration of the skin near the puncture site is common. * You may shower. * DO NOT submerge wrist. * Leave dressing on FOR 24 hours. MARIO GOMEZ MD Feb 05, 2022 09:33
--- NOTE | 2022-02-05 09:37 | Short Stay Summary ---
Discharge Summary Hospital Course Was the Problem List Reviewed?: Yes Final Diagnosis: PAF, PALPITATION, HTN Hospital Course Date of Admission: Feb 04, 2022 at 07:32 Admission Diagnosis : Family Physician/Provider: Joe Hughes DO Date of Discharge: 02/05/22 Discharge Diagnosis: [Paroxysmal atrial fibrillation Paroxysmal atrial flutter Palpitation Hypertension Coronary artery disease] Hospital Course: [ Paroxysmal atrial fibrillation, had cardioversion done in October 2016. History of atrial fibrillation/atrial flutter ablation done in December 2016. Loop monitor implanted showing multiple episode of paroxysmal atrial fibrillation and flutter Failed amiodarone treatment frequent episodes of atrial fibrillation, changed to Multaq without success. He is admitted for loading with sotalol, he was seen and followed by Dr. Payne Patient tolerated sotalol dosing, stayed in atrial fibrillation Underwent electrical cardioversion on February 05, 2022, maintaining sinus rhythm Planning for discharge today Coronary artery disease, Cardiac catheterization done in January 2017 showing nonobstructive disease. Had a normal stress test on 06/27/2021, cardiac catheterization done on 07/10/2021 showing heavily calcified proximal and mid LAD with moderate stenosis diffusely, only 1 area of severe stenosis in the midportion with successful primary stenting using celina point stent 3 x 18 expanded to 3.13 mm with mild to moderate disease at the proximal and midportion around the stent nonobstructive disease. Mild to moderate disease at the mid right coronary artery with 40 to 50% stenosis otherwise nonobstructive disease with normal left ventricular end- diastolic pressure. Patient is maintained on Plavix and Eliquis. Chest pain, nonspecific etiology. Reporting improvement. Continue to monitor 2D echocardiogram done on June 27, 2021 showing normal LV size, EF 65 to 70%, left atrium 4.7 cm, PA 30 to 35 mmHg. [id number] score is 2, yearly risk of stroke without oral anticoagulation is 2.2 percent. Patient is maintained on Eliquis 5 mg twice daily and tolerating it well Hypertension, controlled, continue to monitor blood pressure/heart rate. Hyperlipidemia, maintained on Lipitor, lipid profile done on 07/12/2021 showing. He was seen and followed cholesterol 155, triglyceride 132, HDL 41, LDL 87. Continue to monitor Diabetes mellitus, followed and managed by primary care physician COPD/obstructive sleep apnea, maintained on CPAP Carotid bruit, nonobstructive disease per carotid duplex done October 2021.] Labs and Pending Lab Test: Laboratory Tests 02/05/22 05:40: White Blood Count 6.3, Red Blood Count 4.95, Hemoglobin 15.4, Hematocrit 45, Mean Corpuscular Volume 91, Mean Corpuscular Hemoglobin 31, Mean Corpuscular Hemoglobin Concent 34, Red Cell Distribution Width 15.1H, Platelet Count 186, Mean Platelet Volume 10.0, Immature Granulocyte % (Auto) 1, Neutrophils (%) (Auto) 64, Lymphocytes (%) (Auto) 27, Monocytes (%) (Auto) 7, Eosinophils (%) (Auto) 1, Basophils (%) (Auto) 1, Neutrophils # (Auto) 4.0, Lymphocytes # (Auto) 1.7, Monocytes # (Auto) 0.5, Eosinophils # (Auto) 0.1, Basophils # (Auto) 0.0, Immature Granulocyte # (Auto) 0.0, Sodium Level 139, Potassium Level 3.7, Chloride Level 106, Carbon Dioxide Level 20L, Anion Gap 13, Blood Urea Nitrogen 23H, Creatinine 0.94, Estimat Glomerular Filtration Rate 92, BUN/Creatinine Ratio 24, Glucose Level 99, Calcium Level 9.0, Corrected Calcium 9.0, Magnesium Level 2.1, Total Bilirubin 0.9, Aspartate Amino Transf (AST/SGOT) 23, Alanine Aminotransferase (ALT/SGPT) 48, Alkaline Phosphatase 99, Total Protein 6.7, Albumin 4.0 Home Meds Active Sotalol (Sotalol HCl) 80 Mg Tablet 80 Mg PO BID@0300,1500 Reported Magnesium (Magnesium Oxide) 400 Mg Magnesium Tablet 400 Mg PO HS Pantoprazole Sodium 40 Mg Tablet.dr 40 Mg PO 0500 Plavix (Clopidogrel Bisulfate) 75 Mg Tablet 75 Mg PO 1700 Metformin HCl 500 Mg Tablet 500 Mg PO HS Co Q-10 (Ubidecarenone) 200 Mg Capsule 200 Mg PO HS Tylenol (Acetaminophen) 325 Mg Tablet 650 Mg PO Q6H PRN Probiotic (Lactobacillus Acidophilus) 1 Each Capsule 1 Each PO HS Fish Oil 1,000 mg Capsule ([place] 3 Polyunsat Fatty Acids) 1,000 Mg Cap 1,000 Mg PO HS Fexofenadine HCl 180 Mg Tablet 180 Mg PO DAILY PRN Eliquis (Apixaban) 5 Mg Tablet 5 Mg PO BID Multivitamin 1 Each Tablet 1 Each PO HS Amlodipine Besylate 5 Mg Tablet 5 Mg PO 1700 Potassium Chloride 20 Meq Tablet.er 20 Meq PO HS Atorvastatin Calcium 40 Mg Tablet 40 Mg PO HS Metoprolol Succinate 50 Mg Tab.er.24h 50 Mg PO 0500 Allopurinol 300 Mg Tablet 300 Mg PO HS Hydrochlorothiazide 25 Mg Tablet 25 Mg PO 0500 Assessment/Pt Instructions Appointment with Dr. Goode's office in 1 to 2 weeks Discharge Instructions Discharge Diet: Cardiac Diet Activity as Tolerated: Yes Discharge Physical Examination General Appearance: Alert, Oriented X3, Cooperative HEENT: Atraumatic, PERRLA Respiratory: Clear to Auscultation, Normal Air Movement Cardiovascular: Regular Rate, Normal S1, Normal S2 Abdominal: Normal Bowel Sounds, Soft Extremities: No Clubbing, No Cyanosis Skin: No Rashes, No Breakdown Neuro: Normal Gait, Normal Speech, Strength at 5/5 X4 Ext Allergies: Coded Allergies: No Known Drug Allergies (Unverified , 04/26/21) Discharge Summary Date of Admission Feb 04, 2022 at 07:32 Date of Discharge February 05, 2022 Discharge Date: Feb 05, 2022 Discharge Time: 1100 Admission Diagnosis Paroxysmal atrial fibrillation Paroxysmal atrial flutter MARIO GOODE MD Feb 05, 2022 09:37
[2022-02-05] MEDS: APIXABAN 5 MG (ELIQUIS) TABLET PO SCH (09:48)
[2022-02-05 12:22] VITALS: BP 124/100
[2022-02-05] MEDS ORDERED: ALLOPURINOL 300 MG (ZYLOPRIM) TAB PO SCH (21:00)
== END 2022-02-05 11:42 | disposition home or self-care (01) ==
LOC: ICU 07:32
PROVIDERS: ADMIT Internal Medicine Cardiovascular Disease; ATTEND Internal Medicine Cardiovascular Disease
DX: I48.0 Paroxysmal atrial fibrillation (principal); I48.92 Unspecified atrial flutter; Z79.01 Long term (current) use of anticoagulants; I25.10 Atherosclerotic heart disease of native coronary artery without angina pectoris; R00.2 Palpitations; I10 Essential (primary) hypertension; E78.5 Hyperlipidemia, unspecified; E11.9 Type 2 diabetes mellitus without complications; J44.9 Chronic obstructive pulmonary disease, unspecified; G47.33 Obstructive sleep apnea (adult) (pediatric); R09.89 Other specified symptoms and signs involving the circulatory and respiratory systems; Z95.5 Presence of coronary angioplasty implant and graft
CPT/HCPCS: 36415; 80048; 80053; 83735; 85025; 93005; 96365; 96366; G0378

== ENCOUNTER 2022-07-05 16:57 | Emergency (ER) | payer BC, OTHER ==
[~2022-07-05] VITALS: Ht 175.2 cm; Wt 112.0 kg
[~2022-07-05 16:57] MED LIST changes: +MAGN400T39 PO; +PANT40TA52 PO; +STL80T PO
--- NOTE | 2022-07-05 17:43 | ED General ---
General Chief Complaint: Cough/Cold/Flu Symptoms Stated Complaint: BODYACHES/FEVER/NO APPETITE/CONGESTION Nursing Triage Note: FEVER, PHLEM IN THROAT, BODY ACHES SINCE THIS AM. TYLENOL IDALIA AT HOME. Source of Information: Patient Exam Limitations: No Limitations (LYRIC MALIK MD) History of Present Illness Date Seen by Provider: Jul 05, 2022 Time Seen by Provider: 17:33 Initial Comments Patient is a 16-year-old male who presents to the emergency department with a chief complaint 24 hours sore throat, body aches, malaise, no appetite. Went to on to have preop imaging done for cardiac ablation he is scheduled to have this coming Thursday with Dr. Payne. He has been on the schedule for 3 months now. He is currently off his sotalol in preparation for the ablation. He is chronically in atrial fibrillation and anticoagulated on Eliquis. He is COVID vaccinated x4. He does not believe he has been around anybody sick with COVID-like symptoms although he did have contact with grandchildren 1 2 and 1 7 or 8 yesterday. He denies shortness of breath or productive cough. He does have a little phlegm, brownish and thick. He is not a smoker. No complaints of nausea, vomiting, diarrhea. No urinary complaints. He has been drinking water today but has not really eaten much. All other review of systems reviewed and negative except as stated Timing/Duration: 24 Hours Severity: Mild Associated Systoms: Loss of Appetite, Malaise, Other (Sore throat) (LYRIC MALIK MD) Allergies and Home Medications Allergies Coded Allergies: No Known Drug Allergies (Unverified , 07/05/22) Patient Home Medication List Home Medication List Reviewed: Yes (LYRIC MALIK MD) Acetaminophen (Tylenol) 325 Mg Tablet, 650 MG PO Q6H PRN for PAIN-MILD (1-4), (Reported) Entered as Reported by: CATHERINE RICE on 07/10/21 0808 Allopurinol (Allopurinol) 300 Mg Tablet, 300 MG PO HS, (Reported) Entered as Reported by: JACQUELINE MARY on 04/26/21 1126 Amlodipine Besylate (Amlodipine Besylate) 5 Mg Tablet, 5 MG PO 1700, (Reported) Entered as Reported by: JACQUELINE MARY on 04/26/21 112 Apixaban (Eliquis) 5 Mg Tablet, 5 MG PO BID, (Reported) Entered as Reported by: CATHERINE RICE on 07/10/21 08 Atorvastatin Calcium (Atorvastatin Calcium) 40 Mg Tablet, 40 MG PO HS, (Reported) Entered as Reported by: JACQUELINE MARY on 04/26/21 112 Clopidogrel Bisulfate (Plavix) 75 Mg Tablet, 75 MG PO 1700, (Reported) Entered as Reported by: CATHERINE RICE on 02/04/22 125 Fexofenadine HCl (Fexofenadine HCl) 180 Mg Tablet, 180 MG PO DAILY PRN for ALLERGIES, (Reported) Entered as Reported by: CATHERINE RICE on 07/10/21 08 Hydrochlorothiazide (Hydrochlorothiazide) 25 Mg Tablet, 25 MG PO 0500, (Reported) Entered as Reported by: RED SHETH on 06/09/16 0757 Lactobacillus Acidophilus (Probiotic) 1 Each Capsule, 1 EACH PO HS, (Reported) Entered as Reported by: CATHERINE RICE on 07/10/21 08 Magnesium Oxide (Magnesium) 400 Mg Magnesium Tablet, 400 MG PO HS, (Reported) Entered as Reported by: CATHERINE RICE on 02/04/22 125 Metformin HCl (Metformin HCl) 500 Mg Tablet, 500 MG PO HS, (Reported) Entered as Reported by: CATHERINE RICE on 02/04/22 125 Multivitamin (Multivitamin) 1 Each Tablet, 1 EACH PO HS, (Reported) Entered as Reported by: ALANIS LONG on 05/16/21 1009 [place] 3 Polyunsat Fatty Acids (Fish Oil 1,000 mg Capsule) 1,000 Mg Cap, 1,000 MG PO HS, (Reported) Entered as Reported by: CATHERINE RICE on 07/10/21 08 Pantoprazole Sodium (Pantoprazole Sodium) 40 Mg Tablet.dr, 40 MG PO 0500, (Reported) Entered as Reported by: CATHERINE RICE on 02/04/22 125 Potassium Chloride (Potassium Chloride) 20 Meq Tablet.er, 20 MEQ PO HS, (Reported) Entered as Reported by: JACQUELINE MARY on 04/26/21 112 Sotalol HCl (Sotalol) 80 Mg Tablet, 80 MG PO BID@0300,1500 Prescribed by: MARIO GOODE on 02/05/22 0933 Ubidecarenone (Co Q-10) 200 Mg Capsule, 200 MG PO HS, (Reported) Entered as Reported by: CATHERINE RICE on 02/04/22 1251 Review of Systems Review of Systems Constitutional: see HPI, malaise EENTM: nose congestion, throat pain Respiratory: no symptoms reported Cardiovascular: no symptoms reported Gastrointestinal: loss of appetite Genitourinary: no symptoms reported Musculoskeletal: muscle pain (Body aches) Skin: no symptoms reported Psychiatric/Neurological: No Symptoms Reported (LYRIC MALIK MD) All Other Systems Reviewed Negative Unless Noted: Yes (LYRIC MALIK MD) Past Lakaoje-Xbdogx-Noqkwb Hx Patient Social History Tobacco Use?: No Use of E-Cig and/or Vaping dev: No Substance use?: No Alcohol Use?: No (LYRIC MALIK MD) Immunizations Up To Date Tetanus Booster (TDap): More than 5yrs Influenza Vaccine Up-to-Date: Yes; Up-to-Date First/Initial COVID19 Vaccinat: OCTOBER 2020, Second COVID19 Vaccination Matt: NOVEMBER 2020, MODERNA Third COVID19 Vaccination Date: (LYRIC MALIK MD) Seasonal Allergies Seasonal Allergies: Yes (LYRIC MALIK MD) Past Medical History Surgery/Hospitalization HX: LOOP RECORDER 01/2019 CARDIAC ABLATION FOR ATRIAL FIBRILLATION APPENDECTOMY COLONOSCOPY/POLYPECTOMY 05/[address] SEGURA Surgeries: Yes (cardiac ablation, several for kidney stones) Appendectomy, Cardiac Respiratory: Yes Sleep Apnea Currently Using CPAP: Yes Currently Using BIPAP: No Cardiac: Yes (S/P ABLATION) Atrial Fibrillation, High Cholesterol, Hypertension Neurological: No Reproductive Disorders: No Sexually Transmitted Disease: No HIV/AIDS: No Genitourinary: Yes Kidney Stones Gastrointestinal: Yes Gastroesophageal Reflux, Polyps Musculoskeletal: No Endocrine: Yes (PRE DIABETIC) Diabetes, Non-Insulin dep HEENT: No Loss of Vision: Denies Hearing Impairment: Denies Cancer: No Psychosocial: No Integumentary: No Blood Disorders: No Adverse Reaction/Blood Tranf: No (LYRIC MALIK MD) Family Medical History No Pertinent Family Hx, Heart Disease (LYRIC MALIK MD) Physical Exam Vital Signs Vital Signs - First Documented 07/05/22 17:05 Temp 37.7 Pulse 109 Resp 18 B/P (MAP) 151/88 (109) Pulse Ox 95 O2 Delivery Room Air (JACQUELINE ROSADO DO) Vital Signs Capillary Refill : Less Than 3 Seconds (LYRIC MALIK MD) Height, Weight, BMI Height: 5'9.00" Weight: 239lbs. 0.0oz. [id number]; 36.00 BMI Method:Stated General Appearance: No Apparent Distress, WD/WN Eyes: Bilateral Eye Normal Inspection, Bilateral Eye PERRL, Bilateral Eye EOMI HEENT: PERRL/EOMI, TMs Normal, Normal ENT Inspection, Pharyngeal Erythema (Very mild pharyngeal erythema) Neck: Supple (No cervical lymphadenopathy) Respiratory: Lungs Clear, Normal Breath Sounds, No Accessory Muscle Use, No Respiratory Distress Cardiovascular: Normal Peripheral Pulses, Irregularly Irregular, Tachycardia (110-130) Gastrointestinal: Non Tender, Soft Extremity: Normal Range of Motion Neurologic/Psychiatric: Alert, Oriented x3, Normal Mood/Affect Skin: Normal Color, Warm/Dry (LYRIC MALIK MD) Progress/Results/Core Measures Suspected Sepsis SIRS Temperature: Pulse: 109 Respiratory Rate: 18 Blood Pressure 151 /88 Mean: 109 (LYRIC MALIK MD) Results/Orders Lab Results Laboratory Tests Test 07/05/22 17:12 07/05/22 18:19 Range/Units Influenza Type A (RT-PCR) Not Detected Not Detecte Influenza Type B (RT-PCR) Not Detected Not Detecte SARS-CoV-2 RNA (RT-PCR) Detected H Not Detecte Glucometer 118 H 70-110 MG/DL (ALONZOARTURA K ) My Orders Orders - ALONZOJACQUELINE K DO Acetaminophen Tablet (Tylenol Tablet) (07/05/22 19:00) Ibuprofen Tablet (Motrin Tablet) (07/05/22 19:00) (ALONZOJACQUELINE K DO) Medications Given in ED Current Medications Medications Dose Ordered Sig/Hussain Route Start Time Stop Time Status Last Admin Dose Admin Acetaminophen 1,000 mg ONCE ONCE PO 07/05/22 19:00 07/05/22 19:01 DC 07/05/22 19:07 1,000 MG Bebtelovimab 175 mg ONCE ONCE IV 07/05/22 18:00 07/05/22 18:01 DC 07/05/22 18:32 175 MG Ibuprofen 800 mg ONCE ONCE PO 07/05/22 19:00 07/05/22 19:01 DC 07/05/22 19:07 800 MG (ALONZOJACQUELINE K DO) Vital Signs/I&O 07/05/22 07/05/22 07/05/22 17:05 19:07 19:07 Temp 37.7 39.3 39.3 Pulse 109 Resp 18 B/P (MAP) 151/88 (109) Pulse Ox 95 O2 Delivery Room Air (ALONZO,JACQUELINE K DO) Vital Signs/I&O Capillary Refill : Less Than 3 Seconds (LYRIC MALIK MD) Blood Pressure Mean: 109 Progress Note #1: Time: 17:42 Progress Note 62-year-old male with COVID-like complaints. 24 hours. Nontoxic in appearance. Chronic A. fib heart rate in the 110-130 range. Asymptomatic of this. COVID flu test obtained. Accu-Chek obtained. Clinically does not appear dehydrated. Not in heart failure. Except that he would be in A. fib and rapid ventricular rate as he was taken off of sotalol for 3 days prior to his ablation scheduled for this Thursday. Disposition pending COVID results. Progress Note #2: Time: 17:53 Progress Note Patient found to be COVID-positive. He is 24 hours into his symptoms and would meet criteria for monoclonal antibody infusion. He is informed of the benefits of infusion as well as risks. I informed him as well that it is still under emergency use authorization. He would like to do this versus the Paxlovid/oral antiviral therapy. Patient will receive some IV fluids after his monoclonal infusion secondary to poor appetite over the last 24 hours he is probably a little volume depleted. This may help his rate even though I suspect he is A. fib RVR secondary to coming off his sotalol today. Patient is advised to call [facility] on Thursday morning and let them know of his COVID- positive status. He verbalized understanding. He is comfortable with plan of care. All questions are sought and answered (LYRIC MALIK MD) Departure Impression Primary Impression: COVID-19 Additional Impression: Atrial fibrillation with rapid ventricular response Disposition: HOME, SELF-CARE Condition: Stable Departure-Patient Inst. Decision time for Depature: 19:30 (JACQUELINE ROSADO DO) Referrals: ZENAIDA MELENDEZ DO (PCP/Family) Primary Care Physician Patient Instructions: COVID-19 ED, Bamlanivimab FDA Fact Sheet, Preventing the Spread of an Infectious Disease Add. Discharge Instructions: HOME, REST LOTS OF CLEAR LIQUIDS--WATER, BROTH, JELLO, GATORADE TYLENOL 1 GRAM AND MOTRIN 800 MG 4 TIMES A DAY FOR PAIN OR FEVER OVER 101 OVER THE COUNTER MEDICATIONS FOR COUGH AND CONGESTION CALL YOUR CASTER HELPER ON THURSDAY REGARDING YOUR UPCOMING PROCEDURE RETURN TO ER IF SYMPTOMS WORSEN All discharge instructions reviewed with patient and/or family. Voiced understanding. LYRIC MALIK MD Jul 05, 2022 17:43 JACQUELINE ROSADO DO Jul 05, 2022 19:32
[2022-07-05] MEDS ORDERED: NS IV 1000 ML 1,000 ML IV SCH (18:00)
[2022-07-05] MEDS ORDERED: BEBTELOVIMAB 175 MG/2 ML VIAL IV ONE (18:00)
[2022-07-05] MEDS ORDERED: IBUPROFEN 800 MG (MOTRIN) TAB PO ONE (19:00)
[2022-07-05] MEDS ORDERED: ACETAMINOPHEN 500 MG TAB (TYLENOL) PO ONE (19:00)
[2022-07-05 20:12] VITALS: BP 136/111
== END 2022-07-05 20:12 | disposition home or self-care (01) ==
LOC: EDUNIT# 16:57 → ER 16:59
DX: U07.1 COVID-19 (principal); I48.91 Unspecified atrial fibrillation; G47.30 Sleep apnea, unspecified; Z86.79 Personal history of other diseases of the circulatory system; Z79.01 Long term (current) use of anticoagulants; Z99.89 Dependence on other enabling machines and devices
CPT/HCPCS: 82947; 87636

== ENCOUNTER 2022-08-14 01:19 | Emergency (ER) | payer BC ==
[~2022-08-14] VITALS: Ht 175.2 cm; Wt 107.0 kg
[~2022-08-14 01:19] MED LIST changes: +CLOP-31 PO; -CLOP75TA69 PO
--- NOTE | 2022-08-14 01:56 | ED GU-Male ---
General Chief Complaint: - Reproductive Stated Complaint: BLADDER INFECTION Nursing Triage Note: c/o lower abdominal pain, hematuria, frequent urination, possible fever since 08/10/22. reports being dc'd from [facility] 08/07/22 following cardiac ablation. pt reports bloody urine from catheter during admission at [facility]. Source: patient Exam Limitations: no limitations History of Present Illness Date Seen by Provider: Aug 14, 2022 Time Seen by Provider: 01:48 Initial Comments 62-year-old male presents to the emergency department today thinking he may have a urinary tract infection. He had a cardiac ablation a week ago in [place]. He states he had a urinary catheter during that time. He was discharged on Thursday and Thursday afternoon he started to have blood in his urine and increased urinary frequency. He states that soon as he drinks water he has to urinate immediately. He has burning with urination as well. He feels as though he migh t have a fever but has not checked his temperature. No sick contacts. He has suprapubic tenderness. Does have a history of kidney stones but states this feels different and does not have any flank pains. Denies any cough or chest pain. He states he is "doing well from my heart." Allergies and Home Medications Allergies Coded Allergies: No Known Drug Allergies (Unverified , 07/05/22) Patient Home Medication List Home Medication List Reviewed: Yes Acetaminophen (Tylenol) 325 Mg Tablet, 650 MG PO Q6H PRN for PAIN-MILD (1-4), (Reported) Entered as Reported by: CATHERINE RICE on 07/10/21 0808 Allopurinol (Allopurinol) 300 Mg Tablet, 300 MG PO HS, (Reported) Entered as Reported by: JACQUELINE MARY on 04/26/21 112 Amlodipine Besylate (Amlodipine Besylate) 5 Mg Tablet, 5 MG PO 1700, (Reported) Entered as Reported by: JACQUELINE MARY on 04/26/21 112 Apixaban (Eliquis) 5 Mg Tablet, 5 MG PO BID, (Reported) Entered as Reported by: CATHERINE RICE on 07/10/21 0808 Atorvastatin Calcium (Atorvastatin Calcium) 40 Mg Tablet, 40 MG PO HS, (Reported) Entered as Reported by: JACQUELINE MARY on 04/26/21 112 Clopidogrel Bisulfate (Plavix) 75 Mg Tablet, 75 MG PO 1700, (Reported) Entered as Reported by: CATHERINE RICE on 02/04/22 1251 Fexofenadine HCl (Fexofenadine HCl) 180 Mg Tablet, 180 MG PO DAILY PRN for ALLERGIES, (Reported) Entered as Reported by: CATHERINE RICE on 07/10/21 0808 Hydrochlorothiazide (Hydrochlorothiazide) 25 Mg Tablet, 25 MG PO 0500, (Reported) Entered as Reported by: RED SHETH on 06/09/16 0757 Lactobacillus Acidophilus (Probiotic) 1 Each Capsule, 1 EACH PO HS, (Reported) Entered as Reported by: CATHERINE RICE on 07/10/21 0808 Magnesium Oxide (Magnesium) 400 Mg Magnesium Tablet, 400 MG PO HS, (Reported) Entered as Reported by: CATHERINE RICE on 02/04/22 125 Metformin HCl (Metformin HCl) 500 Mg Tablet, 500 MG PO HS, (Reported) Entered as Reported by: CATHERINE RICE on 02/04/22 125 Multivitamin (Multivitamin) 1 Each Tablet, 1 EACH PO HS, (Reported) Entered as Reported by: ALANIS LONG on 05/16/21 1009 [place] 3 Polyunsat Fatty Acids (Fish Oil 1,000 mg Capsule) 1,000 Mg Cap, 1,000 MG PO HS, (Reported) Entered as Reported by: CATHERINE RICE on 07/10/21 0808 Pantoprazole Sodium (Pantoprazole Sodium) 40 Mg Tablet.dr, 40 MG PO 0500, (Reported) Entered as Reported by: CATHERINE RICE on 02/04/22 125 Potassium Chloride (Potassium Chloride) 20 Meq Tablet.er, 20 MEQ PO HS, (Reported) Entered as Reported by: JACQUELINE MARY on 04/26/21 1126 Sotalol HCl (Sotalol) 80 Mg Tablet, 80 MG PO BID@0300,1500 Prescribed by: MARIO GOODE on 02/05/22 0933 Ubidecarenone (Co Q-10) 200 Mg Capsule, 200 MG PO HS, (Reported) Entered as Reported by: CATHERINE RICE on 02/04/22 125 Review of Systems Review of Systems Constitutional: chills EENTM: no symptoms reported Respiratory: no symptoms reported Cardiovascular: no symptoms reported Gastrointestinal: no symptoms reported Genitourinary: burning, dysuria, frequency, hematuria Musculoskeletal: no symptoms reported Skin: no symptoms reported Psychiatric/Neurological: No Symptoms Reported Endocrine: No Symptoms Reported Hematologic/Lymphatic: No Symptoms Reported Past Olofifg-Hsfgjr-Fqsxko Hx Patient Social History Tobacco Use?: No Substance use?: No Alcohol Use?: No Pt feels they are or have been: No Immunizations Up To Date Tetanus Booster (TDap): More than 5yrs First/Initial COVID19 Vaccinat: OCTOBER 2020, A Second COVID19 Vaccination Matt: NOVEMBER 2020, A Third COVID19 Vaccination Date: Seasonal Allergies Seasonal Allergies: Yes Past Medical History Surgery/Hospitalization HX: LOOP RECORDER 01/2019 CARDIAC ABLATION FOR ATRIAL FIBRILLATION APPENDECTOMY COLONOSCOPY/POLYPECTOMY renal stones, afib, high cholesterol, htn, gerd, polyps, niddm Surgeries: Yes (cardiac ablation, several for kidney stones) Appendectomy, Cardiac Respiratory: Yes Sleep Apnea Currently Using CPAP: Yes Currently Using BIPAP: No Cardiac: Yes (S/P ABLATION) Atrial Fibrillation, High Cholesterol, Hypertension Neurological: No Reproductive Disorders: No Sexually Transmitted Disease: No HIV/AIDS: No Genitourinary: Yes Kidney Stones Gastrointestinal: Yes Gastroesophageal Reflux, Polyps Musculoskeletal: No Endocrine: Yes (PRE DIABETIC) Diabetes, Non-Insulin dep HEENT: No Loss of Vision: Denies Hearing Impairment: Denies Cancer: No Psychosocial: No Integumentary: No Blood Disorders: No Adverse Reaction/Blood Tranf: No Family Medical History Reviewed Nursing Family Hx No Pertinent Family Hx, Heart Disease Physical Exam Vital Signs Vital Signs - First Documented 08/14/22 01:32 Temp 36.3 Pulse 102 Resp 18 B/P (MAP) 92/62 (72) Pulse Ox 97 O2 Delivery Room Air Capillary Refill : Less Than 3 Seconds Height, Weight, BMI Height: 5'9.00" Weight: 239lbs. 0.0oz. [id number]; 34.00 BMI Method:Stated General Appearance: WD/WN, no apparent distress HEENT: normal ENT inspection, TMs normal, pharynx normal Neck: non-tender, supple, normal inspection Cardiovascular: no edema, no gallop, no JVD, no murmur, tachycardia Respiratory: chest non-tender, lungs clear, normal breath sounds, no respiratory distress, no accessory muscle use Gastrointestinal: normal bowel sounds, soft, no organomegaly, other (Mild tenderness palpation in the suprapubic region.) Back: normal inspection, no CVA tenderness, no vertebral tenderness Extremities: normal range of motion, non-tender, normal inspection, no pedal edema, no calf tenderness, normal capillary refill Neurologic/Psychiatric: alert, normal mood/affect, oriented x 3 Skin: normal color, warm/dry Progress/Results/Core Measures Suspected Sepsis SIRS Temperature: Pulse: 102 Respiratory Rate: 18 Laboratory Tests 08/14/22 02:00: White Blood Count 14.5H Blood Pressure 92 /62 Mean: 72 Laboratory Tests 08/14/22 02:00: Platelet Count 302 Results/Orders Lab Results Laboratory Tests Test 08/14/22 01:35 08/14/22 02:00 Range/Units Urine Color RED H Urine Clarity CLOUDY Urine pH 6.5 5-9 Urine Specific [place] >=1.030 1.016-1.022 Urine Protein 3+ H NEGATIVE Urine Glucose (UA) TRACE H NEGATIVE Urine Ketones 1+ H NEGATIVE Urine Nitrite POSITIVE H NEGATIVE Urine Bilirubin NEGATIVE NEGATIVE Urine Urobilinogen 1.0 < = 1.0 MG/DL Urine Leukocyte Esterase 1+ H NEGATIVE Urine RBC (Auto) 3+ H NEGATIVE Urine RBC >100 H /HPF Urine WBC 2-5 /HPF Urine Squamous Epithelial Cells RARE /HPF Urine Crystals NONE /LPF Urine Bacteria MODERATE H /HPF Urine Casts NONE /LPF Urine Mucus SMALL H /LPF Urine Culture Indicated YES White Blood Count 14.5 H 4.3-11.0 10^3/uL Red Blood Count 4.95 4.30-5.52 10^6/uL Hemoglobin 15.1 13.3-17.7 g/dL Hematocrit 44 40-54 % Mean Corpuscular Volume 89 80-99 fL Mean Corpuscular Hemoglobin 31 25-34 pg Mean Corpuscular Hemoglobin Concent 35 32-36 g/dL Red Cell Distribution Width 14.0 10.0-14.5 % Platelet Count 302 130-400 10^3/uL Mean Platelet Volume 9.7 9.0-12.2 fL Immature Granulocyte % (Auto) 0 % Neutrophils (%) (Auto) 79 H 42-75 % Lymphocytes (%) (Auto) 10 L 12-44 % Monocytes (%) (Auto) 10 0-12 % Eosinophils (%) (Auto) 0 0-10 % Basophils (%) (Auto) 0 0-10 % Neutrophils # (Auto) 11.4 H 1.8-7.8 10^3/uL Lymphocytes # (Auto) 1.5 1.0-4.0 10^3/uL Monocytes # (Auto) 1.4 H 0.0-1.0 10^3/uL Eosinophils # (Auto) 0.0 0.0-0.3 10^3/uL Basophils # (Auto) 0.0 0.0-0.1 10^3/uL Immature Granulocyte # (Auto) 0.1 0.0-0.1 10^3/uL Sodium Level 134 L 135-145 MMOL/L Potassium Level 3.8 3.6-5.0 MMOL/L Chloride Level 101 98-107 MMOL/L Carbon Dioxide Level 20 L 21-32 MMOL/L Anion Gap 13 5-14 MMOL/L Glucose Level 137 H 70-105 MG/DL Calcium Level 9.7 8.5-10.1 MG/DL Corrected Calcium 9.5 8.5-10.1 MG/DL Total Protein 8.1 6.4-8.2 GM/DL Albumin 4.3 3.2-4.5 GM/DL My Orders Orders - JAMIE GRESHAM DO Ua Culture If Indicated (08/14/22 01:40) Cbc With Automated Diff (08/14/22 01:52) Comprehensive Metabolic Panel (08/14/22 01:52) Ns Iv 500 Ml (Sodium Chloride 0.9%) (08/14/22 02:00) Iv/Invasive Line Insertion .IV INSERT (08/14/22 01:52) Manual Differential (08/14/22 02:00) Urine Culture (08/14/22 01:35) Vital Signs/I&O 08/14/22 01:32 Temp 36.3 Pulse 102 Resp 18 B/P (MAP) 92/62 (72) Pulse Ox 97 O2 Delivery Room Air Capillary Refill : Less Than 3 Seconds Blood Pressure Mean: 72 Departure Communication (Admissions) Patient is hemodynamically stable. He is diaphoretic, tachycardic and borderline hypotensive. He is given IV fluids and labs are undertaken for this reason. Labs are reassuring and hypotension resolved with IV fluids. He is feeling somewhat better. Does not seem tract infection, given first antibiotics here in the emergency department will prescribe the same. Discharged in stable condition with supportive care. Impression Primary Impression: UTI (urinary tract infection) Qualified Codes: N30.01 - Acute cystitis with hematuria Disposition: HOME, SELF-CARE Condition: Stable Departure-Patient Inst. Referrals: ZENAIDA MELENDEZ DO (PCP/Family) Primary Care Physician Patient Instructions: Urinary Tract Infection, Adult (DC) Add. Discharge Instructions: Take antibiotics as prescribed until they are gone. Increase fluids at home and rest. Use Tylenol and ibuprofen as needed for fevers. Return to the emergency department for any severe concerns. Follow-up with your primary doctor for any nonemergent needs. All discharge instructions reviewed with patient and/or family. Voiced understanding. Scripts Cephalexin (Cephalexin) 500 Mg Tablet 500 MG PO BID for 7 Days, #14 TAB Prov: JAMIE GRESHAM DO 08/14/22 JAMIE GRESHAM DO Aug 14, 2022 01:56
[2022-08-14] MEDS ORDERED: NS IV 500 ML 500 ML IV SCH (02:00)
[2022-08-14 02:08] LABS: BASOPHILS % (AUTO) 0 % (0-10); EOSINOPHILS % (AUTO) 0 % (0-10); HEMATOCRIT 44 % (40-54); HEMOGLOBIN 15.1 g/dL (13.3-17.7); LYMPHOCYTES # (AUTO) 1.5 10^3/uL (1.0-4.0); LYMPHOCYTES % (AUTO) 10 % (12-44); MEAN CORPUSCULAR HEMOGLOBIN 31 pg (25-34); MEAN CORPUSCULAR HGB CONC 35 g/dL (32-36); MEAN CORPUSCULAR VOLUME 89 fL (80-99); MEAN PLATELET VOLUME 9.7 fL (9.0-12.2); MONOCYTES # (AUTO) 1.4 10^3/uL (0.0-1.0); MONOCYTES % (AUTO) 10 % (0-12); NEUTROPHILS # (AUTO) 11.4 10^3/uL (1.8-7.8); NEUTROPHILS % (AUTO) 79 % (42-75); PLATELET COUNT 302 10^3/uL (130-400); WHITE BLOOD COUNT 14.5 10^3/uL (4.3-11.0)
[2022-08-14 02:08] LABS: BILIRUBIN,URINE NEGATIVE (NEGATIVE); CLARITY,URINE CLOUDY; COLOR,URINE RED; GLUCOSE, URINE (UA) TRACE (NEGATIVE); KETONES,URINE 1+ (NEGATIVE); LEUKOCYTE ESTERASE ,URINE 1+ (NEGATIVE); NITRITE,URINE POSITIVE (NEGATIVE); PH,URINE 6.5 (5-9); PROTEIN,URINE 3+ (NEGATIVE)
[2022-08-14 02:16] LABS: BACTERIA,URINE MODERATE /HPF; SQUAMOUS EPITHELIAL CELL,UR RARE /HPF
[2022-08-14 02:16] LABS: ALBUMIN 4.3 GM/DL (3.2-4.5)
[2022-08-14 02:17] LABS: POTASSIUM 3.8 MMOL/L (3.6-5.0)
[2022-08-14 02:18] LABS: RBC,URINE >100 /HPF
[2022-08-14 02:18] LABS: CALCIUM 9.7 MG/DL (8.5-10.1)
[2022-08-14 02:19] LABS: TOTAL PROTEIN 8.1 GM/DL (6.4-8.2)
[2022-08-14] MEDS ORDERED: CEPHALEXIN 250 MG (KEFLEX) CAP PO STA (02:20)
[2022-08-14] MEDS ORDERED: CEPH500T PO (02:22)
[2022-08-14 02:23] LABS: CREATININE SERUM 1.25 MG/DL (0.60-1.30)
[2022-08-14 02:30] LABS: ANISOCYTOSIS SLIGHT; BAND NEUTROPHILS 6 %; BASOPHILS % (MANUAL) 0 %; EOSINOPHILS % (MANUAL) 0 %; LYMPHOCYTES % (MANUAL) 11 %; MONOCYTES % (MANUAL) 8 %; NEUTROPHILS % (MANUAL) 73 %; REACTIVE LYMPHOCYTES 2 %; TOXIC GRANULATION/VACUOLAZATIO 1+
[2022-08-14 02:41] VITALS: BP 107/77
== END 2022-08-14 02:43 | disposition home or self-care (01) ==
LOC: ER 01:23
DX: N39.0 Urinary tract infection, site not specified (principal); R00.0 Tachycardia, unspecified; Z87.442 Personal history of urinary calculi; Z87.19 Personal history of other diseases of the digestive system; Z90.49 Acquired absence of other specified parts of digestive tract
CPT/HCPCS: 36415; 80053; 81000; 85007; 85027; 87088; 99283

== ENCOUNTER 2022-11-11 10:59 | Outpatient (CLI) | payer BC ==
[~2022-11-11] VITALS: Ht 175.3 cm; Wt 110.7 kg
[2022-11-11] MEDS ORDERED: METF-397 PO (11:15)
== END 2022-11-11 11:32 | disposition home or self-care (01) ==
LOC: PREOP 10:59
PROVIDERS: ATTEND Surgery
DX: Z01.818 Encounter for other preprocedural examination (principal)

== ENCOUNTER 2022-11-19 09:42 | Day surgery (SDC) | payer BC ==
[~2022-11-19] VITALS: Ht 175.3 cm; Wt 110.7 kg
[2022-11-19] MEDS ORDERED: LACTATED RINGERS 1,000 ML IV STA (09:51)
[2022-11-19 10:00] VITALS: BP 126/82
[2022-11-19] MEDS ORDERED: LIDOCAINE JELLY 2% 6 ML SYRINGE MM PRN (10:00)
[2022-11-19] MEDS ORDERED: PROPOFOL INJECTION 50 ML IV ONE ×2 (10:14→11:16)
--- NOTE | 2022-11-19 11:11 | Progress Note-Pre Operative ---
Pre-Operative Progress Note Date of Available H&P: Nov 19, 2022 Date H&P Reviewed: Nov 19, 2022 Time H&P Reviewed: 10:00 History & Physical: No changes noted Pre-Operative Diagnosis: screening o PEÑA GARCIA MD Nov 19, 2022 11:11
--- NOTE | 2022-11-19 11:12 | Discharge Inst-Surgical ---
D/C Lap Instructions-RADHA Follow Up Activity as tolerated High Fiber Diet 25g or more per day Avoid Alcohol, Caffeine, Spicy Mar-Mac and Acid foods. Drink 64 fluid oz or more of fluids per day. Symptoms to Report: Fever over 101 degree F, Nausea/Vomiting If any problems/questions: Contact your physician or go to Emergency Room PEÑA GARCIA MD Nov 19, 2022 11:12
[2022-11-19] MEDS ORDERED: LIDOCAINE JELLY 2% 6 ML SYRINGE ONE (11:13)
[2022-11-19] MEDS ORDERED: ONDANSETRON 4 MG (ZOFRAN) ORAL DISSOLVE TAB PO PRN (11:15)
[2022-11-19] MEDS ORDERED: ONDANSETRON 4 MG/2 ML (SDV) Z0FRAN IVP PRN (11:15)
--- NOTE | 2022-11-19 11:37 | Anesthesia-General Post-Op ---
MAC Patient Condition Mental Status/LOC: Same as Preop Cardiovascular: Satisfactory Nausea/Vomiting: Absent Respiratory: Satisfactory Pain: Controlled Complications: Absent Post Op Complications Complications None Follow Up Care/Instructions Patient Instructions None needed. Anesthesiology Discharge Order Discharge Order Patient is doing well, no complaints, stable vital signs, no apparent adverse anesthesia problems. No complications reported per nursing. ZOIE VILLEGAS CRNA Nov 19, 2022 11:37
[2022-11-19 11:40] VITALS: BP 82/51
[2022-11-19 11:45] VITALS: BP 97/58
--- NOTE | 2022-11-19 11:47 | Progress Note-Post Operative ---
Post-Operative Progess Note Surgeon (s)/Bistro Attendant (s) Surgeon PEÑA GARICA MD Bistro Attendant: none Pre-Operative Diagnosis screening colo Post-Operative Diagnosis stage 2-3 ext and int hemorrhoids, small HP polyp desc and transverse(2mm) Procedure & Operative Findings Date of Procedure 11/19/22 Procedure Performed/Findings EGD with bx Anesthesia Type mac Estimated Blood Loss Estimated blood loss (mL): minimal Specimens/Packing Specimens Removed desc and transverse colon polyp. PEÑA GARCIA MD Nov 19, 2022 11:47
[2022-11-19 12:00] VITALS: BP 124/79
[2022-11-19 12:10] VITALS: BP 124/79
--- NOTE | 2022-11-19 17:27 | OPERATIVE REPORT ---
DATE OF SERVICE: 11/19/2022 ATTENDING PRIMARY CARE PHYSICIAN: Dr. Joe Hughes. PREOPERATIVE DIAGNOSIS: Screening colonoscopy with history of colon polyps. POSTOPERATIVE DIAGNOSES: Chronic between stage II and III external and internal hemorrhoids, small hyperplastic polyp of the descending and transverse colon. PROCEDURE: Colonoscopy with polypectomy with hot biopsy forceps. SURGEON: Peña Garcia MD ANESTHESIA: Monitored anesthesia care. ESTIMATED BLOOD LOSS: Minimal. FINDINGS: Chronic between stage II and III external and internal hemorrhoids, small hyperplastic polyp of the descending and transverse colon. DISPOSITION: The patient tolerated the procedure well. INDICATIONS: The patient is a 62-year-old male referred over to us for screening colonoscopy. His last one was around 2014. He reports that he has had polyps removed on 2 separate colonoscopies. His first one he had about 5, which were all benign and then the last one, which was done in 2014, only one identified. He states he is otherwise doing well, does not report any major issues with diarrhea, nor constipation as well as no red blood per rectum, nor any dark tarry stools. He also does not report any family history of colon cancer. DESCRIPTION OF PROCEDURE: The patient was brought to the endoscopy suite and laid in the left lateral decubitus position. After adequate IV pain and sedative medications and monitored anesthesia care, a digital rectal examination was performed. There was a between stage II and III external and internal hemorrhoids identified with some mild edema noted. No active bleeding. Normal sphincter tone was felt and there were no palpable masses. Prostate gland was palpable and appeared normal. The endoscope was then intubated into the anus, rectum gently insufflated. The endoscope was then advanced through the valves of Souza of the rectum with a few very small 1 mm hyperplastic polyps identified, which were left alone. The endoscope was then advanced through the sigmoid colon where no diverticulosis identified. At the descending colon, a slightly larger hyperplastic polyp approximately 2 mm in size was identified. This was biopsied and destroyed with forceps and electrocautery with visualization of good hemostasis. The endoscope was then advanced through the transverse colon where another very small hyperplastic polyp approximately 2 mm in size was identified and this was biopsied and destroyed with forceps and electrocautery. The endoscope was then advanced to the remainder of the descending, transverse and ascending colon to the cecum. The endoscope was then slowly withdrawn while taking a second look and suctioning of residual air with no additional findings. The patient tolerated the procedure well. We will recommend continued medical management with a high-fiber diet with at least 30 g of fiber daily as well as significant amounts of water to promote soft stools on a daily basis. We feel that he did have multiple small hyperplastic polyps identified on his previous colonoscopies that were all similar to this. Hyperplastic polyps do not have any malignancy potential however, does slightly increase the risk of the development of adenomatous polyps and we will have him proceed with a followup colonoscopy anywhere from 5 to 7 years. Job ID: [id number] DocumentID: [id number] Dictated Date: 11/19/2022 11:42:14 Chemical Production Engineer Date: 11/19/2022 17:25:00 Dictated By: PEÑA GARCIA MD MTDD
== END 2022-11-19 12:10 | disposition home or self-care (01) ==
LOC: ENDO 09:42
PROVIDERS: ATTEND Surgery
DX: Z12.11 Encounter for screening for malignant neoplasm of colon (principal); D12.4 Benign neoplasm of descending colon; K63.5 Polyp of colon; K64.2 Third degree hemorrhoids; K64.4 Residual hemorrhoidal skin tags; R73.03 Prediabetes; E66.9 Obesity, unspecified; G47.33 Obstructive sleep apnea (adult) (pediatric); Z95.5 Presence of coronary angioplasty implant and graft; Z79.84 Long term (current) use of oral hypoglycemic drugs; Z68.36 Body mass index [BMI] 36.0-36.9, adult
CPT/HCPCS: 82947; 88305

== ENCOUNTER 2023-01-14 07:33 | Day surgery (SDC) | payer BC, OTHER ==
[~2023-01-14] VITALS: Ht 175.3 cm; Wt 109.8 kg
[~2023-01-14 07:33] MED LIST changes: -ORPH100T PO; +ORPH100T3 PO
[2023-01-14] MEDS ORDERED: LIDOCAINE 1% INJ 20 ML VIAL ONE (07:45)
[2023-01-14 08:12] VITALS: BP 127/92
--- NOTE | 2023-01-14 08:40 | Implantation of Loop Monitor ---
Implant of Loop Monitior IMPLANTATION OF LOOP MONITOR REPORT DATE OF PROCEDURE: 01/14/23 PREOP DIAGNOSIS: Paroxysmal atrial fibrillation POSTOP DIAGNOSIS: Paroxysmal atrial fibrillation PROCEDURE DETAILS: The patient is a 62 male with history of paroxysmal atrial fibrillation requiring long-term surveillance, patient had a loop monitor that reach battery depletion, scheduled for ablation in February 2023. Therefore implantable loop recorder was discussed and agreed with the patient. Informed consent was taken. All risks and complications were discussed at length. The patient was draped and prepped in the usual sterile fashion. Local anesthesia was lidocaine, which was given in the substernal area close to the 4th intercostal space. Loop monitor [employer] with serial number [id number] was implanted according to the protocol. Steri-Strips were placed at the end of the procedure. There were no complications and the patient tolerated the procedure well. The device was interrogated with a voltage of. ANESTHESIA: Local anesthesia with lidocaine. COMPLICATIONS: None CONTRAST/FLUOROSCOPY: None CONCLUSION: Successful loop implantation with no complication FINAL DIAGNOSIS: Paroxysmal atrial fibrillation Palpitation Hypertension MARIO GOODE MD January 14, 2023 08:40
== END 2023-01-14 09:30 | disposition home or self-care (01) ==
LOC: CATH 07:33
PROVIDERS: ATTEND Internal Medicine Cardiovascular Disease
DX: I48.0 Paroxysmal atrial fibrillation (principal); I10 Essential (primary) hypertension; E66.9 Obesity, unspecified; E78.2 Mixed hyperlipidemia; G47.33 Obstructive sleep apnea (adult) (pediatric); I25.10 Atherosclerotic heart disease of native coronary artery without angina pectoris; E11.9 Type 2 diabetes mellitus without complications; I65.23 Occlusion and stenosis of bilateral carotid arteries; Z68.35 Body mass index [BMI] 35.0-35.9, adult; Z79.01 Long term (current) use of anticoagulants; Z79.84 Long term (current) use of oral hypoglycemic drugs
CPT/HCPCS: 33285; C1764

== ENCOUNTER → 2023-01-28 | Outpatient (CLI) | payer BC, OTHER | LOC: CARD 11:29 | PROVIDERS: ATTEND Physician Assistant | DX: I11.9 Hypertensive heart disease without heart failure (principal); I48.0 Paroxysmal atrial fibrillation | CPT/HCPCS: 93306 ==

== ENCOUNTER → 2023-02-11 | Outpatient (CLI) | payer BC ==
[~2023-02-11] MED LIST changes: +CATHETER FLUSH 10 ML SYR IVP PRN; +POTA-330 PO; -POTA-51 PO; +REGADENOSON 0.4 MG/5 ML SYR (LEXISCAN) IV ONE
[2023-02-11 13:17] VITALS: BP 184/118
--- NOTE | 2023-02-11 15:43 | Cardiology Stress Test Report ---
Stress Test Report Date of Procedure/Referring: Date of Procedure: Feb 11, 2023 PCP Zenaida Hughes DO Admitting Physician Admitting Physician: Attending Physician: Selena Lee Indications: A fib Baseline Heart Rate: 78 Baseline Blood Pressure: Blood Pressure Systolic: 184 Blood Pressure Diastolic: 118 Baseline Vitals Vital Signs Date Time Temp Pulse Resp B/P (MAP) Pulse Ox O2 Delivery O2 Flow Rate FiO2 02/11/23 13:17 78 184/118 (140) Baseline EKG: Baseline EKG: NSR Summary After explaining the procedure to the patient, he signed a consent and then brought to the stress nuclear laboratory. Patient received 0.4 mg Lexiscan for stress test, ECG, heart rate and blood pressure were monitored continuously. Resting and stress dose of radio tracer were injected, imaging was acquired and reviewed in short axis, horizontal long axis and vertical long axis views. TID: 1.12 SSS: 4 SDS: 3 EF: 62 Patient tolerated Lexiscan well Mild reversible ischemia involving the mid to apical anterolateral wall Normal left ventricular size, ejection fraction 62% Copy Copies To 1: ZENAIDA HUGHES BASHAR J MD Feb 11, 2023 15:43
== END ==
LOC: CARD 11:38
PROVIDERS: ATTEND Physician Assistant
DX: I48.0 Paroxysmal atrial fibrillation (principal)
CPT/HCPCS: 78452; 93017; A9502

== ENCOUNTER 2023-02-16 08:22 | Outpatient (CLI) | payer BC ==
[2023-02-16] VITALS (10 sets, daily range): BP systolic 112–147; BP diastolic 73–90
[~2023-02-16] VITALS: Ht 175.3 cm; Wt 108.9 kg
[~2023-02-16 08:22] MED LIST changes: -CATHETER FLUSH 10 ML SYR IVP PRN; -REGADENOSON 0.4 MG/5 ML SYR (LEXISCAN) IV ONE
[2023-02-16] MEDS ORDERED: NS IV 1000 ML 1,000 ML IV SCH ×2 (08:30→12:00)
[2023-02-16] MEDS ORDERED: HEParin (CATH LAB) 2,000 ML IV ONE (08:35)
[2023-02-16] MEDS ORDERED: NS IV 1000 ML 1,000 ML ONE (08:35)
[2023-02-16] MEDS ORDERED: LIDOCAINE 1% INJ 20 ML VIAL ONE (08:35)
[2023-02-16 09:03] LABS: HEMATOCRIT 43 % (40-54); MEAN CORPUSCULAR HEMOGLOBIN 31 pg (25-34); MEAN CORPUSCULAR HGB CONC 35 g/dL (32-36); MEAN CORPUSCULAR VOLUME 89 fL (80-99); PLATELET COUNT 199 10^3/uL (130-400); WHITE BLOOD COUNT 7.7 10^3/uL (4.3-11.0)
--- NOTE | 2023-02-16 09:17 | Diagnostic Imaging Report ---
INDICATION: Cardiac disease. COMPARISON: 07/10/2021. FINDINGS: The lungs are clear. There is no failure, effusion, or pneumothorax. There is trace left basilar atelectasis incidentally. A loop recorder overlies the left chest. IMPRESSION: Stable exam. No acute appearing pathology. Dictated by: Dictated on workstation # [id number]
[2023-02-16 09:26] LABS: ALBUMIN 4.4 GM/DL (3.2-4.5); BILIRUBIN,TOTAL 0.8 MG/DL (0.1-1.0); CALCIUM 9.5 MG/DL (8.5-10.1); CREATININE SERUM 0.9 MG/DL (0.60-1.30); TOTAL PROTEIN 7.4 GM/DL (6.4-8.2)
[2023-02-16] MEDS ORDERED: LOSA50TA63 PO (09:42)
[2023-02-16] MEDS ORDERED: NF-SOT120T PO (09:42)
[2023-02-16] MEDS ORDERED: FEXO180T84 PO (09:42)
[2023-02-16] MEDS ORDERED: VERAPAMIL 5 MG/2 ML (CALAN) VIAL IV ONE (10:33)
[2023-02-16] MEDS ORDERED: MIDAZOLAM 5 MG/5 ML (VERSED) VIAL ONE (10:33)
[2023-02-16] MEDS ORDERED: HEParin 1000 UNIT/ML (10ML VIAL) FOR BOLUS ONE (10:33)
[2023-02-16] MEDS ORDERED: fentaNYL INJ 100 MCG/2 ML AMP ONE (10:33)
[2023-02-16] MEDS ORDERED: NITRO DRIP 25000 MCG/D5W 250 ML IV ONE (10:34)
--- NOTE | 2023-02-16 11:53 | Discharge Inst-Post CATH ---
Discharge Inst-CATH/EP Problems Reviewed?: Yes Final Diagnosis abnormal nuclear stress test. CAD/PCI chest tightness Post Cardiac Cath/EP D/C Inst Follow Up/Plan Follow up with Dr Gomez/Selena ORDOÑEZ <b>CARDIAC CATH/EP PROCEDURE DISCHARGE INSTRUCTIONS</b> ACTIVITY * Go Home directly and rest. * Limit activity of the leg (or wrist if it was used) for 7 days including aerobics, swimming, jogging, bicycling, etc. * Restrict stair-climbing for 7 days if possible, if not, climb up with your non-cath leg, then bring together on the same step. * Avoid lifting, pushing, pulling or excessive movement of the affected extremity for 7 days. * Customary sexual activity may be resumed after 2 days-use caution not to use a position that strains or causes pain to the affected extremity. * No driving for 24 hours. * NO SMOKING. * Avoid straining for bowel movements for 7 days. * Gentle walking on level ground is allowed. * Returning to work will depend on the type of procedure and the results. Your doctor will discuss this with you. CALL YOUR DOCTOR FOR ANY OF THE FOLLOWING: *If bleeding from the puncture site occurs- Apply gentle pressure to site with clean cloth and call your doctor or EMS. * If a knot or lump forms under the skin, increases in size, or causes pain. * If bruising appears to be worsening or moving further down your leg instead of disappearing. * Temperature above 101 F. CARE OF YOUR GROIN INCISION; * Bruising or purple discoloration of the skin near the puncture site is common. * You may shower only, no bathtub bathing for 5 days. Be careful to avoid slipping as your leg may feel stiff. * If a closure device was used on your femoral artery, please see the attached guide regarding care of the device and your leg. * Leave dressing on FOR 24 hours. CARE OF YOUR WRIST INCISION; * Bruising or purple discoloration of the skin near the puncture site is common. * You may shower. * DO NOT submerge wrist. * Leave dressing on FOR 24 hours. Jp GABRIEL MD Feb 16, 2023 11:53
--- NOTE | 2023-02-16 11:55 | Cardiac Procedure Note-CS/ASA ---
Pre-Procedure Note Pre-Op Procedure Note Date H&P Reviewed: Feb 16, 2023 Time H&P Reviewed: 10:30 History & Physical: H&P Reviewed, Patient Examed, No changes noted Pre-Operative Diagnosis: abnormal nuclear stress test, chest pain Moderate Sedation PreProcedure Time 10:30 ASA Score 3 Airway Lungs Heart ASA score ASA 1: a normal healthy patient ASA 2: a patient with a mild systemic disease (mid diabetes, controlled hypertension, obesity ASA 3: a patient with a severe systemic disease that limits activity (angina, COPD, prior Myocardial infarction) ASA 4: a patient with an incapacitating disease that is a constant threat to life (CHF, renal failure) ASA 5: a moribund patient not expected to survive 24 hrs. (ruptured aneurysm) ASA 6: a declared brain- patient whose organs are being harvested. For emergent operations, add the letter E after the classification Mallampati Classification Grade 1 Sedation Plan Analgesia, Amnesia, Plan communicated to team members, Discussed options with patient/fam, Discussed risks with patient/fam The patient is an appropriate candidate to undergo the planned procedure, sedation, and anesthesia. The patient immediately re-assessed prior to indication. Jp GABRIEL MD Feb 16, 2023 11:55
--- NOTE | 2023-02-16 11:57 | Coronary Angiography Report ---
Coronary Angiography Report DATE OF PROCEDURE: 02/16/23 INDICATION: Chest pain, abnormal nuclear stress test. History of coronary artery disease, PCI. PREOPERATIVE DIAGNOSIS: Chest pain, abnormal nuclear stress test. History of coronary artery disease, PCI. POSTOPERATIVE DIAGNOSIS: Chest pain, abnormal nuclear stress test. History of coronary artery disease, PCI. Mild to moderate CAD. HISTORY: This is a 62-year-old gentleman who has previous history of PCI to the LAD. He presents with complaints of chest tightness. Dr. Gomez did a nuclear stress test which was Abnormal. Therefore, the patient was scheduled for coronary angiography. PROCEDURES PERFORMED: 1.Coronary angiography. 2.Left heart catheterization. COMPLICATIONS: None. SPECIMENS: None. ESTIMATED BLOOD LOSS: 10 mL ANESTHESIA: Conscious sedation ANTICOAGULATION: IV heparin CONTRAST: 40ml FLUOROSCOPY: 3.8 minutes FLOUROSCOPY DOSE: [id number] [id number] PROCEDURE DETAILS: The patient is a 62 male and was brought to the labeler after informed consent was taken. All the risks and complications were explained in detail; this included the risk of bleeding, vascular damage, stroke, CO and even . The patient was draped and prepped in the usual sterile fashion. Access was gained in the right radial artery with a 6 [place]ese sheath. Coronary angiography and left heart catheterization was performed with the Coward catheter. FINDINGS: 1.Left main: Patent. 2.LAD: Patent stent in the proximal LAD with very mild ISR. Mild diffuse disease distally. 3.Left circumflex artery: Mild disease in the first OM. 4.RCA: Mild disease in the proximal/Mid RCA. Stenosis severity 30 to 40%. 5.Left heart catheterization: Aortic pressure 114/79, LV pressure 103/17, LVEDP 27 mmHg. No gradient across the aortic valve. CONCLUSIONS: Mild coronary artery disease. Patent stent in the proximal LAD. Continue secondary prevention measures. Follow-up with Dr. Gomez. Brennan Suresh MD, FACP, FACC, [facility] Interventional Cardiology Jp SURESH MD Feb 16, 2023 11:57
[2023-02-16] MEDS ORDERED: PATIENT MAY USE OWN MEDS, ALL PO SCH (12:00)
== END 2023-02-16 15:00 | disposition home or self-care (01) ==
LOC: CATH 08:22 → SDC 11:53 → CATH 15:00
PROVIDERS: ATTEND Internal Medicine Interventional Cardiology
DX: I51.9 Heart disease, unspecified (principal)
CPT/HCPCS: 36415; 71045; 80053; 80061; 85027; 85610; 85730; 87081; 93458